=== PATIENT | female | born 1960 | race Caucasian/White ===

== ENCOUNTER 2020-02-24 10:51 | Outpatient (CLI) | payer MEDICARE, MEDICAID, SELFPAY ==
--- NOTE | ~2020-02-24 | CT_ITS ---
EXAMINATION: CT abdomen wo con DATE: 02/24/2020 11:16 INDICATION: Hernia. Exposure to viral communicable disease TECHNIQUE: Computed tomography (CT) of the abdomen was performed without intravenous contrast. Automa zuly exposure control and iterative reconstruction technique were employed. Exam dose: 1077.69 mGy-cm total exam DLP. COMPARISON: None. FINDINGS: There is an approximately 5.5 mm middle lobe nodule (series 4 image 1). Differential diagno sis includes pulmonary granuloma, hamartoma, primary or metastatic pulmonary malignancy. The lung bases are clear of consolidation. Mild cardiomegaly. Coronary artery calcifications. There is air in the intrahepatic and extrahepatic bile ducts. Status post cholecystectomy. No hepatic, splenic, pancreatic, and adrenal or renal space-occupying mass lesion is evident on this limited examination. There is postoperative change of the right kidney. No urinary tract calculus or hydroureteronephrosis. There is calcification of the abdominal aorta and aortic branches as well as the iliac arteries. Ther e is an aortobiiliac femoral vascular stent. No intraperitoneal or retroperitoneal mass lesion or adenopathy or ascites. There is a small sliding hiatal hernia. There is herniation of proximal right colon, appendix and small bowel through a large defect in the r ight lateral abdominal wall. No strangulation or obstruction is evident. Diffuse idiopathic skeletal hyperostosis of the thoracic spine. Multilevel degenerative disease of th e lumbar spine. IMPRESSION: Large lateral right abdominal wall hernia containing cecum, appendix and distal small heide wel 5.5 mm middle lobe nodule; differential diagnosis includes benign and malignant processes. Recommend comparison with any prior available CT abdomen or pelvis examinations. If not available, six-month CT follow-up is recommended. Status post cholecystectomy, likely responsible for observed pneumobilia Small sliding hiatal hernia Reviewed, dictated and finalized at [facility]. Reviewed, dictated and finalized at location [facility]. RETAILER IMPRESSION: Large lateral right abdominal wall hernia containing cecum, append ix and distal small bowel 5.5 mm middle lobe nodule; differential diagnosis includes benign and malignant processes. Recommend comparison with any prior available CT abdomen or pelvis examinations. If not available, six-month CT follow-up is recommended. Status post cholecystectomy, likely responsible for observed pneumobilia Small sliding hiatal hernia
== END 2020-02-24 10:52 | disposition home or self-care (01) ==
PROVIDERS: PCP Internal Medicine Infectious Disease
DX: K43.9 Ventral hernia without obstruction or gangrene (principal); R91.1 Solitary pulmonary nodule; Z90.49 Acquired absence of other specified parts of digestive tract; K44.9 Diaphragmatic hernia without obstruction or gangrene
CPT/HCPCS: 74150

== ENCOUNTER 2020-11-17 09:22 | Emergency (ER) | payer MEDICARE, MEDICAID, SELFPAY ==
[2020-11-17 09:20] VITALS: BP 141/57; PULSE 90; RESP 20; TEMP 37.1; O2SAT 98
[2020-11-17 10:18] LABS: Basophils Percent Auto 0.2 % (0.2-1.2); Eosinophils Absolute Auto 0.1 K/mm3 (0-0.3); Eosinophils Percent Auto 0.8 % (0-4.4); Hematocrit 40.9 % (37.0-47.0); Immature Granulocyte Absolute 0.03 K/mm3 (0.00-0.031); Immature Granulocyte Percent A 0.3 % (0-0.5); Lymphocytes Absolute Auto 1.57 K/mm3 (0.9-3.2); Lymphocytes Percent Auto 16.6 % (18.3-44.2); Mean Corpuscular HGB Conc 31.8 g/dl (32-36); Mean Corpuscular Hemoglobin 30.3 pg (26-34); Mean Corpuscular Volume 95.3 fl (80-100); Mean Platelet Volume 9.9 fl (7.4-10.4); Monocytes Absolute Auto 0.6 K/mm3 (0.1-0.6); Monocytes Percent Auto 6.6 % (2.6-8.5); Neutrophils Absolute Auto 7.2 K/mm3 (1.3-6.7); Neutrophils Percent Auto 75.5 % (45.5-73.1); Platelet Count Result 329 k/mm3 (150-375); Red Blood Count 4.29 M/mm3 (4.2-5.4); Red Cell Distribution Width 14.6 % (11.5-14.5); White Blood Count 9.5 K/mm3 (4.5-10.0)
[2020-11-17 10:30] LABS: Prothrombin Time 53.7 Seconds (11.1-14.7)
[2020-11-17 10:36] LABS: INR 6.4
[2020-11-17 10:54] VITALS: BP 115/59; PULSE 71; RESP 19; O2SAT 94
[2020-11-17 12:08] LABS: Anion Gap 8 mmol/L (8-16); Blood Urea Nitrogen 22 mg/dL (7-17); Calcium 8.8 mg/dL (8.4-10.2); Carbon Dioxide 31 mmol/L (22-30); Chloride 98 mmol/L (98-107); Estimated CRCL calculation 90 ml/min; Estimated Glomerular Filt Rate > 60; Glucose 180 mg/dL (65-110); Potassium 4.5 mmol/L (3.4-5.0); Sodium 137 mmol/L (137-145)
--- NOTE | 2020-11-17 13:28 | ED.WOUNDLAC ---
HPI - Wound/Laceration General Chief Complaint: Wound/Laceration Stated Complaint: bleeding ulcer on leg Time Seen by Provider: 11/17/20 09:34 History of Present Illness HPI narrative: Patient is a 60-year-old female who presents to the ER with bleeding from an ulceration on her right leg. Patient has chronic ulcerations to her lower extremities and sees a wound care center at at bedtime at bedtime weekly. She was unable to make her wound care appointment today and due to the bleeding she was referred here from her shelter. Patient does take Coumadin. She denies any injury or trauma to her ulceration. No new fevers or chills or sweats. No new swelling to her legs. Related Data Home Medications Medication Instructions Recorded Confirmed Lactobacillus acidophilus 10 mg PO DAILY 01/30/19 11/24/19 PT/INR testing monitor #1 01/30/19 11/24/19 aspirin 81 mg tablet,delayed 81 mg PO DAILY 01/30/19 11/24/19 release bumetanide 2 mg tablet 2 mg PO DAILY 01/30/19 11/24/19 cetirizine 5 mg tablet 5 mg PO DAILY PRN 01/30/19 11/24/19 cholecalciferol (vitamin D3) 100 4,000 unit PO DAILY 01/30/19 11/24/19 mcg (4,000 unit) capsule divalproex 250 mg tablet,delayed 250 mg PO Q12H 01/30/19 11/24/19 release docusate sodium 100 mg capsule 100 mg PO DAILY 01/30/19 11/24/19 famotidine 20 mg tablet 20 mg PO DAILY 01/30/19 11/24/19 multivitamin 1 cap PO DAILY 01/30/19 11/24/19 rosuvastatin 40 mg tablet 40 mg PO DAILY 01/30/19 11/24/19 warfarin 1 mg tablet 1 mg PO QMWF 01/30/19 11/24/19 Allergies Allergy/AdvReac Type Severity Reaction Status Date / Time latex Allergy Mild Unknown Verified 11/19/19 15:03 Latex, Natural Rubber Allergy Mild Unknown Verified 11/19/19 15:03 Review of Systems Review of Systems: All systems reviewed & are unremarkable except as noted in HPI and below Constitutional: Constitutional: Denies chills, Denies fever(s) and Denies weakness Cardiovascular: Cardiovascular: Denies chest pain and Denies rapid heart rate Respiratory: Respiratory: Denies cough, Denies dyspnea and Denies wheezing Gastrointestinal: Gastrointestinal: Denies abdominal pain, Denies diarrhea, Denies nausea and Denies vomiting Integumentary/Breasts: Skin/Breast: Denies erythema, Denies rash and Reports skin ulcer (Bleeding) [facility] Past Medical History Medical History (Updated 11/17/20 @ 13:57 by Genaro Goins MD) GERD (gastroesophageal reflux disease) High cholesterol History of blood clots History of kidney cancer History of kidney stones Hx of gallstones removal Family History Family History Father Throat cancer Mother Heart disease Social History Social History Smoking status: Current every day smoker Alcohol intake: never Exam Narrative: GENERAL: Chronically ill appearing, obese, and in no acute distress. HEAD: Normocephalic, atraumatic. Scabs to the face that are dried. ENT: Mucous membranes moist. CHEST: Clear to auscultation. No respiratory distress. HEART: Regular rate and rhythm. Normal peripheral pulses. ABDOMEN: Soft, nontender, nondistended. EXTREMITIES: Normal range of motion. No edema. SKIN: Warm, dry, large ulceration right kilpatrick 9 by 7 cm with granulation tissue. No active bleeding. Left-sided small ulceration 2 x 2 cm. NEURO: Alert and oriented x3. PSYCH: Normal mood and affect. Course Course Emergency Course: Discussed case with patient's physician at the shelter Dr. Luna kay. He recommends that the blood thinners be held for 72 hours and then have a repeat INR performed. Patient will be discharged back to the shelter. Vital Signs Vital signs: Vital Signs Temperature 98.7 F 11/17/20 09:20 Pulse Rate 90 11/17/20 09:20 Respiratory Rate 20 11/17/20 09:20 Blood Pressure 141/57 H 11/17/20 09:20 Pulse Oximetry 98 11/17/20 09:20 Temperature 98.7 F
[2020-11-17] MEDS: ACETAMINOPHEN 325 MG TABLET 650 MG PO (14:11)
[2020-11-17 15:29] VITALS: BP 133/64; PULSE 88; RESP 16; TEMP 36.7; O2SAT 100
== END 2020-11-17 15:30 ==
PROVIDERS: Emergency Provider Emergency Medicine; PCP Internal Medicine Infectious Disease
DX: L97.819 Non-pressure chronic ulcer of other part of right lower leg with unspecified severity (principal); L97.929 Non-pressure chronic ulcer of unspecified part of left lower leg with unspecified severity; T45.515A Adverse effect of anticoagulants, initial encounter; K21.9 Gastro-esophageal reflux disease without esophagitis; E78.00 Pure hypercholesterolemia, unspecified; Z85.528 Personal history of other malignant neoplasm of kidney; Z87.442 Personal history of urinary calculi; F17.200 Nicotine dependence, unspecified, uncomplicated; Z79.01 Long term (current) use of anticoagulants; Z79.82 Long term (current) use of aspirin
CPT/HCPCS: 36415; 80048; 85025; 85610; 99283; A9270

== ENCOUNTER 2021-01-10 08:01 | Outpatient (CLI) | payer OTHER, SELFPAY ==
--- NOTE | ~2021-01-10 | US_ITS ---
EXAMINATION: US arterial ankle brachial ind DATE: 01/10/2021 09:19 INDICATION: Ulcerations at the bilateral lower limbs. Peripheral vascular disease risk factors of luis a betes, hypercholesterolemia and prior smoking. TECHNIQUE: Segmental pressures and plethysmographic and Doppler waveforms of the brachial and lower e xtremity arteries were obtained. COMPARISON: None. FINDINGS: Right and left brachial artery pressures of 142 mm Hg and 134 mm Hg, respectively, are concordant (no rmal difference <= 30 mmHg). The right ankle-brachial index (SALVADOR) is 0.68 (normal >= 0.9-1.0). The right great toe-brachial index (TBI) is 0.52 (normal >= 0.65). Arterial Doppler waveforms are biphasic with brisk systolic upstrokes at both the right posterior tibial and dorsalis pedis arteries. The left SALVADOR is 0.96. The left TBI is 0.62. Arterial Doppler waveforms are biphasic with brisk systol ic upstrokes of both the left dorsalis pedis and posterior tibial arteries. IMPRESSION: 1. Arterial occlusive disease to the bilateral lower limbs with moderately decreased right SALVADOR and TB I and borderline decreased left SALVADOR and TBI. Reviewed, dictated and finalized at location [facility]. 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 Arterial occlusive disease to the bilateral lower limbs with moderately decr eased right SALVADOR and TBI and borderline decreased left SALVADOR and TBI.
== END 2021-01-10 08:02 | disposition home or self-care (01) ==
LOC: ANHIMG 08:07
PROVIDERS: PCP Internal Medicine Infectious Disease; Visit Provider Internal Medicine
DX: S81.802A Unspecified open wound, left lower leg, initial encounter (principal); I70.203 Unspecified atherosclerosis of native arteries of extremities, bilateral legs
CPT/HCPCS: 93922

== ENCOUNTER 2021-03-17 18:55 | Emergency (ER) | payer OTHER, SELFPAY ==
--- NOTE | 2021-03-17 19:05 | PC.NURSE ---
Pt agitated, refusing to be triaged, states that we do not need to know her business.
--- NOTE | 2021-03-17 19:48 | PC.NURSE ---
Pt A&Ox4, denies pain or any need/want for medical attention. Pt states she just wants to go back to her facility. Reports she just got agitated earlier and is calm now. RN Attempting to call facility.
--- NOTE | 2021-03-17 19:56 | PC.NURSE ---
This RN spoke with Angeline pt's RN at [facility]. Explained that patient is oriented x 4 and does not want to be seen by a physician. 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
[2021-03-17 20:15] VITALS: BP 138/75; PULSE 80; RESP 18; TEMP 36.7; O2SAT 96
--- NOTE | 2021-03-18 04:59 | PC.NURSE ---
pt states that she was yelling at her facility because she did not want a room mate after returning from surgical procedure. pt denies thoughts of hurting others or herself.
[2021-03-18 05:04] VITALS: BP 185/80; PULSE 76; RESP 18; O2SAT 98
--- NOTE | 2021-03-18 05:16 | ED.GENADULT ---
HPI - General Adult General Chief complaint: Psychiatric Symptoms Stated complaint: VIOLENT THREATS AGAINST STAFF AND RESIDENTS Time Seen by Provider: 03/18/21 05:00 History of Present Illness HPI narrative: Patient is a 60-year-old female that presents the emergency department with chief complaint of aggressive actions toward staff of facility. Patient returned back to her facility and found that she had a roommate was arguing with staff today. Police were called and the patient was transported by EMS to our facility. Patient currently states she does not want to be here denies suicidal or homicidal ideation. Related Data Home Medications Medication Instructions Recorded Confirmed Lactobacillus acidophilus 10 mg PO DAILY 01/30/19 11/24/19 PT/INR testing monitor #1 01/30/19 11/24/19 aspirin 81 mg tablet,delayed 81 mg PO DAILY 01/30/19 11/24/19 release bumetanide 2 mg tablet 2 mg PO DAILY 01/30/19 11/24/19 cetirizine 5 mg tablet 5 mg PO DAILY PRN 01/30/19 11/24/19 cholecalciferol (vitamin D3) 100 4,000 unit PO DAILY 01/30/19 11/24/19 mcg (4,000 unit) capsule divalproex 250 mg tablet,delayed 250 mg PO Q12H 01/30/19 11/24/19 release docusate sodium 100 mg capsule 100 mg PO DAILY 01/30/19 11/24/19 famotidine 20 mg tablet 20 mg PO DAILY 01/30/19 11/24/19 multivitamin 1 cap PO DAILY 01/30/19 11/24/19 rosuvastatin 40 mg tablet 40 mg PO DAILY 01/30/19 11/24/19 warfarin 1 mg tablet 1 mg PO QMWF 01/30/19 11/24/19 Allergies Allergy/AdvReac Type Severity Reaction Status Date / Time latex Allergy Mild Unknown Verified 11/19/19 15:03 Latex, Natural Rubber Allergy Mild Unknown Verified 11/19/19 15:03 Review of Systems Review of Systems: A 10 system review of systems was completed on the patient and is negative except for what is stated in the HPI. Nursing and ancillary documentation was reviewed. [facility] Past Medical History Medical History GERD (gastroesophageal reflux disease) High cholesterol History of blood clots History of kidney cancer History of kidney stones Hx of gallstones removal Family History Family History Father Throat cancer Mother Heart disease Social History Social History Smoking status: Current every day smoker Alcohol intake: never Substance use type: does not use Exam Narrative: GENERAL: Well-appearing, well-nourished, and in no acute distress. HEAD: Normocephalic, atraumatic. EYES: PERRLA and EOMI. ENT: Nares clear, no rhinorrhea or epistaxis. Mucous membranes moist. NECK: Supple. CHEST: Clear to auscultation. No respiratory distress. HEART: Regular rate and rhythm. No murmur heard. Normal peripheral pulses. ABDOMEN: Soft, nontender, nondistended, normal active bowel sounds. EXTREMITIES: Normal range of motion. No edema. SKIN: Warm, dry, no rash. NEURO: No focal deficits. Alert and oriented x3. PSYCH: Normal mood and affect. Course Course Emergency Course: The patient stated that she did not want to be evaluated in the emergency department. The patient was asked whether she was suicidal or homicidal the patient denies both. The patient stated that she wished to return back to her facility and did not want to complete a medical screening exam the patient was alert and oriented able to answer all questions did not meet the criteria for emergent hold. Vital Signs Vital signs: Vital Signs Temperature 36.7 C 03/17/21 20:15 Pulse Rate 80 03/17/21 20:15 Respiratory Rate 18 03/17/21 20:15 Blood Pressure 138/75 03/17/21 20:15 Pulse Oximetry 96 03/17/21 20:15 Temperature 36.7 C 03/17/21 20:15 Pulse Rate 76 03/18/21 05:04 Respiratory Rate 18 03/18/21 05:04 Blood Pressure 185/80 H 03/18/21 05:04 Pulse Oximetry 98 03/18/21 05:04 Medical Decision Making Vi
--- NOTE | 2021-03-18 05:20 | PC.NURSE ---
called [facility] to request transport. ETA [id number]
--- NOTE | 2021-03-18 05:54 | PC.NURSE ---
pt has spoken with physician two times and multiple nursing staff. she continues to refuse to answer most questions. refuses medical work up. pt wishes to leave at this time. she is signing out AMA
--- NOTE | 2021-03-18 06:37 | PC.NURSE ---
[facility] here
== END 2021-03-18 06:46 | disposition left against medical advice (07) ==
PROVIDERS: Emergency Provider Emergency Medicine; PCP Internal Medicine Infectious Disease
DX: R45.6 Violent behavior (principal); K21.9 Gastro-esophageal reflux disease without esophagitis; E78.00 Pure hypercholesterolemia, unspecified; Z85.528 Personal history of other malignant neoplasm of kidney; Z87.442 Personal history of urinary calculi; F17.200 Nicotine dependence, unspecified, uncomplicated; Z79.82 Long term (current) use of aspirin; Z79.01 Long term (current) use of anticoagulants
CPT/HCPCS: 99284

== ENCOUNTER 2021-06-18 11:23 | Observation (INO) | payer OTHER, SELFPAY ==
--- NOTE | ~2021-06-18 | CT_ITS ---
EXAMINATION: CT abdomen pelvis w con DATE: 06/18/2021 13:12 INDICATION: Abdominal pain and vomiting TECHNIQUE: Computed tomography (CT) of the abdomen and pelvis was performed with 100 CC Omnipaque 350 intravenous contrast. Automated exposure control and iterative reconstruction technique were employe d. Exam dose: 1776.16 mGy-cm total exam DLP. COMPARISON: 02/24/2020 CT abdomen FINDINGS: The lung bases are clear of consolidation. Mild cardiomegaly. There is coronary artery calc ification. No pericardial or pleural effusion. There is diffuse hepatic steatosis. No hepatic space-occupying mass lesion is evident. There is pneumobilia, likely secondary to cholecystectomy. Normal splenic size. No pancreatic mass lesion, calcification or ductal dilatation. Normal morphology of the adrenal glands. Anterior lower pole right renal scarring. No renal mass lesion or urinary tract calculus or hydrouret eronephrosis. The urinary bladder is unremarkable. Status post hysterectomy. Abdominal aortic calcification no abdominal aortic aneurysm. There is a distal abdominal and bilatera l common iliac artery stent. No intraperitoneal or retroperitoneal or pelvic mass lesion or adenopathy or ascites. There is a right lateral abdominal wall hernia measuring up to 4.4 cm dimension, with herniated small bowel and right colon. There are small bowel air-fluid levels and dilated small bowel up to 3.8 cm diameter proximal to the herniation. Diffuse idiopathic skeletal hyperostosis of the thoracic spine. There is degenerative disc disease, moderately prominent degree of the lumbar area. IMPRESSION: Partial small bowel obstruction is suggested secondary to a large right lateral abdomina l wall hernia containing colon and small bowel Reviewed, dictated and finalized at [facility]. Reviewed, dictated and finalized at location A. IMPRESSION: Partial small bowel obstruction is suggested secondary to a large right lateral abdominal wall hernia containing colon and small bowel
--- NOTE | ~2021-06-18 | US_ITS ---
EXAMINATION: US venous doppler [facility] DATE: 06/19/2021 15:39 INDICATION: Lower limb edema. TECHNIQUE: Grayscale ultrasound images without and with compression and Doppler ultrasound images of the bilateral lower extremity veins were obtained. COMPARISON: None. FINDINGS: The visualized portions of right common femoral vein, profunda (deep) femoral vein, femoral vein, pop liteal vein, peroneal veins, posterior tibial veins, and greater saphenous vein outflow are patent. The visualized portions of left common femoral vein, profunda femoral vein, femoral vein, popliteal v ein, peroneal veins, posterior tibial veins, and greater saphenous vein outflow are patent. IMPRESSION: 1. No deep venous thrombosis. Reviewed, dictated and finalized at location B.
[2021-06-18 11:31] VITALS: BP 122/107; PULSE 100; RESP 18; TEMP 36.3; O2SAT 91
--- NOTE | 2021-06-18 11:55 | ED.NAVMDI ---
HPI - Nausea/Vomiting/Diarrhea General Chief complaint: Nausea/Vomiting/Diarrhea <Mildred Wei PA-C - Last Filed: 06/18/21 18:01> Stated complaint: emesis x 2 days <LING Fajardo Last Filed: 06/18/21 18:01> Time Seen by Provider: 06/18/21 11:44 <LING Fajardo Last Filed: 06/18/21 18:01> Source: patient and EMS <LING Fajardo Last Filed: 06/18/21 18:01> Mode of arrival: EMS <LING Fajardo Last Filed: 06/18/21 18:01> Limitations: other (Patient is not cooperative with history) <LING Fajardo Last Filed: 06/18/21 18:01> History of Present Illness HPI Narrative: This is a 60-year-old female that presents to the emergency department for nausea and vomiting. Ongoing over the last couple of days. Patient reports some abdominal discomfort. Otherwise does not really participate or answer any of my questions. <LING Fajardo Last Filed: 06/18/21 18:01> Related Data Home medications: Home Medications Medication Instructions Recorded Confirmed Lactobacillus acidophilus 10 mg PO DAILY 01/30/19 06/18/21 PT/INR testing monitor #1 01/30/19 11/24/19 aspirin 81 mg tablet,delayed 81 mg PO DAILY 01/30/19 06/18/21 release cholecalciferol (vitamin D3) 100 25 mcg PO DAILY 01/30/19 06/18/21 mcg (4,000 unit) capsule divalproex 250 mg tablet,delayed 250 mg PO HS 01/30/19 06/18/21 release docusate sodium 100 mg capsule 100 mg PO DAILY 01/30/19 06/18/21 multivitamin 1 cap PO DAILY 01/30/19 06/18/21 acetaminophen [Tylenol] 650 mg PO PRN PRN 06/18/21 06/18/21 apixaban [Eliquis] 5 mg PO BID 06/18/21 06/18/21 arginine-vitamin C-vitamin E 9.2 g PO BID 06/18/21 06/18/21 [Arginaid] aripiprazole 10 mg PO DAILY 06/18/21 06/18/21 ascorbic acid (vitamin C) 250 mg PO DAILY 06/18/21 06/18/21 atorvastatin 10 mg PO DAILY 06/18/21 06/18/21 furosemide 40 mg PO DAILY 06/18/21 06/18/21 gabapentin 300 mg PO TID 06/18/21 06/18/21 hydrocodone-acetaminophen 1 tablet PO Q4H 06/18/21 06/18/21 ketoconazole applic TOPICAL 06/18/21 levothyroxine 88 mcg PO DAILY 06/18/21 06/18/21 metformin 500 mg PO BID 06/18/21 06/18/21 mupirocin TOPICAL 06/18/21 olanzapine 5 mg PO BID 06/18/21 06/18/21 polyethylene glycol 3350 17 g PO DAILY 06/18/21 06/18/21 potassium chloride 20 meq PO DAILY 06/18/21 06/18/21 spironolactone 25 mg PO DAILY 06/18/21 06/18/21 <Mildred Wei PA-C - Last Filed: 06/18/21 18:01> Allergies/Adverse reactions: Allergies Allergy/AdvReac Type Severity Reaction Status Date / Time latex Allergy Mild Unknown Verified 11/19/19 15:03 Latex, Natural Rubber Allergy Mild Unknown Verified 11/19/19 15:03 <Mildred Wei PA-C - Last Filed: 06/18/21 18:01> Review of Systems Review of Systems: CONSTITUTIONAL: Denies fever GASTROINTESTINAL: Reports abdominal pain, nausea, vomiting <Mildred Wei PA-C - Last Filed: 06/18/21 18:01> All systems reviewed & are unremarkable except as noted in HPI and below <Mildred Wei PA-C - Last Filed: 06/18/21 18:01> [facility] Past Medical History Medical History: Medical History (Updated 06/18/21 @ 22:37 by Mary Vale PA-C) Bipolar disorder Cancer of kidney Chronic anticoagulation Cognitive decline Deep venous thrombosis Gastroesophageal reflux disease Hypercholesterolemia Hypothyroidism Kidney stones Morbid obesity Peripheral vascular disease Type 2 diabetes mellitus <Mildred Wei PA-C - Last Filed: 06/18/21 18:01> Surgical History Surgical History: Surgical History (Updated 06/18/21 @ 22:31 by Mary Vale PA-C) History of cholecystectomy History of hysterectomy History of vascular surgery Bilateral common iliac stents. <Mildred Wei PA-C - Last Filed: 06/18/21 18:01> Family History Family History: Family History Father Throat cancer Mother Heart disease <Mildred Eldridge
[2021-06-18] MEDS: FAMOTIDINE 20 MG/2 ML VIAL IV PUSH (12:17)
[2021-06-18 12:18] LABS: Basophils Percent Auto 0.1 % (0.2-1.2); Eosinophils Percent Auto 0.1 % (0-4.4); Hemoglobin 13.1 g/dL (12.0-15.0); Immature Granulocyte Absolute 0.05 K/mm3 (0.00-0.031); Immature Granulocyte Percent A 0.3 % (0-0.5); Lymphocytes Percent Auto 12.2 % (18.3-44.2); Mean Corpuscular Hemoglobin 28.2 pg (26-34); Mean Corpuscular Volume 88.4 fl (80-100); Mean Platelet Volume 9.5 fl (7.4-10.4); Monocytes Percent Auto 7.1 % (2.6-8.5); Neutrophils Absolute Auto 11.8 K/mm3 (1.3-6.7); Neutrophils Percent Auto 80.2 % (45.5-73.1); Platelet Count Result 381 k/mm3 (150-375); Red Blood Count 4.64 M/mm3 (4.2-5.4); Red Cell Distribution Width 16.5 % (11.5-14.5); White Blood Count 14.7 K/mm3 (4.5-10.0)
[2021-06-18] MEDS: ONDANSETRON INJ 4 MG/2 ML VIAL IV PUSH (12:18)
[2021-06-18 12:30] LABS: Alanine Aminotransferase 16 U/L (4-35); Albumin Level 3.9 g/dL (3.5-5.1); Alkaline Phosphatase 74 U/L (38-126); Anion Gap 5 mmol/L (8-16); Aspartate Amino Transferase 25 U/L (14-36); Bilirubin,Total 0.4 mg/dL (0.2-1.3); Blood Urea Nitrogen 24 mg/dL (7-17); Calcium 8.9 mg/dL (8.4-10.2); Carbon Dioxide 32 mmol/L (22-30); Chloride 100 mmol/L (98-107); Estimated CRCL calculation 99 ml/min; Estimated Glomerular Filt Rate > 60; Glucose 162 mg/dL (65-110); Lipase 14 U/L (23-300); Sodium 137 mmol/L (137-145)
[2021-06-18 12:31] LABS: Add Urine Microscopic? YES; Appearance Urine Clear (Clear); Bilirubin Urine Negative (Negative); Blood Urine Negative (Negative); Color Urine Yellow (Yellow); Glucose Urine UA Negative (Negative); Ketones Urine Trace mg/dL (Negative); Leukocyte Esterase Ur Negative LEU/UL (Negative); Mucus Urine Few /lpf; Nitrate Urine Negative (Negative); Protein Urine Negative (Negative); Squamous Epithelial Cell Urine Occasional /hpf (Few); WBC Urine 0-3 /hpf
[2021-06-18 12:33] LABS: INR 1.2; Prothrombin Time 14.8 Seconds (11.1-14.7)
[2021-06-18 12:34] LABS: Partial Thromboplastin Time 29.1 SECONDS (22.3-36.8)
[2021-06-18 12:41] LABS: Specific Grav Ur 1.032 (1.001-1.035)
[2021-06-18 15:14] VITALS: BP 174/97; PULSE 76; RESP 18; O2SAT 100
--- NOTE | 2021-06-18 16:18 | PC.NURSE ---
This RN called to give report. Was told by JOSIE Johnson that they will have to call me back
--- NOTE | 2021-06-18 16:39 | ADMGEN ---
This patient, Rafia Spencer, was admitted to 3 Med Surg Room 324-01 at 1640. Patient/family oriented to hospital policies and general routines including ID bracelet, bed and alarms, visiting hours, pain management, procedures, bathroom and other care routines, personal items, smoking policy, room service/diet, and visiting hours. Information on how to activate the Rapid Response Team has been discussed. Patient/Family are encouraged to report perceived risks to care and to ask questions if they do not understand what they are told or what they should do.
[2021-06-18 16:44] VITALS: BMI 41.1
[2021-06-18 17:00] LABS: Glucose Point of Care 147 mg/dl (65-105)
[2021-06-18 17:03] VITALS: BP 150/82; PULSE 93; RESP 20; TEMP 36.6; O2SAT 89
--- NOTE | 2021-06-18 18:30 | PM.IMHP ---
H&P: HPI History of Present Illness Date/Time: 06/18/21 18:30 Chief Complaint: Nausea and vomiting. Narrative: This is a 60-year-old female with bipolar disorder, cognitive deficits, diabetes, hypertension, peripheral vascular disease, and other comorbidities who presented to the emergency department via EMS from [place] for evaluation nausea and vomiting. At the time my evaluation she is not cooperative and is yelling profanities at staff. She told me to get away from her and I was not allowed to examine her fully. She did not give me much in the way of history aside from the fact that she has had nausea and vomiting with some vague abdominal discomfort the past day or so. She answered no other questions and she is centrally followed no commands. A CT of the abdomen and pelvis which showed a partial small-bowel obstruction secondary to large right lateral abdominal wall hernia containing colon and small bowel and she is being admitted in this setting. She has not had further episodes of emesis since arrival to the ER and she declines NG tube placement at this time. Review of Systems Review of Systems: Unable to obtain given lack of cooperation from the patient. [facility] Past Medical History Medical History (Updated 06/18/21 @ 22:37 by Mary Vale PA-C) Bipolar disorder Cancer of kidney Chronic anticoagulation Cognitive decline Deep venous thrombosis Gastroesophageal reflux disease Hypercholesterolemia Hypothyroidism Kidney stones Morbid obesity Peripheral vascular disease Type 2 diabetes mellitus Surgical History Surgical History (Updated 06/18/21 @ 22:31 by Mary Vale PA-C) History of cholecystectomy History of hysterectomy History of vascular surgery Bilateral common iliac stents. Family History Family History Father Throat cancer Mother Heart disease Social History Social History (Updated 06/18/21 @ 22:32 by Mary Vale PA-C) Social History: [id number]: Pete Posada. Code status: Full code. Smoking status: Former smoker Tobacco type: cigars Second hand tobacco smoke exposure: No Alcohol intake: never Substance use: never Substance use type: does not use Additional living arrangements comments: Currently at [place]. Additional occupation/education comments: Disabled. Spiritual care concerns: No Meds Home Medications and Allergies Home Medications Medication Instructions Recorded Confirmed Type Lactobacillus acidophilus 10 mg PO DAILY 01/30/19 06/18/21 History PT/INR testing monitor #1 01/30/19 11/24/19 History aspirin 81 mg tablet,delayed 81 mg PO DAILY 01/30/19 06/18/21 History release cholecalciferol (vitamin D3) 100 25 mcg PO DAILY 01/30/19 06/18/21 History mcg (4,000 unit) capsule divalproex 250 mg tablet,delayed 250 mg PO HS 01/30/19 06/18/21 History release docusate sodium 100 mg capsule 100 mg PO DAILY 01/30/19 06/18/21 History multivitamin 1 cap PO DAILY 01/30/19 06/18/21 History acetaminophen [Tylenol] 650 mg PO PRN PRN 06/18/21 06/18/21 History apixaban [Eliquis] 5 mg PO BID 06/18/21 06/18/21 History arginine-vitamin C-vitamin E 9.2 g PO BID 06/18/21 06/18/21 History [Arginaid] aripiprazole 10 mg PO DAILY 06/18/21 06/18/21 History ascorbic acid (vitamin C) 250 mg PO DAILY 06/18/21 06/18/21 History atorvastatin 10 mg PO DAILY 06/18/21 06/18/21 History furosemide 40 mg PO DAILY 06/18/21 06/18/21 History gabapentin 300 mg PO TID 06/18/21 06/18/21 History hydrocodone-acetaminophen 1 tablet PO Q4H 06/18/21 06/18/21 History ketoconazole applic TOPICAL 06/18/21 History levothyroxine 88 mcg PO DAILY 06/18/21 06/18/21 History metformin 500 mg PO BID 06/18/21 06/18/21 History mupirocin TOPICAL 06/18/21 History olanzapine 5 mg PO BID 06/18/21 06/18/21 History polyethylene glycol 3350 17 g PO DAILY 06/18/21 06/18/21 History potassium chloride 20 meq PO DAILY 06/18/21
[2021-06-18 19:59] VITALS: O2SAT 86
--- NOTE | 2021-06-18 20:19 | PC.NURSE ---
06/18/212018 pt uncooperative refused to allow staff to check blood sugar.
[2021-06-18 20:54] LABS: Glucose Point of Care 146 mg/dl (65-105)
[2021-06-18 21:35] VITALS: BP 136/59; PULSE 91; RESP 16; TEMP 37.5; O2SAT 92
[2021-06-18] MEDS: SODIUM CHLORIDE 0.9% IV 1,000 ML 100 ML IV CONT (23:41)
[2021-06-19] MEDS: LEVOTHYROXINE SODIUM INJ 100 MCG/5 ML VIAL 44 MCG IV PUSH (05:38)
[2021-06-19 06:00] VITALS: BP 137/90; PULSE 84; RESP 18; TEMP 36.4; O2SAT 94
--- NOTE | 2021-06-19 06:05 | PC.NURSE ---
06/19/21 0605 pt uncooperative during the night yelling profanities at staff. refusing care. pt incontinent of bowel and bladder. no c/o nausea/emesis.pt had several dark brown incontinent stools during the night. pt turns self but when asked to assist pt cannot turn. pt npo. bishop lower extremities edematous w/blisters wrapped in gauze.
[2021-06-19 06:21] LABS: Hematocrit 42.2 % (37.0-47.0); Hemoglobin 12.4 g/dL (12.0-15.0); Mean Corpuscular HGB Conc 29.4 g/dl (32-36); Mean Corpuscular Hemoglobin 27.8 pg (26-34); Mean Corpuscular Volume 94.6 fl (80-100); Mean Platelet Volume 9.5 fl (7.4-10.4); Platelet Count Result 327 k/mm3 (150-375); Red Blood Count 4.46 M/mm3 (4.2-5.4); Red Cell Distribution Width 16.6 % (11.5-14.5); White Blood Count 10.2 K/mm3 (4.5-10.0)
[2021-06-19 06:32] LABS: Alanine Aminotransferase 15 U/L (4-35); Albumin Level 3.4 g/dL (3.5-5.1); Alkaline Phosphatase 67 U/L (38-126); Anion Gap 3 mmol/L (8-16); Aspartate Amino Transferase 25 U/L (14-36); Bilirubin,Total 0.4 mg/dL (0.2-1.3); Blood Urea Nitrogen 21 mg/dL (7-17); Calcium 8.2 mg/dL (8.4-10.2); Carbon Dioxide 31 mmol/L (22-30); Chloride 104 mmol/L (98-107); Estimated CRCL calculation 100 ml/min; Estimated Glomerular Filt Rate > 60; Glucose 133 mg/dL (65-110); Potassium 3.9 mmol/L (3.4-5.0); Sodium 138 mmol/L (137-145)
[2021-06-19 06:43] LABS: Hemoglobin A1C 6.5 % (<5.7)
[2021-06-19 07:26] LABS: Glucose Point of Care 128 mg/dl (65-105)
[2021-06-19] MEDS: ENOXAPARIN 40 MG/0.4 ML SYRINGE SUB-Q (08:00)
--- NOTE | 2021-06-19 10:33 | PM.CNGS ---
Assessment and Plan Assessment and plan (1) Incarcerated incisional hernia: Code(s): K43.0 - Incisional hernia with obstruction, without gangrene Status: Acute Assessment and Plan: Large RLQ incisional hernia that contains small bowel and colon. This is a chronic issue for the patient and has gradually enlarged and may likely become more symptomatic. She holds multiple comorbidities that increases her risks for surgery, which have been discussed in detail. Clinically, there is no evidence of strangulation or an obstruction. Therefore, there is no indication for urgent surgical intervention. We would recommend to try advancing her diet. If she is able to be discharged, then this would allow her time to work on weight loss and smoking cessation prior to proceeding with surgical repair. She is certainly at risk of bowel obstruction and strangulation if the hernia is not repaired. It would be ideal to be able to medically optimize her for surgery and do this electively if possible. Will allow clear liquids and slowly advance her diet as tolerated. Will continue to follow along. Thank you for allowing us to see the patient in consultation. (2) Partial small bowel obstruction: Code(s): K56.600 - Partial intestinal obstruction, unspecified as to cause Status: Acute Assessment and Plan: CT reviewed and suggests possible partial small bowel obstruction secondary to the large ventral hernia. The hernia is not easily reducible, but soft and nontender. Her bowels are moving and her abdominal exam is benign. This appears to have resolved. Will try advancing her diet and see how she tolerates this. Will continue to follow. (3) Obesity, morbid, BMI 40.0-49.9: Code(s): E66.01 - Morbid (severe) obesity due to excess calories Status: Acute Assessment and Plan: Increases risks with surgery. Encouraged diet and lifestyle modifications to promote weight loss. F/u with PCP for further management. (4) Chronic anticoagulation: Code(s): Z79.01 - nursing home (current) use of anticoagulants Status: Acute Assessment and Plan: Okay to resume anticoagulation once tolerating her diet. Increases risks with surgery. (5) History of DVT (deep vein thrombosis): Code(s): Z86.718 - Personal history of other venous thrombosis and embolism Status: Acute (6) Tobacco abuse: Code(s): Z72.0 - Tobacco use Status: Acute Assessment and Plan: Increases risks with surgery and recurrence. Discussed the importance of smoking cessation, which should be discussed further with PCP. (7) Bipolar disorder: Code(s): F31.9 - Bipolar disorder, unspecified Status: Acute (8) Type 2 diabetes mellitus: Code(s): E11.9 - Type 2 diabetes mellitus without complications Status: Acute Assessment and Plan: Increases risks with surgery. (9) Peripheral vascular disease: Code(s): I73.9 - Peripheral vascular disease, unspecified Status: Acute Additional Plan I have discussed the patient's case and plan of care with Dr. Coon. History of Present Illness Consult details Consult date: 06/19/21 Reason for consult: other (Partial small-bowel obstruction) Requesting physician: Mildred Wei PA-C Narrative: This is a 60-year-old female with bipolar disorder, cognitive deficits, diabetes, hypertension, peripheral vascular disease, on chronic anticoagulation, and other comorbidities, who presented to the ER from [facility] for evaluation of nausea and vomiting. She reports having vomiting for about 2 days prior to arrival. She denies any diarrhea or abdominal pain. She reports knowing she has right lower quadrant ventral hernia that has been present for years. In the ER, CT scan of the abdomen and pelvis showed a partial small bowel obstruction secondary to a large right lateral abdominal wall hernia containing colon and small bowel. She was admitted to the hospital
[2021-06-19 12:15] LABS: Glucose Point of Care 135 mg/dl (65-105)
[2021-06-19] MEDS: SILVERGEL (ELTA) 45 ML 1 APPLIC TOPICAL (12:24)
--- NOTE | 2021-06-19 13:16 | PM.IMPN ---
Progress Note: A&P Assessment and Plan (1) Partial small bowel obstruction: Code(s): K56.600 - Partial intestinal obstruction, unspecified as to cause Status: Acute Assessment and Plan: Patient presents with nausea and vomiting. CT scan shows partial small-bowel obstruction secondary to large right lateral abdominal wall hernia containing colon and small bowel. Patient refused the NG tube. She is now having bowel movements. Abdominal exam is benign. Suspect probably a transient obstruction. General surgery has been consulted. The patient's symptoms have resolved. Appreciate their input. She has been started on a clear liquid diet. Advance diet as tolerated. (2) Nausea & vomiting: Code(s): R11.2 - Nausea with vomiting, unspecified Status: Acute Assessment and Plan: Related to above. Symptoms have resolved. (3) Uncooperative behavior: Code(s): R46.89 - Other symptoms and signs involving appearance and behavior Status: Acute Assessment and Plan: Documented here and on previous visits. Likely due to underlying cognitive decline and psychiatric illness. Curently, she is pleasant and cooperative. Will resume some home medications to hopefully maintain a pleasant disposition. (4) Type 2 diabetes mellitus: Code(s): E11.9 - Type 2 diabetes mellitus without complications Status: Acute Assessment and Plan: A1c 6.5. The patient's blood glucose was reviewed on 06/19 Glucose remains well controlled. Metformin on hold. Continue AccuCheks covering with sliding scale. Hypoglycemia protocol available as needed. Continue current medications. (5) Chronic anticoagulation: Code(s): Z79.01 - care home (current) use of anticoagulants Status: Acute Assessment and Plan: Patient on chronic anticoagulation reportedly due to history of DVT. It appears she has been on Eliquis as far back as 12/2020. Lower extremity venous Doppler ultrasound ordered and is pending. Continue to hold Elquis for now. (6) Hypothyroidism: Code(s): E03.9 - Hypothyroidism, unspecified Status: Acute Assessment and Plan: TSH normal. Change to oral Synthroid. (7) Tobacco abuse: Code(s): Z72.0 - Tobacco use Status: Acute Assessment and Plan: Patient educated about the benefits of smoking cessation. (8) History of DVT (deep vein thrombosis): Code(s): Z86.718 - Personal history of other venous thrombosis and embolism Status: Acute Assessment and Plan: Lovenox prophylaxis for now until Eliquis can be resumed. Follow up on Doppler. Subjective Date/time seen: 06/19/21 13:16 Interval history: 60yo female with bipolar disorder, HTN and PAD here for nausea/vomiting and found to have partial SBO. Assuming care. Chart reviewed. Patient having bowel movements now. She feels better overall. No nausea or vomiting. No chest pain or shortness of breath. She is tolerating her clear liquid diet. Denies abdominal pain. Exam Narrative: AF 97.5 137/90 84 18 94% Gen - NARD Chest -lungs clear anteriorly in the flanks. CV - RRR S1/S2 Abd -soft. Obese. Nontender. Positive bowel sounds. Right sided abd hernia noted. Ext - No pedal edema. Bilateral kilpatrick dressings were clean, dry and intact Psych - Nml mood and affect. She was alert, pleasant and cooperative. Skin - Warm and dry Objective Data Vital Signs Vital Signs: Vital Signs - 24 hr 06/18/21 15:14 06/18/21 17:03 06/18/21 19:59 Temperature 97.9 F Pulse Rate 76 93 Respiratory Rate 18 20 Blood Pressure 174/97 H 150/82 H Pulse Oximetry 100 89 L 86 L 06/18/21 21:35 06/19/21 06:00 Temperature 99.5 F 97.5 F L Pulse Rate 91 84 Respiratory Rate 16 18 Blood Pressure 136/59 L 137/90 Pulse Oximetry 92 94 Intake/Output Intake/Output: Intake & Output 06/16/21 06/17/21 06/18/21 06/19/21 23:59 23:59 23:59 23:59 Intake
[2021-06-19 14:00] VITALS: BP 129/76; PULSE 90; RESP 20; TEMP 37.1; O2SAT 96
[2021-06-19 16:16] LABS: Glucose Point of Care 146 mg/dl (65-105)
[2021-06-19] MEDS: GABAPENTIN 300 MG CAPSULE PO (16:17)
[2021-06-19] MEDS: OLANZapine 5 MG TABLET PO (16:17)
[2021-06-19] MEDS: ARIPiprazole 10 MG TABLET PO (16:18)
[2021-06-19] MEDS: DIVALPROEX SODIUM DR 250 MG TABEC PO (20:03)
[2021-06-19 21:33] LABS: Glucose Point of Care 133 mg/dl (65-105)
[2021-06-19 21:56] VITALS: BP 135/64; PULSE 81; RESP 20; TEMP 36.9; O2SAT 91
[2021-06-19 23:51] VITALS: O2SAT 93
[2021-06-20] MEDS: LEVOTHYROXINE SODIUM 88 MCG TABLET PO (05:02)
[2021-06-20 05:44] VITALS: BP 146/60; PULSE 82; RESP 20; TEMP 36.7; O2SAT 96
[2021-06-20] MEDS: HYDROcodone/acetaminophen (*CRX) 7.5-325 MG TABLET 1 TAB PO (06:28)
[2021-06-20 08:09] LABS: Glucose Point of Care 131 mg/dl (65-105)
[2021-06-20] MEDS: OLANZapine 5 MG TABLET PO ×2 (08:10→17:16)
[2021-06-20] MEDS: ENOXAPARIN 40 MG/0.4 ML SYRINGE SUB-Q (08:10)
[2021-06-20] MEDS: ARIPiprazole 10 MG TABLET PO (08:10)
[2021-06-20] MEDS: GABAPENTIN 300 MG CAPSULE PO ×3 (08:10→17:15)
[2021-06-20] MEDS: SILVERGEL (ELTA) 45 ML 1 APPLIC TOPICAL (08:11)
[2021-06-20 08:44] LABS: Anion Gap 4 mmol/L (8-16); Blood Urea Nitrogen 16 mg/dL (7-17); Calcium 8.5 mg/dL (8.4-10.2); Carbon Dioxide 28 mmol/L (22-30); Chloride 107 mmol/L (98-107); Estimated CRCL calculation 100 ml/min; Estimated Glomerular Filt Rate > 60; Glucose 129 mg/dL (65-110); Potassium 3.8 mmol/L (3.4-5.0); Sodium 139 mmol/L (137-145)
--- NOTE | 2021-06-20 11:10 | PM.PNGS ---
Progress Note: A&P Assessment and Plan (1) Incarcerated incisional hernia: Code(s): K43.0 - Incisional hernia with obstruction, without gangrene Status: Acute Assessment and Plan: Patient at risk for bowel obstruction and strangulation if hernia is not repaired, but would prefer to have her medically optimized prior to proceeding with surgery. Continue to advance diet as tolerated. Instructed patient to quit smoking and work on weight loss prior to surgery. Will have patient follow-up with Dr. Coon in the office to schedule this electively. (2) Partial small bowel obstruction: Code(s): K56.600 - Partial intestinal obstruction, unspecified as to cause Status: Acute Assessment and Plan: Resolved. Bowels are moving. Abdominal exam benign. Advanced diet as tolerated. (3) Obesity, morbid, BMI 40.0-49.9: Code(s): E66.01 - Morbid (severe) obesity due to excess calories Status: Acute Assessment and Plan: Increases risks with surgery. Encouraged diet and lifestyle modifications to promote weight loss. F/u with PCP for further management. (4) Chronic anticoagulation: Code(s): Z79.01 - [facility] (current) use of anticoagulants Status: Acute Assessment and Plan: Okay to resume anticoagulation once tolerating her diet. (5) Tobacco abuse: Code(s): Z72.0 - Tobacco use Status: Acute Assessment and Plan: Increases risks with surgery and recurrence. Discussed the importance of smoking cessation, which should be discussed further with PCP. Patient agrees to try working on quitting. Additional Plan I have discussed the patient's case and plan of care with Dr. Coon. Subjective Subjective Date/Time Seen: 06/20/21 11:10 Patient reports: no new complaints, tolerating liquids well, flatus, bowel movement and afebrile Interval history: Patient seen and examined. She agreed to answer some questions and seemed less agitated today. She denies any abdominal pain, nausea, or vomiting. She has had multiple bowel movements in the last 24 hours. She had a bowel movement while I was examining her today. Tolerating clear liquids. Review of Systems Review of Systems: All systems reviewed & are unremarkable except as noted in HPI and below Exam Const: General: no acute distress and awake Nutritional Appearance: obese morbidly obese GI: Inspection: non-distended, Pannus present, obesity and visible herniation (RLQ) GI Palp: Yes Soft to palpation, No Tenderness to palpation present (GI), No Guarding due to palpation present (GI), Yes Hernia present (large RLQ incisional hernia, partially reducible, soft, nontender) and No Rebound tenderness present Auscultation: normal bowel sounds Skin: Other: Bilateral lower extremity dressings dry and intact, patient refused for me to remove the dressing and evaluate the wounds Neuro: General: moves all extremities and no focal motor deficits Psych: Insight: Fair insight present (Psych) and Limited insight present (Psych) Judgement: Limited judgement present (Psych) and Poor judgement present (Psych) Objective Data Vital Signs Vital Signs: Vital Signs - 24 hr 06/19/21 14:00 06/19/21 21:56 06/19/21 23:51 Temperature 98.7 F 98.4 F Pulse Rate 90 81 Respiratory Rate 20 20 Blood Pressure 129/76 135/64 Pulse Oximetry 96 91 93 06/20/21 05:44 Temperature 98.0 F Pulse Rate 82 Respiratory Rate 20 Blood Pressure 146/60 H Pulse Oximetry 96 Intake/Output Intake/Output: Intake & Output 06/17/21 06/18/21 06/19/21 06/20/21 23:59 23:59 23:59 23:59 Intake Total 100 558 680 Output Total 0 4 Balance 100 554 680 Meds/Results Medications: Active Medications Generic Name Dose Route Start Last Admin Trade Name Freq PRN Reason Stop Dose Admin Acetaminophen 650 mg 06/19/21 13:36 Acetaminophen 325 Mg Tablet PO PRN PRN Pain rated 1-3 Aripiprazole 10 mg 06/19/21 14:00 0
[2021-06-20 12:08] LABS: Glucose Point of Care 139 mg/dl (65-105)
[2021-06-20 14:00] VITALS: BP 123/61; PULSE 80; RESP 16; TEMP 36.3; O2SAT 94
--- NOTE | 2021-06-20 14:24 | PM.DS ---
DS: Admitting Diagnosis Discharge Date 06/20/21 Admitting Diagnosis Nausea and vomiting DS: Discharge Diagnosis Discharge Diagnosis (1) Incarcerated incisional hernia: Code(s): K43.0 - Incisional hernia with obstruction, without gangrene Status: Acute Assessment and Plan: Patient presents with nausea and vomiting. CT scan shows partial small-bowel obstruction secondary to large right lateral abdominal wall hernia containing colon and small bowel. Patient refused the NG tube. She was made NPO. She began to have bowel movements. Abdominal exam improved. Suspect probably a transient obstruction. General surgery was consulted and recommended surgical repair after she was optimized medically. She was started on a clear liquid diet and tolerated this well. Her diet was advanced which she tolerated as well. Plan for discharge and for patient to follow up with General Surgery who will arrange for surgical repair of the abdominal hernia. (2) Partial small bowel obstruction: Code(s): K56.600 - Partial intestinal obstruction, unspecified as to cause Status: Acute Assessment and Plan: Related to the incarcerated incisional hernia. As above. Partial small-bowel obstruction has resolved. (3) Nausea & vomiting: Code(s): R11.2 - Nausea with vomiting, unspecified Status: Acute Assessment and Plan: Related to above. Symptoms have resolved. (4) Uncooperative behavior: Code(s): R46.89 - Other symptoms and signs involving appearance and behavior Status: Acute Assessment and Plan: Documented here and on previous visits. Likely due to underlying cognitive dysfunction and psychiatric illness. She did become pleasant and cooperative. We did resume some of her home psychiatric medications. She maintained a pleasant disposition. (5) Bipolar disorder: Code(s): F31.9 - Bipolar disorder, unspecified Status: Acute Assessment and Plan: As above. We resumed her home medications once she was able to take clear liquids. (6) Type 2 diabetes mellitus: Code(s): E11.9 - Type 2 diabetes mellitus without complications Status: Acute Assessment and Plan: A1c 6.5. The patient's blood glucose was monitored with AccuCheks covering with sliding scale. Hypoglycemia protocol was available as needed. (7) Chronic anticoagulation: Code(s): Z79.01 - [facility] (current) use of anticoagulants Status: Acute Assessment and Plan: Patient is on chronic anticoagulation reportedly due to history of DVT. It appears she has been on Eliquis as far back as 12/2020. Lower extremity venous Doppler ultrasound was negative for DVT. Resume Eliquis at discharge (8) Hypothyroidism: Code(s): E03.9 - Hypothyroidism, unspecified Status: Acute Assessment and Plan: TSH was normal. We continued her levothyroxine. (9) Tobacco abuse: Code(s): Z72.0 - Tobacco use Status: Acute Assessment and Plan: Patient was educated about the benefits of smoking cessation. (10) Obesity, morbid, BMI 40.0-49.9: Code(s): E66.01 - Morbid (severe) obesity due to excess calories Status: Acute Assessment and Plan: Healthy lifestyle choices were discussed. DS: Summary Hospital Course Reason for hospitalization: 60yo female with bipolar disorder, HTN and PAD here for nausea/vomiting and found to have partial SBO. Please see H&P for details Hospital Course: Please see above for details of hospital course. Status at Discharge Cognitive/behavioral status at discharge: Stable Time Spent with Patient Time attestation: Total time spent providing and/or coordinating discharge services: 32 minutes Time spent: Greater than 30 minutes Exam Narrative: AF 98.0 146/60 82 20 96% Gen - NARD Chest -lungs clear anteriorly CV - RRR S1/S2 Abd -soft. Obese. Nontender. Positive heide
[2021-06-20 15:24] LABS: EDCOVIDSCREEN Negative (Negative)
[2021-06-20 16:38] LABS: Glucose Point of Care 124 mg/dl (65-105)
== END 2021-06-20 18:45 ==
LOC: ANHED 12:37 → ANH3MEDSUR 17:59
PROVIDERS: Physician Assistant; Admitting Provider Family Medicine; Emergency Provider Emergency Medicine; PCP Internal Medicine Infectious Disease; Visit Provider Internal Medicine
DX: K43.0 Incisional hernia with obstruction, without gangrene (principal); K56.600 Partial intestinal obstruction, unspecified as to cause; R11.2 Nausea with vomiting, unspecified; F31.9 Bipolar disorder, unspecified; E11.51 Type 2 diabetes mellitus with diabetic peripheral angiopathy without gangrene; I10 Essential (primary) hypertension; Z79.01 Long term (current) use of anticoagulants; Z86.718 Personal history of other venous thrombosis and embolism; E03.9 Hypothyroidism, unspecified; F17.210 Nicotine dependence, cigarettes, uncomplicated; E66.01 Morbid (severe) obesity due to excess calories; Z68.41 Body mass index [BMI] 40.0-44.9, adult
CPT/HCPCS: 36415; 51701; 74177; 80048; 80053; 81001; 82948; 83036; 83690; 83735; 84443; 85025; 85027; 85610; 85730; 87426; 93970; 96372; 96374; 96375; 96376; 99285; A9270; C9803; G0378; J0131; J1650; J2405; J7030; Q9967

== ENCOUNTER 2021-07-17 23:14 | Inpatient (IN) | payer OTHER, SELFPAY ==
--- NOTE | ~2021-07-17 | CT_ITS ---
EXAMINATION: CT abdomen pelvis wo con DATE: 07/18/2021 00:40 INDICATION: Abdominal pain. History of small bowel obstruction. TECHNIQUE: Computed tomography (CT) of the abdomen and pelvis was performed without intravenous contr ast. The dose-length product was 1647.39 mGy-cm. Automated exposure control and iterative reconstruct ion technique were employed. COMPARISON: CT dated 06/18/2021. FINDINGS: There are multiple dilated small bowel loops containing air-fluid levels throughout the abd omen with transition at a right lateral abdominal wall hernia containing small bowel loops. Right low er lobe airspace disease may represent atelectasis or developing pneumonia. Heart size normal. No sig nificant pleural or pericardial effusion. Status post cholecystectomy with pneumobilia. There is fatt y infiltration of the liver. The spleen, adrenal glands and kidneys are unremarkable. There is pancre atic atrophy. Moderate degenerative disc disease as present throughout the lumbar spine. There is mil d multilevel facet hypertrophy. There is a fat-containing umbilical hernia. Moderate osteoarthritis o f the hips. IMPRESSION: 1. Small bowel obstruction with transition in the right lateral abdominal wall hernia. No significant change from prior study allowing for technique. 2: Right lower lobe airspace disease may represent atelectasis or developing pneumonia. Reviewed, dictated and finalized at location A. IMPRESSION: 1. Small bowel obstruction with transition in the right lateral abdominal wall hernia. No significant change from prior study allowing for technique. 2: Right lower lobe airspace disease may represent atelectasis or developing pn eumonia.
--- NOTE | ~2021-07-17 | XR_ITS ---
XR abdomen NG/feed tube insert INDICATION: Evaluate NG tube position. TECHNIQUE: Limited KUB perform for evaluating NG tube . COMPARISON: No prior studies for comparison. FINDINGS: NG tube tip in the stomach. Visualized bowel gas pattern is unremarkable.There are healed/ healing left lower rib fractures. IMPRESSION: 1: NG tube tip in the stomach. Reviewed, dictated and finalized at location A.
[2021-07-17 23:26] VITALS: BP 159/84; PULSE 100; RESP 19; TEMP 37.4; O2SAT 94
[2021-07-17 23:29] VITALS: PULSE 101; RESP 22; O2SAT 96
[2021-07-17 23:31] VITALS: BP 166/80; PULSE 98; RESP 21; O2SAT 95
[2021-07-17 23:47] VITALS: PULSE 109; RESP 17
[2021-07-18] VITALS (20 sets, daily range): BP systolic 104–177; BP diastolic 65–90; PULSE 77–100; RESP 16–21; TEMP 36.4–36.9; O2SAT 90–99; BMI 41.9
--- NOTE | 2021-07-18 00:09 | PC.NURSE ---
Stool guiac negative per Dr. Paz. Pt incontinent of large amt of brown stool.
[2021-07-18] MEDS: SODIUM CHLORIDE 0.9% IV 500 ML 999 ML IV CONT (00:14)
[2021-07-18] MEDS: ONDANSETRON INJ 4 MG/2 ML VIAL IV PUSH ×2 (00:15→02:38)
--- NOTE | 2021-07-18 00:26 | PC.NURSE ---
Note pt sleeping soundly, pulse oximetry with good pleth consistently . o2 applied at 2L/nc.
--- NOTE | 2021-07-18 01:11 | PC.NURSE ---
This RN with assist x2 attempt to straight cath for urine both in supine position and left lateral recumbant without success. Pt also incontinent again of mod amt of smeary brown stool, not enough to collect sample for occult blood. Dr. Paz made aware. Note pt also has ulcer to right posterior medial thigh.
[2021-07-18 01:28] LABS: Basophils Percent Auto 0.2 % (0.2-1.2); Eosinophils Percent Auto 0.1 % (0-4.4); Hematocrit 41.5 % (37.0-47.0); Hemoglobin 12.9 g/dL (12.0-15.0); Immature Granulocyte Absolute 0.04 K/mm3 (0.00-0.031); Immature Granulocyte Percent A 0.3 % (0-0.5); Lymphocytes Absolute Auto 2.06 K/mm3 (0.9-3.2); Lymphocytes Percent Auto 15.6 % (18.3-44.2); Mean Corpuscular HGB Conc 31.1 g/dl (32-36); Mean Corpuscular Hemoglobin 28.3 pg (26-34); Mean Platelet Volume 9.4 fl (7.4-10.4); Monocytes Absolute Auto 1.2 K/mm3 (0.1-0.6); Neutrophils Absolute Auto 9.9 K/mm3 (1.3-6.7); Neutrophils Percent Auto 74.8 % (45.5-73.1); Platelet Count Result 333 k/mm3 (150-375); Red Blood Count 4.56 M/mm3 (4.2-5.4); Red Cell Distribution Width 16.4 % (11.5-14.5); White Blood Count 13.2 K/mm3 (4.5-10.0)
[2021-07-18 01:37] LABS: Alanine Aminotransferase 18 U/L (6-35); Albumin Level 3.7 g/dL (3.5-5.1); Alkaline Phosphatase 77 U/L (38-126); Anion Gap 3 mmol/L (8-16); Aspartate Amino Transferase 23 U/L (14-36); Bilirubin,Total 0.6 mg/dL (0.2-1.3); Blood Urea Nitrogen 26 mg/dL (7-17); Calcium 8.5 mg/dL (8.4-10.2); Carbon Dioxide 31 mmol/L (22-30); Chloride 102 mmol/L (98-107); Estimated Glomerular Filt Rate > 60; Glucose 167 mg/dL (65-110); Lipase 16 U/L (23-300); Potassium 3.9 mmol/L (3.4-5.0); Sodium 136 mmol/L (137-145)
[2021-07-18 01:46] LABS: INR 1.3; Prothrombin Time 15.3 Seconds (11.1-14.7)
--- NOTE | 2021-07-18 01:46 | ED.NAVMDI ---
HPI - Nausea/Vomiting/Diarrhea General Chief complaint: Nausea/Vomiting/Diarrhea Stated complaint: coffee ground emesis Time Seen by Provider: 07/17/21 23:37 Source: patient History of Present Illness HPI Narrative: Patient was referred for nausea vomiting and reports of coffee-ground emesis. Patient ports she was feeling sick to her stomach earlier she threw up and is now feeling much better. There was some association with abdominal pain however after emesis she is feeling improved. She did report an episode of diarrhea earlier today as well. She denies any fevers chest pain shortness of breath. The nursing staff that the emesis was initially yellow but then she had a repeat episode described as coffee-ground. Patient denies any urinary symptoms. Related Data Home Medications Medication Instructions Recorded Confirmed Lactobacillus acidophilus 10 mg PO DAILY 01/30/19 06/18/21 (Acidophilus) aspirin 81 mg tablet,delayed 81 mg PO DAILY 01/30/19 06/18/21 release (Aspir-) cholecalciferol (vitamin D3) 100 25 mcg PO DAILY 01/30/19 06/18/21 mcg (4,000 unit) capsule divalproex 250 mg tablet,delayed 250 mg PO HS 01/30/19 07/18/21 release (Depakote) docusate sodium 100 mg capsule 100 mg PO DAILY 01/30/19 06/18/21 (Colace) multivitamin 1 cap PO DAILY 01/30/19 06/18/21 acetaminophen 325 mg tablet 650 mg PO PRN PRN Pain 06/18/21 07/18/21 (Tylenol) apixaban 5 mg tablet (Eliquis) 5 mg PO BID 06/18/21 07/18/21 arginine-vitamin C-vitamin E oral 9.2 g PO BID 06/18/21 06/18/21 4.5 gram-156 mg/9.2 gram powder pkt (Arginaid) aripiprazole 10 mg tablet 10 mg PO DAILY 06/18/21 07/18/21 ascorbic acid (vitamin C) 250 mg 250 mg PO DAILY 06/18/21 07/18/21 tablet atorvastatin 10 mg tablet 10 mg PO DAILY 06/18/21 07/18/21 furosemide 40 mg tablet 40 mg PO DAILY 06/18/21 07/18/21 gabapentin 300 mg capsule 300 mg PO TID 06/18/21 07/18/21 ketoconazole 2 % topical cream applic topical 06/18/21 levothyroxine 88 mcg tablet 88 mcg PO DAILY 06/18/21 07/18/21 metformin 500 mg tablet 500 mg PO BID 06/18/21 07/18/21 mupirocin 2 % topical ointment topical 06/18/21 olanzapine 5 mg tablet 5 mg PO BID 06/18/21 07/18/21 polyethylene glycol 3350 17 gram 17 g PO DAILY 06/18/21 07/18/21 oral powder packet potassium chloride 20 mEq 20 meq PO DAILY 06/18/21 07/18/21 tablet,extended release(part/cryst) spironolactone 25 mg tablet 25 mg PO DAILY 06/18/21 07/18/21 miconazole nitrate 07/17/21 Allergies Allergy/AdvReac Type Severity Reaction Status Date / Time latex Allergy Mild Unknown Verified 07/17/21 23:38 Latex, Natural Rubber Allergy Mild Unknown Verified 11/19/19 15:03 Review of Systems Review of Systems: CONSTITUTIONAL: Denies fever, chills, or sweats. EYES: Denies visual changes, redness, or discharge. ENT: Denies rhinorrhea, congestion, sore throat, or otalgia. CARDIOVASCULAR: Denies chest pain, palpitations, or edema. RESPIRATORY: Denies cough or dyspnea. GASTROINTESTINAL: Abdominal pain with nausea and vomiting GENITOURINARY: Denies dysuria or hematuria. SKIN: Denies rash or itching. MUSCULOSKELETAL: Denies back pain, joint pain, or myalgia. NEUROLOGIC: Denies headache, numbness, dizziness, or weakness. PSYCHIATRIC: Denies anxiety or depression. All systems reviewed & are unremarkable except as noted in HPI and below PMFSH Past Medical History Medical History Bipolar disorder Cancer of kidney Chronic anticoagulation Cognitive decline Deep venous thrombosis Gastroesophageal reflux disease Hypercholesterolemia Hypothyroidism Kidney stones Morbid obesity Peripheral vascular disease Type 2 diabetes mellitus Surgical History Surgical History History of cholecystectomy History of hysterectomy History of vascular surgery Bilateral common iliac stents. Family History Family History (Reviewed 07/18/21 @ 01:49 b
[2021-07-18 01:47] LABS: Partial Thromboplastin Time 31.3 SECONDS (22.3-36.8)
[2021-07-18 03:09] LABS: Lactic Acid Reflex 1.3 mmol/L (0.7-2.0)
[2021-07-18] MEDS: SODIUM CHLORIDE 0.9% IV 1,000 ML 125 ML IV CONT ×2 (03:59→21:30)
--- NOTE | 2021-07-18 04:45 | ADMGEN ---
This patient, Rafia Spencer, was admitted to 3 Med Surg Room 300-01. Patient/family oriented to hospital policies and general routines including ID bracelet, bed and alarms, visiting hours, pain management, procedures, bathroom and other care routines, personal items, smoking policy, room service/diet, and visiting hours. Information on how to activate the Rapid Response Team has been discussed. Patient/Family are encouraged to report perceived risks to care and to ask questions if they do not understand what they are told or what they should do.
[2021-07-18 08:29] LABS: Glucose Point of Care 132 mg/dl (65-105)
--- NOTE | 2021-07-18 08:53 | PM.CNGS ---
Assessment and Plan Assessment and plan (1) Partial small bowel obstruction: Code(s): K56.600 - Partial intestinal obstruction, unspecified as to cause Status: Acute Assessment and Plan: Patient already showing signs of bowel obstruction improving. She has had 2 bowel movements since being admitted. Her hernia appears soft and bowel is able to be at least partially reduced. She remains at high risk for surgical intervention due to her comorbidities, but she has had multiple bowel obstructions now and is at risk for bowel strangulation due to the hernia. Continue to treat with NG decompression and await improvement in bowel function. If she is showing worsening signs, then she may require more urgent surgical intervention. (2) Incarcerated incisional hernia: Code(s): K43.0 - Incisional hernia with obstruction, without gangrene Status: Acute (3) Bipolar disorder: Code(s): F31.9 - Bipolar disorder, unspecified Status: Acute (4) Type 2 diabetes mellitus: Code(s): E11.9 - Type 2 diabetes mellitus without complications Status: Acute (5) Obesity, morbid, BMI 40.0-49.9: Code(s): E66.01 - Morbid (severe) obesity due to excess calories Status: Acute (6) Tobacco abuse: Code(s): Z72.0 - Tobacco use Status: Acute (7) Peripheral vascular disease: Code(s): I73.9 - Peripheral vascular disease, unspecified Status: Acute (8) Long-term (current) use of anticoagulants, INR goal 2.0-3.0: 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 She had reports coffee-ground emesis was therefore to the emergency department. She was having some mid abdominal pain. A CT was obtained in the emergency department and this showed evidence of a small-bowel obstruction with transition in the right lateral abdominal wall hernia showing no significant changes from her prior study. NG tube was placed and she was admitted for further treatment. Patient is a poor historian, therefore most of the history is obtained from the chart. She has a history of bipolar disorder, type 2 diabetes, peripheral vascular disease, tobacco use, and morbid obesity. She was just hospitalized on 06/18/2021 with a similar episode. Review of Systems Review of Systems: ROS unobtainable: Yes unobtainable due to medical condition and unobtainable due to mental status [facility] Past Medical History Medical History Bipolar disorder Cancer of kidney Chronic anticoagulation Cognitive decline Deep venous thrombosis Gastroesophageal reflux disease Hypercholesterolemia Hypothyroidism Kidney stones Morbid obesity Peripheral vascular disease Type 2 diabetes mellitus Surgical History Surgical History History of cholecystectomy History of hysterectomy History of vascular surgery Bilateral common iliac stents. Family History Family History Father Throat cancer Mother Heart disease Social History Social History Social History: [id number]: Pete Posada. Code status: Full code. Smoking packs per day: 1 Smoking cigarettes per day: 20.0 Years smoked: 45 Smoking pack-years: 45.00 Smoking status: Current every day smoker Tobacco type: cigarettes Second hand tobacco smoke exposure: Yes Alcohol intake: never Substance use: never Substance use type: does not use Additional living arrangements comments: Currently at [place].
[2021-07-18 12:08] LABS: Glucose Point of Care 150 mg/dl (65-105)
--- NOTE | 2021-07-18 13:26 | PM.IMHP ---
H&P: HPI History of Present Illness Date/Time: 07/18/21 13:26 ED-HPI: Patient was referred for nausea vomiting and reports of coffee-ground emesis.? Patient ports she was feeling sick to her stomach earlier she threw up and is now feeling much better.? There was some association with abdominal pain however after emesis she is feeling improved.? She did report an episode of diarrhea earlier today as well.? She denies any fevers chest pain shortness of breath.? The nursing staff that the emesis was initially yellow but then she had a repeat episode described as coffee-ground.? Patient denies any urinary symptoms. patient is 60-year-old female [place] [facility] [place] with history a small-bowel obstruction and hiatal hernia presented emergency depart with upset stomach coffee-ground emesis, patient is a poor historian unable to provide detailed review of symptom, however patient was seen by surgery service and suspect her symptoms are improving as patient had 2 BM this morning after admitted, recommended conservative management with NG tube decompression, IV fluid pain management and will start the patient on Zosyn as patient white counts are elevated will continue to monitor and further recommendation to follow patient admitted observation status Chief Complaint: abdominal pain Review of Systems Review of Systems: ROS unobtainable: Yes unobtainable due to medical condition and unobtainable due to mental status [facility] Past Medical History Medical History Bipolar disorder Cancer of kidney Chronic anticoagulation Cognitive decline Deep venous thrombosis Gastroesophageal reflux disease Hypercholesterolemia Hypothyroidism Kidney stones Morbid obesity Peripheral vascular disease Type 2 diabetes mellitus Surgical History Surgical History History of cholecystectomy History of hysterectomy History of vascular surgery Bilateral common iliac stents. Family History Family History Father Throat cancer Mother Heart disease Social History Social History Social History: [id number]: Pete Posada. Code status: Full code. Smoking packs per day: 1 Smoking cigarettes per day: 20.0 Years smoked: 45 Smoking pack-years: 45.00 Smoking status: Current every day smoker Tobacco type: cigarettes Second hand tobacco smoke exposure: Yes Alcohol intake: never Substance use: never Substance use type: does not use Additional living arrangements comments: Currently at [place]. Additional occupation/education comments: Disabled. Spiritual care concerns: No Meds Home Medications and Allergies Home Medications Medication Instructions Recorded Confirmed Type Lactobacillus acidophilus 10 mg PO BID 01/30/19 07/18/21 History (Acidophilus) aspirin 81 mg tablet,delayed 81 mg PO DAILY 01/30/19 07/18/21 History release (Aspir-) cholecalciferol (vitamin D3) 100 25 mcg PO DAILY 01/30/19 07/18/21 History mcg (4,000 unit) capsule divalproex 250 mg tablet,delayed 250 mg PO HS 01/30/19 07/18/21 History release (Depakote) docusate sodium 100 mg capsule 100 mg PO DAILY 01/30/19 07/18/21 History (Colace) multivitamin 1 cap PO DAILY 01/30/19 07/18/21 History acetaminophen 325 mg tablet 650 mg PO PRN PRN Pain 06/18/21 07/18/21 History (Tylenol) apixaban 5 mg tablet (Eliquis) 5 mg PO BID 06/18/21 07/18/21 History arginine-vitamin C-vitamin E oral 9.2 g PO BID 06/18/21 07/18/21 History 4.5 gram-156 mg/9.2 gram powder pkt (Arginaid) aripiprazole 10 mg tablet 10 mg PO DAILY 06/18/21 07/18/21 History ascorbic acid (vitamin C) 250 mg 250 mg PO DAILY 06/18/21 07/18/21 History tablet atorvastatin 10 mg tablet 10 mg PO DAILY 06/18/21 07/18/21 History furosemide 40 mg tab
[2021-07-18] MEDS: MORPHINE SULFATE (*CRX) 2 MG/ML INJ IV PUSH (14:37)
[2021-07-18] MEDS: HEPARIN SODIUM 5,000 UNITS/ML VIAL 5000 UNITS SUB-Q ×2 (14:40→21:30)
[2021-07-18 16:28] LABS: Glucose Point of Care 137 mg/dl (65-105)
[2021-07-18] MEDS: TOLNAFTATE 1% POWDER 45 GM BTL 1 APPLIC TOPICAL (21:30)
[2021-07-18 21:46] LABS: Glucose Point of Care 161 mg/dl (65-105)
[2021-07-18] MEDS: HYDROcodone/acetaminophen (*CRX) 7.5-325 MG TABLET 1 TAB PO (23:03)
[2021-07-19 05:15] VITALS: BP 130/58; PULSE 80; RESP 18; TEMP 37.1; O2SAT 94
[2021-07-19 06:11] LABS: Glucose Point of Care 141 mg/dl (65-105)
[2021-07-19] MEDS: SODIUM CHLORIDE 0.9% IV 1,000 ML 125 ML IV CONT (06:20)
[2021-07-19] MEDS: LEVOTHYROXINE SODIUM 88 MCG TABLET PO (06:20)
[2021-07-19] MEDS: MULTIVITAMINS THERAPEUTIC TAB (*BKC) 1 TABLET PO (08:58)
[2021-07-19] MEDS: GABAPENTIN 300 MG CAPSULE PO ×2 (08:59→16:45)
[2021-07-19] MEDS: OLANZapine 5 MG TABLET PO ×2 (09:00→16:46)
[2021-07-19] MEDS: ASPIRIN 81 MG ENTERIC TABLET PO (09:00)
[2021-07-19] MEDS: POTASSIUM CHLORIDE 20 MEQ TABLET.ER PO (09:00)
[2021-07-19] MEDS: FUROSEMIDE 40 MG TABLET PO (09:00)
[2021-07-19] MEDS: metFORMIN HCL 500 MG TABLET PO ×2 (09:01→16:46)
[2021-07-19] MEDS: APIXABAN 5 MG TABLET PO ×2 (09:01→16:45)
[2021-07-19] MEDS: SPIRONOLACTONE 25 MG TABLET PO (09:01)
[2021-07-19] MEDS: ACIDOPHILUS/BULGARICUS CHEWABLE TABLET 1 TABLET PO ×2 (09:01→16:45)
[2021-07-19] MEDS: ATORVASTATIN 10 MG TABLET PO (09:02)
[2021-07-19] MEDS: ARIPiprazole 10 MG TABLET PO (09:02)
[2021-07-19] MEDS: ASCORBIC ACID 250 MG TABLET PO (09:03)
[2021-07-19] MEDS: CHOLECALCIFEROL 1,000 UNITS TABLET 4000 UNITS PO (09:03)
[2021-07-19] MEDS: SILVERGEL (ELTA) 45 ML 1 APPLIC TOPICAL (09:04)
[2021-07-19] MEDS: TOLNAFTATE 1% POWDER 45 GM BTL 1 APPLIC TOPICAL ×2 (09:04→21:13)
--- NOTE | 2021-07-19 11:34 | PM.IMPN ---
Progress Note: A&P Assessment and Plan (1) Bowel obstruction: Qualifiers: Intestinal obstruction extent: unspecified extent Intestinal obstruction type: unspecified Qualified Code(s): K56.609 - Unspecified intestinal obstruction, unspecified as to partial versus complete obstruction Code(s): K56.609 - Unspecified intestinal obstruction, unspecified as to partial versus complete obstruction Status: Acute Assessment and Plan: NG tube in place. Management per surgery. (2) Leukocytosis (leucocytosis): Qualifiers: Leukocytosis type: unspecified Qualified Code(s): D72.829 - Elevated white blood cell count, unspecified Code(s): D72.829 - Elevated white blood cell count, unspecified Status: Acute Assessment and Plan: etiology uncertain will start the patient on Zosyn and follow up on blood culture, if blood cultures are negative will stop the antibiotic (3) Hypothyroidism: Code(s): E03.9 - Hypothyroidism, unspecified Status: Acute Assessment and Plan: will continue home regimen once patient able to take p.o. (4) Type 2 diabetes mellitus: Code(s): E11.9 - Type 2 diabetes mellitus without complications Status: Acute Assessment and Plan: patient is NPO will monitor with sliding scale (5) Bipolar disorder: Code(s): F31.9 - Bipolar disorder, unspecified Status: Acute Assessment and Plan: will continue home regimen once patient is able to take p.o. medication Subjective Date/time seen: 07/19/21 11:34 Exam Narrative: morbidly obese Patient is comfortable, NAD HEENT: eyes are clear and none icteric LUNGS: normal respiratory effort ABD: distended Lower extremities: no edema SKIN: nonjaundiced Neuro: grossly intact somnolent. Objective Data Vital Signs Vital Signs: Vital Signs - 24 hr 07/18/21 14:00 07/18/21 22:00 07/18/21 20:00 Temperature 97.5 F L 98.5 F Pulse Rate 97 93 Respiratory Rate 20 18 Blood Pressure 139/69 151/90 H Pulse Oximetry 90 91 Oxygen Delivery Room Air 07/19/21 05:15 Temperature 98.7 F Pulse Rate 80 Respiratory Rate 18 Blood Pressure 130/58 L Pulse Oximetry 94 Oxygen Delivery Intake/Output Intake/Output: Intake & Output 07/16/21 07/17/21 07/18/21 07/19/21 23:59 23:59 23:59 23:59 Intake Total 1500 1000 Output Total 400 200 Balance 1100 800 Meds/Results Medications: Active Medications Generic Name Dose Route Start Last Admin Trade Name Renée PRN Reason Stop Dose Admin Acetaminophen 650 mg 07/18/21 08:32 Acetaminophen 325 Mg Tablet PO PRN PRN Pain Hydrocodone Bitart/Acetaminophen 1 tab 07/18/21 22:53 07/18/21 23:03 Hydrocodone/Acetaminophen (*Crx) 7.5-325 Mg Tablet PO 07/23/21 22:44 1 tab Q4H PRN Administration Pain Rated 4-6 Apixaban 5 mg 07/18/21 09:00 07/19/21 09:01 Apixaban 5 Mg Tablet PO 5 mg BID BENNY Administration Aripiprazole 10 mg 07/18/21 09:00 07/19/21 09:02 Aripiprazole 10 Mg Tablet PO 10 mg DAILY BENNY Administration Ascorbic Acid 250 mg 07/18/21 09:00 07/19/21 09:03 Ascorbic Acid 250 Mg Tablet PO 250 mg DAILY BENNY Administration Aspirin 81 mg 07/18/21 09:00 07/19/21 09:00 Aspirin 81 Mg Enteric Tablet PO 81 mg DAILY BENNY Administration Atorvastatin Calcium 10 mg 07/18/21 09:00 07/19/21 09:02 Atorvastatin 10 Mg Tablet PO 10 mg DAILY BENNY Administration Divalproex Sodium 250 mg 07/18/21 21:00 07/18/21 21:[address] 250 Mg Tabec PO Not Given HS BENNY Docusate Sodium 100 mg 07/18/21 09:00 07/19/21 07:45 Docusate Sodium 100 Mg Capsule PO Not Given DAILY BENNY Furosemide 40 mg 07/18/21 09:00 07/19/21 09:00 Furosemide 40 Mg Tablet PO 40 mg DAILY BENNY Administration Gabapentin 300 mg 07/18/21 09:00 07/19/21 08:59 Gabapentin 300 Mg Capsule PO 300 mg TID BENNY Administration Hep
[2021-07-19 11:54] LABS: Glucose Point of Care 134 mg/dl (65-105)
--- NOTE | 2021-07-19 13:04 | PM.PNGS ---
Progress Note: A&P Assessment and Plan (1) Partial small bowel obstruction: Code(s): K56.600 - Partial intestinal obstruction, unspecified as to cause Status: Acute Assessment and Plan: Continues to improve and bowels are moving. Hernia still soft and partially reducible. Will remove the NG tube Start clear liquids (2) Incarcerated incisional hernia: Code(s): K43.0 - Incisional hernia with obstruction, without gangrene Status: Acute (3) Bipolar disorder: Code(s): F31.9 - Bipolar disorder, unspecified Status: Acute (4) Type 2 diabetes mellitus: Code(s): E11.9 - Type 2 diabetes mellitus without complications Status: Acute (5) Obesity, morbid, BMI 40.0-49.9: Code(s): E66.01 - Morbid (severe) obesity due to excess calories Status: Acute (6) Tobacco abuse: Code(s): Z72.0 - Tobacco use Status: Acute (7) Peripheral vascular disease: Code(s): I73.9 - Peripheral vascular disease, unspecified Status: Acute (8) Long-term (current) use of anticoagulants, INR goal 2.0-3.0: Code(s): 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 Taylor. Subjective Subjective Date/Time Seen: 07/19/21 13:04 Patient reports: no new complaints, flatus, bowel movement (x3 overnight and x 1 large BM this morning) and afebrile Interval history: Patient seen and examined. Chart reviewed. Her only complaint at this time is wanting to drink liquids. She denies any abdominal pain. She is not answering any other questions because she is crying due to wanting water. No other specific complaints. Per nursing, she had a large loose BM this morning and 3 BMs overnight. NG with 200 cc output overnight. Review of Systems Review of Systems: ROS unobtainable: Yes unobtainable due to mental status Exam Const: General: no acute distress Nutritional Appearance: obese morbidly obese Orientation/consciousness: patient oriented x3 GI: Inspection: non-distended, obesity and visible herniation (RUQ hernia that is soft and partially reducible) GI Palp: Yes Soft to palpation, No Tenderness to palpation present (GI) and No Guarding due to palpation present (GI) Auscultation: normal bowel sounds Psych: Insight: Limited insight present (Psych) Judgement: Limited judgement present (Psych) Objective Data Vital Signs Vital Signs: Vital Signs - 24 hr 07/18/21 14:00 07/18/21 22:00 07/18/21 20:00 Temperature 97.5 F L 98.5 F Pulse Rate 97 93 Respiratory Rate 20 18 Blood Pressure 139/69 151/90 H Pulse Oximetry 90 91 Oxygen Delivery Room Air 07/19/21 05:15 Temperature 98.7 F Pulse Rate 80 Respiratory Rate 18 Blood Pressure 130/58 L Pulse Oximetry 94 Oxygen Delivery Intake/Output Intake/Output: Intake & Output 07/16/21 07/17/21 07/18/21 07/19/21 23:59 23:59 23:59 23:59 Intake Total 1500 1000 Output Total 400 200 Balance 1100 800 Meds/Results Medications: Active Medications Generic Name Dose Route Start Last Admin Trade Name Freq PRN Reason Stop Dose Admin Acetaminophen 650 mg 07/18/21 08:32 Acetaminophen 325 Mg Tablet PO PRN PRN Pain Hydrocodone Bitart/Acetaminophen 1 tab 07/18/21 22:53 07/18/21 23:03 Hydrocodone/Acetaminophen (*Crx) 7.5-325 Mg Tablet PO 07/23/21 22:44 1 tab Q4H PRN Administration Pain Rated 4-6 Apixaban 5 mg 07/18/21 09:00 07/19/21 09:01 Apixaban 5 Mg Tablet PO 5 mg BID BENNY Administration Aripiprazole 10 mg 07/18/21 09:00 07/19/21 09:02 Aripiprazole 10 Mg Tablet PO 10 mg DAILY BENNY Administration Ascorbic Acid 250 mg 07/18/21 09:00 07/19/21 09:03 Ascorbic Acid 250 Mg Tablet PO 250 mg DAILY BENNY Administration Aspirin 81 mg 07/18/21 09:00 07/19/21 09:00 Aspirin 81 Mg Enteric Tablet PO 81 mg DAILY BENNY Administration Atorv
[2021-07-19 14:00] VITALS: BP 153/76; PULSE 81; RESP 18; TEMP 36.9; O2SAT 93
[2021-07-19] MEDS: HEPARIN SODIUM 5,000 UNITS/ML VIAL 5000 UNITS SUB-Q ×2 (15:08→21:13)
[2021-07-19] MEDS: SODIUM CHLORIDE 0.9% IV 1,000 ML 70 ML IV CONT (15:12)
[2021-07-19] MEDS: HYDROcodone/acetaminophen (*CRX) 7.5-325 MG TABLET 1 TAB PO ×2 (16:40→23:43)
[2021-07-19 19:00] LABS: Glucose Point of Care 134 mg/dl (65-105)
[2021-07-19] MEDS: DIVALPROEX SODIUM DR 250 MG TABEC PO (21:13)
[2021-07-19] MEDS: PANTOPRAZOLE SODIUM IV 40 MG VIAL IV PUSH (21:13)
[2021-07-19 21:41] LABS: Glucose Point of Care 113 mg/dl (65-105)
[2021-07-19 22:00] VITALS: BP 115/69; PULSE 76; RESP 18; TEMP 36.8; O2SAT 92
[2021-07-20 05:04] VITALS: BP 120/73; PULSE 78; RESP 18; TEMP 35.9; O2SAT 92
[2021-07-20] MEDS: HYDROcodone/acetaminophen (*CRX) 7.5-325 MG TABLET 1 TAB PO (06:30)
[2021-07-20] MEDS: LEVOTHYROXINE SODIUM 88 MCG TABLET PO (06:31)
[2021-07-20] MEDS: HEPARIN SODIUM 5,000 UNITS/ML VIAL 5000 UNITS SUB-Q ×3 (06:31→21:03)
[2021-07-20] MEDS: SODIUM CHLORIDE 0.9% IV 1,000 ML 70 ML IV CONT ×2 (06:31→21:05)
[2021-07-20 08:23] LABS: Glucose Point of Care 108 mg/dl (65-105)
[2021-07-20 08:32] LABS: Hematocrit 36.5 % (37.0-47.0); Hemoglobin 11.3 g/dL (12.0-15.0); Mean Corpuscular Hemoglobin 28.4 pg (26-34); Mean Corpuscular Volume 91.7 fl (80-100); Mean Platelet Volume 9.2 fl (7.4-10.4); Platelet Count Result 226 k/mm3 (150-375); Red Blood Count 3.98 M/mm3 (4.2-5.4); Red Cell Distribution Width 16.1 % (11.5-14.5); White Blood Count 8.7 K/mm3 (4.5-10.0)
[2021-07-20] MEDS: GABAPENTIN 300 MG CAPSULE PO ×3 (08:45→16:53)
[2021-07-20] MEDS: metFORMIN HCL 500 MG TABLET PO ×2 (08:45→16:53)
[2021-07-20] MEDS: CHOLECALCIFEROL 1,000 UNITS TABLET 4000 UNITS PO (08:45)
[2021-07-20] MEDS: ATORVASTATIN 10 MG TABLET PO (08:45)
[2021-07-20] MEDS: POTASSIUM CHLORIDE 20 MEQ TABLET.ER PO (08:46)
[2021-07-20] MEDS: APIXABAN 5 MG TABLET PO ×2 (08:46→16:54)
[2021-07-20] MEDS: OLANZapine 5 MG TABLET PO ×2 (08:46→16:53)
[2021-07-20] MEDS: ARIPiprazole 10 MG TABLET PO (08:46)
[2021-07-20] MEDS: MULTIVITAMINS THERAPEUTIC TAB (*BKC) 1 TABLET PO (08:46)
[2021-07-20] MEDS: FUROSEMIDE 40 MG TABLET PO (08:47)
[2021-07-20] MEDS: SPIRONOLACTONE 25 MG TABLET PO (08:47)
[2021-07-20] MEDS: ACIDOPHILUS/BULGARICUS CHEWABLE TABLET 1 TABLET PO ×2 (08:47→16:53)
[2021-07-20] MEDS: ASCORBIC ACID 250 MG TABLET PO (08:47)
[2021-07-20] MEDS: PANTOPRAZOLE SODIUM IV 40 MG VIAL IV PUSH ×2 (08:47→20:22)
[2021-07-20] MEDS: ASPIRIN 81 MG ENTERIC TABLET PO (08:47)
[2021-07-20] MEDS: TOLNAFTATE 1% POWDER 45 GM BTL 1 APPLIC TOPICAL ×2 (08:48→20:22)
[2021-07-20] MEDS: SILVERGEL (ELTA) 45 ML 1 APPLIC TOPICAL (08:49)
[2021-07-20 08:54] LABS: Anion Gap 4 mmol/L (8-16); Blood Urea Nitrogen 20 mg/dL (7-17); Carbon Dioxide 26 mmol/L (22-30); Chloride 111 mmol/L (98-107); Estimated CRCL calculation 121 ml/min; Estimated Glomerular Filt Rate > 60; Glucose 105 mg/dL (65-110); Magnesium 1.9 mg/dL (1.6-2.3); Potassium 3.8 mmol/L (3.4-5.0); Sodium 141 mmol/L (137-145)
--- NOTE | 2021-07-20 11:11 | PM.IMPN ---
Progress Note: A&P Assessment and Plan (1) Bowel obstruction: Qualifiers: Intestinal obstruction extent: unspecified extent Intestinal obstruction type: unspecified Qualified Code(s): K56.609 - Unspecified intestinal obstruction, unspecified as to partial versus complete obstruction Code(s): K56.609 - Unspecified intestinal obstruction, unspecified as to partial versus complete obstruction Status: Acute Assessment and Plan: NG tube has been removed. Tolerating clear liquid diet Management per surgery. (2) Leukocytosis (leucocytosis): Qualifiers: Leukocytosis type: unspecified Qualified Code(s): D72.829 - Elevated white blood cell count, unspecified Code(s): D72.829 - Elevated white blood cell count, unspecified Status: Acute Assessment and Plan: etiology uncertain will start the patient on Zosyn and follow up on blood culture, if blood cultures are negative will stop the antibiotic (3) Hypothyroidism: Code(s): E03.9 - Hypothyroidism, unspecified Status: Acute Assessment and Plan: will continue home regimen once patient able to take p.o. (4) Type 2 diabetes mellitus: Code(s): E11.9 - Type 2 diabetes mellitus without complications Status: Acute Assessment and Plan: patient is NPO will monitor with sliding scale (5) Bipolar disorder: Code(s): F31.9 - Bipolar disorder, unspecified Status: Acute Assessment and Plan: will continue home regimen once patient is able to take p.o. medication Subjective Date/time seen: 07/20/21 11:11 Tolerating clears Exam Narrative: morbidly obese Patient is comfortable, NAD HEENT: eyes are clear and none icteric LUNGS: normal respiratory effort ABD: distended Lower extremities: no edema SKIN: nonjaundiced Neuro: grossly intact somnolent. Objective Data Vital Signs Vital Signs: Vital Signs - 24 hr 07/19/21 14:00 07/19/21 22:00 07/19/21 20:00 Temperature 98.4 F 98.3 F Pulse Rate 81 76 Respiratory Rate 18 18 Blood Pressure 153/76 H 115/69 Pulse Oximetry 93 92 Oxygen Delivery Room Air 07/20/21 05:04 Temperature 96.6 F L Pulse Rate 78 Respiratory Rate 18 Blood Pressure 120/73 Pulse Oximetry 92 Oxygen Delivery Intake/Output Intake/Output: Intake & Output 05/30/22 07/18/21 07/19/21 07/20/21 23:59 23:59 23:59 23:59 Intake Total 1500 1999 1580 Output Total 400 350 1 Balance 1100 1650 1579 Meds/Results Medications: Active Medications Generic Name Dose Route Start Last Admin Trade Name Freq PRN Reason Stop Dose Admin Acetaminophen 650 mg 07/18/21 08:32 Acetaminophen 325 Mg Tablet PO PRN PRN Pain Hydrocodone Bitart/Acetaminophen 1 tab 07/18/21 22:53 07/20/21 06:30 Hydrocodone/Acetaminophen (*Crx) 7.5-325 Mg Tablet PO 07/23/21 22:44 1 tab Q4H PRN Administration Pain Rated 4-6 Apixaban 5 mg 07/18/21 09:00 07/20/21 08:46 Apixaban 5 Mg Tablet PO 5 mg BID BENNY Administration Aripiprazole 10 mg 07/18/21 09:00 07/20/21 08:46 Aripiprazole 10 Mg Tablet PO 10 mg DAILY BENNY Administration Ascorbic Acid 250 mg 07/18/21 09:00 07/20/21 08:47 Ascorbic Acid 250 Mg Tablet PO 250 mg DAILY BENNY Administration Aspirin 81 mg 07/18/21 09:00 07/20/21 08:47 Aspirin 81 Mg Enteric Tablet PO 81 mg DAILY BENNY Administration Atorvastatin Calcium 10 mg 07/18/21 09:00 07/20/21 08:45 Atorvastatin 10 Mg Tablet PO 10 mg DAILY BENNY Administration Divalproex Sodium 250 mg 07/18/21 21:00 07/19/21 21:[address] 250 Mg Tabec PO 250 mg HS BENNY Administration Docusate Sodium 100 mg 07/18/21 09:00 07/20/21 08:50 Docusate Sodium 100 Mg Capsule PO Not Given DAILY BENNY Furosemide 40 mg 07/18/21 09:00 07/20/21 08:47 Furosemide 40 Mg Tablet PO 40 mg DAILY BENNY Administration Gabapentin 300 mg 07/18/21 09:00 07/20/21 08:45
[2021-07-20 11:59] LABS: Glucose Point of Care 139 mg/dl (65-105)
--- NOTE | 2021-07-20 12:58 | PM.PNGS ---
Progress Note: A&P Assessment and Plan (1) Partial small bowel obstruction: Code(s): K56.600 - Partial intestinal obstruction, unspecified as to cause Status: Acute Assessment and Plan: Advance to full liquids OK to discharge if able to advance diet Patient has large hernia and is high risk for complications. Will need to be referred to a surgeon in her network for discussions about elective repair. (2) Incarcerated incisional hernia: Code(s): K43.0 - Incisional hernia with obstruction, without gangrene Status: Acute (3) Bipolar disorder: Code(s): F31.9 - Bipolar disorder, unspecified Status: Acute (4) Type 2 diabetes mellitus: Code(s): E11.9 - Type 2 diabetes mellitus without complications Status: Acute (5) Obesity, morbid, BMI 40.0-49.9: Code(s): E66.01 - Morbid (severe) obesity due to excess calories Status: Acute (6) Tobacco abuse: Code(s): Z72.0 - Tobacco use Status: Acute (7) Peripheral vascular disease: Code(s): I73.9 - Peripheral vascular disease, unspecified Status: Acute (8) Long-term (current) use of anticoagulants, INR goal 2.0-3.0: Code(s): Z79.01 - half-way (current) use of anticoagulants Status: Acute Additional Plan I have discussed the patient's case and plan of care with Dr. Taylor. Subjective Subjective Date/Time Seen: 07/20/21 12:58 Interval history: Tolerating clear liquids. Bowels moving. No abdominal pain, nausea, or vomiting. Exam GI: Inspection: obesity and visible herniation (RUQ) GI Palp: No abdominal tenderness, Yes Soft to palpation, No Guarding due to palpation present (GI) and Yes Hernia present (RUQ large hernia, soft, nontender) Percussion: Yes normal to percussion Auscultation: normal bowel sounds Objective Data Vital Signs Vital Signs: Vital Signs - 24 hr 07/19/21 14:00 07/19/21 22:00 07/19/21 20:00 Temperature 36.9 C 36.8 C Pulse Rate 81 76 Respiratory Rate 18 18 Blood Pressure 153/76 H 115/69 Pulse Oximetry 93 92 Oxygen Delivery Room Air 07/20/21 05:04 Temperature 35.9 C L Pulse Rate 78 Respiratory Rate 18 Blood Pressure 120/73 Pulse Oximetry 92 Oxygen Delivery Intake/Output Intake/Output: Intake & Output 07/17/21 07/18/21 07/19/21 07/20/21 23:59 23:59 23:59 23:59 Intake Total 1500 2000 1580 Output Total 400 350 1 Balance 1100 1650 1579 Meds/Results Medications: Active Medications Generic Name Dose Route Start Last Admin Trade Name Freq PRN Reason Stop Dose Admin Acetaminophen 650 mg 07/18/21 08:32 Acetaminophen 325 Mg Tablet PO PRN PRN Pain Hydrocodone Bitart/Acetaminophen 1 tab 07/18/21 22:53 07/20/21 06:30 Hydrocodone/Acetaminophen (*Crx) 7.5-325 Mg Tablet PO 07/23/21 22:44 1 tab Q4H PRN Administration Pain Rated 4-6 Apixaban 5 mg 07/18/21 09:00 07/20/21 08:46 Apixaban 5 Mg Tablet PO 5 mg BID BENNY Administration Aripiprazole 10 mg 07/18/21 09:00 07/20/21 08:46 Aripiprazole 10 Mg Tablet PO 10 mg DAILY BENNY Administration Ascorbic Acid 250 mg 07/18/21 09:00 07/20/21 08:47 Ascorbic Acid 250 Mg Tablet PO 250 mg DAILY BENNY Administration Aspirin 81 mg 07/18/21 09:00 07/20/21 08:47 Aspirin 81 Mg Enteric Tablet PO 81 mg DAILY BENNY Administration Atorvastatin Calcium 10 mg 07/18/21 09:00 07/20/21 08:45 Atorvastatin 10 Mg Tablet PO 10 mg DAILY BENNY Administration Divalproex Sodium 250 mg 07/18/21 21:00 07/19/21 21:[address] 250 Mg Tabec PO 250 mg HS BENNY Administration Docusate Sodium 100 mg 07/18/21 09:00 07/20/21 08:50 Docusate Sodium 100 Mg Capsule PO Not Given DAILY BENNY Furosemide 40 mg 07/18/21 09:00 07/20/21 08:47 Furosemide 40 Mg Tablet PO 40 mg DAILY BENNY Administration Gabapentin 300 mg 07/18/21 09:00 07/20/21 12:17 Gabapentin 300 Mg Capsule PO 300 mg TID BENNY
[2021-07-20 14:00] VITALS: BP 153/74; PULSE 71; RESP 22; TEMP 37.9; O2SAT 94
[2021-07-20 14:10] VITALS: TEMP 37.9
[2021-07-20] MEDS: ACETAMINOPHEN 325 MG TABLET 650 MG PO (14:10)
[2021-07-20 15:07] VITALS: TEMP 37.1
[2021-07-20 16:55] LABS: Glucose Point of Care 106 mg/dl (65-105)
[2021-07-20] MEDS: DIVALPROEX SODIUM DR 250 MG TABEC PO (20:21)
[2021-07-20 20:40] LABS: Glucose Point of Care 120 mg/dl (65-105)
[2021-07-20 22:00] VITALS: BP 173/81; PULSE 70; RESP 20; TEMP 36.8; O2SAT 95
[2021-07-21] MEDS: HYDROcodone/acetaminophen (*CRX) 7.5-325 MG TABLET 1 TAB PO (01:57)
[2021-07-21] MEDS: HEPARIN SODIUM 5,000 UNITS/ML VIAL 5000 UNITS SUB-Q (05:41)
[2021-07-21] MEDS: LEVOTHYROXINE SODIUM 88 MCG TABLET PO (05:41)
[2021-07-21 06:00] VITALS: BP 162/75; PULSE 61; RESP 18; TEMP 36.6; O2SAT 95
[2021-07-21 06:44] LABS: Hematocrit 37.5 % (37.0-47.0); Hemoglobin 11.5 g/dL (12.0-15.0); Mean Corpuscular HGB Conc 30.7 g/dl (32-36); Mean Corpuscular Hemoglobin 28.3 pg (26-34); Mean Corpuscular Volume 92.1 fl (80-100); Mean Platelet Volume 9.4 fl (7.4-10.4); Platelet Count Result 245 k/mm3 (150-375); Red Blood Count 4.07 M/mm3 (4.2-5.4); Red Cell Distribution Width 15.7 % (11.5-14.5); White Blood Count 7.5 K/mm3 (4.5-10.0)
[2021-07-21 06:56] LABS: Anion Gap 4 mmol/L (8-16); Blood Urea Nitrogen 11 mg/dL (7-17); Calcium 8.3 mg/dL (8.4-10.2); Carbon Dioxide 28 mmol/L (22-30); Chloride 108 mmol/L (98-107); Estimated CRCL calculation 105 ml/min; Estimated Glomerular Filt Rate > 60; Glucose 103 mg/dL (65-110); Magnesium 1.9 mg/dL (1.6-2.3); Potassium 3.5 mmol/L (3.4-5.0); Sodium 140 mmol/L (137-145)
[2021-07-21 08:00] VITALS: BP 176/93; PULSE 72; RESP 16; TEMP 36.2; O2SAT 95
[2021-07-21] MEDS: polyethylene glycoL 3350 17 GM POWD.PACK PO (08:12)
[2021-07-21] MEDS: FUROSEMIDE 40 MG TABLET PO (08:12)
[2021-07-21] MEDS: ASPIRIN 81 MG ENTERIC TABLET PO (08:13)
[2021-07-21] MEDS: CHOLECALCIFEROL 1,000 UNITS TABLET 4000 UNITS PO (08:13)
[2021-07-21] MEDS: GABAPENTIN 300 MG CAPSULE PO (08:13)
[2021-07-21] MEDS: DOCUSATE SODIUM 100 MG CAPSULE PO (08:13)
[2021-07-21] MEDS: APIXABAN 5 MG TABLET PO (08:13)
[2021-07-21] MEDS: ATORVASTATIN 10 MG TABLET PO (08:13)
[2021-07-21] MEDS: OLANZapine 5 MG TABLET PO (08:14)
[2021-07-21] MEDS: metFORMIN HCL 500 MG TABLET PO (08:14)
[2021-07-21] MEDS: ARIPiprazole 10 MG TABLET PO (08:14)
[2021-07-21] MEDS: ACIDOPHILUS/BULGARICUS CHEWABLE TABLET 1 TABLET PO (08:14)
[2021-07-21] MEDS: ASCORBIC ACID 250 MG TABLET PO (08:15)
[2021-07-21] MEDS: POTASSIUM CHLORIDE 20 MEQ TABLET.ER PO (08:15)
[2021-07-21] MEDS: MULTIVITAMINS THERAPEUTIC TAB (*BKC) 1 TABLET PO (08:15)
[2021-07-21] MEDS: SPIRONOLACTONE 25 MG TABLET PO (08:15)
[2021-07-21] MEDS: PANTOPRAZOLE SODIUM IV 40 MG VIAL IV PUSH (08:16)
[2021-07-21] MEDS: SILVERGEL (ELTA) 45 ML 1 APPLIC TOPICAL (08:17)
[2021-07-21] MEDS: TOLNAFTATE 1% POWDER 45 GM BTL 1 APPLIC TOPICAL (08:18)
[2021-07-21 08:25] LABS: Glucose Point of Care 129 mg/dl (65-105)
--- NOTE | 2021-07-21 10:38 | PM.DS ---
DS: Admitting Diagnosis Discharge Date July 21, 2021 Admitting Diagnosis Bowel obstruction DS: Discharge Diagnosis Discharge Diagnosis (1) Bowel obstruction: Qualifiers: Intestinal obstruction extent: unspecified extent Intestinal obstruction type: unspecified Qualified Code(s): K56.609 - Unspecified intestinal obstruction, unspecified as to partial versus complete obstruction Code(s): K56.609 - Unspecified intestinal obstruction, unspecified as to partial versus complete obstruction Status: Acute Assessment and Plan: Patient responded to conservative therapy. Tolerating a regular diet. Will start narcotics to prevent constipation. This can be continued or reduced based upon discretion of the facility. (2) Leukocytosis (leucocytosis): Qualifiers: Leukocytosis type: unspecified Qualified Code(s): D72.829 - Elevated white blood cell count, unspecified Code(s): D72.829 - Elevated white blood cell count, unspecified Status: Acute Assessment and Plan: Likely related to above. No antibiotics on discharge (3) Hypothyroidism: Code(s): E03.9 - Hypothyroidism, unspecified Status: Acute Assessment and Plan: will continue home regimen once patient able to take p.o. (4) Type 2 diabetes mellitus: Code(s): E11.9 - Type 2 diabetes mellitus without complications Status: Acute Assessment and Plan: Continue home meds (5) Bipolar disorder: Code(s): F31.9 - Bipolar disorder, unspecified Status: Acute Assessment and Plan: will continue home regimen once patient is able to take p.o. medication DS: Summary Hospital Course Hospital Course: Patient was admitted for small-bowel obstruction. She was treated conservatively with NG tube to low intermittent suction. She responded well and after NG tube was removed she was resumed on a normal diet and did well. Time Spent with Patient Time attestation: Total time spent providing and/or coordinating discharge services: Exam Narrative: morbidly obese Patient is comfortable, NAD HEENT: eyes are clear and none icteric LUNGS: normal respiratory effort ABD: distended Lower extremities: no edema SKIN: nonjaundiced Neuro: grossly intact somnolent. DS: Data Data Completed and Pending Labs on day of discharge: Labs from last 24 hours 07/21/21 07/21/21 07/21/21 07:56 05:33 05:33 WBC 7.5 RBC 4.07 L Hgb 11.5 L Hct 37.5 MCV 92.1 MCH 28.3 MCHC 30.7 L RDW 15.7 H Plt Count 245 MPV 9.4 Sodium 140 Potassium 3.5 Chloride 108 H Carbon Dioxide 28 Anion Gap 4 L BUN 11 D Creatinine 0.70 Estim Creat Clear Calc 105 Estimated GFR > 60 Glucose 103 POC Capillary Glucose 129 H Calcium 8.3 L Magnesium 1.9 07/20/21 07/20/21 07/20/21 20:35 16:38 11:20 WBC RBC Hgb Hct MCV MCH MCHC RDW Plt Count MPV Sodium Potassium Chloride Carbon Dioxide Anion Gap BUN Creatinine Estim Creat Clear Calc Estimated GFR Glucose POC Capillary Glucose 120 H 106 H 139 H Calcium Magnesium Preliminary micro results at discharge 07/18/21 14:15 Blood Culture - Preliminary Blood 07/18/21 14:16 Blood Culture - Preliminary Blood Discharge Plan Discharge Attending physician on discharge: Rolando Hawthorne Consulting providers: Christiano Taylor Discharging Clinician: Rolando Hawthorne Patient Disposition: [facility] Nursing Home/Asst Living Activity: no preference Diet: as tolerated Patient Instructions: Antibiotic Form, Apixaban (By mouth), How to Stop Smoking (DC), Bowel Obstruction (GEN), Nasogastric Tube (GEN), Safe Use of Anticoagulants (DC) Stand Alone Forms: General Discharge Information Discharge Medications: Continued Lactobacillus acidophilus [Acidophilus] Capsule 10 mg PO BID docusat
[2021-07-21 11:40] LABS: EDCOVIDSCREEN Negative (Negative)
[2021-07-21 11:44] LABS: Glucose Point of Care 119 mg/dl (65-105)
== END 2021-07-21 12:40 | DRG 394 ==
LOC: ANHED 07-18 02:07 → ANH3MEDSUR 07-18 02:50
PROVIDERS: Family Medicine; Admitting Provider Internal Medicine; Emergency Provider Emergency Medicine; PCP Internal Medicine Infectious Disease; Visit Provider Chiropractor
DX: K43.0 Incisional hernia with obstruction, without gangrene (principal); Z68.41 Body mass index [BMI] 40.0-44.9, adult; E66.01 Morbid (severe) obesity due to excess calories; E11.51 Type 2 diabetes mellitus with diabetic peripheral angiopathy without gangrene; D72.829 Elevated white blood cell count, unspecified; Z20.822 Contact with and (suspected) exposure to COVID-19; E03.9 Hypothyroidism, unspecified; F31.9 Bipolar disorder, unspecified; R41.89 Other symptoms and signs involving cognitive functions and awareness; K21.9 Gastro-esophageal reflux disease without esophagitis; E78.00 Pure hypercholesterolemia, unspecified; F17.210 Nicotine dependence, cigarettes, uncomplicated; Z79.01 Long term (current) use of anticoagulants; Z79.82 Long term (current) use of aspirin; Z85.528 Personal history of other malignant neoplasm of kidney; Z86.718 Personal history of other venous thrombosis and embolism; Z87.442 Personal history of urinary calculi; Z95.828 Presence of other vascular implants and grafts
CPT/HCPCS: 36415; 74176; 80048; 80053; 82948; 83605; 83690; 83735; 85025; 85027; 85610; 85730; 87040; 87426; 96361; 96374; 96376; 99285; A9270; C9113; C9803; G0378; J1644; J2270; J2405; J7030; J7040

== ENCOUNTER 2021-09-12 11:45 | Inpatient (IN) | payer MEDICARE, MEDICAID, SELFPAY ==
[2021-09-12] VITALS (33 sets, daily range): BP systolic 93–177; BP diastolic 59–119; PULSE 84–134; RESP 14–24; TEMP 36.7–39.2; O2SAT 66–100; BMI 42.9
--- NOTE | ~2021-09-12 | US_ITS ---
EXAMINATION: US arterial ankle brachial ind DATE: 09/13/2021 14:03 INDICATION: Peripheral vascular disease TECHNIQUE: Segmental pressures and plethysmographic and Doppler waveforms of the brachial and lower e xtremity arteries were obtained. COMPARISON: None. FINDINGS: Right and left brachial artery pressures of 168 mm Hg and 164 mm Hg, respectively, are concordant (no rmal difference <= 30 mmHg). Arterial pressures at the right posterior tibial and dorsalis pedis arteries to obtain ankle-brachial indices were unable to be measured due to skin wounds at the bilateral ankles. The right great toe-b rachial index (TBI) is 1.43 (normal >= 0.65). Arterial Doppler waveforms are biphasic with brisk syst olic upstrokes at the right dorsalis pedis artery and with delayed upstrokes with small broadened sys tolic peaks at the right posterior tibial artery. The left TBI is 1.68. Arterial Doppler waveforms are biphasic with brisk systolic upstrokes at both l eft posterior tibial and dorsalis pedis arteries. IMPRESSION: 1. Arterial occlusive disease to the right lower limb with mildly decreased right TBI. 2. No significant arterial occlusive disease to the left lower limb with normal left TBI. Reviewed, dictated and finalized at location A. IMPRESSION: 1. Arterial occlusive disease to the right lower limb with mildly decreased rig ht TBI. 2. No significant arterial occlusive disease to the left lower limb with normal left TBI.
--- NOTE | ~2021-09-12 | XR_ITS ---
EXAMINATION: XR chest 1V portable DATE: 09/19/2021 13:51 INDICATION: Shortness of breath. TECHNIQUE: A single frontal view of the chest was obtained. COMPARISON: Chest single view 09/12/2021, CT abdomen and pelvis 07/18/2021 FINDINGS: The patient is rotated to her right. There is mild elevation of right hemidiaphragm. No ple ural effusion or pneumothorax. The heart size is normal. Surgical clips in the right upper quadrant a re likely from cholecystectomy. IMPRESSION: 1. Worsened mild elevation of right hemidiaphragm. Reviewed, dictated and finalized at location A.
--- NOTE | ~2021-09-12 | CT_ITS ---
EXAMINATION: CT brain wo con INDICATION: Acute metabolic encephalopathy COMPARISON: None TECHNIQUE: Standard unenhanced head CT. The dose-length product (DLP) was 983.67 mGy-cm. The mA was a djusted according to patient size. Iterative reconstruction technique was employed. FINDINGS: There is no acute intraparenchymal hemorrhage. No evidence of mass lesion. No evidence of a cute infarction. There is mild periventricular and subcortical hypodensity probably related to small vessel ischemic disease. There is mild prominence of the sulci and ventricles related to cerebral atr ophy. Intracranial calcified cerebral atherosclerosis is noted. There are no extra-axial collections. There is no mass effect or midline shift. There is mild mucosal thickening of the paranasal sinuses. There is a small right mastoid effusion. IMPRESSION: 1. No acute intracranial abnormality. 2. Age related findings. Reviewed, dictated and finalized at location B.
--- NOTE | ~2021-09-12 | XR_ITS ---
EXAMINATION: XR chest 1V portable INDICATION: Transient alteration of awareness TECHNIQUE: Portable AP chest at 1227 hours COMPARISON: None available FINDINGS: The lungs are free of acute opacities. No pleural effusion or pneumothorax. The cardiomedia stinal silhouette is normal. IMPRESSION: 1. No acute cardiopulmonary abnormality. Reviewed, dictated and finalized at location B.
--- NOTE | 2021-09-12 11:48 | ECG_ITS ---
Measurements Intervals [place] Rate: 117 P: 46 OR: 166 QRS: 19 QRSD: 94 T: 134 QT: 252 QTc: 352 Interpretive Statements SINUS TACHYCARDIA MINIMAL Q WAVES- INFERIOR LEADS ST-T WAVE ABNORMALITY IN ANT/HIGH LAT LEADS- CONSIDER ISCHEMIA BASELINE ARTIFACT- I, II, III, AVR, AVL, AVF, V1, V4-V5 ABNORMAL ECG Electronically Signed On 09-12-2021 12:21:16 CDT by Ian Rossi D.O.
[2021-09-12 11:57] LABS: Glucose Point of Care 167 mg/dl (65-105)
[2021-09-12] MEDS: SODIUM CHLORIDE 0.9% IV 1,000 ML 999 ML IV CONT ×3 (12:09→15:48)
[2021-09-12 12:13] LABS: Hematocrit 40.7 % (37.0-47.0); Hemoglobin 12.4 g/dL (12.0-15.0); Mean Corpuscular HGB Conc 30.5 g/dl (32-36); Mean Corpuscular Hemoglobin 28.1 pg (26-34); Mean Corpuscular Volume 92.3 fl (80-100); Mean Platelet Volume 9.3 fl (7.4-10.4); Platelet Count Result 301 k/mm3 (150-375); Red Blood Count 4.41 M/mm3 (4.2-5.4); Red Cell Distribution Width 14.9 % (11.5-14.5); White Blood Count 18.6 K/mm3 (4.5-10.0)
[2021-09-12 12:24] LABS: Lactic Acid Reflex 3.1 mmol/L (0.7-2.0)
[2021-09-12 12:25] LABS: Alanine Aminotransferase 26 U/L (6-35); Albumin Level 4.4 g/dL (3.5-5.1); Alkaline Phosphatase 93 U/L (38-126); Anion Gap 10 mmol/L (8-16); Aspartate Amino Transferase 23 U/L (14-36); Bilirubin,Total 0.5 mg/dL (0.2-1.3); Blood Urea Nitrogen 13 mg/dL (7-17); CRP 6.2 mg/dL (<1.0); Calcium 9.1 mg/dL (8.4-10.2); Carbon Dioxide 30 mmol/L (22-30); Chloride 98 mmol/L (98-107); Estimated CRCL calculation 105 ml/min; Estimated Glomerular Filt Rate > 60; Glucose 156 mg/dL (65-110); Potassium 4.4 mmol/L (3.4-5.0); Sodium 138 mmol/L (137-145)
[2021-09-12 12:34] LABS: Band Neutrophils Percent 3 % (0-6); INR 1.3; Lymphocytes Absolute Manual 1.67 K/mm3 (1.1-4.5); Metamyelocytes Percent 1 %; Monocytes Absolute Manual 0.37 K/mm3 (0.1-0.90); Monocytes Percent Manual 2 % (3-9); Myelocytes Percent 1 %; Neutrophils Absolute Manual 16.18 K/mm3 (1.7-7.2); Neutrophils Percent Manual 84 % (46-73); Prothrombin Time 15.8 Seconds (11.1-14.7); Total Cells Counted 100
[2021-09-12 12:35] LABS: Partial Thromboplastin Time 32.1 SECONDS (22.3-36.8); Platelet Estimate Adequate (Adequate)
[2021-09-12 12:55] LABS: Appearance Urine Slightly Cloudy (Clear); Bilirubin Urine Negative (Negative); Color Urine Yellow (Yellow); Glucose Urine UA Negative (Negative); Ketones Urine Negative (Negative); Leukocyte Esterase Ur 1+ LEU/UL (Negative); Nitrate Urine Positive (Negative); Protein Urine Negative (Negative); Specific Grav Ur 1.015 (1.001-1.035); pH Urine 5.5 (5.0-9.0)
[2021-09-12 12:56] LABS: Add Urine Microscopic? YES; Blood Urine Trace-Intact (Negative)
[2021-09-12 13:02] LABS: Bacteria Urine Trace /hpf; Mucus Urine Rare /lpf; Squamous Epithelial Cell Urine Occasional /hpf (Few); WBC Urine 21-30 /hpf
--- NOTE | 2021-09-12 13:53 | ED.GENADULT ---
HPI - General Adult General Chief complaint: Altered Mental Status Stated complaint: alert to painfull stimuli History of Present Illness HPI narrative: Patient is a 61-year-old female who presents ER with altered mental status. Patient had acute change in mental status 1 hour after alf staff administered home medications to her. When they checked on her again she had her medications still in her mouth and was only responsive to noxious stimuli. Patient would not answer questions but if you provide noxious stimuli she will shout in full sentences. Patient has a known wound to the right kilpatrick and and it has surrounding cellulitis and induration. No drainage or poor odor. Related Data Home Medications Medication Instructions Recorded Confirmed Lactobacillus acidophilus 10 mg PO BID 01/30/19 09/12/21 (Acidophilus capsule) aspirin 81 mg tablet,delayed 81 mg PO DAILY 01/30/19 09/12/21 release (Aspir-) cholecalciferol (vitamin D3) 100 25 mcg PO DAILY 01/30/19 09/12/21 mcg (4,000 unit) capsule divalproex 250 mg tablet,delayed 250 mg PO HS 01/30/19 09/12/21 release (Depakote) multivitamin 1 cap PO DAILY 01/30/19 09/12/21 acetaminophen 325 mg tablet 650 mg PO Q4H PRN Mild Pain (Scale 06/18/21 09/12/21 (Tylenol) Score 1-4) apixaban 5 mg tablet (Eliquis) 5 mg PO BID 06/18/21 09/12/21 arginine-vitamin C-vitamin E oral 9.2 g PO BID 06/18/21 09/12/21 4.5 gram-156 mg/9.2 gram powder pkt (Arginaid) aripiprazole 10 mg tablet 10 mg PO DAILY 06/18/21 09/12/21 ascorbic acid (vitamin C) 250 mg 250 mg PO DAILY 06/18/21 09/12/21 tablet atorvastatin 10 mg tablet 10 mg PO DAILY 06/18/21 09/12/21 furosemide 40 mg tablet 40 mg PO DAILY 06/18/21 09/12/21 gabapentin 300 mg capsule 300 mg PO TID 06/18/21 09/12/21 levothyroxine 88 mcg tablet 88 mcg PO DAILY 06/18/21 09/12/21 metformin 500 mg tablet 500 mg PO BID 06/18/21 09/12/21 olanzapine 5 mg tablet 5 mg PO BID 06/18/21 09/12/21 polyethylene glycol 3350 17 gram 17 g PO DAILY 06/18/21 09/12/21 oral powder packet potassium chloride 20 mEq 20 meq PO DAILY 06/18/21 09/12/21 tablet,extended release(part/cryst) spironolactone 25 mg tablet 25 mg PO DAILY 06/18/21 09/12/21 miconazole nitrate 1 applic topical BID 07/17/21 09/12/21 docusate sodium 100 mg capsule 100 mg PO BID 09/12/21 09/12/21 (Colace) hydrocodone 7.5 mg-acetaminophen 1 tablet PO Q4H 09/12/21 09/12/21 325 mg tablet Allergies Allergy/AdvReac Type Severity Reaction Status Date / Time Latex, Natural Rubber Allergy Mild Unknown Verified 09/12/21 17:25 Review of Systems Review of Systems: ROS unobtainable: Yes unobtainable due to mental status PMFSH Past Medical History Medical History Bipolar disorder Bowel obstruction Cancer of kidney 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 Family History Family History Father Throat cancer Mother Heart disease Social History Social History (Updated 09/12/21 @ 18:49 by YESI Davis) Social History: Patient lives at [facility]. She wishes to be a full code at this time. She does have 1 child and she still smokes. [id number]: Pete Posada. Code status: Full code. Smoking packs per day: 1 Smoking cigarettes per day: 20.0 Years smoked: 45 Smoking pack-years: 45.00 Smoking status: Current every day smoker Second hand tobacco smoke exposure: Yes Alcohol intake: never Substance use: never Substance
[2021-09-12 14:45] LABS: SARS-CoV-2 RNA PCR Negative
[2021-09-12 15:09] LABS: Reflex Lactic Acid Yes or No Add Lactic
[2021-09-12] MEDS: KETOROLAC 30 MG/ML VIAL (*BKC) IV PUSH (15:48)
--- NOTE | 2021-09-12 15:52 | PC.NURSE ---
Went in room to transfer pt to her room for admission, pt was obtunded, only responsive to pain, and only alert to self. Heart rate was high, temp was 102.5, and patient had snoring respirations. Dr. Goins notified. More fluids and tordal ordered for fever.
--- NOTE | 2021-09-12 16:52 | ADMGEN ---
This patient, Rafia Spencer, was admitted to IMU Room 211-01 at 1650 on 09/12/2021. Report received from Nicolasa GALINDO. Patient/family oriented to hospital policies and general routines including ID bracelet, bed and alarms, visiting hours, pain management, procedures, bathroom and other care routines, personal items, smoking policy, room service/diet, and visiting hours. Information on how to activate the Rapid Response Team has been discussed. Patient/Family are encouraged to report perceived risks to care and to ask questions if they do not understand what they are told or what they should do.
[2021-09-12] MEDS: SODIUM CHLORIDE 0.9% IV 1,000 ML 125 ML IV CONT (17:05)
--- NOTE | 2021-09-12 17:05 | PM.IMHP ---
H&P: HPI History of Present Illness Date/Time: 09/12/21 1705 Chief Complaint: Acute metabolic encephalopathy Narrative: Patient is a 61-year-old female with a past medical history of bipolar disease, DVT, hypothyroidism, PVD who presented to the ED with lethargy and unresponsive nature. [facility] the patient was given her meds sometimes morning however when they made her the rounds again she still had her medications her mouth. Patient is a very poor historian and was able to tell me what really happened. It was noted that the patient does respond to pain stimuli however patient was laid on her back and she was very upset because it did have a lot of pain so she was moaning in the room. Was able to get sort of a review of systems. She denies any chest pain, shortness of breath, nausea, vomiting, abdominal pain. She did state that she was having some back pain. She denied any urine difficulties. She could tell me she was at the hospital however she did tell me she lived in a hotel but that would tell me she would live to penitent[facility]. She can not tell me why she takes some of her medications. She denies any visual changes, sweats, fevers, chills, headaches. Patient went answer some my questions however she would act like she was going to go back to sleep side after asked her multiple times with some questions. She is being admitted to the hospitalist service as an inpatient Review of Systems Review of Systems: All systems reviewed & are unremarkable except as noted in HPI and below PMFSH Past Medical History Medical History Bipolar disorder Bowel obstruction Cancer of kidney Current use of snf anticoagulation Deep venous thrombosis Gastroesophageal reflux disease Hypercholesterolemia Hypothyroidism Incarcerated incisional hernia Kidney stones Peripheral vascular disease Type 2 diabetes mellitus Surgical History Surgical History History of cholecystectomy History of hysterectomy History of vascular surgery Bilateral common iliac stents. Family History Family History Father Throat cancer Mother Heart disease Social History Social History (Updated 09/12/21 @ 18:49 by YESI Davis) Social History: Patient lives at [facility]. She wishes to be a full code at this time. She does have 1 child and she still smokes. [id number]: Pete Posada. Code status: Full code. Smoking packs per day: 1 Smoking cigarettes per day: 20.0 Years smoked: 45 Smoking pack-years: 45.00 Smoking status: Current every day smoker Second hand tobacco smoke exposure: Yes Alcohol intake: never Substance use: never Substance use type: does not use Living arrangements: penitentiary Additional living arrangements comments: Currently at [place] [facility]. Additional occupation/education comments: Disabled. Gender identity (if verbalized by the patient): Female Sexual Orientation (if Verbalized by the Patient): Straight or Heterosexual Spiritual care concerns: No Agree to blood products: Yes Meds Home Medications and Allergies Home Medications Medication Instructions Recorded Confirmed Type Lactobacillus acidophilus 10 mg PO BID 01/30/19 09/12/21 History (Acidophilus capsule) aspirin 81 mg tablet,delayed 81 mg PO DAILY 01/30/19 09/12/21 History release (Aspir-) cholecalciferol (vitamin D3) 100 25 mcg PO DAILY 01/30/19 09/12/21 History mcg (4,000 unit) capsule divalproex 250 mg tablet,delayed 250 mg PO HS 01/30/19 09/12/21 History release (Depakote) multivitamin 1 cap PO DAILY 01/30/19 09/12/21 History acetaminophen 325 mg tablet 650 mg PO Q4H PRN Mild Pain (Scale 06/18/21 09/12/21 History (Tylenol) Score 1-4) apixaban 5 mg tablet (Eliquis) 5 mg PO BID 06/18/2109/12
[2021-09-12 17:18] LABS: Glucose Point of Care 188 mg/dl (65-105)
[2021-09-12 17:40] LABS: Lactic Acid 2.5 mmol/L (0.7-2.0)
[2021-09-12] MEDS: DIVALPROEX SODIUM ER 250 MG TAB.24H PO (22:02)
[2021-09-13] VITALS (9 sets, daily range): BP systolic 123–165; BP diastolic 60–89; PULSE 84–109; RESP 18–28; TEMP 36.4–37.8; O2SAT 66–98
[2021-09-13] MEDS: SODIUM CHLORIDE 0.9% IV 1,000 ML 125 ML IV CONT (00:17)
[2021-09-13] MEDS: MORPHINE SULFATE (*CRX) 4 MG/ML INJ IV PUSH ×2 (01:00→15:42)
--- NOTE | 2021-09-13 02:26 | PC.NURSE ---
patient was just turned to left side. patient does not turn self. patient does not like being on left side. patient screams out to be turned over. talked her into staying off rt side for a little bit.
[2021-09-13 04:47] LABS: Basophils Percent Auto 0.2 % (0.2-1.2); Eosinophils Percent Auto 0.1 % (0-4.4); Hematocrit 36.4 % (37.0-47.0); Immature Granulocyte Absolute 0.03 K/mm3 (0.00-0.031); Immature Granulocyte Percent A 0.3 % (0-0.5); Lymphocytes Absolute Auto 0.74 K/mm3 (0.9-3.2); Lymphocytes Percent Auto 7.9 % (18.3-44.2); Mean Corpuscular HGB Conc 30.2 g/dl (32-36); Mean Corpuscular Hemoglobin 28.6 pg (26-34); Mean Corpuscular Volume 94.5 fl (80-100); Mean Platelet Volume 9.3 fl (7.4-10.4); Monocytes Absolute Auto 0.7 K/mm3 (0.1-0.6); Monocytes Percent Auto 7.8 % (2.6-8.5); Neutrophils Absolute Auto 7.8 K/mm3 (1.3-6.7); Neutrophils Percent Auto 83.7 % (45.5-73.1); Platelet Count Result 227 k/mm3 (150-375); Red Blood Count 3.85 M/mm3 (4.2-5.4); Red Cell Distribution Width 15.3 % (11.5-14.5); White Blood Count 9.3 K/mm3 (4.5-10.0)
[2021-09-13 04:55] LABS: Hemoglobin A1C 6.8 % (<5.7)
[2021-09-13 04:57] LABS: Alanine Aminotransferase 24 U/L (6-35); Albumin Level 3.4 g/dL (3.5-5.1); Alkaline Phosphatase 78 U/L (38-126); Anion Gap 8 mmol/L (8-16); Aspartate Amino Transferase 30 U/L (14-36); Bilirubin,Total 0.4 mg/dL (0.2-1.3); Blood Urea Nitrogen 14 mg/dL (7-17); Calcium 8.5 mg/dL (8.4-10.2); Carbon Dioxide 28 mmol/L (22-30); Chloride 102 mmol/L (98-107); Estimated CRCL calculation 90 ml/min; Estimated Glomerular Filt Rate > 60; Glucose 137 mg/dL (65-110); Magnesium 1.8 mg/dL (1.6-2.3); Potassium 3.9 mmol/L (3.4-5.0); Sodium 138 mmol/L (137-145)
[2021-09-13] MEDS: HYDROcodone/acetaminophen (*CRX) 5-325 MG TABLET 1 TAB PO ×2 (05:07→21:39)
[2021-09-13] MEDS: LEVOTHYROXINE SODIUM 88 MCG TABLET PO (05:08)
--- NOTE | 2021-09-13 06:00 | PC.NURSE ---
patient pulled out iv access. patient is a difficult stick and vijay irizarry rn, vascular nurse was called to try to get one.
--- NOTE | 2021-09-13 10:51 | PM.IMPN ---
Progress Note: A&P Assessment and Plan (1) Peripheral vascular disease: Code(s): I73.9 - Peripheral vascular disease, unspecified Status: Acute (2) Leukocytosis (leucocytosis): Qualifiers: Leukocytosis type: unspecified Qualified Code(s): D72.829 - Elevated white blood cell count, unspecified Code(s): D72.829 - Elevated white blood cell count, unspecified Status: Acute (3) Hypothyroidism: Code(s): E03.9 - Hypothyroidism, unspecified Status: Acute (4) Type 2 diabetes mellitus: Code(s): E11.9 - Type 2 diabetes mellitus without complications Status: Acute (5) Bipolar disorder: Code(s): F31.9 - Bipolar disorder, unspecified Status: Acute (6) 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 CT head with no acute abnormality. Chest x-ray negative. COVID negative. # sepsis meets SIRS criteria with leukocytosis tachycardia lactic acid elevation at 3:54 a.m.. Normal saline for IV fluid resuscitation # right lower extremity wound with infection and cellulitis wound consulted on IV Zosyn will also add vancomycin. Bilaterally present. Looks infected. Will get ultrasound arterial duplex to evaluate for peripheral vascular disease. SALVADOR done in 2020 showed bilateral lower extremity arterial occlusive disease with moderately decreased right SALVADOR and TBI with borderline decrease left SALVADOR and TBI. Right SALVADOR 0.68 right TBI 0.52 Left SALVADOR 0.96 left TBI 0.62 # bacteremia Gram-positive cocci in chains from anaerobic bottle / On IV Zosyn # UTI normal UA. Urine culture sent. IV Zosyn # Bipolar disorder # Hypertension # Hyperlipidemia # Peripheral vascular disease # Type 2 diabetes mellitus on insulin SSI. A1c at 6.8. Hold metformin # Leukocytosis likely from UTI versus wound infection pancultured in the ER. Leukocytosis has resolved today. # Hypothyroidism on levothyroxine # Long-term use of anticoagulants with Eliquis # half-way resident # DVT prophylaxis on Eliquis # Code status full code Subjective Date/time seen: 09/13/21 10:51 Interval history: HPI:Patient is a 61-year-old female with a past medical history of bipolar disease, DVT, hypothyroidism, PVD who presented to the ED with lethargy and unresponsive nature.? According the longterm the patient was given her meds sometimes morning however when they made her the rounds again she still had her medications her mouth.? Patient is a very poor historian and was able to tell me what really happened.? It was noted that the patient does respond to pain stimuli however patient was laid on her back and she was very upset because it did have a lot of pain so she was moaning in the room.? Was able to get sort of a review of systems.? She denies any chest pain, shortness of breath, nausea, vomiting, abdominal pain.? She did state that she was having some back pain.? She denied any urine difficulties.? She could tell me she was at the hospital however she did tell me she lived in a hotel but that would tell me she would live to longterm.? She can not tell me why she takes some of her medications.? She denies any visual changes, sweats, fevers, chills, headaches.? Patient went answer some my questions however she would act like she was going to go back to sleep side after asked her multiple times with some questions. She is being admitted to the hospitalist service as an inpatient 09/13/2021 no overnight events. Patient chele and dara answers intermittently in
[2021-09-13] MEDS: GABAPENTIN 300 MG CAPSULE PO ×3 (11:24→17:08)
[2021-09-13] MEDS: ASPIRIN 81 MG ENTERIC TABLET PO (11:24)
[2021-09-13] MEDS: CHOLECALCIFEROL 1,000 UNITS TABLET 4000 UNITS PO (11:25)
[2021-09-13] MEDS: ARIPiprazole 10 MG TABLET PO (11:25)
[2021-09-13] MEDS: ATORVASTATIN 10 MG TABLET PO (11:25)
[2021-09-13] MEDS: SPIRONOLACTONE 25 MG TABLET PO (11:25)
[2021-09-13] MEDS: APIXABAN 5 MG TABLET PO ×2 (11:25→17:08)
[2021-09-13] MEDS: SILVERGEL (ELTA) 45 ML 1 APPLIC TOPICAL (11:59)
[2021-09-13] MEDS: SODIUM CHLORIDE 0.9% IV 1,000 ML 60 ML IV CONT (21:38)
[2021-09-13] MEDS: DIVALPROEX SODIUM ER 250 MG TAB.24H PO (21:39)
[2021-09-14] VITALS (7 sets, daily range): BP systolic 90–140; BP diastolic 59–66; PULSE 76–88; RESP 18–26; TEMP 36–37.4; O2SAT 94–100
--- NOTE | 2021-09-14 02:51 | PC.NURSE ---
This patient, Rafia Spencer, was transferred to [[facility] ] on 09/14/21 at 0252. Personal belongings sent with patient. Report given to [ fallon darby]. Appropriate documentation sent with patient.
--- NOTE | 2021-09-14 03:10 | PC.NURSE ---
pt received from IMU at 0252 via bed. pt oriented to unit's policies and procedures
[2021-09-14 06:17] LABS: Basophils Percent Auto 0.1 % (0.2-1.2); Eosinophils Percent Auto 0.1 % (0-4.4); Hematocrit 36.6 % (37.0-47.0); Hemoglobin 11.1 g/dL (12.0-15.0); Immature Granulocyte Absolute 0.05 K/mm3 (0.00-0.031); Immature Granulocyte Percent A 0.6 % (0-0.5); Lymphocytes Absolute Auto 1.64 K/mm3 (0.9-3.2); Lymphocytes Percent Auto 19.6 % (18.3-44.2); Mean Corpuscular HGB Conc 30.3 g/dl (32-36); Mean Corpuscular Hemoglobin 28.6 pg (26-34); Mean Corpuscular Volume 94.3 fl (80-100); Mean Platelet Volume 9.4 fl (7.4-10.4); Monocytes Percent Auto 12.1 % (2.6-8.5); Neutrophils Absolute Auto 5.7 K/mm3 (1.3-6.7); Neutrophils Percent Auto 67.5 % (45.5-73.1); Platelet Count Result 213 k/mm3 (150-375); Red Blood Count 3.88 M/mm3 (4.2-5.4); Red Cell Distribution Width 15.3 % (11.5-14.5); White Blood Count 8.4 K/mm3 (4.5-10.0)
[2021-09-14] MEDS: LEVOTHYROXINE SODIUM 88 MCG TABLET PO (06:50)
[2021-09-14 07:25] LABS: Alanine Aminotransferase 26 U/L (6-35); Albumin Level 3.4 g/dL (3.5-5.1); Alkaline Phosphatase 77 U/L (38-126); Anion Gap 6 mmol/L (8-16); Aspartate Amino Transferase 36 U/L (14-36); Bilirubin,Total 0.4 mg/dL (0.2-1.3); Blood Urea Nitrogen 12 mg/dL (7-17); Calcium 8.2 mg/dL (8.4-10.2); Carbon Dioxide 29 mmol/L (22-30); Chloride 104 mmol/L (98-107); Estimated CRCL calculation 90 ml/min; Estimated Glomerular Filt Rate > 60; Glucose 140 mg/dL (65-110); Potassium 3.7 mmol/L (3.4-5.0); Sodium 139 mmol/L (137-145)
[2021-09-14] MEDS: ASPIRIN 81 MG ENTERIC TABLET PO (10:49)
[2021-09-14] MEDS: GABAPENTIN 300 MG CAPSULE PO ×3 (10:49→17:56)
[2021-09-14] MEDS: SPIRONOLACTONE 25 MG TABLET PO (10:49)
[2021-09-14] MEDS: CHOLECALCIFEROL 1,000 UNITS TABLET 4000 UNITS PO (10:49)
[2021-09-14] MEDS: ATORVASTATIN 10 MG TABLET PO (10:50)
[2021-09-14] MEDS: ARIPiprazole 10 MG TABLET PO (10:50)
[2021-09-14] MEDS: SILVERGEL (ELTA) 45 ML 1 APPLIC TOPICAL (10:50)
[2021-09-14] MEDS: APIXABAN 5 MG TABLET PO ×2 (10:50→17:56)
--- NOTE | 2021-09-14 15:24 | PM.IMPN ---
Progress Note: A&P Assessment and Plan (1) Peripheral vascular disease: Code(s): I73.9 - Peripheral vascular disease, unspecified Status: Acute (2) Leukocytosis (leucocytosis): Qualifiers: Leukocytosis type: unspecified Qualified Code(s): D72.829 - Elevated white blood cell count, unspecified Code(s): D72.829 - Elevated white blood cell count, unspecified Status: Acute (3) Hypothyroidism: Code(s): E03.9 - Hypothyroidism, unspecified Status: Acute (4) Type 2 diabetes mellitus: Code(s): E11.9 - Type 2 diabetes mellitus without complications Status: Acute (5) Bipolar disorder: Code(s): F31.9 - Bipolar disorder, unspecified Status: Acute (6) Current use of continuous churn buttermaker anticoagulation: Code(s): Z79.01 - [facility] (current) use of anticoagulants Status: Acute (7) Acute metabolic encephalopathy: Code(s): G93.41 - Metabolic encephalopathy Status: Acute (8) Sepsis: Code(s): A41.9 - Sepsis, unspecified organism Status: Acute (9) Abnormal urinalysis: Code(s): R82.90 - Unspecified abnormal findings in urine Status: Acute Plan # altered mental status on responsive to noxious stimuli. CT head with no acute abnormality. Chest x-ray negative. COVID negative. # sepsis meets SIRS criteria with leukocytosis tachycardia lactic acid elevation at 3:54 a.m.. Normal saline for IV fluid resuscitation # right lower extremity wound with infection and cellulitis wound consulted on IV Zosyn will also add vancomycin. Bilaterally present. Looks infected. Will get ultrasound arterial duplex to evaluate for peripheral vascular disease. SALVADOR done in 2020 showed bilateral lower extremity arterial occlusive disease with moderately decreased right SALVADOR and TBI with borderline decrease left SALVADOR and TBI. Right SALVADOR 0.68 right TBI 0.52 Left SALVADOR 0.96 left TBI 0.62 current SALVADOR 09/13/2021 Right SALVADOR could not be measured due to skin wound Right TBI 1.43 left TBI 1.68 # bacteremia Gram-positive cocci in chains from anaerobic bottle / On IV Zosyn. Added on vancomycin. Urine culture with ESBL E coli and group G Streptococcus growing in blood # UTI normal UA. Urine culture sent. urine culture with ESBL E coli on IV Zosyn , will switch to ertapenem # Bipolar disorder # Hypertension # Hyperlipidemia # Peripheral vascular disease # Type 2 diabetes mellitus on insulin SSI. A1c at 6.8. Hold metformin # Leukocytosis likely from UTI versus wound infection pancultured in the ER. Leukocytosis has resolved today. # Hypothyroidism on levothyroxine # Long-term use of anticoagulants with Eliquis # [facility] resident # DVT prophylaxis on Eliquis # Code status full code Subjective Date/time seen: 09/14/21 15:24 Interval history: HPI:Patient is a 61-year-old female with a past medical history of bipolar disease, DVT, hypothyroidism, PVD who presented to the ED with lethargy and unresponsive nature.? According the retirement the patient was given her meds sometimes morning however when they made her the rounds again she still had her medications her mouth.? Patient is a very poor historian and was able to tell me what really happened.? It was noted that the patient does respond to pain stimuli however patient was laid on her back and she was very upset because it did have a lot of pain so she was moaning in the room.? Was able to get sort of a review of systems.? She denies any chest pain, shortness of breath, nausea, vomiting, abdominal pain.? She did state that she was having some back pain.? She denied any urine difficulties.? She could tell me she was at the hospital however she did tell me she lived in a hotel but that would tell me she would live to retirement.? She can not tell me why she takes some of her medications.? She denies any visual changes, sweats, fevers, chills, headaches.? Patient went answer some my questions trish
[2021-09-14] MEDS: ERTAPENEM 1 GM/NS 50 ML 1 GM/50 ML BAG IVPB (17:55)
[2021-09-14] MEDS: DIVALPROEX SODIUM ER 250 MG TAB.24H PO (20:56)
[2021-09-14] MEDS: SODIUM CHLORIDE 0.9% IV 1,000 ML 60 ML IV CONT (20:59)
[2021-09-15] VITALS (7 sets, daily range): BP systolic 153–171; BP diastolic 70–88; PULSE 79–94; RESP 14–26; TEMP 36.1–36.4; O2SAT 86–97; BMI 43.3
[2021-09-15 00:13] LABS: Vancomycin Trough 18.3 ug/mL (10.0-20.0)
[2021-09-15] MEDS: LEVOTHYROXINE SODIUM 88 MCG TABLET PO (05:22)
[2021-09-15 05:53] LABS: Basophils Percent Auto 0.2 % (0.2-1.2); Eosinophils Percent Auto 0.5 % (0-4.4); Hematocrit 38.7 % (37.0-47.0); Hemoglobin 11.7 g/dL (12.0-15.0); Immature Granulocyte Absolute 0.03 K/mm3 (0.00-0.031); Immature Granulocyte Percent A 0.5 % (0-0.5); Lymphocytes Absolute Auto 0.97 K/mm3 (0.9-3.2); Lymphocytes Percent Auto 14.6 % (18.3-44.2); Mean Corpuscular HGB Conc 30.2 g/dl (32-36); Mean Corpuscular Hemoglobin 28.1 pg (26-34); Mean Platelet Volume 9.5 fl (7.4-10.4); Monocytes Absolute Auto 0.6 K/mm3 (0.1-0.6); Neutrophils Percent Auto 75.2 % (45.5-73.1); Platelet Count Result 238 k/mm3 (150-375); Red Blood Count 4.16 M/mm3 (4.2-5.4); White Blood Count 6.7 K/mm3 (4.5-10.0)
[2021-09-15 06:02] LABS: Alanine Aminotransferase 33 U/L (6-35); Albumin Level 3.6 g/dL (3.5-5.1); Alkaline Phosphatase 80 U/L (38-126); Anion Gap 7 mmol/L (8-16); Aspartate Amino Transferase 49 U/L (14-36); Bilirubin,Total 0.4 mg/dL (0.2-1.3); Blood Urea Nitrogen 10 mg/dL (7-17); Calcium 9.1 mg/dL (8.4-10.2); Carbon Dioxide 29 mmol/L (22-30); Chloride 107 mmol/L (98-107); Estimated CRCL calculation 90 ml/min; Estimated Glomerular Filt Rate > 60; Glucose 133 mg/dL (65-110); Potassium 3.9 mmol/L (3.4-5.0); Sodium 143 mmol/L (137-145)
[2021-09-15] MEDS: SILVERGEL (ELTA) 45 ML 1 APPLIC TOPICAL (09:44)
[2021-09-15] MEDS: SPIRONOLACTONE 25 MG TABLET PO (10:31)
[2021-09-15] MEDS: GABAPENTIN 300 MG CAPSULE PO ×3 (10:31→17:41)
[2021-09-15] MEDS: APIXABAN 5 MG TABLET PO ×2 (10:31→17:41)
[2021-09-15] MEDS: ASPIRIN 81 MG ENTERIC TABLET PO (10:31)
[2021-09-15] MEDS: CHOLECALCIFEROL 1,000 UNITS TABLET 4000 UNITS PO (10:31)
[2021-09-15] MEDS: ATORVASTATIN 10 MG TABLET PO (10:31)
[2021-09-15] MEDS: ARIPiprazole 10 MG TABLET PO (10:31)
--- NOTE | 2021-09-15 14:31 | PM.IMPN ---
Progress Note: A&P Assessment and Plan (1) Peripheral vascular disease: Code(s): I73.9 - Peripheral vascular disease, unspecified Status: Acute (2) Leukocytosis (leucocytosis): Qualifiers: Leukocytosis type: unspecified Qualified Code(s): D72.829 - Elevated white blood cell count, unspecified Code(s): D72.829 - Elevated white blood cell count, unspecified Status: Acute (3) Hypothyroidism: Code(s): E03.9 - Hypothyroidism, unspecified Status: Acute (4) Type 2 diabetes mellitus: Code(s): E11.9 - Type 2 diabetes mellitus without complications Status: Acute (5) Bipolar disorder: Code(s): F31.9 - Bipolar disorder, unspecified Status: Acute (6) Current use of rim buster anticoagulation: Code(s): Z79.01 - intermediate (current) use of anticoagulants Status: Acute (7) Acute metabolic encephalopathy: Code(s): G93.41 - Metabolic encephalopathy Status: Acute (8) Sepsis: Code(s): A41.9 - Sepsis, unspecified organism Status: Acute (9) Abnormal urinalysis: Code(s): R82.90 - Unspecified abnormal findings in urine Status: Acute Plan # altered mental status on responsive to noxious stimuli. CT head with no acute abnormality. Chest x-ray negative. COVID negative. # sepsis meets SIRS criteria with leukocytosis tachycardia lactic acid elevation at 3:54 a.m.. Normal saline for IV fluid resuscitation # right lower extremity wound with infection and cellulitis wound consulted on IV Zosyn will also add vancomycin. Bilaterally present. Looks infected. Will get ultrasound arterial duplex to evaluate for peripheral vascular disease. SALVADOR done in 2020 showed bilateral lower extremity arterial occlusive disease with moderately decreased right SALVADOR and TBI with borderline decrease left SALVADOR and TBI. Right SALVADOR 0.68 right TBI 0.52 Left SALVADOR 0.96 left TBI 0.62 current SALVADOR 09/13/2021 Right SALVADOR could not be measured due to skin wound Right TBI 1.43 left TBI 1.68 # bacteremia Gram-positive cocci in chains from anaerobic bottle 02/19 On IV Zosyn. Added on vancomycin. Urine culture with ESBL E coli and group G Streptococcus growing in blood. Orthopnea will cover for both of these. Will continue ertapenem and stop vancomycin today # UTI normal UA. Urine culture sent. urine culture with ESBL E coli on IV Zosyn , switched to ertapenem # Bipolar disorder # Hypertension # Hyperlipidemia # Peripheral vascular disease # Type 2 diabetes mellitus on insulin SSI. A1c at 6.8. Hold metformin # Leukocytosis likely from UTI versus wound infection pancultured in the ER. Leukocytosis has now resolved # Hypothyroidism on levothyroxine # Long-term use of anticoagulants with Eliquis # [facility] resident # DVT prophylaxis on Eliquis # Code status full code Needed antibiotics for 10 days course with ertapenem Family wants to take her 2 g [facility] from [facility] moved at discharge will get care coordination [place]. Subjective Date/time seen: 09/15/21 14:31 Interval history: HPI:Patient is a 61-year-old female with a past medical history of bipolar disease, DVT, hypothyroidism, PVD who presented to the ED with lethargy and unresponsive nature.? According the [facility] the patient was given her meds sometimes morning however when they made her the rounds again she still had her medications her mouth.? Patient is a very poor historian and was able to tell me what really happened.? It was noted that the patient does respond to pain stimuli however patient was laid on her back and she was very upset because it did have a lot of pain so she was moaning in the room.? Was able to get sort of a review of systems.? She denies any chest pain, shortness of breath, nausea, vomiting, abdominal pain.? She did state that she was having some back pain.? She denied any urine difficulties.? She could tell me she was at the hospital however she did
[2021-09-15] MEDS: ERTAPENEM 1 GM/NS 50 ML 1 GM/50 ML BAG IVPB (17:43)
[2021-09-15] MEDS: ACETAMINOPHEN 325 MG TABLET 650 MG PO (20:48)
[2021-09-15] MEDS: DIVALPROEX SODIUM ER 250 MG TAB.24H PO (20:48)
[2021-09-16 06:00] VITALS: BP 184/92; PULSE 80; RESP 16; TEMP 36.9; O2SAT 96
[2021-09-16] MEDS: LEVOTHYROXINE SODIUM 88 MCG TABLET PO (06:07)
[2021-09-16 06:28] LABS: Basophils Percent Auto 0.3 % (0.2-1.2); Eosinophils Percent Auto 0.6 % (0-4.4); Hematocrit 37.9 % (37.0-47.0); Hemoglobin 11.5 g/dL (12.0-15.0); Immature Granulocyte Absolute 0.07 K/mm3 (0.00-0.031); Lymphocytes Percent Auto 16.1 % (18.3-44.2); Mean Corpuscular HGB Conc 30.3 g/dl (32-36); Mean Corpuscular Hemoglobin 28.6 pg (26-34); Mean Corpuscular Volume 94.3 fl (80-100); Mean Platelet Volume 9.4 fl (7.4-10.4); Monocytes Absolute Auto 0.7 K/mm3 (0.1-0.6); Monocytes Percent Auto 10.7 % (2.6-8.5); Neutrophils Absolute Auto 4.9 K/mm3 (1.3-6.7); Neutrophils Percent Auto 71.3 % (45.5-73.1); Platelet Count Result 259 k/mm3 (150-375); Red Blood Count 4.02 M/mm3 (4.2-5.4); Red Cell Distribution Width 14.6 % (11.5-14.5); White Blood Count 6.8 K/mm3 (4.5-10.0)
[2021-09-16 06:34] LABS: Alanine Aminotransferase 32 U/L (6-35); Albumin Level 3.3 g/dL (3.5-5.1); Alkaline Phosphatase 75 U/L (38-126); Anion Gap 7 mmol/L (8-16); Aspartate Amino Transferase 36 U/L (14-36); Bilirubin,Total 0.3 mg/dL (0.2-1.3); Blood Urea Nitrogen 9 mg/dL (7-17); Carbon Dioxide 30 mmol/L (22-30); Chloride 107 mmol/L (98-107); Estimated CRCL calculation 102 ml/min; Estimated Glomerular Filt Rate > 60; Glucose 132 mg/dL (65-110); Potassium 3.6 mmol/L (3.4-5.0); Sodium 144 mmol/L (137-145)
[2021-09-16 08:00] VITALS: PULSE 80; RESP 16; O2SAT 96
[2021-09-16] MEDS: ATORVASTATIN 10 MG TABLET PO (10:22)
[2021-09-16] MEDS: GABAPENTIN 300 MG CAPSULE PO ×3 (10:22→17:24)
[2021-09-16] MEDS: ASPIRIN 81 MG ENTERIC TABLET PO (10:23)
[2021-09-16] MEDS: CHOLECALCIFEROL 1,000 UNITS TABLET 4000 UNITS PO (10:23)
[2021-09-16] MEDS: APIXABAN 5 MG TABLET PO ×2 (10:23→17:24)
[2021-09-16] MEDS: ARIPiprazole 10 MG TABLET PO (10:23)
[2021-09-16] MEDS: SPIRONOLACTONE 25 MG TABLET PO (10:29)
[2021-09-16] MEDS: SILVERGEL (ELTA) 45 ML 1 APPLIC TOPICAL (10:29)
--- NOTE | 2021-09-16 12:27 | PM.IMPN ---
Progress Note: A&P Assessment and Plan (1) Peripheral vascular disease: Code(s): I73.9 - Peripheral vascular disease, unspecified Status: Acute (2) Leukocytosis (leucocytosis): Qualifiers: Leukocytosis type: unspecified Qualified Code(s): D72.829 - Elevated white blood cell count, unspecified Code(s): D72.829 - Elevated white blood cell count, unspecified Status: Acute (3) Hypothyroidism: Code(s): E03.9 - Hypothyroidism, unspecified Status: Acute (4) Type 2 diabetes mellitus: Code(s): E11.9 - Type 2 diabetes mellitus without complications Status: Acute (5) Bipolar disorder: Code(s): F31.9 - Bipolar disorder, unspecified Status: Acute (6) 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 CT head with no acute abnormality. Chest x-ray negative. COVID negative. Mental status is improving. # sepsis meets SIRS criteria with leukocytosis tachycardia lactic acid elevation at 3:54 a.m.. Normal saline for IV fluid resuscitation # right lower extremity wound with infection and cellulitis wound consulted on IV Zosyn will also add vancomycin. Bilaterally present. Looks infected. Will get ultrasound arterial duplex to evaluate for peripheral vascular disease. SALVADOR done in 2020 showed bilateral lower extremity arterial occlusive disease with moderately decreased right SALVADOR and TBI with borderline decrease left SALVADOR and TBI. Right SALVADOR 0.68 right TBI 0.52 Left SALVADOR 0.96 left TBI 0.62 current SALVADOR 09/13/2021 Right SALVADOR could not be measured due to skin wound Right TBI 1.43 left TBI 1.68 Group G Streptococcus bacteremia likely from have wound infection bilateral lower extremities # bacteremia Gram-positive cocci in chains from anaerobic bottle /2 On IV Zosyn. Added on vancomycin. Urine culture with ESBL E coli and group G Streptococcus growing in blood. Orthopnea will cover for both of these. Will continue ertapenem and stop vancomycin Needs ertapenem cover for group C Streptococcus as well as ESBL coli in urine and will need at least 10 days course of antibiotics. Will repeat blood culture x2 today # UTI normal UA. Urine culture sent. urine culture with ESBL E coli on IV Zosyn , switched to ertapenem # Bipolar disorder # Hypertension elevated. Will resume her Lasix. IV fluids. # Hyperlipidemia # Peripheral vascular disease # Type 2 diabetes mellitus on insulin SSI. A1c at 6.8. Hold metformin # Leukocytosis likely from UTI versus wound infection pancultured in the ER. Leukocytosis has now resolved # Hypothyroidism on levothyroxine # Long-term use of anticoagulants with Eliquis # senior care resident # DVT prophylaxis on Eliquis # Code status full code Needed antibiotics for 10 days course with ertapenem Family wants to take her [address] [place] [address] from the [facility] moved at discharge will get care coordination involved Subjective Date/time seen: 09/16/21 12:27 Interval history: HPI:Patient is a 61-year-old female with a past medical history of bipolar disease, DVT, hypothyroidism, PVD who presented to the ED with lethargy and unresponsive nature.? [facility] the [facility] the patient was given her meds sometimes morning however when they made her the rounds again she still had her medications her mouth.? Patient is a very poor historian and was able to tell me what really happened.? It was noted that the patient does respond to pain stimuli however patient was laid on her back and she was very
[2021-09-16] MEDS: HYDROcodone/acetaminophen (*CRX) 7.5-325 MG TABLET 1 TAB PO ×3 (12:58→20:09)
[2021-09-16 14:00] VITALS: BP 172/78; PULSE 73; RESP 20; TEMP 36.2; O2SAT 98
[2021-09-16 15:25] VITALS: PULSE 73; RESP 18; O2SAT 97
[2021-09-16] MEDS: DOCUSATE SODIUM 100 MG CAPSULE PO (17:24)
[2021-09-16] MEDS: ERTAPENEM 1 GM/NS 50 ML 1 GM/50 ML BAG IVPB (17:25)
[2021-09-16 20:00] VITALS: O2SAT 95
[2021-09-16] MEDS: DIVALPROEX SODIUM ER 250 MG TAB.24H PO (20:09)
[2021-09-16 22:00] VITALS: BP 150/70; PULSE 71; RESP 16; TEMP 37.1; O2SAT 95
[2021-09-17] MEDS: HYDROcodone/acetaminophen (*CRX) 7.5-325 MG TABLET 1 TAB PO ×6 (00:16→20:47)
[2021-09-17] MEDS: LEVOTHYROXINE SODIUM 88 MCG TABLET PO (05:42)
[2021-09-17 06:00] VITALS: BP 129/64; PULSE 71; RESP 16; TEMP 36.2; O2SAT 95
[2021-09-17 06:17] LABS: Basophils Percent Auto 0.3 % (0.2-1.2); Eosinophils Absolute Auto 0.1 K/mm3 (0-0.3); Eosinophils Percent Auto 1.1 % (0-4.4); Hematocrit 37.1 % (37.0-47.0); Hemoglobin 10.8 g/dL (12.0-15.0); Immature Granulocyte Absolute 0.07 K/mm3 (0.00-0.031); Immature Granulocyte Percent A 0.9 % (0-0.5); Lymphocytes Absolute Auto 1.42 K/mm3 (0.9-3.2); Lymphocytes Percent Auto 18.8 % (18.3-44.2); Mean Corpuscular HGB Conc 29.1 g/dl (32-36); Mean Corpuscular Hemoglobin 27.8 pg (26-34); Mean Corpuscular Volume 95.4 fl (80-100); Mean Platelet Volume 9.4 fl (7.4-10.4); Monocytes Absolute Auto 0.7 K/mm3 (0.1-0.6); Monocytes Percent Auto 8.9 % (2.6-8.5); Neutrophils Absolute Auto 5.3 K/mm3 (1.3-6.7); Platelet Count Result 251 k/mm3 (150-375); Red Blood Count 3.89 M/mm3 (4.2-5.4); Red Cell Distribution Width 14.8 % (11.5-14.5); White Blood Count 7.5 K/mm3 (4.5-10.0)
[2021-09-17 06:34] LABS: Alanine Aminotransferase 36 U/L (6-35); Albumin Level 3.3 g/dL (3.5-5.1); Alkaline Phosphatase 65 U/L (38-126); Anion Gap 6 mmol/L (8-16); Aspartate Amino Transferase 36 U/L (14-36); Bilirubin,Total 0.4 mg/dL (0.2-1.3); Blood Urea Nitrogen 18 mg/dL (7-17); Calcium 9.1 mg/dL (8.4-10.2); Carbon Dioxide 32 mmol/L (22-30); Chloride 105 mmol/L (98-107); Estimated CRCL calculation 101 ml/min; Estimated Glomerular Filt Rate > 60; Glucose 113 mg/dL (65-110); Potassium 3.8 mmol/L (3.4-5.0); Sodium 143 mmol/L (137-145)
[2021-09-17 08:00] VITALS: PULSE 71; RESP 16; O2SAT 97
[2021-09-17] MEDS: FUROSEMIDE 40 MG TABLET PO (08:37)
[2021-09-17] MEDS: APIXABAN 5 MG TABLET PO ×2 (08:37→17:31)
[2021-09-17] MEDS: ASPIRIN 81 MG ENTERIC TABLET PO (08:37)
[2021-09-17] MEDS: SPIRONOLACTONE 25 MG TABLET PO (08:37)
[2021-09-17] MEDS: ATORVASTATIN 10 MG TABLET PO (08:37)
[2021-09-17] MEDS: DOCUSATE SODIUM 100 MG CAPSULE PO ×2 (08:37→17:31)
[2021-09-17] MEDS: GABAPENTIN 300 MG CAPSULE PO ×3 (08:37→17:31)
[2021-09-17] MEDS: ARIPiprazole 10 MG TABLET PO (08:38)
[2021-09-17] MEDS: CHOLECALCIFEROL 1,000 UNITS TABLET 4000 UNITS PO (08:38)
[2021-09-17] MEDS: SILVERGEL (ELTA) 45 ML 1 APPLIC TOPICAL (08:38)
[2021-09-17 09:18] VITALS: O2SAT 97
--- NOTE | 2021-09-17 13:24 | PM.IMPN ---
Progress Note: A&P Assessment and Plan (1) Peripheral vascular disease: Code(s): I73.9 - Peripheral vascular disease, unspecified Status: Acute (2) Leukocytosis (leucocytosis): Qualifiers: Leukocytosis type: unspecified Qualified Code(s): D72.829 - Elevated white blood cell count, unspecified Code(s): D72.829 - Elevated white blood cell count, unspecified Status: Acute (3) Hypothyroidism: Code(s): E03.9 - Hypothyroidism, unspecified Status: Acute (4) Type 2 diabetes mellitus: Code(s): E11.9 - Type 2 diabetes mellitus without complications Status: Acute (5) Bipolar disorder: Code(s): F31.9 - Bipolar disorder, unspecified Status: Acute (6) 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 CT head with no acute abnormality. Chest x-ray negative. COVID negative. Mental status is improving. # sepsis meets SIRS criteria with leukocytosis tachycardia lactic acid elevation at 3.1. Normal saline for IV fluid resuscitation lactic acidosis resolved # right lower extremity wound with infection and cellulitis wound consulted on IV Zosyn will also add vancomycin. Bilaterally present. Looks infected. Will get ultrasound arterial duplex to evaluate for peripheral vascular disease. SALVADOR done in 2020 showed bilateral lower extremity arterial occlusive disease with moderately decreased right SALVADOR and TBI with borderline decrease left SALVADOR and TBI. Right SALVADOR 0.68 right TBI 0.52 Left SALVADOR 0.96 left TBI 0.62 current SALVADOR 09/13/2021 Right SALVADOR could not be measured due to skin wound Right TBI 1.43 left TBI 1.68 Group G Streptococcus bacteremia likely from have wound infection bilateral lower extremities # bacteremia Gram-positive cocci in chains from anaerobic bottle 1/2 On IV Zosyn. Added on vancomycin. Urine culture with ESBL E coli and group G Streptococcus growing in blood. Orthopnea will cover for both of these. Will continue ertapenem and stop vancomycin Needs ertapenem cover for group C Streptococcus as well as ESBL coli in urine and will need at least 10 days course of antibiotics. Will repeat blood culture x2 today # UTI normal UA. Urine culture sent. urine culture with ESBL E coli on IV Zosyn , switched to ertapenem # Bipolar disorder # Hypertension elevated. Will resume her Lasix. IV fluids. # Hyperlipidemia # Peripheral vascular disease # Type 2 diabetes mellitus on insulin SSI. A1c at 6.8. Hold metformin # Leukocytosis likely from UTI versus wound infection pancultured in the ER. Leukocytosis has now resolved # Hypothyroidism on levothyroxine # Long-term use of anticoagulants with Eliquis # group home resident # DVT prophylaxis on Eliquis # Code status full code Needed antibiotics for 10 to 14 days course with ertapenem Family wants to take her [address] [place] [address] from count includes the [facility] moved at discharge will get care coordination involved Subjective Date/time seen: 09/17/21 13:24 Interval history: HPI:Patient is a 61-year-old female with a past medical history of bipolar disease, DVT, hypothyroidism, PVD who presented to the ED with lethargy and unresponsive nature.? According the group home the patient was given her meds sometimes morning however when they made her the rounds again she still had her medications her mouth.? Patient is a very poor historian and was able to tell me what really happened.? It was noted that the patient does respond to pain stimuli however patient was laid on
[2021-09-17 14:00] VITALS: BP 138/64; PULSE 65; RESP 20; TEMP 36.2; O2SAT 98
[2021-09-17] MEDS: ERTAPENEM 1 GM/NS 50 ML 1 GM/50 ML BAG IVPB (17:30)
[2021-09-17 20:47] VITALS: O2SAT 99
[2021-09-17] MEDS: DIVALPROEX SODIUM ER 250 MG TAB.24H PO (20:47)
[2021-09-17 21:52] VITALS: BP 145/66; PULSE 60; RESP 20; TEMP 36.2; O2SAT 99
[2021-09-18] VITALS (7 sets, daily range): BP systolic 117–164; BP diastolic 63–85; PULSE 64–75; RESP 16–20; TEMP 36.3–36.8; O2SAT 93–97
[2021-09-18] MEDS: HYDROcodone/acetaminophen (*CRX) 7.5-325 MG TABLET 1 TAB PO ×2 (04:03→09:16)
[2021-09-18] MEDS: LEVOTHYROXINE SODIUM 88 MCG TABLET PO (06:12)
[2021-09-18 06:28] LABS: Basophils Percent Auto 0.3 % (0.2-1.2); Eosinophils Absolute Auto 0.1 K/mm3 (0-0.3); Eosinophils Percent Auto 0.9 % (0-4.4); Hematocrit 36.7 % (37.0-47.0); Hemoglobin 11.2 g/dL (12.0-15.0); Immature Granulocyte Absolute 0.05 K/mm3 (0.00-0.031); Immature Granulocyte Percent A 0.7 % (0-0.5); Lymphocytes Absolute Auto 1.13 K/mm3 (0.9-3.2); Lymphocytes Percent Auto 14.9 % (18.3-44.2); Mean Corpuscular HGB Conc 30.5 g/dl (32-36); Mean Corpuscular Hemoglobin 28.6 pg (26-34); Mean Corpuscular Volume 93.9 fl (80-100); Mean Platelet Volume 9.4 fl (7.4-10.4); Monocytes Absolute Auto 0.5 K/mm3 (0.1-0.6); Monocytes Percent Auto 6.9 % (2.6-8.5); Neutrophils Absolute Auto 5.8 K/mm3 (1.3-6.7); Neutrophils Percent Auto 76.3 % (45.5-73.1); Platelet Count Result 255 k/mm3 (150-375); Red Blood Count 3.91 M/mm3 (4.2-5.4); Red Cell Distribution Width 14.5 % (11.5-14.5); White Blood Count 7.6 K/mm3 (4.5-10.0)
[2021-09-18 06:48] LABS: Alanine Aminotransferase 37 U/L (6-35); Albumin Level 3.3 g/dL (3.5-5.1); Alkaline Phosphatase 75 U/L (38-126); Anion Gap 5 mmol/L (8-16); Aspartate Amino Transferase 34 U/L (14-36); Bilirubin,Total 0.4 mg/dL (0.2-1.3); Blood Urea Nitrogen 16 mg/dL (7-17); Calcium 8.6 mg/dL (8.4-10.2); Carbon Dioxide 36 mmol/L (22-30); Chloride 102 mmol/L (98-107); Estimated CRCL calculation 100 ml/min; Estimated Glomerular Filt Rate > 60; Glucose 118 mg/dL (65-110); Magnesium 1.8 mg/dL (1.6-2.3); Potassium 3.3 mmol/L (3.4-5.0); Sodium 143 mmol/L (137-145)
[2021-09-18] MEDS: ARIPiprazole 10 MG TABLET PO (09:16)
[2021-09-18] MEDS: CHOLECALCIFEROL 1,000 UNITS TABLET 4000 UNITS PO (09:16)
[2021-09-18] MEDS: ATORVASTATIN 10 MG TABLET PO (09:16)
[2021-09-18] MEDS: GABAPENTIN 300 MG CAPSULE PO ×3 (09:16→17:21)
[2021-09-18] MEDS: DOCUSATE SODIUM 100 MG CAPSULE PO ×2 (09:17→17:21)
[2021-09-18] MEDS: FUROSEMIDE 40 MG TABLET PO (09:17)
[2021-09-18] MEDS: ASPIRIN 81 MG ENTERIC TABLET PO (09:17)
[2021-09-18] MEDS: SPIRONOLACTONE 25 MG TABLET PO (09:17)
[2021-09-18] MEDS: APIXABAN 5 MG TABLET PO ×2 (09:17→17:21)
[2021-09-18] MEDS: SILVERGEL (ELTA) 45 ML 1 APPLIC TOPICAL (09:18)
[2021-09-18] MEDS: POTASSIUM CHLORIDE 20 MEQ TABLET 40 MEQ PO (09:19)
--- NOTE | 2021-09-18 16:10 | PM.IMPN ---
Progress Note: A&P Assessment and Plan (1) Peripheral vascular disease: Code(s): I73.9 - Peripheral vascular disease, unspecified Status: Acute (2) Leukocytosis (leucocytosis): Qualifiers: Leukocytosis type: unspecified Qualified Code(s): D72.829 - Elevated white blood cell count, unspecified Code(s): D72.829 - Elevated white blood cell count, unspecified Status: Acute (3) Hypothyroidism: Code(s): E03.9 - Hypothyroidism, unspecified Status: Acute (4) Type 2 diabetes mellitus: Code(s): E11.9 - Type 2 diabetes mellitus without complications Status: Acute (5) Bipolar disorder: Code(s): F31.9 - Bipolar disorder, unspecified Status: Acute (6) 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 CT head with no acute abnormality. Chest x-ray negative. COVID negative. Mental status is improving. # sepsis meets SIRS criteria with leukocytosis tachycardia lactic acid elevation at 3.1. Normal saline for IV fluid resuscitation lactic acidosis resolved # right lower extremity wound with infection and cellulitis wound consulted on IV Zosyn will also add vancomycin. Bilaterally present. Looks infected. Will get ultrasound arterial duplex to evaluate for peripheral vascular disease. SALVADOR done in 2020 showed bilateral lower extremity arterial occlusive disease with moderately decreased right SALVADOR and TBI with borderline decrease left SALVADOR and TBI. Right SALVADOR 0.68 right TBI 0.52 Left SALVADOR 0.96 left TBI 0.62 current SALVADOR 09/13/2021 Right SALVADOR could not be measured due to skin wound Right TBI 1.43 left TBI 1.68 Group G Streptococcus bacteremia likely from have wound infection bilateral lower extremities # bacteremia Gram-positive cocci in chains from anaerobic bottle 1/2 On IV Zosyn. Added on vancomycin. Urine culture with ESBL E coli and group G Streptococcus growing in blood. Orthopnea will cover for both of these. Will continue ertapenem and stop vancomycin Needs ertapenem cover for group C Streptococcus as well as ESBL coli in urine and will need at least 10 days course of antibiotics. Repeat blood cultures x2 on # UTI normal UA. Urine culture sent. urine culture with ESBL E coli on IV Zosyn , switched to ertapenem # Bipolar disorder # Hypertension elevated. Will resume her Lasix. IV fluids. # Hyperlipidemia # Peripheral vascular disease # Type 2 diabetes mellitus on insulin SSI. A1c at 6.8. Hold metformin # Leukocytosis likely from UTI versus wound infection pancultured in the ER. Leukocytosis has now resolved # Hypothyroidism on levothyroxine # Long-term use of anticoagulants with Eliquis # skilled nursing resident # DVT prophylaxis on Eliquis # Code status full code Needed antibiotics for 10 to 14 days course with ertapenem Family wants to take her [address] [place] [address] from [facility] moved [facility] discharge will get care coordination involved Subjective Date/time seen: 09/18/21 16:10 Interval history: HPI:Patient is a 61-year-old female with a past medical history of bipolar disease, DVT, hypothyroidism, PVD who presented to the ED with lethargy and unresponsive nature.? According the [facility] the patient was given her meds sometimes morning however when they made her the rounds again she still had her medications her mouth.? Patient is a very poor historian and was able to tell me what really happened.? It was noted that the patient does respond to pain stimuli however patient was laid on her b
[2021-09-18] MEDS: ERTAPENEM 1 GM/NS 50 ML 1 GM/50 ML BAG IVPB (17:21)
[2021-09-18] MEDS: HYDROcodone/acetaminophen (*CRX) 5-325 MG TABLET 1 TAB PO (18:35)
[2021-09-18] MEDS: DIVALPROEX SODIUM ER 250 MG TAB.24H PO (20:56)
[2021-09-19] VITALS (7 sets, daily range): BP systolic 129–175; BP diastolic 68–80; PULSE 67–80; RESP 16–19; TEMP 35.4–36.6; O2SAT 91–97
[2021-09-19] MEDS: LEVOTHYROXINE SODIUM 88 MCG TABLET PO (05:49)
[2021-09-19 06:47] LABS: Basophils Percent Auto 0.2 % (0.2-1.2); Eosinophils Absolute Auto 0.1 K/mm3 (0-0.3); Eosinophils Percent Auto 0.7 % (0-4.4); Hematocrit 37.4 % (37.0-47.0); Hemoglobin 11.4 g/dL (12.0-15.0); Immature Granulocyte Absolute 0.04 K/mm3 (0.00-0.031); Immature Granulocyte Percent A 0.5 % (0-0.5); Lymphocytes Percent Auto 19.6 % (18.3-44.2); Mean Corpuscular HGB Conc 30.5 g/dl (32-36); Mean Corpuscular Hemoglobin 28.3 pg (26-34); Mean Corpuscular Volume 92.8 fl (80-100); Mean Platelet Volume 9.2 fl (7.4-10.4); Monocytes Absolute Auto 0.4 K/mm3 (0.1-0.6); Monocytes Percent Auto 5.3 % (2.6-8.5); Neutrophils Percent Auto 73.7 % (45.5-73.1); Platelet Count Result 294 k/mm3 (150-375); Red Blood Count 4.03 M/mm3 (4.2-5.4); Red Cell Distribution Width 14.4 % (11.5-14.5); White Blood Count 8.2 K/mm3 (4.5-10.0)
[2021-09-19 07:20] LABS: Alanine Aminotransferase 38 U/L (6-35); Albumin Level 3.4 g/dL (3.5-5.1); Alkaline Phosphatase 83 U/L (38-126); Anion Gap 7 mmol/L (8-16); Aspartate Amino Transferase 32 U/L (14-36); Bilirubin,Total 0.4 mg/dL (0.2-1.3); Blood Urea Nitrogen 13 mg/dL (7-17); Calcium 8.7 mg/dL (8.4-10.2); Carbon Dioxide 35 mmol/L (22-30); Chloride 101 mmol/L (98-107); Estimated CRCL calculation 100 ml/min; Estimated Glomerular Filt Rate > 60; Glucose 125 mg/dL (65-110); Magnesium 1.7 mg/dL (1.6-2.3); Potassium 3.4 mmol/L (3.4-5.0); Sodium 143 mmol/L (137-145)
[2021-09-19] MEDS: CHOLECALCIFEROL 1,000 UNITS TABLET 4000 UNITS PO (08:16)
[2021-09-19] MEDS: SPIRONOLACTONE 25 MG TABLET PO (08:16)
[2021-09-19] MEDS: ARIPiprazole 10 MG TABLET PO (08:16)
[2021-09-19] MEDS: FUROSEMIDE 40 MG TABLET PO (08:16)
[2021-09-19] MEDS: APIXABAN 5 MG TABLET PO ×2 (08:16→16:06)
[2021-09-19] MEDS: ASPIRIN 81 MG ENTERIC TABLET PO (08:16)
[2021-09-19] MEDS: ATORVASTATIN 10 MG TABLET PO (08:16)
[2021-09-19] MEDS: GABAPENTIN 300 MG CAPSULE PO ×3 (08:16→16:06)
[2021-09-19] MEDS: DOCUSATE SODIUM 100 MG CAPSULE PO ×2 (08:16→16:06)
[2021-09-19] MEDS: SILVERGEL (ELTA) 45 ML 1 APPLIC TOPICAL (08:17)
--- NOTE | 2021-09-19 11:44 | PC.NURSE ---
Addendum entered by Elizabeth Brunson RN 09/19/21 19:15: wrong pt Original Note: possible discharge to [facility], to transport per care coordination.
--- NOTE | 2021-09-19 13:21 | PM.IMPN ---
Progress Note: A&P Assessment and Plan (1) Peripheral vascular disease: Code(s): I73.9 - Peripheral vascular disease, unspecified Status: Acute (2) Leukocytosis (leucocytosis): Qualifiers: Leukocytosis type: unspecified Qualified Code(s): D72.829 - Elevated white blood cell count, unspecified Code(s): D72.829 - Elevated white blood cell count, unspecified Status: Acute (3) Hypothyroidism: Code(s): E03.9 - Hypothyroidism, unspecified Status: Acute (4) Type 2 diabetes mellitus: Code(s): E11.9 - Type 2 diabetes mellitus without complications Status: Acute (5) Bipolar disorder: Code(s): F31.9 - Bipolar disorder, unspecified Status: Acute (6) 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 CT head with no acute abnormality. Chest x-ray negative. COVID negative. Mental status is improving. # sepsis meets SIRS criteria with leukocytosis tachycardia lactic acid elevation at 3.1. Normal saline for IV fluid resuscitation lactic acidosis resolved currently looks so fluid overloaded. Will recheck chest x-ray. And give a dose of IV Lasix x1 today # right lower extremity wound with infection and cellulitis wound consulted on IV Zosyn will also add vancomycin. Bilaterally present. Looks infected. Will get ultrasound arterial duplex to evaluate for peripheral vascular disease. SALVADOR done in 2020 showed bilateral lower extremity arterial occlusive disease with moderately decreased right SALVADOR and TBI with borderline decrease left SALVADOR and TBI. Right SALVADOR 0.68 right TBI 0.52 Left SALVADOR 0.96 left TBI 0.62 current SALVADOR 09/13/2021 Right SALVADOR could not be measured due to skin wound Right TBI 1.43 left TBI 1.68 Group G Streptococcus bacteremia likely from have wound infection bilateral lower extremities She will need to follow-up with vascular surgery as an outpatient basis for more definitive treatment for her peripheral vascular disease # bacteremia Gram-positive cocci in chains from anaerobic bottle /2 On IV Zosyn. Added on vancomycin. Urine culture with ESBL E coli and group G Streptococcus growing in blood. Orthopnea will cover for both of these. Will continue ertapenem and stop vancomycin Needs ertapenem cover for group C Streptococcus as well as ESBL coli in urine and will need at least 10 days course of antibiotics. currently day 5 Repeat blood cultures x2 on 09/16/2021 # UTI normal UA. Urine culture sent. urine culture with ESBL E coli on IV Zosyn , switched to ertapenem # Bipolar disorder # Hypertension elevated. Will resume her Lasix. IV fluids. # Hyperlipidemia # Peripheral vascular disease # Type 2 diabetes mellitus on insulin SSI. A1c at 6.8. Hold metformin # Leukocytosis likely from UTI versus wound infection pancultured in the ER. Leukocytosis has now resolved # Hypothyroidism on levothyroxine # Long-term use of anticoagulants with Eliquis # [facility] resident # DVT prophylaxis on Eliquis # Code status full code Needed antibiotics for 10 to 14 days course with ertapenem Family wants to take her [address] [place] [address] from [facility] moved at discharge will get care coordination involved however need to go back to [facility] and continued on that process. Subjective Date/time seen: 09/19/21 13:21 Interval history: HPI:Patient is a 61-year-old female with a past medical history of bipolar disease, DVT, hypothyroidism, PVD who presented to the ED with lethargy and unrespons
[2021-09-19] MEDS: FUROSEMIDE INJ 40 MG/4 ML VIAL IV PUSH (13:54)
--- NOTE | 2021-09-19 14:52 | PC.NURSE ---
midline ordered for pt per MD Ruano
--- NOTE | 2021-09-19 14:53 | PC.NURSE ---
Ashley Counts informed midline ordered for pt.
--- NOTE | 2021-09-19 15:14 | PC.NURSE ---
Ashley to place midline tomorrow.
[2021-09-19] MEDS: MORPHINE SULFATE (*CRX) 4 MG/ML INJ IV PUSH (15:36)
[2021-09-19] MEDS: HYDROcodone/acetaminophen (*CRX) 5-325 MG TABLET 1 TAB PO (16:07)
[2021-09-19] MEDS: ERTAPENEM 1 GM/NS 50 ML 1 GM/50 ML BAG IVPB (17:02)
--- NOTE | 2021-09-19 17:45 | PC.NURSE ---
Returned call to Martha Thomas stated pt will discharge to [facility] once medically stable.
[2021-09-19] MEDS: DIVALPROEX SODIUM ER 250 MG TAB.24H PO (20:21)
[2021-09-20 05:56] VITALS: BP 146/70; PULSE 66; RESP 17; TEMP 37.2; O2SAT 100
[2021-09-20 06:58] LABS: Basophils Percent Auto 0.3 % (0.2-1.2); Eosinophils Absolute Auto 0.1 K/mm3 (0-0.3); Eosinophils Percent Auto 0.9 % (0-4.4); Hematocrit 37.2 % (37.0-47.0); Hemoglobin 11.4 g/dL (12.0-15.0); Immature Granulocyte Absolute 0.03 K/mm3 (0.00-0.031); Immature Granulocyte Percent A 0.4 % (0-0.5); Lymphocytes Absolute Auto 1.27 K/mm3 (0.9-3.2); Lymphocytes Percent Auto 17.2 % (18.3-44.2); Mean Corpuscular HGB Conc 30.6 g/dl (32-36); Mean Corpuscular Hemoglobin 28.4 pg (26-34); Mean Corpuscular Volume 92.8 fl (80-100); Mean Platelet Volume 9.5 fl (7.4-10.4); Monocytes Absolute Auto 0.5 K/mm3 (0.1-0.6); Monocytes Percent Auto 7.3 % (2.6-8.5); Neutrophils Absolute Auto 5.4 K/mm3 (1.3-6.7); Neutrophils Percent Auto 73.9 % (45.5-73.1); Platelet Count Result 338 k/mm3 (150-375); Red Blood Count 4.01 M/mm3 (4.2-5.4); Red Cell Distribution Width 14.4 % (11.5-14.5); White Blood Count 7.4 K/mm3 (4.5-10.0)
[2021-09-20 07:21] LABS: Alanine Aminotransferase 34 U/L (6-35); Albumin Level 3.5 g/dL (3.5-5.1); Alkaline Phosphatase 79 U/L (38-126); Anion Gap 6 mmol/L (8-16); Aspartate Amino Transferase 33 U/L (14-36); Bilirubin,Total 0.5 mg/dL (0.2-1.3); Blood Urea Nitrogen 13 mg/dL (7-17); Calcium 8.7 mg/dL (8.4-10.2); Carbon Dioxide 37 mmol/L (22-30); Chloride 97 mmol/L (98-107); Estimated CRCL calculation 98 ml/min; Estimated Glomerular Filt Rate > 60; Glucose 123 mg/dL (65-110); Magnesium 1.6 mg/dL (1.6-2.3); Potassium 3.1 mmol/L (3.4-5.0); Sodium 140 mmol/L (137-145)
[2021-09-20] MEDS: LIDOCAINE HCL 1% LOCAL INJ 2 ML AMPUL 5 ML INFILTRATE (07:30)
[2021-09-20 08:00] VITALS: PULSE 66; RESP 17; O2SAT 100
[2021-09-20] MEDS: HYDROcodone/acetaminophen (*CRX) 5-325 MG TABLET 1 TAB PO ×2 (08:07→21:45)
[2021-09-20] MEDS: SPIRONOLACTONE 25 MG TABLET PO (08:08)
[2021-09-20] MEDS: FUROSEMIDE 40 MG TABLET PO (08:08)
[2021-09-20] MEDS: APIXABAN 5 MG TABLET PO ×2 (08:08→16:07)
[2021-09-20] MEDS: CHOLECALCIFEROL 1,000 UNITS TABLET 4000 UNITS PO (08:08)
[2021-09-20] MEDS: ATORVASTATIN 10 MG TABLET PO (08:08)
[2021-09-20] MEDS: GABAPENTIN 300 MG CAPSULE PO ×3 (08:08→16:07)
[2021-09-20] MEDS: FLUCONAZOLE 150 MG TABLET PO (08:08)
[2021-09-20] MEDS: ASPIRIN 81 MG ENTERIC TABLET PO (08:08)
[2021-09-20] MEDS: LEVOTHYROXINE SODIUM 88 MCG TABLET PO (08:08)
[2021-09-20] MEDS: ARIPiprazole 10 MG TABLET PO (08:08)
[2021-09-20] MEDS: DOCUSATE SODIUM 100 MG CAPSULE PO ×2 (08:08→16:07)
[2021-09-20] MEDS: SILVERGEL (ELTA) 45 ML 1 APPLIC TOPICAL (08:09)
--- NOTE | 2021-09-20 08:23 | PC.NURSE ---
midline placed this morning by Ashley Counts
[2021-09-20 09:26] VITALS: O2SAT 96
[2021-09-20] MEDS: POTASSIUM CHLORIDE 20 MEQ TABLET 40 MEQ PO (10:08)
--- NOTE | 2021-09-20 11:02 | PC.NURSE ---
weaned to ra
[2021-09-20 14:00] VITALS: BP 149/65; PULSE 78; RESP 18; TEMP 36.6; O2SAT 93
--- NOTE | 2021-09-20 14:19 | PM.IMPN ---
Progress Note: A&P Assessment and Plan (1) Peripheral vascular disease: Code(s): I73.9 - Peripheral vascular disease, unspecified Status: Acute (2) Leukocytosis (leucocytosis): Qualifiers: Leukocytosis type: unspecified Qualified Code(s): D72.829 - Elevated white blood cell count, unspecified Code(s): D72.829 - Elevated white blood cell count, unspecified Status: Acute (3) Hypothyroidism: Code(s): E03.9 - Hypothyroidism, unspecified Status: Acute (4) Type 2 diabetes mellitus: Code(s): E11.9 - Type 2 diabetes mellitus without complications Status: Acute (5) Bipolar disorder: Code(s): F31.9 - Bipolar disorder, unspecified Status: Acute (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 CT head with no acute abnormality. Chest x-ray negative. COVID negative. Mental status is improving. # sepsis meets SIRS criteria with leukocytosis tachycardia lactic acid elevation at 3.1. Normal saline for IV fluid resuscitation lactic acidosis resolved currently looks so fluid overloaded. Will recheck chest x-ray. And give a dose of IV Lasix x1 today # right lower extremity wound with infection and cellulitis wound consulted on IV Zosyn will also add vancomycin. Bilaterally present. Looks infected. Will get ultrasound arterial duplex to evaluate for peripheral vascular disease. SALVADOR done in 2020 showed bilateral lower extremity arterial occlusive disease with moderately decreased right SALVADOR and TBI with borderline decrease left SALVADOR and TBI. Right SALVADOR 0.68 right TBI 0.52 Left SALVADOR 0.96 left TBI 0.62 current SALVADOR 09/13/2021 Right SALVADOR could not be measured due to skin wound Right TBI 1.43 left TBI 1.68 Group G Streptococcus bacteremia likely from have wound infection bilateral lower extremities She will need to follow-up with vascular surgery as an outpatient basis for more definitive treatment for her peripheral vascular disease # bacteremia Gram-positive cocci in chains from anaerobic bottle /2 On IV Zosyn. Added on vancomycin. Urine culture with ESBL E coli and group G Streptococcus growing in blood. Orthopnea will cover for both of these. Will continue ertapenem and stop vancomycin Needs ertapenem cover for group C Streptococcus as well as ESBL coli in urine and will need at least 10 days course of antibiotics. currently day 5 Repeat blood cultures x2 on 09/16/2021 # UTI normal UA. Urine culture sent. urine culture with ESBL E coli on IV Zosyn , switched to ertapenem # Bipolar disorder # Hypertension elevated. Will resume her Lasix. IV fluids. # Hyperlipidemia # Peripheral vascular disease # Type 2 diabetes mellitus on insulin SSI. A1c at 6.8. Hold metformin # Leukocytosis likely from UTI versus wound infection pancultured in the ER. Leukocytosis has now resolved # Hypothyroidism on levothyroxine # Long-term use of anticoagulants with Eliquis # [facility] resident # DVT prophylaxis on Eliquis # Code status full code Needed antibiotics for 10 to 14 days course with ertapenem Family wants to take her [address] [place] [address] from [facility] moved at discharge will get care coordination involved however need to go back to [facility] and continued on that process. 09/20/2021 interval history: Patient still is quite drowsy and unable to provide any review of symptom, patient with a UTI E coli ESBL discussed with pharmacy id patient has completed 7 days of ertapenem and will stop, 1 of the blood cu
--- NOTE | 2021-09-20 14:20 | PC.NURSE ---
called care coordination to see if pt has an excepting snf for discharge. PT will require IV abt at snf.
[2021-09-20] MEDS: SALINE LOCK FLUSH 10 ML IV PUSH ×2 (14:28→21:44)
--- NOTE | 2021-09-20 15:31 | PC.NURSE ---
per care coordination, possible discharge tomorrow after recceiving first dose of Rocephin here at hospital.
[2021-09-20] MEDS: ERTAPENEM 1 GM/NS 50 ML 1 GM/50 ML BAG IVPB (17:16)
[2021-09-20] MEDS: DIVALPROEX SODIUM ER 250 MG TAB.24H PO (21:44)
[2021-09-20 22:00] VITALS: BP 145/72; PULSE 77; RESP 20; TEMP 36.6; O2SAT 91
[2021-09-21 05:20] VITALS: BP 146/56; PULSE 72; RESP 18; TEMP 36.1; O2SAT 90
[2021-09-21] MEDS: LEVOTHYROXINE SODIUM 88 MCG TABLET PO (05:38)
[2021-09-21 05:39] LABS: Hematocrit 37.2 % (37.0-47.0); Hemoglobin 11.4 g/dL (12.0-15.0); Mean Corpuscular HGB Conc 30.6 g/dl (32-36); Mean Corpuscular Hemoglobin 28.3 pg (26-34); Mean Corpuscular Volume 92.3 fl (80-100); Mean Platelet Volume 9.5 fl (7.4-10.4); Platelet Count Result 328 k/mm3 (150-375); Red Blood Count 4.03 M/mm3 (4.2-5.4); Red Cell Distribution Width 14.4 % (11.5-14.5); White Blood Count 6.1 K/mm3 (4.5-10.0)
[2021-09-21] MEDS: SALINE LOCK FLUSH 10 ML IV PUSH ×2 (05:39→12:24)
[2021-09-21 05:49] LABS: Anion Gap 6 mmol/L (8-16); Blood Urea Nitrogen 12 mg/dL (7-17); Calcium 9.1 mg/dL (8.4-10.2); Carbon Dioxide 35 mmol/L (22-30); Chloride 97 mmol/L (98-107); Estimated CRCL calculation 86 ml/min; Estimated Glomerular Filt Rate > 60; Glucose 117 mg/dL (65-110); Magnesium 1.8 mg/dL (1.6-2.3); Sodium 138 mmol/L (137-145)
[2021-09-21] MEDS: cefTRIAXone 2 GM in SODIUM CHLORIDE 0.9% IV 100 ML 200 ML IVPB (07:50)
[2021-09-21] MEDS: ARIPiprazole 10 MG TABLET PO (07:51)
[2021-09-21] MEDS: GABAPENTIN 300 MG CAPSULE PO ×3 (07:51→16:36)
[2021-09-21] MEDS: DOCUSATE SODIUM 100 MG CAPSULE PO (07:51)
[2021-09-21] MEDS: ASPIRIN 81 MG ENTERIC TABLET PO (07:51)
[2021-09-21] MEDS: CHOLECALCIFEROL 1,000 UNITS TABLET 4000 UNITS PO (07:51)
[2021-09-21] MEDS: FLUCONAZOLE 150 MG TABLET PO (07:52)
[2021-09-21] MEDS: APIXABAN 5 MG TABLET PO ×2 (07:52→16:36)
[2021-09-21] MEDS: SILVERGEL (ELTA) 45 ML 1 APPLIC TOPICAL (07:52)
[2021-09-21] MEDS: SPIRONOLACTONE 25 MG TABLET PO (07:52)
[2021-09-21] MEDS: ATORVASTATIN 10 MG TABLET PO (07:52)
[2021-09-21] MEDS: FUROSEMIDE 40 MG TABLET PO (07:52)
[2021-09-21] MEDS: HYDROcodone/acetaminophen (*CRX) 5-325 MG TABLET 1 TAB PO (07:53)
[2021-09-21 08:00] VITALS: PULSE 72; RESP 18; O2SAT 90
[2021-09-21] MEDS: POTASSIUM CHLORIDE 20 MEQ TABLET 40 MEQ PO (08:19)
--- NOTE | 2021-09-21 10:00 | PC.NURSE ---
covid swab sent to lab for analysis
[2021-09-21 10:23] LABS: EDCOVIDSCREEN Negative (Negative)
--- NOTE | 2021-09-21 10:25 | PC.NURSE ---
called report to [facility] of nurse unable to take report at this time.
--- NOTE | 2021-09-21 10:26 | PM.DS ---
DS: Admitting Diagnosis Discharge Date 09/21/2021 Admitting Diagnosis Acute metabolic encephalopathy DS: Discharge Diagnosis Discharge Diagnosis (1) Peripheral vascular disease: Code(s): I73.9 - Peripheral vascular disease, unspecified Status: Acute (2) Leukocytosis (leucocytosis): Qualifiers: Leukocytosis type: unspecified Qualified Code(s): D72.829 - Elevated white blood cell count, unspecified Code(s): D72.829 - Elevated white blood cell count, unspecified Status: Acute (3) Hypothyroidism: Code(s): E03.9 - Hypothyroidism, unspecified Status: Acute (4) Type 2 diabetes mellitus: Code(s): E11.9 - Type 2 diabetes mellitus without complications Status: Acute (5) Bipolar disorder: Code(s): F31.9 - Bipolar disorder, unspecified Status: Acute (6) Current use of retirement anticoagulation: Code(s): Z79.01 - halfway (current) use of anticoagulants Status: Acute (7) Acute metabolic encephalopathy: Code(s): G93.41 - Metabolic encephalopathy Status: Acute (8) Sepsis: Code(s): A41.9 - Sepsis, unspecified organism Status: Acute (9) Abnormal urinalysis: Code(s): R82.90 - Unspecified abnormal findings in urine Status: Acute Plan # altered mental status only responsive to noxious stimuli. CT head with no acute abnormality. Chest x-ray negative. COVID negative. Mental status is improving. # sepsis meets SIRS criteria with leukocytosis tachycardia lactic acid elevation at 3.1. Normal saline for IV fluid resuscitation lactic acidosis resolved currently looks so fluid overloaded. Will recheck chest x-ray. And give a dose of IV Lasix x1 today # right lower extremity wound with infection and cellulitis wound consulted on IV Zosyn will also add vancomycin. Bilaterally present. Looks infected. Will get ultrasound arterial duplex to evaluate for peripheral vascular disease. SALVADOR done in 2020 showed bilateral lower extremity arterial occlusive disease with moderately decreased right SALVADOR and TBI with borderline decrease left SALVADOR and TBI. Right SALVADOR 0.68 right TBI 0.52 Left SALVADOR 0.96 left TBI 0.62 current SALVADOR 09/13/2021 Right SALVADOR could not be measured due to skin wound Right TBI 1.43 left TBI 1.68 Group G Streptococcus bacteremia likely from have wound infection bilateral lower extremities She will need to follow-up with vascular surgery as an outpatient basis for more definitive treatment for her peripheral vascular disease # bacteremia Gram-positive cocci in chains from anaerobic bottle / On IV Zosyn. Added on vancomycin. Urine culture with ESBL E coli and group G Streptococcus growing in blood. Orthopnea will cover for both of these. Will continue ertapenem and stop vancomycin Needs ertapenem cover for group C Streptococcus as well as ESBL coli in urine and will need at least 10 days course of antibiotics. currently day 5 Repeat blood cultures x2 on 09/16/2021 # UTI normal UA. Urine culture sent. urine culture with ESBL E coli on IV Zosyn , switched to ertapenem # Bipolar disorder # Hypertension elevated. Will resume her Lasix. IV fluids. # Hyperlipidemia # Peripheral vascular disease # Type 2 diabetes mellitus on insulin SSI. A1c at 6.8. Hold metformin # Leukocytosis likely from UTI versus wound infection pancultured in the ER. Leukocytosis has now resolved # Hypothyroidism on levothyroxine # Long-term use of anticoagulants with Eliquis # residential resident # DVT prophylaxis on Eliquis # Code status full code Needed antibiotics for 10 to 14 days course with ertapenem Family wants to take her [address] [place] [address] from [facility] moved at discharge will get care coordination involved however need to go back to [facility] and continued on that process. 09/20/2021 interval history: Patient still is quite drowsy and unable to provide any review of symptom, patient with a UTI
--- NOTE | 2021-09-21 10:38 | PC.NURSE ---
pt covid negative
--- NOTE | 2021-09-21 11:19 | PC.NURSE ---
second call to [facility], attempting to give report.
--- NOTE | 2021-09-21 11:20 | PC.NURSE ---
[facility] stated can't attempt pt at this time. Maybe later today.
--- NOTE | 2021-09-21 13:08 | PC.NURSE ---
wound photos taken this shift
[2021-09-21 15:17] VITALS: BP 135/70; PULSE 99; RESP 18; TEMP 36.7; O2SAT 90
--- NOTE | 2021-09-21 15:21 | PC.NURSE ---
Addendum entered by Elizabeth Brunson RN 09/21/21 15:22: [facility] can accept pt now per special needs caregiver. Original Note: calling [facility] once again for report, facility can except pt now
--- NOTE | 2021-09-21 15:27 | PC.NURSE ---
calling report to [facility] in [place] again, unable to get through to nurse to give report.
--- NOTE | 2021-09-21 15:29 | PC.NURSE ---
paperwork faxed to [facility].
--- NOTE | 2021-09-21 15:34 | PC.NURSE ---
pt to leave with midline for IV abt.
--- NOTE | 2021-09-21 16:31 | PC.NURSE ---
called Carlos at [facility] to given report, stated no room available at this time.
--- NOTE | 2021-09-21 17:28 | PC.NURSE ---
renewed pt nor[facility] per Md Darden
--- NOTE | 2021-09-21 17:30 | PC.NURSE ---
Addendum entered by Elizabeth Brunson RN 09/21/21 18:36: informed MD Roper that pt is still here, facility declining to accept pt at this time . Original Note: informed MD Roper that pt is still here, facility declining to attempt pt at this time.
--- NOTE | 2021-09-21 18:37 | PC.NURSE ---
Carlos from [facility] decline pt, refused report [phone]
--- NOTE | 2021-09-21 19:18 | PC.NURSE ---
report given to Mitzi at [facility]
--- NOTE | 2021-09-21 19:20 | PC.NURSE ---
pt leaving via emt's now.
== END 2021-09-21 19:30 | DRG 871 ==
LOC: ANHED 12:04 → ANHIMU 14:50 → ANH3MEDSUR 09-14 09:45 → ANHIMU 09-22 10:43
PROVIDERS: Internal Medicine; Nurse Practitioner; Admitting Provider Student in an Organized Health Care Education/Training Program; Emergency Provider Emergency Medicine; PCP Internal Medicine; Visit Provider Family Medicine
DX: A40.8 Other streptococcal sepsis (principal); G93.41 Metabolic encephalopathy; N39.0 Urinary tract infection, site not specified; L03.116 Cellulitis of left lower limb; L03.115 Cellulitis of right lower limb; E87.2 Acidosis; Z16.12 Extended spectrum beta lactamase (ESBL) resistance; L97.829 Non-pressure chronic ulcer of other part of left lower leg with unspecified severity; L97.819 Non-pressure chronic ulcer of other part of right lower leg with unspecified severity; E11.51 Type 2 diabetes mellitus with diabetic peripheral angiopathy without gangrene; I73.9 Peripheral vascular disease, unspecified; L89.626 Pressure-induced deep tissue damage of left heel; E03.9 Hypothyroidism, unspecified; Z20.822 Contact with and (suspected) exposure to COVID-19; F17.210 Nicotine dependence, cigarettes, uncomplicated; I10 Essential (primary) hypertension; E78.5 Hyperlipidemia, unspecified; F31.9 Bipolar disorder, unspecified; E66.01 Morbid (severe) obesity due to excess calories; B96.20 Unspecified Escherichia coli [E. coli] as the cause of diseases classified elsewhere; E87.70 Fluid overload, unspecified; Z95.820 Peripheral vascular angioplasty status with implants and grafts; Z79.01 Long term (current) use of anticoagulants; Z79.82 Long term (current) use of aspirin; Z79.84 Long term (current) use of oral hypoglycemic drugs; Z90.49 Acquired absence of other specified parts of digestive tract; Z90.710 Acquired absence of both cervix and uterus; Z86.718 Personal history of other venous thrombosis and embolism; Z85.528 Personal history of other malignant neoplasm of kidney; Z68.39 Body mass index [BMI] 39.0-39.9, adult
CPT/HCPCS: 36415; 36569; 70450; 71045; 80048; 80053; 80177; 80202; 81001; 82948; 83036; 83605; 83735; 85025; 85027; 85610; 85730; 86140; 87040; 87077; 87086; 87088; 87147; 87186; 87426; 93005; 93922; 96361; 96365; 96366; 96375; 97162; 97166; 99285; A9270; C1751; C9803; G0378; J0131; J0696; J1335; J1885; J1940; J2270; J2543; J3370; J7030; U0003; U0005

== ENCOUNTER 2021-10-07 20:20 | Emergency (ER) | payer MEDICARE, MEDICAID, SELFPAY ==
--- NOTE | ~2021-10-07 | XR_ITS ---
EXAMINATION: XR chest 1V portable Exam Date/Time: 10/07/2021 20:40 CDT HISTORY: ??PICC line pulled; checking for existing PICC line Comparison: 09/19/2021. RESULT: Lines, tubes, and devices: None. Lungs and pleura: Clear. Cardiomediastinal silhouette: Stable. Other: No acute osseous or upper abdominal finding. IMPRESSION: No PICC identified. No acute cardiopulmonary process. Reviewed, dictated and finalized at location K.
[2021-10-07 20:20] VITALS: BP 155/90; PULSE 94; RESP 17; TEMP 37.4; O2SAT 97
--- NOTE | 2021-10-07 20:37 | ED.GENADULT ---
HPI - General Adult General Chief complaint: Unspecified Stated complaint: midline fell out Time Seen by Provider: 10/07/21 20:28 History of Present Illness HPI narrative: 61-year-old female presented to the emergency room that she accidentally removed her PICC line. Patient was receiving IV antibiotics through her PICC line for bilateral lower extremity cellulitis. Patient states that she completed antibiotic therapy 4 days ago, and was planning on having the PICC line removed this coming week. Patient has no other complaints at this time. Related Data Home Medications Medication Instructions Recorded Confirmed Lactobacillus acidophilus 10 mg PO BID 01/30/19 09/12/21 (Acidophilus capsule) aspirin 81 mg tablet,delayed 81 mg PO DAILY 01/30/19 09/12/21 release (Aspir-) cholecalciferol (vitamin D3) 100 25 mcg PO DAILY 01/30/19 09/12/21 mcg (4,000 unit) capsule divalproex 250 mg tablet,delayed 250 mg PO HS 01/30/19 09/12/21 release (Depakote) multivitamin 1 cap PO DAILY 01/30/19 09/12/21 acetaminophen 325 mg tablet 650 mg PO Q4H PRN Mild Pain (Scale 06/18/21 09/12/21 (Tylenol) Score 1-4) apixaban 5 mg tablet (Eliquis) 5 mg PO BID 06/18/21 09/12/21 arginine-vitamin C-vitamin E oral 9.2 g PO BID 06/18/21 09/12/21 4.5 gram-156 mg/9.2 gram powder pkt (Arginaid) aripiprazole 10 mg tablet 10 mg PO DAILY 06/18/21 09/12/21 ascorbic acid (vitamin C) 250 mg 250 mg PO DAILY 06/18/21 09/12/21 tablet atorvastatin 10 mg tablet 10 mg PO DAILY 06/18/21 09/12/21 furosemide 40 mg tablet 40 mg PO DAILY 06/18/21 09/12/21 gabapentin 300 mg capsule 300 mg PO TID 06/18/21 09/12/21 levothyroxine 88 mcg tablet 88 mcg PO DAILY 06/18/21 09/12/21 metformin 500 mg tablet 500 mg PO BID 06/18/21 09/12/21 olanzapine 5 mg tablet 5 mg PO BID 06/18/21 09/12/21 polyethylene glycol 3350 17 gram 17 g PO DAILY 06/18/21 09/12/21 oral powder packet potassium chloride 20 mEq 20 meq PO DAILY 06/18/21 09/12/21 tablet,extended release(part/cryst) spironolactone 25 mg tablet 25 mg PO DAILY 06/18/21 09/12/21 miconazole nitrate 1 applic topical BID 07/17/21 09/12/21 docusate sodium 100 mg capsule 100 mg PO BID 09/12/21 09/12/21 (Colace) Allergies Allergy/AdvReac Type Severity Reaction Status Date / Time Latex, Natural Rubber Allergy Mild Unknown Verified 10/07/21 20:29 Review of Systems Review of Systems: CONSTITUTIONAL: Denies fever, chills, or sweats. EYES: Denies visual changes, redness, or discharge. ENT: Denies rhinorrhea, congestion, sore throat, or otalgia. CARDIOVASCULAR: Denies chest pain, palpitations, or edema. RESPIRATORY: Denies cough or dyspnea. GASTROINTESTINAL: Denies abdominal pain, nausea, vomiting, or diarrhea. GENITOURINARY: Denies dysuria or hematuria. SKIN: Denies rash or itching. MUSCULOSKELETAL: Denies back pain, joint pain, or myalgia. NEUROLOGIC: Denies headache, numbness, dizziness, or weakness. PSYCHIATRIC: Denies anxiety or depression. 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 Family History Family History Father Throat cancer Mother Heart disease Social History Social History Social History: Patient [facility] at [facility]. She wishes to be a full code at this time. She does have 1 child and she still smokes. [id number]: Pete Washington
[2021-10-07 21:14] VITALS: BP 153/42; PULSE 92; RESP 18; O2SAT 100
--- NOTE | 2021-10-07 21:23 | PC.NURSE ---
[facility] accepted return to [facility] ETa [id number] Trip # [id number]
--- NOTE | 2021-10-07 21:27 | PC.NURSE ---
Pt advised she does not qualify for EMS transport back to [facility]. States she has no one that could pick her up from ED. Pt made aware that she could be responsible for EMS bill. Pt verbalized understanding. A&Ox4. This RN attempted to call report to [facility] at this time. No answer.
--- NOTE | 2021-10-07 23:25 | PC.NURSE ---
This RN attempted to call report to [facility], no answer.
--- NOTE | 2021-10-07 23:57 | PC.NURSE ---
Addendum entered by Yesi Gusman RN 10/08/21 01:25: Angi assumed care of pt at this time. Original Note: Report given to Angi GALINDO
[2021-10-08 01:00] VITALS: BP 144/80; PULSE 74; RESP 16; TEMP 36.3; O2SAT 94
[2021-10-08 01:11] LABS: Glucose Point of Care 144 mg/dl (65-105)
--- NOTE | 2021-10-08 01:30 | PC.NURSE ---
called to give reports at [facility], no answer at [phone]
--- NOTE | 2021-10-08 01:46 | PC.NURSE ---
This RN called [facility] 7 times with no answer from multiple phone lines, including my personal phone. No answer.
--- NOTE | 2021-10-08 01:59 | PC.NURSE ---
Called [facility] to give report at [phone], no answer
== END 2021-10-08 01:42 ==
PROVIDERS: Emergency Provider Nurse Practitioner Family; PCP Internal Medicine
DX: T82.524A Displacement of infusion catheter, initial encounter (principal); E78.00 Pure hypercholesterolemia, unspecified; E03.9 Hypothyroidism, unspecified; E11.51 Type 2 diabetes mellitus with diabetic peripheral angiopathy without gangrene; K21.9 Gastro-esophageal reflux disease without esophagitis; F31.9 Bipolar disorder, unspecified; Z86.718 Personal history of other venous thrombosis and embolism; Z79.82 Long term (current) use of aspirin; Z79.01 Long term (current) use of anticoagulants; Z79.84 Long term (current) use of oral hypoglycemic drugs; F17.210 Nicotine dependence, cigarettes, uncomplicated; Y83.8 Other surgical procedures as the cause of abnormal reaction of the patient, or of later complication, without mention of misadventure at the time of the procedure
CPT/HCPCS: 71045; 82948; 99283

== ENCOUNTER 2021-10-29 23:35 | Emergency (ER) | payer MEDICARE, MEDICAID, SELFPAY ==
[2021-10-29 23:39] VITALS: BP 160/90; PULSE 84; RESP 19; TEMP 36.5; O2SAT 95
--- NOTE | 2021-10-30 00:06 | ED.WOUNDLAC ---
HPI - Wound/Laceration General Chief Complaint: Wound/Laceration <Mildred Her PA-C - Last Filed: 10/30/21 03:09> Stated Complaint: maggott infestation in legs - [facility] <Mildred Her PA-C - Last Filed: 10/30/21 03:09> Time Seen by Provider: 10/29/21 23:36 <Mildred Her PA-C - Last Filed: 10/30/21 03:09> History of Present Illness HPI narrative: 61-year-old female here for evaluation from her nursing facility for possible maggot infestation in her wounds. Patient has a history of chronic venous stasis ulcers and pressure ulcers on her buttocks, and it was noted by staff during dressing changes today that there might have been a maggot in her wound. Of note, residents in the same hallway were treated for maggot infestation today as well. Patient states that she has chronic pain in her legs but has no other complaints, do not see the maggots herself. No fevers or chills. Was getting antibiotics through a PIC for cellulitis last month. <Mildred Her PA-C - Last Filed: 10/30/21 03:09> Related Data Home Medications: Home Medications Medication Instructions Recorded Confirmed Lactobacillus acidophilus 10 mg PO BID 01/30/19 09/12/21 (Acidophilus capsule) aspirin 81 mg tablet,delayed 81 mg PO DAILY 01/30/19 09/12/21 release (Aspir-) cholecalciferol (vitamin D3) 100 25 mcg PO DAILY 01/30/19 09/12/21 mcg (4,000 unit) capsule divalproex 250 mg tablet,delayed 250 mg PO HS 01/30/19 09/12/21 release (Depakote) multivitamin 1 cap PO DAILY 01/30/19 09/12/21 acetaminophen 325 mg tablet 650 mg PO Q4H PRN Mild Pain (Scale 06/18/21 09/12/21 (Tylenol) Score 1-4) apixaban 5 mg tablet (Eliquis) 5 mg PO BID 06/18/21 09/12/21 arginine-vitamin C-vitamin E oral 9.2 g PO BID 06/18/21 09/12/21 4.5 gram-156 mg/9.2 gram powder pkt (Arginaid) aripiprazole 10 mg tablet 10 mg PO DAILY 06/18/21 09/12/21 ascorbic acid (vitamin C) 250 mg 250 mg PO DAILY 06/18/21 09/12/21 tablet atorvastatin 10 mg tablet 10 mg PO DAILY 06/18/21 09/12/21 furosemide 40 mg tablet 40 mg PO DAILY 06/18/21 09/12/21 gabapentin 300 mg capsule 300 mg PO TID 06/18/21 09/12/21 levothyroxine 88 mcg tablet 88 mcg PO DAILY 06/18/21 09/12/21 metformin 500 mg tablet 500 mg PO BID 06/18/21 09/12/21 olanzapine 5 mg tablet 5 mg PO BID 06/18/21 09/12/21 polyethylene glycol 3350 17 gram 17 g PO DAILY 06/18/21 09/12/21 oral powder packet potassium chloride 20 mEq 20 meq PO DAILY 06/18/21 09/12/21 tablet,extended release(part/cryst) spironolactone 25 mg tablet 25 mg PO DAILY 06/18/21 09/12/21 miconazole nitrate 1 applic topical BID 07/17/21 09/12/21 docusate sodium 100 mg capsule 100 mg PO BID 09/12/21 09/12/21 (Colace) <Mildred Her PA-C - Last Filed: 10/30/21 03:09> Allergies/Adverse Reactions: Allergies Allergy/AdvReac Type Severity Reaction Status Date / Time Latex, Natural Rubber Allergy Mild Unknown Verified 10/19/21 09:53 <Mildred Her PA-C - Last Filed: 10/30/21 03:09> Review of Systems Review of Systems: Gen.: Denies fevers or chills Eyes: Denies eye pain or visual change ENT: Denies congestion Respiratory: Denies shortness of breath or cough CV: Denies chest pain or palpitations GI: Denies abdominal pain nausea, emesis or diarrhea denies burning, urgency, frequency or hematuria Musculoskeletal: Denies back pain or muscle pain Neuro: Denies numbness, tingling, weakness or focal weakness Skin: Reports ulcerations to lower extremities Except as documented, all other systems reviewed and negative <Mildred Her PA-C - Last Filed: 10/30/21 03:09> [facility] Past Medical History Medical History: Medical History Bipolar disorder Bowel obstruction Cancer of kidney Current use of penitentiary anticoagulation Deep venous thrombosis Gastroesophageal reflux disease Hypercholesterolemia
[2021-10-30 01:13] LABS: Basophils Percent Auto 0.2 % (0.2-1.2); Eosinophils Absolute Auto 0.2 K/mm3 (0-0.3); Eosinophils Percent Auto 1.9 % (0-4.4); Hematocrit 38.1 % (37.0-47.0); Hemoglobin 11.9 g/dL (12.0-15.0); Immature Granulocyte Absolute 0.03 K/mm3 (0.00-0.031); Immature Granulocyte Percent A 0.3 % (0-0.5); Lymphocytes Absolute Auto 2.21 K/mm3 (0.9-3.2); Lymphocytes Percent Auto 24.1 % (18.3-44.2); Mean Corpuscular HGB Conc 31.2 g/dl (32-36); Mean Corpuscular Hemoglobin 28.7 pg (26-34); Mean Platelet Volume 9.2 fl (7.4-10.4); Monocytes Absolute Auto 0.8 K/mm3 (0.1-0.6); Monocytes Percent Auto 8.5 % (2.6-8.5); Platelet Count Result 297 k/mm3 (150-375); Red Blood Count 4.14 M/mm3 (4.2-5.4); Red Cell Distribution Width 14.6 % (11.5-14.5); White Blood Count 9.2 K/mm3 (4.5-10.0)
[2021-10-30 01:23] LABS: Alanine Aminotransferase 24 U/L (6-35); Albumin Level 3.6 g/dL (3.5-5.1); Alkaline Phosphatase 87 U/L (38-126); Anion Gap 8 mmol/L (8-16); Aspartate Amino Transferase 20 U/L (14-36); Bilirubin,Total 0.3 mg/dL (0.2-1.3); Blood Urea Nitrogen 17 mg/dL (7-17); Calcium 9.4 mg/dL (8.4-10.2); Carbon Dioxide 27 mmol/L (22-30); Chloride 104 mmol/L (98-107); Estimated Glomerular Filt Rate > 60; Glucose 147 mg/dL (65-110); Potassium 3.9 mmol/L (3.4-5.0); Sodium 139 mmol/L (137-145)
--- NOTE | 2021-10-30 01:27 | PC.NURSE ---
Non-adherent dressing applied to bilateral medial posterior upper thighs at this time. Pt lower legs specifically ankles and calves wrapped with non-adherent dressing, gauze, gauze wrap and coban applied per MARGUERITE Levy.
[2021-10-30 01:38] VITALS: BP 99/62; PULSE 73; RESP 16; O2SAT 93
[2021-10-30 01:54] VITALS: O2SAT 82
[2021-10-30 01:55] VITALS: O2SAT 98
[2021-10-30 02:30] VITALS: O2SAT 95
--- NOTE | 2021-10-30 02:35 | PC.NURSE ---
called [facility] to request transport ETA [phone]
[2021-10-30 02:59] VITALS: BP 160/95; PULSE 73; RESP 16; O2SAT 96
--- NOTE | 2021-10-30 03:01 | PC.NURSE ---
[facility] here.
--- NOTE | 2021-10-30 03:08 | PC.NURSE ---
This RN attempted to call report to [facility] x 3, calling each nurses station. No answer. This RN then called the [employer] non-emergency line and spoke c dispatch, who will send an officer to facility to inform them that their pt will be returning with [facility]. Awaiting PD callback.
== END 2021-10-30 03:19 ==
PROVIDERS: Physician Assistant; Emergency Provider Emergency Medicine; PCP Internal Medicine
DX: I87.2 Venous insufficiency (chronic) (peripheral) (principal); L89.329 Pressure ulcer of left buttock, unspecified stage; L89.319 Pressure ulcer of right buttock, unspecified stage; E78.00 Pure hypercholesterolemia, unspecified; E03.9 Hypothyroidism, unspecified; E11.51 Type 2 diabetes mellitus with diabetic peripheral angiopathy without gangrene; I73.9 Peripheral vascular disease, unspecified; K21.9 Gastro-esophageal reflux disease without esophagitis; F31.9 Bipolar disorder, unspecified; Z90.710 Acquired absence of both cervix and uterus; Z85.528 Personal history of other malignant neoplasm of kidney; Z86.718 Personal history of other venous thrombosis and embolism; Z87.442 Personal history of urinary calculi; Z79.82 Long term (current) use of aspirin; Z79.84 Long term (current) use of oral hypoglycemic drugs; Z79.01 Long term (current) use of anticoagulants; F17.210 Nicotine dependence, cigarettes, uncomplicated
CPT/HCPCS: 36415; 80053; 85025; 99283

== ENCOUNTER 2022-01-26 09:38 | Outpatient (CLI) | payer MEDICARE, MEDICAID, SELFPAY ==
--- NOTE | 2022-01-26 | EST_ITS ---
Patient Info Name: Rafia Spencer Age: 61 years : 1960 Gender: Female Ht: 68 in Wt: 200 lbs BSA: 2.11 m2 Exam Date: 01/26/2022 11:29 AM Exam Location: [facility] Stress Patient Status: Outpatient Admit Date: 01/26/2022 Staff Ordering Physician: Bethany Love Attending Provider: Bethany Love Exercise Technologist: Ammy Nolasco RDCS Exercise Physician: Ian Rossi DO Exam Type: CA stress kwame w NM Study Info Indications Z01.810 - Encounter for preprocedural cardiovascular examination A regadenoson stress test was performed. Summary 1. 1. Negative lexiscan stress test for ischemic ST changes by ECG criteria. 2. 2. Stable hemodynamics throughout the test. 3. 3. Nuclear scan to follow and will be reported separately. Please correlate with it. 4. 4. Patient informed of the above results. Protocol: Lexiscan Stress ECG Details Stage: REST Duration (min): 0 min : 51 sec HR (bpm): 69 SBP (mmHg): 130 DBP (mmHg): 68 Stage: REST Duration (min): 22 min : 34 sec HR (bpm): 71 SBP (mmHg): 130 DBP (mmHg): 68 Stage: STAGE 1 Duration (min): 1 min : 0 sec HR (bpm): 83 SBP (mmHg): 135 DBP (mmHg): 70 Stage: RECOVERY Duration (min): 1 min : 0 sec HR (bpm): 91 SBP (mmHg): 157 DBP (mmHg): 64 Stage: RECOVERY Duration (min): 2 min : 0 sec HR (bpm): 89 SBP (mmHg): 157 DBP (mmHg): 64 Stage: RECOVERY Duration (min): 3 min : 0 sec HR (bpm): 88 SBP (mmHg): 130 DBP (mmHg): 62 Stage: RECOVERY Duration (min): 3 min : 2 sec HR (bpm): 88 SBP (mmHg): 130 DBP (mmHg): 62 Rest HR: 71 bpm Peak HR: 92 bpm Rest Sys BP: 130 mmHg Peak Sys BP: 157 mmHg Max Pred HR: 158 bpm % Max Pred HR: 58 % Target HR: 134 bpm Max RPP: 14,444 bpm*mmHg Termination Reason: Completed protocol Cardiac Symptoms: None Total Time: 1 min : 0 sec Rest Patterson BP: 68 mmHg Peak Patterson BP: 64 mmHg Total Dose: 0.4 mg Resting ECG Sinus rhythm, borderline ST-T wave abnormality in diffuse leads. Stress ECG No ST changes. Arrhythmias None. Report Signatures
--- NOTE | ~2022-01-26 | NM_ITS ---
EXAMINATION: NM kwame stress w perfusion DATE: 01/26/2022 15:33 INDICATION: Preprocedural cardiac testing TECHNIQUE: Rest images were obtained following intravenous administration of 10.2 mCi Tc99m tetrofosm in (Myoview). The patient was infused intravenously with Lexiscan (Regadenoson). Then, 31.77 mCi Tc99 m tetrofosmin (Myoview) was administered intravenously, and stress images were obtained. Data was rec onstructed into short axis and horizontal and vertical long axis SPECT images. Gated SPECT images wer e also obtained. COMPARISON: None. FINDINGS: Perfusion defect along the mid inferior and basilar inferior segments extending small mild intensity adjacent mid inferolateral and basilar inferolateral segments on the stress images. The per fusion defects. Both smaller than on the rest imaging and also to partially normalizes on the gated p ost stress images during systole suggesting this is more likely related to diaphragmatic artifact saul n infarct. No evident reversible perfusion defects to suggest ischemia. There is normal left ventric ular chamber size, wall motion and ejection fraction. Left ventricular ejection fraction measures 64 %. IMPRESSION: 1. No reversible perfusion defects to suggest ischemia. 2. Perfusion defect along the mid and basilar inferior and inferolateral segments, larger and more se cuauhtemoc on the rest than the stress images which appear to at least partially normalizes on the gated im ages during systole. This suggests this is more likely related to diaphragmatic attenuation artifact rather than infarct. 2. Left ventricular ejection fraction measuring 64%. Reviewed, dictated and finalized at location A. D SUPERVISOR IMPRESSION: 1. No reversible perfusion defects to suggest ischemia. 2. Perfusion defect along the mid and basilar inferior and inferolateral segmen ts, larger and more severe on the rest than the stress images which appear to a t least partially normalizes on the gated images during systole. This suggests this is more likely related to diaphragmatic attenuation artifact rather than i nfarct. 2. Left ventricular ejection fraction measuring 64%.
== END 2022-01-26 09:39 | disposition home or self-care (01) ==
PROVIDERS: PCP Internal Medicine
DX: Z01.810 Encounter for preprocedural cardiovascular examination (principal)
CPT/HCPCS: 78452; 93017; A9502

== ENCOUNTER 2022-02-05 09:14 | Outpatient (CLI) | payer MEDICARE, MEDICAID, SELFPAY ==
--- NOTE | 2022-02-05 10:03 | PCRCNOTE ---
PT CAME IN FOR PFT TESTING AND WAS UNABLE TO PERFORM.
== END 2022-02-05 09:15 | disposition home or self-care (01) ==
PROVIDERS: PCP Internal Medicine; Visit Provider Internal Medicine
DX: Z01.818 Encounter for other preprocedural examination (principal)
CPT/HCPCS: 99199

== ENCOUNTER 2022-02-10 13:40 | Inpatient (IN) | payer MEDICARE, MEDICAID, SELFPAY ==
[2022-02-10] VITALS (24 sets, daily range): BP systolic 117–196; BP diastolic 56–132; PULSE 98–134; RESP 11–23; TEMP 37.6; O2SAT 90–95; BMI 36.6
--- NOTE | ~2022-02-10 | CT_ITS ---
EXAMINATION: CT abdomen pelvis w con DATE: 02/10/2022 15:52 INDICATION: AMS with tachycardia and R lower abdominal pain TECHNIQUE: Computed tomography (CT) of the abdomen and pelvis was performed with 100 mL Omnipaque-350 intravenous contrast. Automated exposure control and iterative reconstruction technique were employe d. The dose-length product was 1938.68 mGy-cm. COMPARISON: 06/18/2021 and 07/18/2021. FINDINGS: Lower thorax: Motion limits the evaluation of the lung parenchyma. Aortic valve and coronary artery c alcifications. Liver: Steatosis. Biliary/Gallbladder: Gallbladder is absent. Common bile duct dilation, likely secondary to cholecyste ctomy. Pronounced pneumobilia. Pancreas: Atrophic. Spleen: Splenic cyst or hemangioma. Granulomatous calcification. Adrenals: Tiny left adrenal myelolipoma. Kidneys: No mass, stone, or hydronephrosis. GI tract: Gradually increasing small bowel diameter, with multiple loops of frankly dilated small bow el in the right lower abdomen, slightly worse than in the prior studies. Interloop fluid/edema. No pn eumatosis. No portal venous gas. Multiple loops of dilated small bowel in the right lower abdominal w all hernia, with multiple transition points, fluid, and inflammatory change within the hernia sac, al so slightly worse than the prior studies. A portion of colon in the ileocecal valve may also be herni ated. The appendix appears to be located in the hernia sac and is mostly air-filled. Subtle appendice al inflammatory change would be masked by the fluid and inflammation in the hernia sac. Mesentery/Peritoneum: No ascites, mass, or free air. Retroperitoneum: No mass. Atherosclerotic abdominal aortic and/or arterial calcifications. Bilateral common iliac origin stents. Pelvis: Bladder wall thickening. Small volume free fluid in the pelvis, slightly increased since the prior. Soft Tissues: Right lateral abdominal wall hernia containing loops of dilated and nondilated small heide wel. Uncomplicated appearing small fat-containing umbilical hernia. Bones: No acute osseous finding. IMPRESSION: Findings concerning for worsening chronic partial versus acute complete on chronic partial small iglesia l obstruction, in a large right lateral abdominal wall hernia. Results reported telephonically to Dr. Franco by Dr. Cruz at 4:20 PM on 02/10/2022. Reviewed, dictated and finalized at location K. TE BLACK BELT IMPRESSION: Findings concerning for worsening chronic partial versus acute complete on hardwood floor refinisher willis partial small bowel obstruction, in a large right lateral abdominal wall he rnia. Results reported telephonically to Dr. Franco by Dr. Cruz at 4:20 PM on 02/10.
--- NOTE | ~2022-02-10 | XR_ITS ---
EXAMINATION: XR abdomen NG/feed tube insert DATE: 02/11/2022 01:49 INDICATION: Confirm nasogastric tube placement TECHNIQUE: A supine view of the abdomen and lower chest was obtained for evaluation of feeding tube placement. COMPARISON: CT dated 02/10/2022 FINDINGS: Nasogastric tube tip in proximal side port in the stomach. Persistent mildly dilated gas-filled loops of small bowel in the central abdomen consistent with small bowel obstruction. Again seen is promine nt pneumobilia within the common bile duct and left hepatic lobe likely related to prior cholecystect jade with surgical clips in right upper quadrant. Lung bases are clear. Heart size is normal. IMPRESSION: 1. Nasogastric tube in the stomach. 2. Small bowel obstruction. Reviewed, dictated and finalized at location A. BOILER
--- NOTE | ~2022-02-10 | CT_ITS ---
EXAMINATION: CT brain wo con DATE: 02/10/2022 15:52 INDICATION: AMS . TECHNIQUE: Computed tomography (CT) of the head was performed without intravenous contrast. The mA wa s adjusted according to patient size. Iterative reconstruction technique was employed. The dose-lengt h product was 1938.68 mGy-cm. COMPARISON: 09/13/2021. FINDINGS: No acute intracranial hemorrhage or extra-axial fluid collection. No hydrocephalus, mass, or herniation. No acute ischemic infarct. Unremarkable dural venous sinus attenuation. Trace bilateral mastoid effusions, the remaining acute osseous abnormality. The aerated spaces are clear. Mild atrophy. Atherosclerotic intracranial calcification. IMPRESSION: No acute intracranial process. Reviewed, dictated and finalized at location K. L ENGINEERING DESIGN DRAFTSPERSON
--- NOTE | 2022-02-10 13:49 | ECG_ITS ---
Measurements Intervals [place] Rate: 106 P: 38 NM: 150 QRS: 14 QRSD: 97 T: 113 QT: 325 QTc: 432 Interpretive Statements SINUS TACHYCARDIA WITH OCCASIONAL ECTOPIC PREMATURE COMPLEXES ST DEVIATION AND MODERATE T-WAVE ABNORMALITY, CONSIDER LATERAL ISCHEMIA ABNORMAL ECG NO PREVIOUS ECG AVAILABLE FOR COMPARISON Electronically Signed On 02-13-2022 17:34:42 CARPENTRY SPECIALIST by Manan Wick M.D.
--- NOTE | 2022-02-10 14:10 | ED.GENADULT ---
HPI - General Adult General Chief complaint: Weakness Stated complaint: lethargy/ covid+ History of Present Illness HPI narrative: Patient is a 61-year-old female jail resident with history of bipolar disorder, chronic venous stasis changes with history of encephalopathy presenting with altered mental status. group home stated patient was weak and not as responsive as normal. Patient found to be COVID-positive at jail. Transferred to emergency department. Patient alert and oriented to person and place. She states that she threw up today and that is why she is at the hospital. Patient unable to provide further history at this time and appears sleepy. Related Data Home Medications Medication Instructions Recorded Confirmed Lactobacillus acidophilus 10 mg PO BID 01/30/19 09/12/21 (Acidophilus capsule) aspirin 81 mg tablet,delayed 81 mg PO DAILY 01/30/19 09/12/21 release (Aspir-) cholecalciferol (vitamin D3) 100 25 mcg PO DAILY 01/30/19 09/12/21 mcg (4,000 unit) capsule divalproex 250 mg tablet,delayed 250 mg PO HS 01/30/19 09/12/21 release (Depakote) multivitamin 1 cap PO DAILY 01/30/19 09/12/21 acetaminophen 325 mg tablet 650 mg PO Q4H PRN Mild Pain (Scale 06/18/21 09/12/21 (Tylenol) Score 1-4) apixaban 5 mg tablet (Eliquis) 5 mg PO BID 06/18/21 09/12/21 arginine-vitamin C-vitamin E oral 9.2 g PO BID 06/18/21 09/12/21 4.5 gram-156 mg/9.2 gram powder pkt (Arginaid) aripiprazole 10 mg tablet 10 mg PO DAILY 06/18/21 09/12/21 ascorbic acid (vitamin C) 250 mg 250 mg PO DAILY 06/18/21 09/12/21 tablet atorvastatin 10 mg tablet 10 mg PO DAILY 06/18/21 09/12/21 furosemide 40 mg tablet 40 mg PO DAILY 06/18/21 09/12/21 gabapentin 300 mg capsule 300 mg PO TID 06/18/21 09/12/21 levothyroxine 88 mcg tablet 88 mcg PO DAILY 06/18/21 09/12/21 metformin 500 mg tablet 500 mg PO BID 06/18/21 09/12/21 olanzapine 5 mg tablet 5 mg PO BID 06/18/21 09/12/21 polyethylene glycol 3350 17 gram 17 g PO DAILY 06/18/21 09/12/21 oral powder packet potassium chloride 20 mEq 20 meq PO DAILY 06/18/21 09/12/21 tablet,extended release(part/cryst) spironolactone 25 mg tablet 25 mg PO DAILY 06/18/21 09/12/21 miconazole nitrate 1 applic topical BID 07/17/21 09/12/21 docusate sodium 100 mg capsule 100 mg PO BID 09/12/21 09/12/21 (Colace) Allergies Allergy/AdvReac Type Severity Reaction Status Date / Time Latex, Natural Rubber Allergy Mild Unknown Verified 02/10/22 13:50 Review of Systems Review of Systems: Unable to obtain full review of systems due to patient's mental status. [facility] Past Medical History Medical History Bipolar disorder Bowel obstruction Cancer of kidney Current use of detention anticoagulation Deep venous thrombosis Gastroesophageal reflux disease Hypercholesterolemia Hypothyroidism Incarcerated incisional hernia Kidney stones Peripheral vascular disease Type 2 diabetes mellitus Surgical History Surgical History History of cholecystectomy History of hysterectomy History of vascular surgery Bilateral common iliac stents. Family History Family History (System 10/19/21 @ 09:53 by Francis Peacock) Father Throat cancer Mother Heart disease Social History Social History (System 10/19/21 @ 09:53 by Francis Peacock) Social History: Patient lives at [facility]. She wishes to be a full code at this time. She does have 1 child and she still smokes. Omfwc-it-pjrimdry: Pete Posada. Code status: Full code. Smoking packs per day: 1 Smoking cigarettes per day: 20.0 Years smoked: 45 Smoking pack-years: 45.00 Smoking status: Current every day smoker Second hand tobacco smoke exposure: Yes Alcohol intake: never Substance use: never Substance use type: does not use Additional living arrangements comments: Currently at [place]. Ad
[2022-02-10 14:22] LABS: Basophils Percent Auto 0.2 % (0.2-1.2); Eosinophils Percent Auto 0.1 % (0-4.4); Hematocrit 42.4 % (37.0-47.0); Hemoglobin 13.1 g/dL (12.0-15.0); Immature Granulocyte Absolute 0.02 K/mm3 (0.00-0.031); Immature Granulocyte Percent A 0.2 % (0-0.5); Lymphocytes Absolute Auto 1.15 K/mm3 (0.9-3.2); Lymphocytes Percent Auto 12.7 % (18.3-44.2); Mean Corpuscular HGB Conc 30.9 g/dl (32-36); Mean Corpuscular Hemoglobin 27.6 pg (26-34); Mean Corpuscular Volume 89.3 fl (80-100); Mean Platelet Volume 9.5 fl (7.4-10.4); Monocytes Percent Auto 11.1 % (2.6-8.5); Neutrophils Absolute Auto 6.8 K/mm3 (1.3-6.7); Neutrophils Percent Auto 75.7 % (45.5-73.1); Platelet Count Result 331 k/mm3 (150-375); Red Blood Count 4.75 M/mm3 (4.2-5.4); Red Cell Distribution Width 14.8 % (11.5-14.5)
[2022-02-10] MEDS: LACTATED RINGERS 1,000 ML 999 ML IV CONT (14:24)
[2022-02-10 14:29] LABS: Ammonia < 9 umol/L (9-30)
[2022-02-10 14:32] LABS: INR 1.2; Prothrombin Time 14.5 Seconds (11.1-14.7)
[2022-02-10 14:33] LABS: Partial Thromboplastin Time 30.9 SECONDS (22.3-36.8)
[2022-02-10 14:37] LABS: Acetaminophen < 10 ug/mL (10-30); Ethanol < 10 mg/dL (<10); Salicylate < 1.0 mg/dL (2-20)
[2022-02-10 14:46] LABS: Alanine Aminotransferase 26 U/L (6-35); Albumin Level 3.9 g/dL (3.5-5.1); Alkaline Phosphatase 88 U/L (38-126); Anion Gap 4 mmol/L (8-16); Aspartate Amino Transferase 38 U/L (14-36); Bilirubin,Total 0.4 mg/dL (0.2-1.3); Blood Urea Nitrogen 22 mg/dL (7-17); Calcium 9.1 mg/dL (8.4-10.2); Carbon Dioxide 30 mmol/L (22-30); Chloride 101 mmol/L (98-107); Estimated Glomerular Filt Rate > 60; Glucose 138 mg/dL (65-110); Sodium 135 mmol/L (137-145)
[2022-02-10 15:28] LABS: Lipase < 10 U/L (23-300)
[2022-02-10 16:51] LABS: Influenza A QL RT-PCR Negative (Negative); Influenza B QL RT-PCR Negative (Negative); SARS-CoV-2 RNA PCR Positive
[2022-02-10 17:52] LABS: Add Urine Microscopic? YES; Appearance Urine Clear (Clear); Bilirubin Urine Negative (Negative); Blood Urine Negative (Negative); Color Urine Yellow (Yellow); Glucose Urine UA Negative (Negative); Ketones Urine Trace mg/dL (Negative); Leukocyte Esterase Ur Negative LEU/UL (Negative); Nitrate Urine Negative (Negative); Protein Urine Trace mg/dL (Negative)
[2022-02-10 18:12] LABS: Mucus Urine Moderate /lpf; Squamous Epithelial Cell Urine Occasional /hpf (Few); WBC Urine 0-3 /hpf
[2022-02-10] MEDS: MIDAZOLAM HCL (*CRX) 2 MG/2 ML VIAL IV PUSH (19:16)
[2022-02-11] VITALS (8 sets, daily range): BP systolic 129–134; BP diastolic 62–77; PULSE 92–109; RESP 14–22; TEMP 36.3–37.4; O2SAT 93–96
--- NOTE | 2022-02-11 03:16 | PC.NURSE ---
Pt was admitted to 348 from ER via cart. Pt unable to move self.Legs contracted. arms weak, hand grasp weak. Pt weight 240 pounds Transfer to bed. Pt yells in pain with movement. flat affect. A/O x3 forgetful. Hx from [facility] paperwork, and talked to nurse at the facility. Multiple wound noted. NPO. Oral care performed. NG inserted per [facility] nurse . portable chest xray completed.Abd large- distended- firm significant protruding hernia to right lateral abdominal wall. Smith to gravity. Fall precautions.
--- NOTE | 2022-02-11 05:54 | PM.IMHP ---
H&P: HPI History of Present Illness Date/Time: 02/11/22 05:54 Chief Complaint: Weakness, lethargy Narrative: 61-year-old female with past medical history of bipolar disorder, intellectual disability, hypothyroidism, type 2 diabetes and obesity who presented to the ER with generalized weakness and being less responsive than usual after being diagnosed with COVID 4 days ago. The patient does not provide me with any history. She will tell me her name. She tells me that she does not know what month or year it is. She has chronic intellectual disability and communication deficits due to her bipolar disorder. Patient has NG tube in place. It has not yet been connected to suction. The patient moans out in pain I touched her wrist abdomen feet were anywhere on her body. If I tried to evaluate the patient's eyes are pupils she clenches her eyes tightly. However when I am done trying to look at her eyes she will briefly look at me before turning away. His the patient has a known abdominal wall hernia that she is not a surgical candidate for repair. She has normoactive bowel sounds on exam. She has not had any vomiting since admission. There is no mention of the patient having vomiting at the custodial either. Patient had similar findings on imaging (concerning for worsening chronic partial versus acute complete or chronic partial small-bowel obstruction in the large right lateral abdominal wall hernia) compared to prior imaging. Exam is difficult and limited due to the above-mentioned factors. Patient was admitted in this setting. General surgery has been consulted. The patient remains afebrile. She has no evidence of respiratory distress. The patient has chronic wounds to her left foot and her right anterior kilpatrick. Review of Systems Review of Systems: Attempted but limited due to the patient's intellectual disability and psychiatric disorder with lack of cooperation ON LICENSE OF [facility] Past Medical History Medical History (Updated 02/11/22 @ 08:30 by Monique Lopez DO) Bipolar disorder Bowel obstruction Cancer of kidney Current use of shelter anticoagulation Deep venous thrombosis Diabetic peripheral neuropathy Gastroesophageal reflux disease Hypercholesterolemia Hypothyroidism Incarcerated incisional hernia Kidney stones Peripheral vascular disease Stasis dermatitis of right lower extremity with venous ulcer due to chronic peripheral venous hypertension Type 2 diabetes mellitus Surgical History Surgical History History of cholecystectomy History of hysterectomy History of vascular surgery Bilateral common iliac stents. Family History Family History Father Throat cancer Mother Heart disease Social History Social History (Updated 02/11/22 @ 08:16 by Monique Lopez DO) Social History: Patient lives at [facility]. She does have 1 child and she still smokes. Sxech-ke-eurywagx: Pete Posada. Code status: Full code. Smoking packs per day: 0.5 Smoking cigarettes per day: 10.0 Years smoked: 45 Smoking pack-years: 22.50 Smoking status: Heavy tobacco smoker Second hand tobacco smoke exposure: No Alcohol intake: never Substance use: never Substance use type: does not use Lack of Transportation: No Lack of Food: Never True Current Housing: I Have Housing Concerned About Future Housing: No Difficulty Paying Gas/Electric Bills: No Difficulty Paying for Meds: No Currently Unemployed: No Education: High School Diploma/GED Difficulty w/ Childcare or Family Care: No Additional living arrangements comments: Currently at [facility]. Additional occupation/education comments: Disabled. Gender identity (if verbalized by the patient): Female Sexual Orientation (if Verbalized by the Patient): Straight or Heterosexual Spiritual care concerns: No Agree to blood
--- NOTE | 2022-02-11 08:47 | PC.NURSE ---
All wound drsg removed, pictures taken and new drsg applied. Pt verbalized pain with drsg change and movement. Pt moves head and arms minimally. Per hospitalist [employer] CERDA placement verified Connected to LIS at 0545.
--- NOTE | 2022-02-11 09:54 | PM.IMPN ---
Progress Note: A&P Assessment and Plan (1) Partial small bowel obstruction: Code(s): K56.600 - Partial intestinal obstruction, unspecified as to cause Status: Acute Assessment and Plan: Patient presented to the ER from the residential with altered mental status. Patient is weak and not responsive, this is her normal. CT revealed evidence of small-bowel obstruction and bowel incarceration chronically within right-sided abdominal wall hernia. General surgery consulted General surgery recommends NG decompression and bowel rest Surgery plans to schedule Gastrografin small-bowel follow-through in the next 1-2 days Patient is high risk for surgery due to respiratory problems and being COVID positive Patient on continuous IV fluids NG tube placement Chest x-ray confirmed NG tube in the stomach, revealed small bowel obstruction Bowel rest NPO (2) COVID-19: Code(s): U07.1 - COVID-19 Status: Acute Assessment and Plan: Patient test positive for COVID on 02/10/2022. Patient not requiring oxygen Isolation precautions Stable Continue to monitor (3) Acute alteration in mental status: Code(s): R41.82 - Altered mental status, unspecified Status: Acute Assessment and Plan: Chronic Holding psychiatric medications due to NPO status (4) Type 2 diabetes mellitus: Qualifiers: Diabetes mellitus complication detail: with dermatitis Diabetes mellitus complication status: with skin complications Diabetes mellitus assisted insulin use: without assisted use Qualified Code(s): E11.620 - Type 2 diabetes mellitus with diabetic dermatitis Code(s): E11.9 - Type 2 diabetes mellitus without complications Status: Acute Assessment and Plan: Chronic Will check Accu-Cheks q.6 hours while on NPO NovoLog 3-6 units subQ q.6 hours Hypoglycemic protocol (5) Chronic wound of extremity: Status: Acute Assessment and Plan: Chronic Wound care consulted Chronic wounds on left foot and right anterior kilpatrick Plan The patient has several medications on her home med list that she actually has not been prescribed in months these medications include fluconazole, Keflex. Unsure how the still became verified on the patient's home med rec. They have been placed on hold at this time. Time Spent With Patient Time with patient: Greater than 35 minutes Subjective Date/time seen: 02/11/22 09:54 Interval history: 61-year-old female with a history of bipolar disorder, chronic venous stasis, history of encephalopathy, chronic wounds on lower extremities. Patient presented to ER due to altered mental status. Found to be COVID positive with small-bowel obstruction. Patient not a good historian and does not answer many questions. Patient is able to say that her lower legs hurt but unable to answer any more questions. Unable to complete review of systems. Review of Systems Review of Systems: ROS unobtainable: Yes unobtainable due to medical condition Exam Narrative: GENERAL: Comfortable, no acute distress, malodorous, obese HENMT: moist mucous membranes, dry skin over patient's face EYES: EOM intact b/l NECK: no lymphadenopathy RESPIRATORY: Unable to perform complete exam due to lack of patient mobility and cooperation. CARDIO: RRR GI: soft, nontender, bowel sounds present SKIN: no rashes EXTREMITIES: Chronic bilateral lower extremity venous stasis. Left foot and right anterior kilpatrick chronic wounds; dressings in place. No edema. Objective Data Vital Signs Vital Signs: Vital Signs - 24 hr 02/10/22 14:30 02/10/22 14:46 02/10/22 14:15 Temperature Pulse Rate 109 H 110 H 106 H Respiratory Rate 20 17 23 H Blood Pressure 133/78 138/68 126/67 Pulse Oximetry 94 95 94 Oxygen Delivery 02/10/22 14:11 02/10/22 15:01 02/10/22 15:51 Temperature Pulse Rate 105 H 105 H 105 H Respiratory Rate 20 23 H 11 L Blood Pressure 125/77 131/56
[2022-02-11] MEDS: ENOXAPARIN 40 MG/0.4 ML SYRINGE SUB-Q (10:12)
[2022-02-11] MEDS: SILVERGEL (ELTA) 45 ML 1 APPLIC TOPICAL ×2 (10:13→18:46)
[2022-02-11] MEDS: SODIUM CHLORIDE 0.9% IV 1,000 ML 70 ML IV CONT ×2 (10:14→22:59)
[2022-02-11 10:20] LABS: Hematocrit 36.7 % (37.0-47.0); Hemoglobin 11.5 g/dL (12.0-15.0); Mean Corpuscular HGB Conc 31.3 g/dl (32-36); Mean Corpuscular Hemoglobin 27.3 pg (26-34); Mean Corpuscular Volume 87.2 fl (80-100); Mean Platelet Volume 9.2 fl (7.4-10.4); Platelet Count Result 294 k/mm3 (150-375); Red Blood Count 4.21 M/mm3 (4.2-5.4); Red Cell Distribution Width 14.9 % (11.5-14.5); White Blood Count 7.8 K/mm3 (4.5-10.0)
[2022-02-11 10:32] LABS: Anion Gap 3 mmol/L (8-16); Blood Urea Nitrogen 23 mg/dL (7-17); Calcium 8.7 mg/dL (8.4-10.2); Carbon Dioxide 29 mmol/L (22-30); Chloride 103 mmol/L (98-107); Estimated CRCL calculation 107 ml/min; Estimated Glomerular Filt Rate > 60; Glucose 121 mg/dL (65-110); Sodium 135 mmol/L (137-145)
[2022-02-11 12:46] LABS: Glucose Point of Care 116 mg/dl (65-105)
--- NOTE | 2022-02-11 14:12 | PM.CNGS ---
Assessment and Plan Assessment and plan (1) Partial small bowel obstruction: Code(s): K56.600 - Partial intestinal obstruction, unspecified as to cause Status: Acute Assessment and Plan: I reviewed the CT. Patient has evidence of a small-bowel obstruction and bowel incarcerated chronically within her right-sided abdominal wall hernia. This appears soft and is at least partially reducible on exam. She does not show any signs of peritonitis or bowel ischemia. With her current positive COVID and history of respiratory problems to begin with, she is not a very good surgical candidate at this time. Will continue to attempt NG decompression and bowel rest to allow obstruction to resolve. Will likely get a Gastrografin small-bowel follow-through within the next 1-2 days. She may eventually require surgical intervention to prevent these recurrent obstructions, but this will not be an easy procedure and she will have significant respiratory risk factors. This may be need to be performed at a higher level of care. Will continue to follow along with patient. (2) Incarcerated incisional hernia: Code(s): K43.0 - Incisional hernia with obstruction, without gangrene Status: Acute (3) COVID-19: Code(s): U07.1 - COVID-19 Status: Acute (4) Acute alteration in mental status: Code(s): R41.82 - Altered mental status, unspecified Status: Acute (5) Bipolar disorder: Code(s): F31.9 - Bipolar disorder, unspecified Status: Acute History of Present Illness Consult details Consult date: 02/11/22 Reason for consult: other (Bowel obstruction) Narrative: this is a 61-year-old woman who asked to see for a recurrent bowel obstruction involving a chronically incarcerated ventral hernia. Patient does not answer questions other occasional yes or no and just moans and grunts in bed. Her chart is reviewed in history is obtained from the chart. She presented to the emergency department last night with mental status changes. She is a resident of a half[facility]way and has a history of bipolar disorder. Patient reportedly had some nausea and vomiting yesterday. A CT of her abdomen and pelvis in the emergency department showed evidence a hernia containing dilated loops bowel suggestive of partial small bowel obstruction. She was admitted twice in June of this year with similar problems. Her bowel obstruction appears to be intermittent and usually resolves with bowel rest and NG decompression. Surgery has been delayed due to poor respiratory and cardiac function. Patient just had a stress test on 01/26/2022 which appeared to show stable hemodynamics. An NG tube was placed in the emergency room and she has not had any bowel movements since being admitted. Review of Systems Review of Systems: ROS unobtainable: Yes unobtainable due to mental status [facility] Past Medical History Medical History (Updated 02/11/22 @ 14:25 by Christiano Taylor DO) Bipolar disorder Bowel obstruction Cancer of kidney Current use of penitentiary anticoagulation Deep venous thrombosis Diabetic peripheral neuropathy Gastroesophageal reflux disease Hypercholesterolemia Hypothyroidism Incarcerated incisional hernia Kidney stones Peripheral vascular disease Stasis dermatitis of right lower extremity with venous ulcer due to chronic peripheral venous hypertension Type 2 diabetes mellitus Surgical History Surgical History History of cholecystectomy History of hysterectomy History of vascular surgery Bilateral common iliac stents. Family History Family History Father Throat cancer Mother Heart disease Social History Social History (Updated 02/11/22 @ 08:16 by Monique Lopez DO) Social History: Patient lives at [facility]. She does have 1 child and she still smokes. Dtqhn-qo-hjvduzev: Luciano
[2022-02-11 17:26] LABS: Glucose Point of Care 118 mg/dl (65-105)
[2022-02-11 23:00] LABS: Glucose Point of Care 110 mg/dl (65-105)
[2022-02-12] VITALS (8 sets, daily range): BP systolic 138–140; BP diastolic 67–79; PULSE 75–100; RESP 18–20; TEMP 36.6–36.8; O2SAT 97
[2022-02-12 05:09] LABS: Glucose Point of Care 114 mg/dl (65-105)
[2022-02-12] MEDS: LEVOTHYROXINE SODIUM INJ 100 MCG/5 ML VIAL 50 MCG IV PUSH (05:47)
--- NOTE | 2022-02-12 06:18 | PC.NURSE ---
NG output 300ml this shift
[2022-02-12] MEDS: SILVERGEL (ELTA) 45 ML 1 APPLIC TOPICAL ×2 (09:30→16:14)
[2022-02-12] MEDS: ENOXAPARIN 40 MG/0.4 ML SYRINGE SUB-Q (10:10)
--- NOTE | 2022-02-12 11:16 | PC.NURSE ---
During assessment underwriter solicitation director asked patient orientation questions and patient proceeded to yell I don't have to tell you shit
--- NOTE | 2022-02-12 12:28 | PM.PNGS ---
Progress Note: A&P Assessment and Plan (1) Incarcerated incisional hernia: Code(s): K43.0 - Incisional hernia with obstruction, without gangrene Status: Acute Assessment and Plan: Patient is not answering questions and not cooperating. She does have some bowel function, therefore small-bowel obstruction is likely resolving. I do not feel comfortable removing the NG tube until patient is going to be more cooperative and compliant. Will consider small-bowel follow-through tomorrow if I cannot get a good exam or history from patient. (2) Partial small bowel obstruction: Code(s): K56.600 - Partial intestinal obstruction, unspecified as to cause Status: Acute (3) Bipolar disorder: Code(s): F31.9 - Bipolar disorder, unspecified Status: Acute (4) Type 2 diabetes mellitus: Qualifiers: Diabetes mellitus public opinion survey taker insulin use: without public opinion survey taker use Diabetes mellitus complication status: with skin complications Diabetes mellitus complication detail: with dermatitis Qualified Code(s): E11.620 - Type 2 diabetes mellitus with diabetic dermatitis Code(s): E11.9 - Type 2 diabetes mellitus without complications Status: Acute (5) COVID-19: Code(s): U07.1 - COVID-19 Status: Acute Subjective Subjective Date/Time Seen: 02/12/22 12:28 Interval history: patient is awake and alert and is aggravated. She states she is not talking. I asked her if she wanted to eventually get the NG tube removed and she said yes. I then asked her multiple other questions and she was not cooperating or answering. She continues to bear down and grunt, but she states she is not having abdominal pain. She would not give me a reason why she is grunting and straining and bearing down. Exam GI: Inspection: non-distended, obesity and visible herniation ( Right lateral abdomen) GI Palp: No Tenderness to palpation present (GI), No Guarding due to palpation present (GI) and No Rebound tenderness present Other: large right-sided abdominal hernia is soft and partially reducible. Patient periodically grunts and Valsalva's while I am trying to examine her which makes reducing the hernia difficult. She does not have any focal tenderness to palpation or any peritoneal signs. Objective Data Vital Signs Vital Signs: Vital Signs - 24 hr 02/11/22 14:00 02/11/22 16:00 02/11/22 20:36 Temperature 36.3 C L 37.2 C Pulse Rate 93 92 93 Respiratory Rate 14 20 Blood Pressure 129/62 132/65 Pulse Oximetry 93 96 Oxygen Delivery 02/11/22 20:00 02/11/22 20:00 02/12/22 00:00 Temperature Pulse Rate 92 87 Respiratory Rate Blood Pressure Pulse Oximetry 96 Oxygen Delivery Room Air 02/12/22 04:00 02/12/22 04:36 02/12/22 08:00 Temperature 36.8 C Pulse Rate 81 100 Respiratory Rate 20 Blood Pressure 138/79 Pulse Oximetry 97 Oxygen Delivery Room Air Intake/Output Intake/Output: Intake & Output 02/09/22 02/10/22 02/11/22 02/12/22 23:59 23:59 23:59 23:59 Intake Total 1000 1000 0 Output Total 300 Balance 1000 1000 -300 Meds/Results Medications: Active Medications Generic Name Dose Route Start Last Admin Trade Name Freq PRN Reason Stop Dose Admin Dextrose 12.5 gm 02/11/22 08:14 Dextrose 50% 25 Gm/50 Ml Syringe IV PUSH PRN PRN Hypoglycemia Protocol Enoxaparin Sodium 40 mg 02/11/22 09:00 02/12/22 10:10 Enoxaparin 40 Mg/0.4 Ml Syringe SUB-Q 40 mg DAILY BENNY Administration Glucagon 1 mg 02/11/22 08:14 Glucagon For Inj 1 Mg Vial IM PRN PRN Hypoglycemia Protocol Glucose 15 gm 02/11/22 08:14 Glucose Oral Gel 15 Gm Of Glucse In 37.5 Gm Tube PO PRN PRN Hypoglycemia Protocol Dextrose 1,000 mls @ 100 mls/hr 02/11/22 08:14 Dextrose 5% 1,000 Ml IVPB PRN PRN Hypoglycemia Protocol Sodium Chloride 1,000 mls @ 70 mls/hr 02/11/22 08:25 02/11/22 22:
--- NOTE | 2022-02-12 13:04 | PC.NURSE ---
Patient is refusing blood sugar checks and refusing to let supplier quality engineer drawl blood.
--- NOTE | 2022-02-12 14:00 | P.PNIM_ITS ---
Progress Note: A&P Assessment and Plan (1) Partial small bowel obstruction: Code(s): K56.600 - Partial intestinal obstruction, unspecified as to cause Status: Acute Assessment and Plan: Patient presented to the ER from the halfway with altered mental status. Patient is weak and not responsive, this is her normal. CT revealed evidence of small-bowel obstruction and bowel incarceration chronically within right-sided abdominal wall hernia. * General surgery consulted * General surgery recommends NG decompression and bowel rest * Surgery plans to schedule Gastrografin small-bowel follow-through in the next 1-2 days * Patient is high risk for surgery due to respiratory problems and being COVID positive * Patient on continuous IV fluids * NG tube placement * Chest x-ray confirmed NG tube in the stomach, revealed small bowel obstruction * Bowel rest * NPO * 02/12/22 -patient refused labs, nursing help, general surgeon questions and exam, and my questions and exam. (2) COVID-19: Code(s): U07.1 - COVID-19 Status: Acute Assessment and Plan: Patient test positive for COVID on 02/10/2022. * Patient not requiring oxygen * Isolation precautions * Stable * Continue to monitor (3) Acute alteration in mental status: Code(s): R41.82 - Altered mental status, unspecified Status: Acute Assessment and Plan: Chronic * Holding psychiatric medications due to NPO status (4) Type 2 diabetes mellitus: Qualifiers: Diabetes mellitus complication detail: with dermatitis Diabetes mellitus complication status: with skin complications Diabetes mellitus skilled nursing insulin use: without skilled nursing use Qualified Code(s): E11.620 - Type 2 diabetes mellitus with diabetic dermatitis Code(s): E11.9 - Type 2 diabetes mellitus without complications Status: Acute Assessment and Plan: Chronic * Will check Accu-Cheks q.6 hours while on NPO * NovoLog 3-6 units subQ q.6 hours * Hypoglycemic protocol (5) Chronic wound of extremity: Status: Acute Assessment and Plan: Chronic * Wound care consulted * Chronic wounds on left foot and right anterior kilpatrick (6) Diarrhea: Code(s): R19.7 - Diarrhea, unspecified Status: Acute Assessment and Plan: Patient developed diarrhea on 02/12/2022. Per nurse diarrhea is copious infrequent. * C diff ordered * Stool cultures ordered * Hemoccult ordered * Patient not currently on any medications that could potentially be causing diarrhea. * Patient on antibiotics around 4 months ago for ESBL E coli in urine Plan The patient has several medications on her home med list that she actually has not been prescribed in months these medications include fluconazole, Keflex. Unsure how the still became verified on the patient's home med rec. They have been placed on hold at this time. Time Spent With Patient Time with patient: 25 - 35 minutes Subjective Date/time seen: 02/12/22 14:00 Interval history: 61-year-old female with a history of bipolar disorder, chronic venous stasis, history of encephalopathy, chronic wounds on lower extremities. Patient presented to ER due to altered mental status. Found to be COVID positive with small-bowel obstruction. Patient not a good historian and refuses to answer my questions. Review of Systems Review of Systems: ROS unobtainable: Yes other (Unobtainable due to patient refusal) Exam Narrative: Patient refused exam Objective Data
--- NOTE | 2022-02-12 14:00 | PM.IMPN ---
Progress Note: A&P Assessment and Plan (1) Partial small bowel obstruction: Code(s): K56.600 - Partial intestinal obstruction, unspecified as to cause Status: Acute Assessment and Plan: Patient presented to the ER from the residential with altered mental status. Patient is weak and not responsive, this is her normal. CT revealed evidence of small-bowel obstruction and bowel incarceration chronically within right-sided abdominal wall hernia. General surgery consulted General surgery recommends NG decompression and bowel rest Surgery plans to schedule Gastrografin small-bowel follow-through in the next 1-2 days Patient is high risk for surgery due to respiratory problems and being COVID positive Patient on continuous IV fluids NG tube placement Chest x-ray confirmed NG tube in the stomach, revealed small bowel obstruction Bowel rest NPO 02/12/22 -patient refused labs, nursing help, general surgeon questions and exam, and my questions and exam. (2) COVID-19: Code(s): U07.1 - COVID-19 Status: Acute Assessment and Plan: Patient test positive for COVID on 02/10/2022. Patient not requiring oxygen Isolation precautions Stable Continue to monitor (3) Acute alteration in mental status: Code(s): R41.82 - Altered mental status, unspecified Status: Acute Assessment and Plan: Chronic Holding psychiatric medications due to NPO status (4) Type 2 diabetes mellitus: Qualifiers: Diabetes mellitus complication detail: with dermatitis Diabetes mellitus complication status: with skin complications Diabetes mellitus assisted insulin use: without assisted use Qualified Code(s): E11.620 - Type 2 diabetes mellitus with diabetic dermatitis Code(s): E11.9 - Type 2 diabetes mellitus without complications Status: Acute Assessment and Plan: Chronic Will check Accu-Cheks q.6 hours while on NPO NovoLog 3-6 units subQ q.6 hours Hypoglycemic protocol (5) Chronic wound of extremity: Status: Acute Assessment and Plan: Chronic Wound care consulted Chronic wounds on left foot and right anterior kilpatrick (6) Diarrhea: Code(s): R19.7 - Diarrhea, unspecified Status: Acute Assessment and Plan: Patient developed diarrhea on 02/12/2022. Per nurse diarrhea is copious infrequent. C diff ordered Stool cultures ordered Hemoccult ordered Patient not currently on any medications that could potentially be causing diarrhea. Patient on antibiotics around 4 months ago for ESBL E coli in urine Plan The patient has several medications on her home med list that she actually has not been prescribed in months these medications include fluconazole, Keflex. Unsure how the still became verified on the patient's home med rec. They have been placed on hold at this time. Time Spent With Patient Time with patient: 25 - 35 minutes Subjective Date/time seen: 02/12/22 14:00 Interval history: 61-year-old female with a history of bipolar disorder, chronic venous stasis, history of encephalopathy, chronic wounds on lower extremities. Patient presented to ER due to altered mental status. Found to be COVID positive with small-bowel obstruction. Patient not a good historian and refuses to answer my questions. Review of Systems Review of Systems: ROS unobtainable: Yes other (Unobtainable due to patient refusal) Exam Narrative: Patient refused exam Objective Data Vital Signs Vital Signs: Vital Signs - 24 hr 02/11/22 16:00 02/11/22 20:36 02/11/22 20:00 Temperature 98.9 F Pulse Rate 92 93 92 Respiratory Rate 20 Blood Pressure 132/65 Pulse Oximetry 96 Oxygen Delivery 02/11/22 20:00 02/12/22 00:00 02/12/22 04:00 Temperature Pulse Rate 87 81 Respiratory Rate Blood Pressure Pulse Oximetry 96 Oxygen Delivery Room Air 02/12/22 04:36 02/12/22 08:00 02/12/22 08:00 Temperature 98.3 F
[2022-02-12] MEDS: SODIUM CHLORIDE 0.9% IV 1,000 ML 70 ML IV CONT (16:44)
--- NOTE | 2022-02-12 16:51 | PC.NURSE ---
Patient refused vitals at 1400.
[2022-02-12 16:53] LABS: IFOB Positive Control Positive; Immunochemical Fecal Occult Bl Negative (N)
[2022-02-12 17:27] LABS: Toxigenic C. Diff NEGATIVE (NEGATIVE)
[2022-02-12 17:39] LABS: Glucose Point of Care 97 mg/dl (65-105)
[2022-02-13] VITALS: PULSE 64
[2022-02-13 00:09] LABS: Glucose Point of Care 85 mg/dl (65-105)
[2022-02-13 04:00] VITALS: PULSE 78
[2022-02-13] MEDS: LEVOTHYROXINE SODIUM INJ 100 MCG/5 ML VIAL 50 MCG IV PUSH (05:22)
[2022-02-13] MEDS: DEXTROSE 5% 1,000 ML 1,000 ML 100 ML IVPB (05:30)
[2022-02-13 05:43] LABS: Glucose Point of Care 87 mg/dl (65-105)
--- NOTE | 2022-02-13 06:40 | PC.NURSE ---
pt refused lab draws
[2022-02-13] MEDS: SODIUM CHLORIDE 0.9% IV 1,000 ML 70 ML IV CONT (06:52)
[2022-02-13 08:45] VITALS: PULSE 60
[2022-02-13] MEDS: SILVERGEL (ELTA) 45 ML 1 APPLIC TOPICAL ×2 (08:58→17:28)
[2022-02-13] MEDS: ENOXAPARIN 40 MG/0.4 ML SYRINGE SUB-Q (08:58)
--- NOTE | 2022-02-13 09:14 | P.PNIM_ITS ---
Progress Note: A&P Assessment and Plan (1) Partial small bowel obstruction: Code(s): K56.600 - Partial intestinal obstruction, unspecified as to cause Status: Acute Assessment and Plan: Patient presented to the ER from the senior living with altered mental status. Patient is weak and not responsive, this is her normal. CT revealed evidence of small-bowel obstruction and bowel incarceration chronically within right-sided abdominal wall hernia. * General surgery consulted * General surgery recommends NG decompression and bowel rest * Surgery plans to schedule Gastrografin small-bowel follow-through in the next 1-2 days * Patient is high risk for surgery due to respiratory problems and being COVID positive * Patient on continuous IV fluids * NG tube placement * Chest x-ray confirmed NG tube in the stomach, revealed small bowel obstruction * Bowel rest * NPO * 02/12/22 -patient refused labs, nursing help, general surgeon questions and exam, and my questions and exam. (2) COVID-19: Code(s): U07.1 - COVID-19 Status: Acute Assessment and Plan: Patient test positive for COVID on 02/10/2022. * Patient not requiring oxygen * Isolation precautions * Stable * Continue to monitor (3) Acute alteration in mental status: Code(s): R41.82 - Altered mental status, unspecified Status: Acute Assessment and Plan: Chronic * Holding psychiatric medications due to NPO status (4) Type 2 diabetes mellitus: Qualifiers: Diabetes mellitus jail insulin use: without jail use Diabetes mellitus complication status: with skin complications Diabetes mellitus complication detail: with dermatitis Qualified Code(s): E11.620 - Type 2 diabetes mellitus with diabetic dermatitis Code(s): E11.9 - Type 2 diabetes mellitus without complications Status: Acute Assessment and Plan: Chronic * Will check Accu-Cheks q.6 hours while on NPO * NovoLog 3-6 units subQ q.6 hours * Hypoglycemic protocol (5) Chronic wound of extremity: Status: Acute Assessment and Plan: Chronic * Wound care consulted * Chronic wounds on left foot and right anterior kilpatrick (6) Diarrhea: Code(s): R19.7 - Diarrhea, unspecified Status: Acute Assessment and Plan: Patient developed diarrhea on 02/12/2022. Per nurse diarrhea is copious infrequent. * C diff ordered * Stool cultures ordered * Hemoccult ordered * Patient not currently on any medications that could potentially be causing diarrhea. * Patient on antibiotics around 4 months ago for ESBL E coli in urine Plan The patient has several medications on her home med list that she actually has not been prescribed in months these medications include fluconazole, Keflex. Unsure how the still became verified on the patient's home med rec. They have been placed on hold at this time. Subjective Date/time seen: 02/13/22 09:14 Interval history: 61-year-old female with a history of bipolar disorder, chronic venous stasis, history of encephalopathy, chronic wounds on lower extremities. Patient presented to ER due to altered mental status. Found to be COVID positive with small-bowel obstruction. Patient not a good historian and refuses to answer my questions. Review of Systems Review of Systems: ROS unobtainable: Yes other (Unobtainable due to patient refusal) Objective Data Vital Signs Vital Signs: Vital Signs - 24 hr 02/12/22 12:00 02/12/22
--- NOTE | 2022-02-13 09:14 | PM.IMPN ---
Progress Note: A&P Assessment and Plan (1) Partial small bowel obstruction: Code(s): K56.600 - Partial intestinal obstruction, unspecified as to cause Status: Acute Assessment and Plan: Patient presented to the ER from the snf with altered mental status. Patient is weak and not responsive, this is her normal. CT revealed evidence of small-bowel obstruction and bowel incarceration chronically within right-sided abdominal wall hernia. General surgery consulted General surgery recommends NG decompression and bowel rest Surgery plans to schedule Gastrografin small-bowel follow-through in the next 1-2 days Patient is high risk for surgery due to respiratory problems and being COVID positive Patient on continuous IV fluids NG tube placement Chest x-ray confirmed NG tube in the stomach, revealed small bowel obstruction Bowel rest NPO 02/12/22 -patient refused labs, nursing help, general surgeon questions and exam, and my questions and exam. (2) COVID-19: Code(s): U07.1 - COVID-19 Status: Acute Assessment and Plan: Patient test positive for COVID on 02/10/2022. Patient not requiring oxygen Isolation precautions Stable Continue to monitor (3) Acute alteration in mental status: Code(s): R41.82 - Altered mental status, unspecified Status: Acute Assessment and Plan: Chronic Holding psychiatric medications due to NPO status (4) Type 2 diabetes mellitus: Qualifiers: Diabetes mellitus prison insulin use: without prison use Diabetes mellitus complication status: with skin complications Diabetes mellitus complication detail: with dermatitis Qualified Code(s): E11.620 - Type 2 diabetes mellitus with diabetic dermatitis Code(s): E11.9 - Type 2 diabetes mellitus without complications Status: Acute Assessment and Plan: Chronic Will check Accu-Cheks q.6 hours while on NPO NovoLog 3-6 units subQ q.6 hours Hypoglycemic protocol (5) Chronic wound of extremity: Status: Acute Assessment and Plan: Chronic Wound care consulted Chronic wounds on left foot and right anterior kilpatrick (6) Diarrhea: Code(s): R19.7 - Diarrhea, unspecified Status: Acute Assessment and Plan: Patient developed diarrhea on 02/12/2022. Per nurse diarrhea is copious infrequent. C diff ordered Stool cultures ordered Hemoccult ordered Patient not currently on any medications that could potentially be causing diarrhea. Patient on antibiotics around 4 months ago for ESBL E coli in urine Plan The patient has several medications on her home med list that she actually has not been prescribed in months these medications include fluconazole, Keflex. Unsure how the still became verified on the patient's home med rec. They have been placed on hold at this time. Subjective Date/time seen: 02/13/22 09:14 Interval history: 61-year-old female with a history of bipolar disorder, chronic venous stasis, history of encephalopathy, chronic wounds on lower extremities. Patient presented to ER due to altered mental status. Found to be COVID positive with small-bowel obstruction. Patient not a good historian and refuses to answer my questions. Review of Systems Review of Systems: ROS unobtainable: Yes other (Unobtainable due to patient refusal) Objective Data Vital Signs Vital Signs: Vital Signs - 24 hr 02/12/22 12:00 02/12/22 16:00 02/12/22 20:00 Temperature Pulse Rate 78 75 80 Respiratory Rate Blood Pressure Pulse Oximetry Oxygen Delivery 02/12/22 21:03 02/12/22 20:00 02/13/22 00:00 Temperature 97.8 F Pulse Rate 87 64 Respiratory Rate 18 Blood Pressure 140/67 Pulse Oximetry 97 97 Oxygen Delivery Room Air 02/13/22 04:00 Temperature Pulse Rate 78 Respiratory Rate Blood Pressure Pulse Oximetry Oxygen Delivery Intake/Output Intake/Output: Intake & Output
[2022-02-13 11:57] LABS: Glucose Point of Care 80 mg/dl (65-105)
[2022-02-13 12:00] VITALS: PULSE 77
--- NOTE | 2022-02-13 12:25 | PM.PNGS ---
Progress Note: A&P Assessment and Plan (1) Incarcerated incisional hernia: Code(s): K43.0 - Incisional hernia with obstruction, without gangrene Status: Acute Assessment and Plan: Patient improving and no signs of ongoing obstruction. Advance diet as tolerated. OK to discharge. She remains a poor surgical candidate and might be better treated at a higher level facility if she is going to need surgery. (2) Partial small bowel obstruction: Code(s): K56.600 - Partial intestinal obstruction, unspecified as to cause Status: Acute (3) COVID-19: Code(s): U07.1 - COVID-19 Status: Acute (4) Type 2 diabetes mellitus: Qualifiers: Diabetes mellitus custodial insulin use: without custodial use Diabetes mellitus complication status: with skin complications Diabetes mellitus complication detail: with dermatitis Qualified Code(s): E11.620 - Type 2 diabetes mellitus with diabetic dermatitis Code(s): E11.9 - Type 2 diabetes mellitus without complications Status: Acute (5) Tobacco abuse: Code(s): Z72.0 - Tobacco use Status: Acute Subjective Subjective Date/Time Seen: 02/13/22 12:25 Interval history: NG removed this AM. Tolerating clears and bowels moving. No abdominal pain. Hernia doesn't hurt unless it is pushed on. Patient still uncooperative and at times belligerent with nurses. Exam GI: Inspection: non-distended, obesity and visible herniation (right lateral abdomen) GI Palp: Yes Soft to palpation and Yes Tenderness to palpation present (GI) (mild tenderness to palpation around hernia) Other: hernia is soft and partially reducible Objective Data Vital Signs Vital Signs: Vital Signs - 24 hr 02/12/22 16:00 02/12/22 20:00 02/12/22 21:03 Temperature 36.6 C Pulse Rate 75 80 87 Respiratory Rate 18 Blood Pressure 140/67 Pulse Oximetry 97 Oxygen Delivery 02/12/22 20:00 02/13/22 00:00 02/13/22 04:00 Temperature Pulse Rate 64 78 Respiratory Rate Blood Pressure Pulse Oximetry 97 Oxygen Delivery Room Air 02/13/22 08:45 02/13/22 08:45 Temperature Pulse Rate 60 Respiratory Rate Blood Pressure Pulse Oximetry Oxygen Delivery Room Air Intake/Output Intake/Output: Intake & Output 02/10/22 02/11/22 02/12/2222 23:59 23:59 23:59 23:59 Intake Total 1000 1000 1000 1000 Output Total 600 Balance 1000 4497 892 1526 Meds/Results Medications: Active Medications Generic Name Dose Route Start Last Admin Trade Name Freq PRN Reason Stop Dose Admin Dextrose 12.5 gm 02/11/22 08:14 Dextrose 50% 25 Gm/50 Ml Syringe IV PUSH PRN PRN Hypoglycemia Protocol Enoxaparin Sodium 40 mg 02/11/22 09:00 02/13/22 08:58 Enoxaparin 40 Mg/0.4 Ml Syringe SUB-Q 40 mg DAILY BENNY Administration Glucagon 1 mg 02/11/22 08:14 Glucagon For Inj 1 Mg Vial IM PRN PRN Hypoglycemia Protocol Glucose 15 gm 02/11/22 08:14 Glucose Oral Gel 15 Gm Of Glucse In 37.5 Gm Tube PO PRN PRN Hypoglycemia Protocol Dextrose 1,000 mls @ 100 mls/hr 02/11/22 08:14 02/13/22 05:30 Dextrose 5% 1,000 Ml IVPB 100 mls/hr PRN PRN Administration Hypoglycemia Protocol Sodium Chloride 1,000 mls @ 70 mls/hr 02/11/22 08:25 02/13/22 06:52 Normal Saline Iv IV CONT 70 mls/hr .[id number] BENNY Administration Insulin Aspart 3 - 6 units 02/11/22 12:00 02/13/22 00:07 Insulin Aspart (*Bkc) 100 Units/Ml SUB-Q Not Given Q6HR BENNY Protocol Levothyroxine Sodium 50 mcg 02/12/22 06:30 02/13/22 05:22 Levothyroxine Sodium Inj 100 Mcg/5 Ml Vial IV PUSH 50 mcg DAILY@0630 BENNY Administration Silver Nitrate 1 applic 02/11/22 09:00 02/13/22 08:58 Silvergel (Elta) 45 Ml TOPICAL 1 applic BID BENNY Administration Trazodone HCl 100 mg 02/11/22 21:00 02/12/22 21:38 Trazodone Hcl 50 Mg Tablet PO Not Given HS BENNY
--- NOTE | 2022-02-13 13:49 | P.DS_ITS ---
DS: Admitting Diagnosis Discharge Date 02/13/22 Admitting Diagnosis COVID-19, altered mental status, possible small-bowel obstruction DS: Discharge Diagnosis Discharge Diagnosis (1) Partial small bowel obstruction: Code(s): K56.600 - Partial intestinal obstruction, unspecified as to cause Status: Acute Assessment and Plan: Patient [facility] the [facility] with altered mental status. Patient is weak and not responsive, this is her normal. CT revealed evidence of small-bowel obstruction and bowel incarceration chronically within right-sided abdominal wall hernia. * General surgery consulted * General surgery recommends NG decompression and bowel rest * Surgery plans to schedule Gastrografin small-bowel follow-through in the next 1-2 days * Patient is high risk for surgery due to respiratory problems and being COVID positive * Patient on continuous IV fluids * NG tube placement * Chest x-ray confirmed NG tube in the stomach, revealed small bowel obstruction * Bowel rest * NPO * 02/12/22 -patient refused labs, nursing help, general surgeon questions and exam, and my questions and exam. (2) COVID-19: Code(s): U07.1 - COVID-19 Status: Acute Assessment and Plan: Patient test positive for COVID on 02/10/2022. * Patient not requiring oxygen * Isolation precautions * Stable * Continue to monitor (3) Acute alteration in mental status: Code(s): R41.82 - Altered mental status, unspecified Status: Acute Assessment and Plan: Chronic * Holding psychiatric medications due to NPO status (4) Type 2 diabetes mellitus: Qualifiers: Diabetes mellitus complication detail: with dermatitis Diabetes mellitus complication status: with skin complications Diabetes mellitus emt intermediate insulin use: without emt intermediate use Qualified Code(s): E11.620 - Type 2 diabetes mellitus with diabetic dermatitis Code(s): E11.9 - Type 2 diabetes mellitus without complications Status: Acute Assessment and Plan: Chronic * Will check Accu-Cheks q.6 hours while on NPO * NovoLog 3-6 units subQ q.6 hours * Hypoglycemic protocol (5) Chronic wound of extremity: Status: Acute Assessment and Plan: Chronic * Wound care consulted * Chronic wounds on left foot and right anterior kilpatrick (6) Diarrhea: Code(s): R19.7 - Diarrhea, unspecified Status: Acute Assessment and Plan: Patient developed diarrhea on 02/12/2022. Per nurse diarrhea is copious infrequent. * C diff ordered * Stool cultures ordered * Hemoccult ordered * Patient not currently on any medications that could potentially be causing diarrhea. * Patient on antibiotics around 4 months ago for ESBL E coli in urine Plan The patient has several medications on her home med list that she actually has not been prescribed in months these medications include fluconazole, Keflex. Unsure how the still became verified on the patient's home med rec. They have been placed on hold at this time. DS: Summary Hospital Course Reason for hospitalization: COVID-19, altered mental status, possible small-bowel obstruction Hospital Course: 61-year-old [facility] from [facility] with history of bipolar disorder, chronic venous stasis, type 2 diabetes, hypothyroidism, chronic lower extremity ulcers. Chief complaint of altered mental status and found to be COVID positive at [facility]. Patient had 1 bout of emesis before arrival to the emergency department. CT abdomen concerning for possible acute on chronic small bowel
--- NOTE | 2022-02-13 13:49 | PM.DS ---
DS: Admitting Diagnosis Discharge Date 02/13/22 Admitting Diagnosis COVID-19, altered mental status, possible small-bowel obstruction DS: Discharge Diagnosis Discharge Diagnosis (1) Partial small bowel obstruction: Code(s): K56.600 - Partial intestinal obstruction, unspecified as to cause Status: Acute Assessment and Plan: Patient presented [facility] the ER from the [facility] with altered mental status. Patient is weak and not responsive, this is her normal. CT revealed evidence of small-bowel obstruction and bowel incarceration chronically within right-sided abdominal wall hernia. General surgery consulted General surgery recommends NG decompression and bowel rest Surgery plans to schedule Gastrografin small-bowel follow-through in the next 1-2 days Patient is high risk for surgery due to respiratory problems and being COVID positive Patient on continuous IV fluids NG tube placement Chest x-ray confirmed NG tube in the stomach, revealed small bowel obstruction Bowel rest NPO 02/12/22 -patient refused labs, nursing help, general surgeon questions and exam, and my questions and exam. (2) COVID-19: Code(s): U07.1 - COVID-19 Status: Acute Assessment and Plan: Patient test positive for COVID on 02/10/2022. Patient not requiring oxygen Isolation precautions Stable Continue to monitor (3) Acute alteration in mental status: Code(s): R41.82 - Altered mental status, unspecified Status: Acute Assessment and Plan: Chronic Holding psychiatric medications due to NPO status (4) Type 2 diabetes mellitus: Qualifiers: Diabetes mellitus complication detail: with dermatitis Diabetes mellitus complication status: with skin complications Diabetes mellitus press tender long goods insulin use: without press tender long goods use Qualified Code(s): E11.620 - Type 2 diabetes mellitus with diabetic dermatitis Code(s): E11.9 - Type 2 diabetes mellitus without complications Status: Acute Assessment and Plan: Chronic Will check Accu-Cheks q.6 hours while on NPO NovoLog 3-6 units subQ q.6 hours Hypoglycemic protocol (5) Chronic wound of extremity: Status: Acute Assessment and Plan: Chronic Wound care consulted Chronic wounds on left foot and right anterior kilpatrick (6) Diarrhea: Code(s): R19.7 - Diarrhea, unspecified Status: Acute Assessment and Plan: Patient developed diarrhea on 02/12/2022. Per nurse diarrhea is copious infrequent. C diff ordered Stool cultures ordered Hemoccult ordered Patient not currently on any medications that could potentially be causing diarrhea. Patient on antibiotics around 4 months ago for ESBL E coli in urine Plan The patient has several medications on her home med list that she actually has not been prescribed in months these medications include fluconazole, Keflex. Unsure how the still became verified on the patient's home med rec. They have been placed on hold at this time. DS: Summary Hospital Course Reason for hospitalization: COVID-19, altered mental status, possible small-bowel obstruction Hospital Course: 61-year-old female from [facility] with history of bipolar disorder, chronic venous stasis, type 2 diabetes, hypothyroidism, chronic lower extremity ulcers. Chief complaint of altered mental status and found to be COVID positive at [facility]. Patient had 1 bout of emesis before arrival to the emergency department. CT abdomen concerning for possible acute on chronic small bowel obstruction. General surgery consulted and advised conservative therapy due to poor operative candidate. NG tube placed. Patient not a good historian and not cooperative during entirety of hospital stay. Patient refused several exams as well as lab draws. Patient did have some bowel function due to having frequent bowel movements. Patient was recently planned to have small-bowel follow-through although she castillo
[2022-02-13 15:27] VITALS: BP 150/84; PULSE 74; RESP 16; TEMP 36.2; O2SAT 95
[2022-02-13 17:26] LABS: Glucose Point of Care 89 mg/dl (65-105)
[2022-02-13 20:00] VITALS: PULSE 74; RESP 16; O2SAT 95
[2022-02-13 20:07] LABS: Glucose Point of Care 101 mg/dl (65-105)
[2022-02-13] MEDS: traZODone HCL 50 MG TABLET 100 MG PO (20:36)
== END 2022-02-13 21:15 | DRG 393 ==
LOC: ANHED 18:42 → ANH3MED 02-11 06:45
PROVIDERS: Internal Medicine; Internal Medicine Critical Care Medicine; Admitting Provider Internal Medicine; Emergency Provider Emergency Medicine; PCP Internal Medicine; Visit Provider Student in an Organized Health Care Education/Training Program
DX: K43.0 Incisional hernia with obstruction, without gangrene (principal); U07.1 COVID-19; L97.819 Non-pressure chronic ulcer of other part of right lower leg with unspecified severity; R41.82 Altered mental status, unspecified; E11.9 Type 2 diabetes mellitus without complications; E03.9 Hypothyroidism, unspecified; F31.9 Bipolar disorder, unspecified; I50.9 Heart failure, unspecified; L97.529 Non-pressure chronic ulcer of other part of left foot with unspecified severity; R19.7 Diarrhea, unspecified; Z79.84 Long term (current) use of oral hypoglycemic drugs; Z79.82 Long term (current) use of aspirin; Z90.49 Acquired absence of other specified parts of digestive tract; Z90.710 Acquired absence of both cervix and uterus; Z95.820 Peripheral vascular angioplasty status with implants and grafts; I73.9 Peripheral vascular disease, unspecified; F17.210 Nicotine dependence, cigarettes, uncomplicated; Z87.442 Personal history of urinary calculi; Z86.718 Personal history of other venous thrombosis and embolism; Z85.528 Personal history of other malignant neoplasm of kidney; E66.9 Obesity, unspecified; Z68.36 Body mass index [BMI] 36.0-36.9, adult
CPT/HCPCS: 36415; 51701; 70450; 74177; 80048; 80053; 80307; 81001; 82140; 82274; 82948; 83605; 83690; 84443; 85025; 85027; 85610; 85730; 87040; 87045; 87269; 87272; 87427; 87493; 87636; 89055; 93005; 96360; 96361; 99285; A9270; J1650; J2250; J7030; J7070; J7120; Q9967

== ENCOUNTER 2022-02-23 14:30 | Inpatient (IN) | payer MEDICARE, MEDICAID, SELFPAY ==
[2022-02-23] VITALS (7 sets, daily range): BP systolic 124–156; BP diastolic 60–102; PULSE 71–104; RESP 16–20; TEMP 36.3–37.4; O2SAT 93–100
--- NOTE | ~2022-02-23 | US_ITS ---
EXAMINATION: US arterial ankle brachial ind DATE: 02/26/2022 10:58 INDICATION: Peripheral vascular disease. TECHNIQUE: Segmental pressures and plethysmographic and Doppler waveforms of the brachial and lower e xtremity arteries were obtained. COMPARISON: ABIs 09/13/2021 FINDINGS: Right and left brachial artery pressures of 142 mm Hg and 154 mm Hg, respectively, are concordant (no rmal difference <= 30 mmHg). The right ankle-brachial index (SALVADOR) is 0.73 (normal >= 0.9-1.0). The right great toe-brachial index (TBI) is 0.08 (normal >= 0.65). Arterial Doppler waveforms are biphasic at the ankle. The left SALVADOR is 0.89. The left TBI is 0.70. Arterial Doppler waveforms are biphasic at the ankle. IMPRESSION: 1. Moderately decreased right SALVADOR and mildly decreased left SALVADOR, consistent with arterial occlusive d isease. Reviewed, dictated and finalized at location A. TICE REPRESENTATIVE IMPRESSION: 1. Moderately decreased right SALVADOR and mildly decreased left SALVADOR, consistent wit h arterial occlusive disease.
--- NOTE | ~2022-02-23 | XR_ITS ---
CORRECTED REPORT Report and charges from from [id number]. This report was recreated on 03/05/2022. Original report was ER TRAPPER 03/05/2022 sef XR chest 1V portable 02/23/2022 15:50 Indication: Transient alteration of awareness Procedure: AP portable chest Comparison: 10/07/2021 Findings: Heart size normal. No focal air space disease, pulmonary edema, pleural effusion or suspected pneumothorax. No acute osseous abnormality. Impression: 1: No acute cardiopulmonary disease. Reviewed, dictated and finalized at location A. ER TRAPPER MTDD Impression: 1: No acute cardiopulmonary disease.
--- NOTE | ~2022-02-23 | CT_ITS ---
EXAMINATION: CT brain wo con DATE: 02/23/2022 15:25 INDICATION: Altered mental status. TECHNIQUE: Computed tomography (CT) of the head was performed without intravenous contrast. The mA wa s adjusted according to patient size. Iterative reconstruction technique was employed. The dose-lengt h product was 681.00 mGy-cm. COMPARISON: Head CT 02/10/2022 FINDINGS: There is no intracranial hemorrhage, acute infarction, or abnormal intracranial mass lesion . The ventricles are normal in size. The orbits are normal. There is mild mucosal thickening in the p aranasal sinuses. There is a small right mastoid effusion. IMPRESSION: 1. Normal brain. Reviewed, dictated and finalized at location A. ON COATER MACHINE OPERATOR IMPRESSION: 1. Normal brain.
--- NOTE | ~2022-02-23 | CT_ITS ---
EXAMINATION: CT LE RT w con DATE: 02/23/2022 17:14 INDICATION: Right lower limb abscess. TECHNIQUE: Computed tomography (CT) of the right lower limb was performed with 100 mL Omnipaque 350 i ntravenous contrast. Automated exposure control and iterative reconstruction technique were employed. The dose-length product was 1213.01 mGy-cm. COMPARISON: Right tibia and fibula radiographs 02/23/22 FINDINGS: Bone alignment is normal. No fracture. There is mild right knee osteoarthritis. There is fontana bcutaneous edema of right lower limb. There is skin thickening involving the right lower leg predomin antly laterally. No abscess. No knee joint effusion. Partially visualized is a stent in above-knee ri ght popliteal artery. Partially visualized is a bypass graft in left thigh with distal attachment at the above-knee left po pliteal artery. There is plate and screw fixation of distal left fibula and screw fixation of left me dial malleolus. There is a subcutaneous edema in left lower limb. IMPRESSION: 1. No abscess. Reviewed, dictated and finalized at location A. IR SERVICE CLERK IMPRESSION: 1. No abscess.
--- NOTE | ~2022-02-23 | XR_ITS ---
XR tibia fibula RT 2V DATE: 02/23/2022 15:51 INDICATION: Large wound of distal anterior lower leg. Concern for possible osteomyelitis TECHNIQUE: AP and lateral views COMPARISON: None FINDINGS: There is mild periosteal reaction of the mid to distal fibular shaft, suggesting possible o steomyelitis. No fracture or dislocation, periosteal reaction or bone destruction is noted otherwise. Normal alignment at the knee and ankle joints. IMPRESSION: Mild periosteal reaction of mid to distal fibular shaft, suggestive of osteomyelitis give n the adjacent soft tissue wound Reviewed, dictated and finalized at location B. STER IN CHANCERY IMPRESSION: Mild periosteal reaction of mid to distal fibular shaft, suggestive of osteomyelitis given the adjacent soft tissue wound
--- NOTE | 2022-02-23 14:34 | ECG_ITS ---
Rate 95 MO 140 QRSd 102 QT 333 QTc 419 --[place]-- P 58 QRS 23 [address]-T WAVE ABNORMALITY IN LATERAL LEADS- CONSIDER ISCHEMIA BASELINE ARTIFACT- I, II, III, AVR, AVL, AVF, V1-V2 ABNORMAL ECG NO PREVIOUS ECG AVAILABLE FOR COMPARISON Electronically Signed On 02-23-2022 16:02:22 CONSUMER SALES REPRESENTATIVE by Ian PAGE
--- NOTE | 2022-02-23 14:53 | ED.AMS ---
HPI - Altered Mental Status General Chief Complaint: Altered Mental Status <Mildred Her PA-C - Last Filed: 02/23/22 17:46> Stated Complaint: lethargy <Mildred Her PA-C - Last Filed: 02/23/22 17:46> Time Seen by Provider: 02/23/22 14:37 <Mildred Her PA-C - Last Filed: 02/23/22 17:46> History of Present Illness HPI narrative: 61-year-old female with a history of hypothyroidism, bipolar disorder, dementia, numerous chronic wounds, here from her nursing facility for evaluation of altered mental status. According to staff, patient had an episode where she was unresponsive for several seconds but then she quickly came to afterwards. She is currently at her baseline, declines any pain. Per chart review, patient was admitted to the hospital at the end of January for small bowel obstruction that was treated conservatively with NG tube, not currently a surgical candidate due to her multiple comorbidities. <Mildred Her PA-C - Last Filed: 02/23/22 17:46> Related Data Home Medications: Home Medications Medication Instructions Recorded Confirmed Lactobacillus acidophilus 10 mg PO BID 01/30/19 02/11/22 (Acidophilus capsule) aspirin 81 mg tablet,delayed 81 mg PO DAILY 01/30/19 02/11/22 release (Aspir-) cholecalciferol (vitamin D3) 100 25 mcg PO DAILY 01/30/19 02/11/22 mcg (4,000 unit) capsule divalproex 250 mg tablet,delayed 250 mg PO HS 01/30/19 02/11/22 release (Depakote) multivitamin 1 cap PO DAILY 01/30/19 02/11/22 acetaminophen 325 mg tablet 650 mg PO Q4H PRN Mild Pain (Scale 06/18/21 02/10/22 (Tylenol) Score 1-4) apixaban 5 mg tablet (Eliquis) 5 mg PO BID 06/18/21 02/11/22 arginine-vitamin C-vitamin E oral 9.2 g PO BID 06/18/21 02/11/22 4.5 gram-156 mg/9.2 gram powder pkt (Arginaid) aripiprazole 10 mg tablet 10 mg PO DAILY 06/18/21 02/11/22 ascorbic acid (vitamin C) 250 mg 250 mg PO DAILY 06/18/21 02/11/22 tablet atorvastatin 10 mg tablet 10 mg PO DAILY 06/18/21 02/11/22 furosemide 40 mg tablet 40 mg PO DAILY 06/18/21 02/10/22 gabapentin 300 mg capsule 300 mg PO TID 06/18/21 02/11/22 levothyroxine 88 mcg tablet 88 mcg PO DAILY 06/18/21 02/11/22 metformin 500 mg tablet 500 mg PO BID 06/18/21 02/11/22 olanzapine 5 mg tablet 5 mg PO BID 06/18/21 02/11/22 polyethylene glycol 3350 17 gram 17 g PO DAILY 06/18/21 02/11/22 oral powder packet potassium chloride 20 mEq 20 meq PO DAILY 06/18/21 02/11/22 tablet,extended release(part/cryst) spironolactone 25 mg tablet 25 mg PO DAILY 06/18/21 02/11/22 miconazole nitrate 1 % topical BID 07/17/21 02/11/22 docusate sodium 100 mg capsule 100 mg PO BID 09/12/21 02/11/22 (Colace) Milk of Magnesia (antacid) 30 ml PO Q12-24H PRN Constipation 02/11/22 02/11/22 carvedilol 3.125 mg tablet 3.125 mg PO BID 02/11/22 02/11/22 silver 200 mcg/gram topical gel 1 applic topical BID wound care 02/11/22 02/11/22 (Silver-Sept) trazodone 100 mg tablet 100 mg PO HS 02/11/22 02/11/22 <Mildred Her PA-C - Last Filed: 02/23/22 17:46> Allergies/Adverse Reactions: Allergies Allergy/AdvReac Type Severity Reaction Status Date / Time Latex, Natural Rubber Allergy Mild Unknown Verified 02/10/22 13:50 <Mildred Her PA-C - Last Filed: 02/23/22 17:46> Review of Systems Review of Systems: Gen.: Denies fevers or chills Eyes: Denies eye pain or visual change ENT: Denies congestion Respiratory: Denies shortness of breath or cough CV: Denies chest pain or palpitations GI: Denies abdominal pain nausea, emesis or diarrhea denies burning, urgency, frequency or hematuria Musculoskeletal: Denies back pain or muscle pain Neuro: Denies numbness, tingling, weakness or focal weakness Skin: Denies rash Except as documented, all other systems reviewed and negative <Mildred Her PA-C - Last Filed: 02/23/22 17:46> [facility] Past Medical History Medical History: Medical History (Reviewed
[2022-02-23 15:07] LABS: Basophils Absolute Auto 0.1 K/mm3 (0.0-0.1); Basophils Percent Auto 0.4 % (0.2-1.2); Eosinophils Absolute Auto 0.1 K/mm3 (0-0.3); Eosinophils Percent Auto 0.8 % (0-4.4); Hematocrit 44.1 % (37.0-47.0); Hemoglobin 13.7 g/dL (12.0-15.0); Immature Granulocyte Absolute 0.07 K/mm3 (0.00-0.031); Immature Granulocyte Percent A 0.4 % (0-0.5); Lymphocytes Absolute Auto 1.89 K/mm3 (0.9-3.2); Lymphocytes Percent Auto 11.2 % (18.3-44.2); Mean Corpuscular HGB Conc 31.1 g/dl (32-36); Mean Corpuscular Hemoglobin 27.3 pg (26-34); Mean Corpuscular Volume 87.8 fl (80-100); Mean Platelet Volume 9.7 fl (7.4-10.4); Monocytes Percent Auto 5.7 % (2.6-8.5); Neutrophils Absolute Auto 13.8 K/mm3 (1.3-6.7); Neutrophils Percent Auto 81.5 % (45.5-73.1); Platelet Count Result 502 k/mm3 (150-375); Red Blood Count 5.02 M/mm3 (4.2-5.4); Red Cell Distribution Width 14.6 % (11.5-14.5)
[2022-02-23 15:18] LABS: Lactic Acid Reflex 2.6 mmol/L (0.7-2.0)
[2022-02-23 15:19] LABS: Alanine Aminotransferase 33 U/L (6-35); Albumin Level 4.2 g/dL (3.5-5.1); Alkaline Phosphatase 114 U/L (38-126); Anion Gap 9 mmol/L (8-16); Aspartate Amino Transferase 26 U/L (14-36); Bilirubin,Total 0.8 mg/dL (0.2-1.3); Blood Urea Nitrogen 25 mg/dL (7-17); Calcium 9.5 mg/dL (8.4-10.2); Carbon Dioxide 30 mmol/L (22-30); Chloride 97 mmol/L (98-107); Estimated Glomerular Filt Rate > 60; Glucose 114 mg/dL (65-110); Potassium 4.5 mmol/L (3.4-5.0); Sodium 136 mmol/L (137-145)
[2022-02-23 15:20] LABS: INR 1.6; Partial Thromboplastin Time 30.9 SECONDS (22.3-36.8); Prothrombin Time 18.4 Seconds (11.1-14.7)
[2022-02-23 15:41] LABS: Mucus Urine Heavy /lpf; RBC Urine 21-50 /hpf (0-2); WBC Urine 31-50 /hpf
[2022-02-23 16:02] LABS: Add Urine Microscopic? YES; Appearance Urine Slightly Cloudy (Clear); Bilirubin Urine Negative (Negative); Blood Urine Negative (Negative); Color Urine Yellow (Yellow); Glucose Urine UA Negative (Negative); Ketones Urine Negative (Negative); Leukocyte Esterase Ur Trace LEU/UL (Negative); Nitrate Urine Negative (Negative); Protein Urine Negative (Negative); Specific Grav Ur 1.025 (1.001-1.035)
[2022-02-23 16:18] LABS: Influenza A QL RT-PCR Negative (Negative); Influenza B QL RT-PCR Negative (Negative); SARS-CoV-2 RNA PCR Positive
[2022-02-23] MEDS: SODIUM CHLORIDE 0.9% IV 1,000 ML 999 ML IV CONT (16:28)
[2022-02-23 16:57] LABS: CRP 6.6 mg/dL (<1.0)
--- NOTE | 2022-02-23 17:12 | PC.NURSE ---
diabetic dinner tray ordered
[2022-02-23 17:22] LABS: Erythrocyte Sedimentation Rate 23 mm/hr (0-20)
[2022-02-23 18:04] LABS: Reflex Lactic Acid Yes or No Add Lactic
--- NOTE | 2022-02-23 18:47 | PC.NURSE ---
pt accidently pulled out SLN, while in room starting new SLN noticed pt face appeared flush, ERP notified and Vanco held at this time. Pt denies any itching or new S/S
[2022-02-23 19:42] LABS: Lactic Acid 1.5 mmol/L (0.7-2.0)
--- NOTE | 2022-02-23 20:55 | PM.IMHP ---
H&P: HPI History of Present Illness Date/Time: 02/23/22 20:55 Chief Complaint: Altered mental status Narrative: This is a 61-year-old female patient who is here today from a nursing facility for evaluation of altered mental status. The patient had an episode where she was unresponsive for several seconds and then quickly came to afterwards. Patient was just discharged from here on 02/13/2022 with a small-bowel obstruction house treated conservatively. Patient had a positive COVID test on 02/10/2022 and was positive again today. The patient has a open wound on the right lower extremity. Lower extremity CT was read as no abscess. Tibia fibula x-ray was read as mild periosteal reaction of mid to distal fibular shaft suggested of osteomyelitis given the and adjacent soft tissue wound. Chest x-ray was read as no acute cardiopulmonary disease. Head CT was read as normal brain. Patient was given two L of IV fluids and started on vancomycin and Zosyn. White count is 17.0. Lactic was 2.6 and now is 1.5. CRP 6.6This is a 69-year-old female patient who has a history of diabetes poorly controlled. She has had multiple episodes of DKA. The patient was last discharged from the hospital on 02/13/2022 with DKA. Most admissions are due to noncompliance with insulin. Her white count is 17.7. On the arterial blood gases are pH was 7.081 CO2 was 12.2 PO2 122.8. Bicarb is 3.5. Sodium is 136. Glucose 816. Last A1c on 02/09/2022 was 14.0 and has been for 14.0 for several months. Lactic acid is 2.2. Her b hob is 16.8. She is negative for influenza A/B and COVID. The patient was given 2 L of normal saline bolus IV insulin. She was started on cefepime and vancomycin. TSH is 5.560 had T4 is 12.30. The patient is being admitted to observation status on the date of service of 02/23/2022. Review of Systems Review of Systems: see hpi All systems reviewed & are unremarkable except as noted in HPI and below Constitutional: Constitutional: Reports as per HPI and Reports no additional constitutional complaints Eyes: Eyes: Reports as per HPI and Reports no additional eye complaints ENT: Reports system reviewed and no additional complaints, except as documented and Reports Normal hearing present Cardiovascular: Cardiovascular: Reports no additional cardiovascular complaints Respiratory: Respiratory: Reports no additional respiratory complaints and Reports no additional respiratory complaints Gastrointestinal: Gastrointestinal: Reports as per HPI and Reports no additional gastrointestinal complaints Musculoskeletal: Musculoskeletal: Reports no additional musculoskeletal complaints Integumentary/Breasts: Skin/Breast: Reports system reviewed and no additional complaints, except as docu and Reports as per HPI Neurologic: Reports system reviewed and no additional complaints, except as documented, Reports as per HPI and Reports Normal hearing present Psychiatric: Psychiatric: Reports no additional psychiatric complaints and Reports as per HPI Endocrine: Endocrine: Reports no additional endocrine complaints Hematologic/Lymphatic: Hematologic/Lymphatic: Reports no additional hematologic/lymphatic complaints Allergic/Immunologic: Allergic/Immunologic: Reports no additional allergic/immunologic complaints [facility] Past Medical History Medical History Bipolar disorder Bowel obstruction Cancer of kidney Current use of intermediate anticoagulation Deep venous thrombosis Diabetic peripheral neuropathy Gastroesophageal reflux disease Hypercholesterolemia Hypothyroidism Incarcerated incisional hernia Kidney stones Peripheral vascular disease Stasis dermatitis of right lower extremity with venous ulcer due to chronic peripheral venous hypertension Type 2 diabetes mellitus Surgical History Surgical History History of cholecystectomy History of hysterectom
[2022-02-24] VITALS (7 sets, daily range): BP systolic 111–131; BP diastolic 57–90; PULSE 69–81; RESP 14–18; TEMP 36–37.1; O2SAT 94–97
[2022-02-24] MEDS: metroNIDAZOLE 500 MG/ISO 100ML 500 MG/100 ML BAG 100 MG IVPB ×4 (00:41→20:45)
[2022-02-24 01:10] LABS: Hemoglobin A1C 6.1 % (<5.7)
--- NOTE | 2022-02-24 06:04 | PC.NURSE ---
Pt admitted to the 3rd floor via cart from ER. Pt lives in [facility], daily smoker, nonambulatory. [place] to up in a wheelchair. Family told [facility] staff that pt lost consciousness, unresponsive few minutes. No staff witnessed the event. Pt recently discharged from here, admitted with SBO. Pt sleepy, alert to self, year, season , states that she is a in a hospital. Pt large abdomen with protruding right side hernia. Multiple wounds noted. Pt forgetful, incontinent and little movement. Does not turn self in bed. Clothes with pt, purse, wallet and 2 packs of smokes and a regular pepsi. Talked with staff nurse at [facility] , who stated that family provides patient cigarettes, unhealthy food and regular drinks with sugar. Pt diabetic. Fall precautions .
[2022-02-24 07:31] LABS: Basophils Percent Auto 0.3 % (0.2-1.2); Eosinophils Absolute Auto 0.1 K/mm3 (0-0.3); Eosinophils Percent Auto 0.7 % (0-4.4); Hematocrit 34.5 % (37.0-47.0); Hemoglobin 10.8 g/dL (12.0-15.0); Immature Granulocyte Absolute 0.06 K/mm3 (0.00-0.031); Immature Granulocyte Percent A 0.6 % (0-0.5); Lymphocytes Absolute Auto 1.67 K/mm3 (0.9-3.2); Lymphocytes Percent Auto 15.8 % (18.3-44.2); Mean Corpuscular HGB Conc 31.3 g/dl (32-36); Mean Corpuscular Hemoglobin 27.3 pg (26-34); Mean Corpuscular Volume 87.1 fl (80-100); Mean Platelet Volume 10.2 fl (7.4-10.4); Monocytes Absolute Auto 0.8 K/mm3 (0.1-0.6); Monocytes Percent Auto 7.5 % (2.6-8.5); Neutrophils Percent Auto 75.1 % (45.5-73.1); Platelet Count Result 330 k/mm3 (150-375); Red Blood Count 3.96 M/mm3 (4.2-5.4); Red Cell Distribution Width 14.6 % (11.5-14.5); White Blood Count 10.6 K/mm3 (4.5-10.0)
[2022-02-24 07:46] LABS: Alanine Aminotransferase 21 U/L (6-35); Albumin Level 3.3 g/dL (3.5-5.1); Alkaline Phosphatase 78 U/L (38-126); Anion Gap 6 mmol/L (8-16); Aspartate Amino Transferase 26 U/L (14-36); Bilirubin,Total 0.8 mg/dL (0.2-1.3); Blood Urea Nitrogen 18 mg/dL (7-17); Calcium 8.6 mg/dL (8.4-10.2); Carbon Dioxide 25 mmol/L (22-30); Chloride 100 mmol/L (98-107); Estimated CRCL calculation 114 ml/min; Estimated Glomerular Filt Rate > 60; Glucose 178 mg/dL (65-110); Magnesium 1.9 mg/dL (1.6-2.3); Potassium 3.8 mmol/L (3.4-5.0); Sodium 131 mmol/L (137-145)
[2022-02-24 08:26] LABS: Glucose Point of Care 130 mg/dl (65-105)
[2022-02-24 11:38] LABS: Glucose Point of Care 156 mg/dl (65-105)
--- NOTE | 2022-02-24 13:03 | PM.CNOR ---
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 SHE CURRENTLY HAS NO SIGN OF ABSCESS OR OSTEOMYELITIS. I WASHED HER WOUND AND DEBRIDED THE WOUND AT THE BEDSIDE WITH STERILE WATER AND CHLORHEXIDINE. THERE IS NO EVIDENCE OF DEEP SOFT TISSUE INVOLVEMENT AT THIS TIME. A STERILE XEROFORM DRESSING WAS PLACED. RECOMMEND SALVADOR EVALUATION. WE WILL HAVE THE WOUND NURSES FOLLOW HER WELL FOR NURSING HOME CARE. HISTORY, EXAM AND RADIOGRAPHS REVIEWED WITH THE PATIENT. REFERRING PHYSICIAN RECORDS AND IMAGES REVIEWED. CONDITION, NATURE, ETIOLOGY AND COURSE OF NATURAL HISTORY REVIEWED. CONSERVATIVE AND OPERATIVE TREATMENT OPTIONS REVIEWED WELL THE RISKS AND BENEFITS OF EACH. History of Present Illness HPI Consult date: 02/24/22 Chief complaint: Osteomyelitis Narrative: HARLEEN WAS SEEN IN THE ED YESTERDAY AND HAD SUSPICION FOR AN ABSCESS TO THE RIGHT LOWER LEG. SHE HAS A HISTORY OF CHRONIC VENOUS STASIS ULCERATIONS AND HAS A HISTORY OF BILATERAL ILIAC STENT PLACEMENTS. SHE HAS NO RECENT HISTORY OF TRAUMA. SHE IS IN RESIDENTIAL CARE DUE TO SEVERE MENTAL ILLNESS. SHE HAS HAD MULTIPLE DECUBITUS ISSUES TO BILATERAL LOWER EXTREMITIES IN THE LOWER LEG REGION. SHE WAS SEEN IN THE ED FOR SEPTIC PROFILE. HER XRAYS TO THE RIGHT LEG WERE SUSPICIOS FOR PERIOSTEAL REACTION AND POSSIBLE OSTEOMYELITIS TO THE DIATL FIBULA. CT SCAN WAS PREFORMED WHICH SHOWED NO ABSCESS OR PERIOESTEAL INVOLVEMENT. SHE CURRENTLY HAS AB ELEVATIED WBC COUNT WHICH HAS IMPROVED WITH ANTIBIOTIC COVERAGE. SHE IS VERY NON COMPLIANT AND DOES NOT FOLLOW COMMANDS. SHE IS A VERY POOR HISTORIAN WELL. SHE IS RELUCTANT TO ALLOW CARE TO HER LEG. Review of Systems Review of Systems: ROS unobtainable: Yes unobtainable due to mental status [facility] Past Medical History Medical History Bipolar disorder Bowel obstruction Cancer of kidney Current use of snf anticoagulation Deep venous thrombosis Diabetic peripheral neuropathy Gastroesophageal reflux disease Hypercholesterolemia Hypothyroidism Incarcerated incisional hernia Kidney stones Peripheral vascular disease Stasis dermatitis of right lower extremity with venous ulcer due to chronic peripheral venous hypertension Type 2 diabetes mellitus Surgical History Surgical History History of cholecystectomy History of hysterectomy History of vascular surgery Bilateral common iliac stents. Family History Family History Father Throat cancer Mother Heart disease Social History Social History Social History: Patient lives at [facility] . She does have 1 child and she still smokes. [id number]: Pete Posada. Code status: Full code. Smoking packs per day: 0.5 Smoking cigarettes per day: 10.0 Years smoked: 45 Smoking pack-years: 22.50 Smoking status: Current every day smoker Tobacco type: cigarettes Second hand tobacco smoke exposure: No Additional smoking assessment comments: continues to smoke at the intermediate Alcohol intake: never Substance use: never Substance use type: does not use Lack of Transportation: No Lack of Food: Never True Current Housing: I Do Not Have Housing Concerned About Future Housing: No Difficulty Paying Gas/Electric Bills: No Difficulty Paying for Meds: No Currently Unemployed: No Education: Grade School Difficulty w/ Childcare or Family Care: No Additional living arrangements comments: Currently at [facility]. Additional occupation/education comments: Disabled. Gender identity (if verbalized by the patient): Female Sexual Orientation (if Verbalized by the Patient): St
--- NOTE | 2022-02-24 15:13 | PM.IMPN ---
Progress Note: A&P Assessment and Plan (1) Cellulitis: Code(s): L03.90 - Cellulitis, unspecified Status: Acute Assessment and Plan: -has diabetic cellulitis protocol/antibiotic stewardship 02/23 was started on cefepime, Flagyl vancomycin -wound cultures pending (2) Hypothyroidism: Code(s): E03.9 - Hypothyroidism, unspecified Status: Acute Assessment and Plan: Continue with levothyroxine. Both T4 and TSH elevated (3) Type 2 diabetes mellitus: Qualifiers: Diabetes mellitus care home insulin use: without care home use Diabetes mellitus complication status: with skin complications Diabetes mellitus complication detail: with dermatitis Qualified Code(s): E11.620 - Type 2 diabetes mellitus with diabetic dermatitis Code(s): E11.9 - Type 2 diabetes mellitus without complications Status: Acute Assessment and Plan: -hold metformin -check A1c -sliding scale insulin. (4) Bipolar disorder: Code(s): F31.9 - Bipolar disorder, unspecified Status: Acute Assessment and Plan: Continue with divalproex Continue Zyprexa -continue trazodone (5) Acute metabolic encephalopathy: Code(s): G93.41 - Metabolic encephalopathy Status: Acute Assessment and Plan: -improved, possibly near baseline Subjective Date/time seen: 02/24/22 15:13 Interval history: 61[facility]-old [facility] was admitted February [address] with right leg infection. CT revealed no evidence of abscess or osteomyelitis. Patient complains of continued leg pain today. Appetite is good. She is diabetic. She states diabetes is well controlled at the [facility]. She denied chest pain or shortness of breath. Denied GI or issues. Denied abnormal bleeding. Review of Systems Review of Systems: All systems reviewed & are unremarkable except as noted in HPI and below Exam Narrative: Chronically ill-appearing elderly female in no acute distress lying comfortably in her hospital bed watching television. Alert and oriented to person and place and year thought the month was December. Oriented situation. Skin with erythema and venous stasis changes bilateral lower extremities with eschar over stasis ulcers. Right leg heavily bandaged over area in question. Neck without JVD chest clear to auscultation heart regular rate without audible murmurs extremities without edema cyanosis or clubbing musculoskeletal with no gross deformities to visual inspection neurologic cranial nerves symmetric to visual inspection Objective Data Vital Signs Vital Signs: Vital Signs - 24 hr 02/23/22 16:00 02/23/22 17:00 02/23/22 18:00 Temperature 97.6 F 98.6 F 98.3 F Pulse Rate 102 H 98 99 Respiratory Rate 16 16 20 Blood Pressure 150/84 H 152/91 H 156/68 H Pulse Oximetry 95 98 100 Oxygen Delivery 02/23/22 18:57 02/23/22 22:16 02/23/22 23:27 Temperature 98.7 F 99.4 F Pulse Rate 100 71 86 Respiratory Rate 18 16 18 Blood Pressure 137/60 148/71 H 124/84 Pulse Oximetry 96 97 93 Oxygen Delivery 02/24/22 04:00 02/24/22 00:00 02/24/22 04:00 Temperature 97.5 F L Pulse Rate 74 81 81 Respiratory Rate 16 Blood Pressure 124/90 Pulse Oximetry 94 Oxygen Delivery 02/24/22 08:00 02/24/22 08:00 02/24/22 08:00 Temperature 97.5 F L Pulse Rate 69 69 Respiratory Rate 14 Blood Pressure 113/57 L Pulse Oximetry 97 Oxygen Delivery Room Air 02/24/22 12:00 02/24/22 12:00 Temperature 96.8 F L Pulse Rate 70 73 Respiratory Rate 16 Blood Pressure 111/62 Pulse Oximetry 96 Oxygen Delivery Intake/Output Intake/Output: Intake & Output 02/21/22 02/22/22 02/23/22 02/24/22 23:59 23:59 23:59 23:59 Intake Total 1550 1444 Output Total 240 Balance 1310 1444 Meds/Results Medications: Active Medications Generic Name Dose Route Start Last Admin Trade Name Renée PRN Reason Stop Dose Admin Dextrose 12.5 gm 02/23/22 22:
[2022-02-24 16:53] LABS: Glucose Point of Care 131 mg/dl (65-105)
[2022-02-24 22:08] LABS: Glucose Point of Care 147 mg/dl (65-105)
[2022-02-25] VITALS (9 sets, daily range): BP systolic 132–134; BP diastolic 70–80; PULSE 54–84; RESP 14–18; TEMP 36–36.5; O2SAT 95–96
[2022-02-25] MEDS: metroNIDAZOLE 500 MG/ISO 100ML 500 MG/100 ML BAG 100 MG IVPB ×3 (06:31→21:11)
[2022-02-25 06:55] LABS: Estimated CRCL calculation 96 ml/min; Estimated Glomerular Filt Rate > 60
[2022-02-25 07:53] LABS: Vancomycin Trough 14.2 ug/mL (10.0-20.0)
[2022-02-25 08:19] LABS: Glucose Point of Care 108 mg/dl (65-105)
--- NOTE | 2022-02-25 08:58 | P.PN_ITS ---
Progress Note: A&P Assessment and Plan (1) Osteomyelitis: Code(s): M86.9 - Osteomyelitis, unspecified Status: Acute Assessment and Plan: * Ortho consulted * No osteomyelitis or abscess noted on CT * Wound debridement completed at bedside by Dr. Henao, please refer to note * SALVADOR evaluation recommended by Ortho * Wound and blood culture pending * CRP 6.6 * Not take acid2.6>1.5>1.0 (2) Chronic wound of extremity: Status: Acute Assessment and Plan: Ortho consulted * No osteomyelitis or abscess noted on CT * Wound debridement completed at bedside by Dr. Henao, please refer to note * SALVADOR evaluation recommended by Ortho * Wound and blood culture pending (3) Cellulitis: Code(s): L03.90 - Cellulitis, unspecified Status: Acute Assessment and Plan: * Continue cefepime, Flagyl and vancomycin * Wound culture pending * Wbc's 17.0>10.6 (4) Hypothyroidism: Code(s): E03.9 - Hypothyroidism, unspecified Status: Acute Assessment and Plan: * Continue with levothyroxine. (5) Type 2 diabetes mellitus: Qualifiers: Diabetes mellitus head trimmer insulin use: without fpc use Diabetes mellitus complication status: with skin complications Diabetes mellitus complication detail: with dermatitis Qualified Code(s): E11.620 - Type 2 diab etes mellitus with diabetic dermatitis Code(s): E11.9 - Type 2 diabetes mellitus without complications Status: Acute Assessment and Plan: * Continue Accu-Cheks with sliding scale hypoglycemic protocol * Metformin on hold * A1c 6.1 * Blood sugars below 300 * Continue diabetic meal (6) Bipolar disorder: Code(s): F31.9 - Bipolar disorder, unspecified Status: Acute Assessment and Plan: * Continue home medication (7) Acute metabolic encephalopathy: Code(s): G93.41 - Metabolic encephalopathy Status: Acute Assessment and Plan: * Improved * Secondary to infection versus mental illness Subjective Date/time seen: 02/25/22 08:58 Interval history: Patient continues to have discomfort to her right lower extremity. Patient notes that she did not any problems with sleeping and able to tolerate her. The patient denies SOB, CP, palpitation, extremity numbness, lightheadedness, dizziness, constipation, diarrhea, chills, or fever. Review of Systems Review of Systems: A 14 organ system Review of Systems was performed and pertinent positives included in the HPI, otherwise remaining ROS is negative. All systems reviewed & are unremarkable except as noted in HPI and below Exam Narrative: GENERAL: Elderly female, in no apparent distress. HEAD: normocephalic, atraumatic. EYES: PERRL. Sclera clear/white. Vision is grossly intact. EARS: External ears normal, auditory canals clear and without drainage, TMs normal without perforation. Hearing grossly intact. NOSE: External nose normal with no obvious nasal discharge, nares without redness, no rhinorrhea. THROAT: Mucous membranes moist, posterior pharynx clear. NECK: Neck supple, non-tender without lymphadenopathy, masses or thyromegaly. CARDIOVASCULAR: Regular rate and rhythm without murmurs, gallops, or rubs. RESPIRATORY: Clear to auscultation. Breath sounds equal bilaterally. No wheezes, rales, or rhonchi. GASTROINTESTINAL: Abdomen soft, non-tender, nondistended. Bowel sounds are active. No hepato-splenomegaly, or palpable masses. No guarding. SKIN: Bilateral 2+ pitting edema with erythema and tenderness to the right lower extremities sung
--- NOTE | 2022-02-25 08:58 | WPDPN ---
Progress Note: A&P Assessment and Plan (1) Osteomyelitis: Code(s): M86.9 - Osteomyelitis, unspecified Status: Acute Assessment and Plan: Ortho consulted No osteomyelitis or abscess noted on CT Wound debridement completed at bedside by Dr. Henao, please refer to note SALVADOR evaluation recommended by Ortho Wound and blood culture pending CRP 6.6 Not take acid2.6>1.5>1.0 (2) Chronic wound of extremity: Status: Acute Assessment and Plan: Ortho consulted No osteomyelitis or abscess noted on CT Wound debridement completed at bedside by Dr. Henao, please refer to note SALVADOR evaluation recommended by Ortho Wound and blood culture pending (3) Cellulitis: Code(s): L03.90 - Cellulitis, unspecified Status: Acute Assessment and Plan: Continue cefepime, Flagyl and vancomycin Wound culture pending Wbc's 17.0>10.6 (4) Hypothyroidism: Code(s): E03.9 - Hypothyroidism, unspecified Status: Acute Assessment and Plan: Continue with levothyroxine. (5) Type 2 diabetes mellitus: Qualifiers: Diabetes mellitus detention insulin use: without computer terminal operator use Diabetes mellitus complication status: with skin complications Diabetes mellitus complication detail: with dermatitis Qualified Code(s): E11.620 - Type 2 diabetes mellitus with diabetic dermatitis Code(s): E11.9 - Type 2 diabetes mellitus without complications Status: Acute Assessment and Plan: Continue Accu-Cheks with sliding scale hypoglycemic protocol Metformin on hold A1c 6.1 Blood sugars below 300 Continue diabetic meal (6) Bipolar disorder: Code(s): F31.9 - Bipolar disorder, unspecified Status: Acute Assessment and Plan: Continue home medication (7) Acute metabolic encephalopathy: Code(s): G93.41 - Metabolic encephalopathy Status: Acute Assessment and Plan: Improved Secondary to infection versus mental illness Subjective Date/time seen: 02/25/22 08:58 Interval history: Patient continues to have discomfort to her right lower extremity. Patient notes that she did not any problems with sleeping and able to tolerate her. The patient denies SOB, CP, palpitation, extremity numbness, lightheadedness, dizziness, constipation, diarrhea, chills, or fever. Review of Systems Review of Systems: A 14 organ system Review of Systems was performed and pertinent positives included in the HPI, otherwise remaining ROS is negative. All systems reviewed & are unremarkable except as noted in HPI and below Exam Narrative: GENERAL: Elderly female, in no apparent distress. HEAD: normocephalic, atraumatic. EYES: PERRL. Sclera clear/white. Vision is grossly intact. EARS: External ears normal, auditory canals clear and without drainage, TMs normal without perforation. Hearing grossly intact. NOSE: External nose normal with no obvious nasal discharge, nares without redness, no rhinorrhea. THROAT: Mucous membranes moist, posterior pharynx clear. NECK: Neck supple, non-tender without lymphadenopathy, masses or thyromegaly. CARDIOVASCULAR: Regular rate and rhythm without murmurs, gallops, or rubs. RESPIRATORY: Clear to auscultation. Breath sounds equal bilaterally. No wheezes, rales, or rhonchi. GASTROINTESTINAL: Abdomen soft, non-tender, nondistended. Bowel sounds are active. No hepato-splenomegaly, or palpable masses. No guarding. SKIN: Bilateral 2+ pitting edema with erythema and tenderness to the right lower extremities dressing clean dry and intact NEURO: awake, alert x2 There were no obvious focal neurologic abnormalities. Unsure of patient's baseline EXTREMITIES: Normal range of motion. . Extrem: Other: RIGHT LEG SHOWS 5 X 4 SKIN LESION WHICH APPEARS TO BE SUPERFICIAL IN NATURE. SHE HAS SKIN NECROSIS CONSISTENT WITH A PRESSURE ULCERATION. THE ULCERATION DOES NOT APPEAR TO VIOLATED THE SUBCUTANEOUS LAYER AND IS RESTRICTED TO THE D
[2022-02-25 12:08] LABS: Glucose Point of Care 127 mg/dl (65-105)
[2022-02-25 16:53] LABS: Glucose Point of Care 104 mg/dl (65-105)
[2022-02-25 20:02] LABS: Glucose Point of Care 150 mg/dl (65-105)
[2022-02-26] VITALS (9 sets, daily range): BP systolic 137–143; BP diastolic 57–71; PULSE 60–82; RESP 14–19; TEMP 36.1–37.1; O2SAT 95–97; BMI 38.7
[2022-02-26] MEDS: metroNIDAZOLE 500 MG/ISO 100ML 500 MG/100 ML BAG 100 MG IVPB (04:51)
--- NOTE | 2022-02-26 05:45 | PC.NURSE ---
Pt sleeps on and off all shift. Cannot change own position in bed. Complains of bilateral leg pain to all that enter her room. No pain meds on APR Pt had bedside debridement 02/24/22 with no pain meds given prior. Drsg to right lower leg intact Wound care to evaluate pt's multiple skin breakdown. Pt incontinent. Does not notify staff of such. Pt legs contracted close to one another. When pt is touched, cleaned up, pt tenses and pulls legs closer together. Turn reposition. Continue with the plan of care.
[2022-02-26 06:21] LABS: Basophils Percent Auto 0.4 % (0.2-1.2); Eosinophils Absolute Auto 0.1 K/mm3 (0-0.3); Eosinophils Percent Auto 1.4 % (0-4.4); Hematocrit 37.8 % (37.0-47.0); Hemoglobin 11.8 g/dL (12.0-15.0); Immature Granulocyte Absolute 0.03 K/mm3 (0.00-0.031); Immature Granulocyte Percent A 0.4 % (0-0.5); Lymphocytes Absolute Auto 1.75 K/mm3 (0.9-3.2); Lymphocytes Percent Auto 22.3 % (18.3-44.2); Mean Corpuscular HGB Conc 31.2 g/dl (32-36); Mean Corpuscular Hemoglobin 27.4 pg (26-34); Mean Corpuscular Volume 87.9 fl (80-100); Mean Platelet Volume 9.5 fl (7.4-10.4); Monocytes Absolute Auto 0.7 K/mm3 (0.1-0.6); Monocytes Percent Auto 9.1 % (2.6-8.5); Neutrophils Absolute Auto 5.2 K/mm3 (1.3-6.7); Neutrophils Percent Auto 66.4 % (45.5-73.1); Platelet Count Result 358 k/mm3 (150-375); Red Cell Distribution Width 14.6 % (11.5-14.5); White Blood Count 7.8 K/mm3 (4.5-10.0)
[2022-02-26 06:22] LABS: Estimated CRCL calculation 96 ml/min; Estimated Glomerular Filt Rate > 60
[2022-02-26 08:09] LABS: Glucose Point of Care 100 mg/dl (65-105)
--- NOTE | 2022-02-26 11:13 | P.CDI_ITS ---
CDI Query Clarification Request I have not yet started my note. It will be clarified when I do my progress note. <YESI Bowles - Last Filed: 02/26/22 11:44> Clarified Diagnosis Clarified Diagnosis: Pt tested positive for COVID on 02/10/22. PT tested positive for COVID again on 02/23/22. Please clarify the status of the patient's COVID-19 infection, if known. * COVID-19 is a current/active infection * Current condition is a sequela of COVID-19 * Past history of COVID-19 * Other explanation of clinical findings (please specify) * Unable to determine <Kellee Olivier RN - Last Filed: 02/26/22 11:16>
--- NOTE | 2022-02-26 11:13 | WPDCDIQUERY2 ---
CDI Query Clarification Request I have not yet started my note. It will be clarified when I do my progress note. <YESI Bowles - Last Filed: 02/26/22 11:44> Clarified Diagnosis Clarified Diagnosis: Pt tested positive for COVID on 02/10/22. PT tested positive for COVID again on 02/23/22. Please clarify the status of the patient's COVID-19 infection, if known. COVID-19 is a current/active infection Current condition is a sequela of COVID-19 Past history of COVID-19 Other explanation of clinical findings (please specify) Unable to determine <Kellee Olivier RN - Last Filed: 02/26/22 11:16>
--- NOTE | 2022-02-26 11:46 | PM.IMPN ---
Progress Note: A&P Assessment and Plan (1) Osteomyelitis: Code(s): M86.9 - Osteomyelitis, unspecified Status: Ruled-out Assessment and Plan: Ortho consulted, and bedside debridement performed yesterday per Dr. Henao. No osteomyelitis or abscess noted on CT SALVADOR evaluation to be performed today. Wound culture grew out staph and strep. Flagyl discontinued at this time. Blood culture x1 in the aerobic bottle only growing Gram-positive cocci in clusters. Continuing vancomycin and cefepime. CRP 6.6 upon last check. Will order with a.m. labs for trend. Noted Lactic Acid trend: 2.6>1.5>1.0 (2) Chronic wound of extremity: Status: Acute Assessment and Plan: -see problem 1 plan. (3) Cellulitis: Qualifiers: Site of cellulitis: extremity Site of cellulitis of extremity: lower extremity Laterality: right Qualified Code(s): L03.115 - Cellulitis of right lower limb Code(s): L03.90 - Cellulitis, unspecified Status: Acute Assessment and Plan: -see problem 1. Plan for care. -white blood cell count today is 7.8. (4) Hypothyroidism: Code(s): E03.9 - Hypothyroidism, unspecified Status: Chronic Assessment and Plan: Continue with levothyroxine. 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 intermediate use Diabetes mellitus complication status: with skin complications Diabetes mellitus complication detail: with dermatitis Qualified Code(s): E11.620 - Type 2 diabetes mellitus with diabetic dermatitis Code(s): E11.9 - Type 2 diabetes mellitus without complications Status: Chronic Assessment and Plan: Continue Accu-Cheks with sliding scale hypoglycemic protocol Metformin on hold A1c 6.1 Blood sugars below 300 Continue diabetic meal (6) Bipolar disorder: Code(s): F31.9 - Bipolar disorder, unspecified Status: Chronic Assessment and Plan: Continue home medication (7) Acute metabolic encephalopathy: Code(s): G93.41 - Metabolic encephalopathy Status: Resolved Assessment and Plan: Improved Secondary to infection versus mental illness Patient alert and oriented today without any abnormal mentation. Time Spent With Patient Time with patient: 25 - 35 minutes Subjective Date/time seen: 02/26/22929 This pt was examined at the bedside today in interval assessment. She is having pain in her affected leg. She has no fevers. Wound nurse was present to evaluate patient today and there was 2+ edema that was bedside debrided by Dr. Henao yesterday. Dressing changes are to clean with Soap and water and to apply xeroform gauze with dry dressing over daily. Wound cultures grew out Staph and Strep and urine culture grew out aerococcus urinae. Pt. has no other complaints or symptoms today. She will have SALVADOR performed today. Her flagyl was discontinued today in the setting of the wound growth and blood culture growth. No complaints of CP, dyspnea, N/V/D. Review of Systems Review of Systems: All systems reviewed & are unremarkable except as noted in HPI and below Exam Narrative: GENERAL: Elderly female, in no apparent distress. HEAD: normocephalic, atraumatic. EYES: PERRL. Sclera clear/white. Vision is grossly intact. EARS: External ears normal, auditory canals clear and without drainage, TMs normal without perforation. Hearing grossly intact. NOSE: External nose normal with no obvious nasal discharge, nares without redness, no rhinorrhea. THROAT: Mucous membranes moist, posterior pharynx clear. NECK: Neck supple, non-tender without lymphadenopathy, masses or thyromegaly. CARDIOVASCULAR: Regular rate and rhythm without murmurs, gallops, or rubs. RESPIRATORY: Clear to auscultation. Breath sounds equal bilaterally. No wheezes, rales, or rhonchi. GASTROINTESTINAL: Abdomen soft, non-tender, nondistended. Bowel sounds are active. No hepato-splen
[2022-02-26 12:03] LABS: Glucose Point of Care 209 mg/dl (65-105)
[2022-02-26 12:24] LABS: CRP 4.3 mg/dL (<1.0)
[2022-02-26] MEDS: INSULIN ASPART (*BKC) 100 UNITS/ML SUB-Q (12:50)
[2022-02-26 17:26] LABS: Glucose Point of Care 106 mg/dl (65-105)
[2022-02-27] VITALS (9 sets, daily range): BP systolic 120–130; BP diastolic 67–81; PULSE 54–73; RESP 16–20; TEMP 35.6–36.3; O2SAT 94–96
[2022-02-27 00:31] LABS: Glucose Point of Care 136 mg/dl (65-105)
[2022-02-27 07:33] LABS: Basophils Percent Auto 0.6 % (0.2-1.2); Eosinophils Absolute Auto 0.1 K/mm3 (0-0.3); Eosinophils Percent Auto 1.7 % (0-4.4); Hemoglobin 11.7 g/dL (12.0-15.0); Immature Granulocyte Absolute 0.03 K/mm3 (0.00-0.031); Immature Granulocyte Percent A 0.4 % (0-0.5); Lymphocytes Absolute Auto 1.72 K/mm3 (0.9-3.2); Lymphocytes Percent Auto 24.3 % (18.3-44.2); Mean Corpuscular HGB Conc 30.8 g/dl (32-36); Mean Corpuscular Hemoglobin 27.5 pg (26-34); Mean Corpuscular Volume 89.2 fl (80-100); Mean Platelet Volume 9.2 fl (7.4-10.4); Monocytes Absolute Auto 0.7 K/mm3 (0.1-0.6); Monocytes Percent Auto 9.2 % (2.6-8.5); Neutrophils Absolute Auto 4.5 K/mm3 (1.3-6.7); Neutrophils Percent Auto 63.8 % (45.5-73.1); Platelet Count Result 400 k/mm3 (150-375); Red Blood Count 4.26 M/mm3 (4.2-5.4); Red Cell Distribution Width 14.9 % (11.5-14.5); White Blood Count 7.1 K/mm3 (4.5-10.0)
[2022-02-27 07:44] LABS: Lactic Acid Reflex 0.9 mmol/L (0.7-2.0)
[2022-02-27 07:49] LABS: Alanine Aminotransferase 24 U/L (6-35); Albumin Level 3.4 g/dL (3.5-5.1); Alkaline Phosphatase 70 U/L (38-126); Anion Gap 4 mmol/L (8-16); Aspartate Amino Transferase 23 U/L (14-36); Bilirubin,Total 0.3 mg/dL (0.2-1.3); Blood Urea Nitrogen 12 mg/dL (7-17); CRP 2.6 mg/dL (<1.0); Calcium 9.1 mg/dL (8.4-10.2); Carbon Dioxide 29 mmol/L (22-30); Chloride 102 mmol/L (98-107); Estimated CRCL calculation 96 ml/min; Estimated Glomerular Filt Rate > 60; Glucose 113 mg/dL (65-110); Potassium 3.6 mmol/L (3.4-5.0); Sodium 135 mmol/L (137-145)
[2022-02-27 08:00] LABS: Glucose Point of Care 109 mg/dl (65-105)
[2022-02-27] MEDS: OLANZapine 5 MG TABLET PO (09:56)
[2022-02-27] MEDS: GABAPENTIN 300 MG CAPSULE PO ×3 (09:56→17:42)
[2022-02-27] MEDS: SPIRONOLACTONE 25 MG TABLET PO (09:56)
[2022-02-27] MEDS: ARIPiprazole 10 MG TABLET PO (09:57)
[2022-02-27] MEDS: carvediloL 3.125 MG TABLET PO ×2 (09:57→17:43)
[2022-02-27] MEDS: ASPIRIN 81 MG ENTERIC TABLET PO (09:57)
[2022-02-27] MEDS: LEVOTHYROXINE SODIUM 88 MCG TABLET PO (09:58)
[2022-02-27] MEDS: DOCUSATE SODIUM 100 MG CAPSULE PO ×2 (09:58→17:41)
[2022-02-27] MEDS: POTASSIUM CHLORIDE 20 MEQ TABLET.ER PO (09:58)
[2022-02-27] MEDS: APIXABAN 5 MG TABLET PO ×2 (09:58→17:43)
[2022-02-27] MEDS: MULTIVITAMINS THERAPEUTIC TAB (*BKC) 1 TABLET PO (09:58)
[2022-02-27] MEDS: metFORMIN HCL 500 MG TABLET PO ×2 (09:58→17:43)
[2022-02-27] MEDS: CHOLECALCIFEROL 1,000 UNITS TABLET 1000 UNITS PO (09:58)
[2022-02-27] MEDS: ACIDOPHILUS/BULGARICUS CHEWABLE TABLET 1 TABLET PO ×2 (09:58→17:43)
[2022-02-27] MEDS: FUROSEMIDE 40 MG TABLET PO (09:59)
[2022-02-27] MEDS: ASCORBIC ACID 250 MG TABLET PO (09:59)
[2022-02-27] MEDS: ATORVASTATIN 10 MG TABLET PO (09:59)
[2022-02-27] MEDS: TOLNAFTATE 1% POWDER 45 GM BTL 1 APPLIC TOPICAL (10:00)
[2022-02-27] MEDS: ACETAMINOPHEN 325 MG TABLET 650 MG PO (10:05)
[2022-02-27 11:43] LABS: Glucose Point of Care 200 mg/dl (65-105)
--- NOTE | 2022-02-27 14:12 | PM.IMPN ---
Progress Note: A&P Assessment and Plan (1) Cellulitis: Qualifiers: Laterality: right Site of cellulitis: extremity Site of cellulitis of extremity: lower extremity Qualified Code(s): L03.115 - Cellulitis of right lower limb Code(s): L03.90 - Cellulitis, unspecified Status: Acute Assessment and Plan: Patient presents with altered mental status and found to have RLE wound with cellulitis. Ortho consulted, and bedside debridement performed 02/24/22 No osteomyelitis or abscess noted on CT SALVADOR evaluation showing moderately decreased right and mild left LE consistent with arterial occlusive dz Wound culture growing MRSA and Group A Strept Blood culture x1 in the aerobic bottle only growing Staph epi felt to be a contaminant WBC normal and CRP 2.6 Adjusted abx to Vanco and Flagyl. Continue dressing changes. (2) Acute metabolic encephalopathy: Code(s): G93.41 - Metabolic encephalopathy Status: Resolved Assessment and Plan: Patietn confused on admission. Rescue secondary to infection versus mental illness Patient alert and appropriate today Monitor as home meds resumed today (3) Chronic wound of extremity: Status: Acute Assessment and Plan: As above (4) Hypothyroidism: Code(s): E03.9 - Hypothyroidism, unspecified Status: Chronic Assessment and Plan: TSH slightly elevated at 5.56. Resume levothyroxine at current dose. 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 Continue AccuCheks covering with sliding scale. Hypoglycemia protocol available as needed. Contine to follow. (6) Bipolar disorder: Code(s): F31.9 - Bipolar disorder, unspecified Status: Chronic Assessment and Plan: Resume home medication but monitor mental status. Subjective Date/time seen: 02/27/22 14:12 Interval history: 61yo female with DM and bipolar disorder here from a shelter for altered mental status. Assuming care. Chart reviewed. Patient slept well last night. Has chronic pain in the leg. No change from prior. No diarrhea. No cough. Denies chest pain or abdominal pain. No shortness of breath. Exam Narrative: AF 96.1 130/81 68 20 96% ra Gen - NARD Chest - CTA bilaterally, nml RR CV - RRR S1/S2 Abd - Soft with diffuse tenderness Ext - + pedal edema Neuro - alert, answers questions appropriately. right conference specialist weak with ext Psych - Nml mood and affect Skin - right LE dressing with serous stain. chronic venous stasis skin changes with scaling Objective Data Vital Signs Vital Signs: Vital Signs - 24 hr 02/26/22 16:00 02/26/22 22:00 02/26/22 20:00 Temperature 98.7 F Pulse Rate 64 70 Respiratory Rate 19 Blood Pressure 137/71 Pulse Oximetry 95 Oxygen Delivery Room Air 02/26/22 20:00 02/27/22 00:00 02/27/22 04:00 Temperature Pulse Rate 60 60 54 L Respiratory Rate Blood Pressure Pulse Oximetry Oxygen Delivery 02/27/22 06:00 02/27/22 08:00 02/27/22 08:00 Temperature 96.8 F L Pulse Rate 64 64 Respiratory Rate 16 Blood Pressure 120/78 Pulse Oximetry 94 Oxygen Delivery Room Air 02/27/22 12:00 02/27/22 14:00 Temperature 96.1 F L Pulse Rate 67 68 Respiratory Rate 20 Blood Pressure 130/81 Pulse Oximetry 96 Oxygen Delivery Intake/Output Intake/Output: Intake & Output 02/24/22 02/25/22 02/26/22 02/27/22 23:59 23:59 23:59 23:59 Intake Total 3107
[2022-02-27] MEDS: metroNIDAZOLE 250 MG TABLET 500 MG PO (14:59)
[2022-02-27 16:55] LABS: Glucose Point of Care 124 mg/dl (65-105)
--- NOTE | 2022-02-27 18:03 | PC.NURSE ---
Pt refused dressing change to RLE at this time.
--- NOTE | 2022-02-27 22:59 | PC.NURSE ---
Patient unwilling to take all evening P.O. medication and powdered medication but did allow I.V. vancomycin to be administered. Charge nurse made aware.
[2022-02-28] VITALS (12 sets, daily range): BP systolic 121–127; BP diastolic 54–70; PULSE 65–92; RESP 18–20; TEMP 35.8–36.2; O2SAT 92–95
[2022-02-28 01:17] LABS: Glucose Point of Care 110 mg/dl (65-105)
[2022-02-28] MEDS: LEVOTHYROXINE SODIUM 88 MCG TABLET PO (05:50)
[2022-02-28] MEDS: metroNIDAZOLE 250 MG TABLET 500 MG PO ×3 (05:50→20:55)
[2022-02-28 07:54] LABS: Glucose Point of Care 104 mg/dl (65-105)
[2022-02-28] MEDS: GABAPENTIN 300 MG CAPSULE PO ×3 (09:00→16:49)
[2022-02-28] MEDS: carvediloL 3.125 MG TABLET PO ×2 (09:00→16:49)
[2022-02-28] MEDS: APIXABAN 5 MG TABLET PO ×2 (09:00→16:49)
[2022-02-28] MEDS: POTASSIUM CHLORIDE 20 MEQ TABLET.ER PO (09:00)
[2022-02-28] MEDS: ACIDOPHILUS/BULGARICUS CHEWABLE TABLET 1 TABLET PO ×2 (09:01→16:49)
[2022-02-28] MEDS: ASCORBIC ACID 250 MG TABLET PO (09:01)
[2022-02-28] MEDS: metFORMIN HCL 500 MG TABLET PO ×2 (09:01→16:49)
[2022-02-28] MEDS: SPIRONOLACTONE 25 MG TABLET PO (09:01)
[2022-02-28] MEDS: ARIPiprazole 10 MG TABLET PO (09:01)
[2022-02-28] MEDS: OLANZapine 5 MG TABLET PO ×2 (09:01→20:56)
[2022-02-28] MEDS: ATORVASTATIN 10 MG TABLET PO (09:01)
[2022-02-28] MEDS: ASPIRIN 81 MG ENTERIC TABLET PO (09:01)
[2022-02-28] MEDS: MULTIVITAMINS THERAPEUTIC TAB (*BKC) 1 TABLET PO (09:01)
[2022-02-28] MEDS: FUROSEMIDE 40 MG TABLET PO (09:01)
[2022-02-28] MEDS: DOCUSATE SODIUM 100 MG CAPSULE PO (09:02)
[2022-02-28] MEDS: CHOLECALCIFEROL 1,000 UNITS TABLET 1000 UNITS PO (09:02)
[2022-02-28] MEDS: TOLNAFTATE 1% POWDER 45 GM BTL 1 APPLIC TOPICAL ×2 (09:02→20:57)
[2022-02-28 09:46] LABS: Anion Gap 2 mmol/L (8-16); Blood Urea Nitrogen 11 mg/dL (7-17); Calcium 8.9 mg/dL (8.4-10.2); Carbon Dioxide 28 mmol/L (22-30); Chloride 105 mmol/L (98-107); Estimated CRCL calculation 96 ml/min; Estimated Glomerular Filt Rate > 60; Glucose 105 mg/dL (65-110); Potassium 3.8 mmol/L (3.4-5.0); Sodium 135 mmol/L (137-145)
[2022-02-28 09:51] LABS: Vancomycin Trough 20.5 ug/mL (10.0-20.0)
--- NOTE | 2022-02-28 10:02 | PM.IMPN ---
Progress Note: A&P Assessment and Plan (1) Cellulitis: Qualifiers: Laterality: right Site of cellulitis: extremity Site of cellulitis of extremity: lower extremity Qualified Code(s): L03.115 - Cellulitis of right lower limb Code(s): L03.90 - Cellulitis, unspecified Status: Acute Assessment and Plan: Patient presents with altered mental status and found to have RLE wound with cellulitis Ortho consulted, and bedside debridement performed 02/24/22 No osteomyelitis or abscess noted on CT [facility] evaluation showing moderately decreased right and mild left LE consistent with arterial occlusive dz Wound culture 02/23/22 growing MRSA and Group A Strep Blood culture x1 in the aerobic bottle only growing staph epi felt to be a contaminant Continue dressing changes Discontinue vancomycin, start doxycycline, continue flagyl, follow-up wound culture taken February 24 (2) Acute metabolic encephalopathy: Code(s): G93.41 - Metabolic encephalopathy Status: Resolved Assessment and Plan: Resolved (3) Chronic wound of extremity: Status: Acute Assessment and Plan: As above (4) Hypothyroidism: Code(s): E03.9 - Hypothyroidism, unspecified Status: Chronic Assessment and Plan: TSH slightly elevated at 5.56. Resume levothyroxine at current dose. (5) Type 2 diabetes mellitus: Qualifiers: Diabetes mellitus complication detail: with dermatitis Diabetes mellitus complication status: with skin complications Diabetes mellitus extermination inspector insulin use: without extermination inspector use Qualified Code(s): E11.620 - Type 2 diabetes mellitus with diabetic dermatitis Code(s): E11.9 - Type 2 diabetes mellitus without complications Status: Chronic Assessment and Plan: The patient's blood glucose was reviewed on 02/28 Glucose remains reasonably well controlled. Continue AccuCheks covering with sliding scale. Hypoglycemia protocol available as needed. Contine to follow. (6) Bipolar disorder: Code(s): F31.9 - Bipolar disorder, unspecified Status: Chronic Assessment and Plan: Resume home medication but monitor mental status. Continue Abilify, Depakote, Zyprexa, trazodone Plan DVT prophylaxis with Eliquis GI prophylaxis not indicated Code status full code Subjective Date/time seen: 02/28/22 10:02 Interval history: Patient more lethargic and somnolent again today, arousable easily for short periods of time then she falls back asleep. No overnight events, no fevers. Review of Systems Review of Systems: ROS unobtainable: Yes unobtainable due to mental status Exam Narrative: General: No acute distress, somnolent HEENT: Atraumatic, normocephalic, mucous membranes moist CV: Regular rate and rhythm, S1, S2 Lungs: Clear to auscultation bilaterally, no rales or crackles noted, no wheezes, good air entry Abdomen: Soft, nontender, nondistended Extremities: Normal to inspection Skin: right LE dressing with serous drainage noted, chronic venous stasis skin changes with scaling Objective Data Vital Signs Vital Signs: Vital Signs - 24 hr 02/27/22 12:00 02/27/22 14:00 02/27/22 16:00 Temperature 96.1 F L Pulse Rate 67 68 68 Respiratory Rate 20 Blood Pressure 130/81 Pulse Oximetry 96 Oxygen Delivery 02/27/22 22:00 02/27/22 20:15 02/27/22 20:00 Temperature 97.4 F L Pulse Rate 70 73 Respiratory Rate 18 Blood Pressure 126/67 Pulse Oximetry 95 Oxygen Delivery Room Air 02/28/22 00:00 02/28/22 04:00 02/28/22 06:00 Temperature 96.7 F L Pulse Rate 66 65 69 Respiratory Rate 18 Blood Pressure 121/54 L Pulse Oximetry 94 Oxygen Delivery 02/28/22 09:00 Temperature Pulse Rate 80 Respiratory Rate Blood Pressure Pulse Oximetry Oxygen Delivery Intake/Output Intake/Output: Intake & Output 02/25/22 02/26/22 02/27/22 02/28/22 23:59 23:59 23:59
[2022-02-28] MEDS: DOXYCYCLINE HYCLATE 100 MG TABLET PO ×2 (10:43→20:56)
[2022-02-28 11:33] LABS: Glucose Point of Care 93 mg/dl (65-105)
[2022-02-28 16:29] LABS: Glucose Point of Care 100 mg/dl (65-105)
[2022-02-28 19:47] LABS: Glucose Point of Care 100 mg/dl (65-105)
[2022-02-28] MEDS: traZODone HCL 50 MG TABLET 100 MG PO (20:56)
[2022-02-28] MEDS: DIVALPROEX SODIUM DR 250 MG TABEC PO (20:56)
[2022-03-01] VITALS (9 sets, daily range): BP systolic 104–119; BP diastolic 59–67; PULSE 63–74; RESP 18–20; TEMP 35.8–36.8; O2SAT 94–96
[2022-03-01] MEDS: metroNIDAZOLE 250 MG TABLET 500 MG PO ×3 (05:36→21:40)
[2022-03-01] MEDS: LEVOTHYROXINE SODIUM 88 MCG TABLET PO (05:36)
[2022-03-01 06:33] LABS: Estimated CRCL calculation 84 ml/min; Estimated Glomerular Filt Rate > 60
[2022-03-01 07:42] LABS: Glucose Point of Care 104 mg/dl (65-105)
--- NOTE | 2022-03-01 09:01 | PM.IMPN ---
Progress Note: A&P Assessment and Plan (1) Cellulitis: Qualifiers: Laterality: right Site of cellulitis: extremity Site of cellulitis of extremity: lower extremity Qualified Code(s): L03.115 - Cellulitis of right lower limb Code(s): L03.90 - Cellulitis, unspecified Status: Acute Assessment and Plan: Patient presents with altered mental status and found to have RLE wound with cellulitis Ortho consulted, and bedside debridement performed 02/24/22 No osteomyelitis or abscess noted on CT [facility] evaluation showing moderately decreased right and mild left LE consistent with arterial occlusive dz Wound culture 02/23/22 growing MRSA and Group A Strep Blood culture x1 in the aerobic bottle only growing staph epi felt to be a contaminant Repeat blood cx pending, on day 6 of doxycycline, MRSA abx coverage started 02/23/22, but will count abx days starting after debridement (2) Acute metabolic encephalopathy: Code(s): G93.41 - Metabolic encephalopathy Status: Resolved Assessment and Plan: worsened after restarting home psych meds, will decrease doses a bit and reassess (3) Chronic wound of extremity: Status: Acute Assessment and Plan: As above (4) Hypothyroidism: Code(s): E03.9 - Hypothyroidism, unspecified Status: Chronic Assessment and Plan: TSH slightly elevated at 5.56. Resume levothyroxine at current dose. (5) Type 2 diabetes mellitus: Qualifiers: Diabetes mellitus complication detail: with dermatitis Diabetes mellitus complication status: with skin complications Diabetes mellitus correction insulin use: without manager intermediate use Qualified Code(s): E11.620 - Type 2 diabetes mellitus with diabetic dermatitis Code(s): E11.9 - Type 2 diabetes mellitus without complications Status: Chronic Assessment and Plan: Glucose remains reasonably well controlled. Continue AccuCheks covering with sliding scale. Hypoglycemia protocol available as needed. Contine to follow. (6) Bipolar disorder: Code(s): F31.9 - Bipolar disorder, unspecified Status: Chronic Assessment and Plan: Resume home medication but monitor mental status. Continue Abilify, Depakote, Zyprexa, trazodone 03/01: somewhat sedated, will decrease abilify from 10 mg to 5 mg and gabapentin from 300 mg TID to 100 mg TID and reassess Plan DVT prophylaxis with Eliquis GI prophylaxis not indicated Code status full code Subjective Date/time seen: 03/01/22 09:01 Interval history: No overnight events noted. No chest pain or shortness of breath. No nausea, vomiting or diarrhea. No fevers or chills. Appears to be at baseline mentation. Answers questions appropriately. Review of Systems Review of Systems: 12 point review of systems was assessed and was negative except as noted in the HPI Exam Narrative: General: No acute distress, alert and oriented per baseline HEENT: Atraumatic, normocephalic, mucous membranes moist CV: Regular rate and rhythm, S1, S2 Lungs: Clear to auscultation bilaterally, no rales or crackles noted, no wheezes, good air entry Abdomen: Soft, nontender, nondistended Extremities: Normal to inspection Objective Data Vital Signs Vital Signs: Vital Signs - 24 hr 02/28/22 10:49 02/28/22 14:00 02/28/22 12:00 Temperature 97.2 F L Pulse Rate 71 82 Respiratory Rate 18 Blood Pressure 126/65 Pulse Oximetry 92 95 Oxygen Delivery Room Air 02/28/22 16:49 02/28/22 16:00 02/28/22 21:11 Temperature 96.5 F L Pulse Rate 92 81 71 Respiratory Rate 20 Blood Pressure 127/70 Pulse Oximetry 92 Oxygen Delivery 02/28/22 20:55 02/28/22 20:00 03/01/22 00:00 Temperature Pulse Rate 68 68 Respiratory Rate Blood Pressure Pulse Oximetry Oxygen Delivery Room Air 03/01/22 04:00 03/01/22 05:45 03/01/22 08:00 Temperature 97.0 F L Pulse Rate 71 69 68 Res
[2022-03-01] MEDS: ASCORBIC ACID 250 MG TABLET PO (10:17)
[2022-03-01] MEDS: APIXABAN 5 MG TABLET PO (10:17)
[2022-03-01] MEDS: SPIRONOLACTONE 25 MG TABLET PO (10:18)
[2022-03-01] MEDS: carvediloL 3.125 MG TABLET PO (10:18)
[2022-03-01] MEDS: POTASSIUM CHLORIDE 20 MEQ TABLET.ER PO (10:18)
[2022-03-01] MEDS: ATORVASTATIN 10 MG TABLET PO (10:18)
[2022-03-01] MEDS: ASPIRIN 81 MG ENTERIC TABLET PO (10:18)
[2022-03-01] MEDS: OLANZapine 5 MG TABLET PO ×2 (10:18→21:40)
[2022-03-01] MEDS: metFORMIN HCL 500 MG TABLET PO (10:18)
[2022-03-01] MEDS: DOCUSATE SODIUM 100 MG CAPSULE PO (10:18)
[2022-03-01] MEDS: CHOLECALCIFEROL 1,000 UNITS TABLET 1000 UNITS PO (10:18)
[2022-03-01] MEDS: GABAPENTIN 100 MG CAPSULE PO ×3 (10:19→21:41)
[2022-03-01] MEDS: FUROSEMIDE 40 MG TABLET PO (10:19)
[2022-03-01] MEDS: DOXYCYCLINE HYCLATE 100 MG TABLET PO ×2 (10:19→21:40)
[2022-03-01] MEDS: TOLNAFTATE 1% POWDER 45 GM BTL 1 APPLIC TOPICAL ×2 (10:19→21:41)
[2022-03-01] MEDS: MULTIVITAMINS THERAPEUTIC TAB (*BKC) 1 TABLET PO (10:19)
[2022-03-01] MEDS: ACIDOPHILUS/BULGARICUS CHEWABLE TABLET 1 TABLET PO (10:19)
[2022-03-01] MEDS: ARIPiprazole 5 MG TABLET PO (10:20)
[2022-03-01 11:25] LABS: Glucose Point of Care 146 mg/dl (65-105)
[2022-03-01 16:25] LABS: Glucose Point of Care 133 mg/dl (65-105)
[2022-03-01 19:30] LABS: Glucose Point of Care 113 mg/dl (65-105)
[2022-03-01] MEDS: DIVALPROEX SODIUM DR 250 MG TABEC PO (21:40)
[2022-03-01] MEDS: traZODone HCL 50 MG TABLET 100 MG PO (21:41)
[2022-03-02] VITALS (9 sets, daily range): BP systolic 120–125; BP diastolic 67–74; PULSE 64–78; RESP 18–20; TEMP 35.8–36.1; O2SAT 94–95
[2022-03-02] MEDS: LEVOTHYROXINE SODIUM 88 MCG TABLET PO (05:50)
[2022-03-02] MEDS: metroNIDAZOLE 250 MG TABLET 500 MG PO ×2 (05:50→14:20)
[2022-03-02] MEDS: GABAPENTIN 100 MG CAPSULE PO ×2 (05:50→13:56)
[2022-03-02 06:08] LABS: Potassium 3.6 mmol/L (3.4-5.0)
[2022-03-02 08:10] LABS: Glucose Point of Care 108 mg/dl (65-105)
[2022-03-02] MEDS: ASCORBIC ACID 250 MG TABLET PO (08:21)
[2022-03-02] MEDS: OLANZapine 5 MG TABLET PO (08:21)
[2022-03-02] MEDS: ACIDOPHILUS/BULGARICUS CHEWABLE TABLET 1 TABLET PO ×2 (08:21→16:53)
[2022-03-02] MEDS: DOCUSATE SODIUM 100 MG CAPSULE PO ×2 (08:21→16:52)
[2022-03-02] MEDS: POTASSIUM CHLORIDE 20 MEQ TABLET.ER PO (08:21)
[2022-03-02] MEDS: carvediloL 3.125 MG TABLET PO ×2 (08:21→16:52)
[2022-03-02] MEDS: APIXABAN 5 MG TABLET PO ×2 (08:21→16:52)
[2022-03-02] MEDS: MULTIVITAMINS THERAPEUTIC TAB (*BKC) 1 TABLET PO (08:21)
[2022-03-02] MEDS: ATORVASTATIN 10 MG TABLET PO (08:22)
[2022-03-02] MEDS: polyethylene glycoL 3350 17 GM POWD.PACK PO (08:22)
[2022-03-02] MEDS: SPIRONOLACTONE 25 MG TABLET PO (08:22)
[2022-03-02] MEDS: CHOLECALCIFEROL 1,000 UNITS TABLET 1000 UNITS PO (08:22)
[2022-03-02] MEDS: ARIPiprazole 5 MG TABLET PO (08:22)
[2022-03-02] MEDS: TOLNAFTATE 1% POWDER 45 GM BTL 1 APPLIC TOPICAL (08:22)
[2022-03-02] MEDS: metFORMIN HCL 500 MG TABLET PO ×2 (08:22→16:52)
[2022-03-02] MEDS: ASPIRIN 81 MG ENTERIC TABLET PO (08:22)
[2022-03-02] MEDS: FUROSEMIDE 40 MG TABLET PO (08:22)
[2022-03-02] MEDS: DOXYCYCLINE HYCLATE 100 MG TABLET PO (08:52)
[2022-03-02 11:42] LABS: Glucose Point of Care 99 mg/dl (65-105)
--- NOTE | 2022-03-02 16:11 | PM.DS ---
DS: Admitting Diagnosis Discharge Date 03/02/22 Admitting Diagnosis ams DS: Discharge Diagnosis Discharge Diagnosis (1) Cellulitis: Qualifiers: Laterality: right Site of cellulitis: extremity Site of cellulitis of extremity: lower extremity Qualified Code(s): L03.115 - Cellulitis of right lower limb Code(s): L03.90 - Cellulitis, unspecified Status: Acute Assessment and Plan: Patient presents with altered mental status and found to have RLE wound with cellulitis Ortho consulted, and bedside debridement performed 02/24/22 No osteomyelitis or abscess noted on CT [facility] evaluation showing moderately decreased right and mild left LE consistent with arterial occlusive dz Wound culture 02/23/22 growing MRSA and Group A Strep Blood culture x1 in the aerobic bottle only growing staph epi felt to be a contaminant Repeat blood cx pending, on day 6 of doxycycline, MRSA abx coverage started 02/23/22, but will count abx days starting after debridement (2) Acute metabolic encephalopathy: Code(s): G93.41 - Metabolic encephalopathy Status: Resolved Assessment and Plan: worsened after restarting home psych meds, will decrease doses a bit and reassess (3) Chronic wound of extremity: Status: Acute Assessment and Plan: As above (4) Hypothyroidism: Code(s): E03.9 - Hypothyroidism, unspecified Status: Chronic Assessment and Plan: TSH slightly elevated at 5.56. Resume levothyroxine at current dose. (5) Type 2 diabetes mellitus: Qualifiers: Diabetes mellitus complication detail: with dermatitis Diabetes mellitus complication status: with skin complications Diabetes mellitus machine long goods helper insulin use: without jail use Qualified Code(s): E11.620 - Type 2 diabetes mellitus with diabetic dermatitis Code(s): E11.9 - Type 2 diabetes mellitus without complications Status: Chronic Assessment and Plan: Glucose remains reasonably well controlled. Continue AccuCheks covering with sliding scale. Hypoglycemia protocol available as needed. Contine to follow. (6) Bipolar disorder: Code(s): F31.9 - Bipolar disorder, unspecified Status: Chronic Assessment and Plan: Resume home medication but monitor mental status. Continue Abilify, Depakote, Zyprexa, trazodone 03/01: somewhat sedated, will decrease abilify from 10 mg to 5 mg and gabapentin from 300 mg TID to 100 mg TID and reassess Plan DVT prophylaxis with Eliquis GI prophylaxis not indicated Code status full code DS: Summary Hospital Course Hospital Course: 61-year-old female patient who is here today from a nursing facility for evaluation of altered mental status.? The patient had an episode where she was unresponsive for several seconds and then quickly came to afterwards.? Patient was just discharged from here on 02/13/2022 with a small-bowel obstruction house treated conservatively.? Patient had a positive COVID test on 02/10/2022 and was positive again today.? The patient has a open wound on the right lower extremity.? Lower extremity CT was read as no abscess.? Tibia fibula x-ray was read as mild periosteal reaction of mid to distal fibular shaft suggested of osteomyelitis given the and adjacent soft tissue wound.? Chest x-ray was read as no acute cardiopulmonary disease.? Head CT was read as normal brain.? Patient was given two L of? IV fluids and started on vancomycin and Zosyn.? Patient presents with altered mental status and found to have RLE wound with cellulitis. Ortho was consulted, and bedside debridement performed 02/24/22. No osteomyelitis or abscess noted on CT. [facility] evaluation showing moderately decreased right and mild left LE consistent with arterial occlusive dz. Wound culture 02/23/22 growing MRSA and Group A Strep. Blood culture x1 in the aerobic bottle only growing staph epi felt to be a contaminant. Repeat blood cx pending, on day 8 of doxycycl
--- NOTE | 2022-03-02 16:33 | PC.NURSE ---
attempted to call [facility] multiple times r/t discharge of pt back to facility. This nurse called three times as of 1632 with no answer. Attempted the directory to drying tumbler operator and also to nurses station and no answer. This nurse sat on the phone the 3rd call for close to 10 mins, with a repeat of please hold a moment . Charge nurse notified.
[2022-03-02 16:42] LABS: Glucose Point of Care 116 mg/dl (65-105)
--- NOTE | 2022-03-03 08:35 | PC.NURSE ---
[facility], discharging facility made aware of positive MRSA to wound culture. Results faxed to facility. THOMAS Robert, at [facility] made aware.
== END 2022-03-02 17:30 | DRG 602 ==
LOC: ANHED 16:48 → ANH3MEDSUR 19:37
PROVIDERS: Emergency Medicine; Internal Medicine; Nurse Practitioner; Nurse Practitioner Adult Health; Physician Assistant; Admitting Provider Family Medicine; Emergency Provider Emergency Medicine; PCP Internal Medicine; Visit Provider Student in an Organized Health Care Education/Training Program
DX: L03.115 Cellulitis of right lower limb (principal); G93.41 Metabolic encephalopathy; U07.1 COVID-19; E11.628 Type 2 diabetes mellitus with other skin complications; E03.9 Hypothyroidism, unspecified; E11.620 Type 2 diabetes mellitus with diabetic dermatitis; F31.9 Bipolar disorder, unspecified; Z86.718 Personal history of other venous thrombosis and embolism; F17.210 Nicotine dependence, cigarettes, uncomplicated; Z79.82 Long term (current) use of aspirin; Z79.84 Long term (current) use of oral hypoglycemic drugs; Z79.899 Other long term (current) drug therapy; Z91.040 Latex allergy status
CPT/HCPCS: 36415; 51701; 70450; 71045; 73590; 73701; 80048; 80053; 80202; 81001; 82565; 82948; 83036; 83605; 83735; 84132; 84436; 84443; 85025; 85610; 85652; 85730; 86140; 87040; 87070; 87077; 87086; 87088; 87186; 87205; 87636; 93005; 93922; 96361; 96365; 96366; 96367; 96375; 99285; A9270; G0378; J0692; J1815; J2543; J3370; J7030; Q9967

== ENCOUNTER 2022-05-29 17:27 | Inpatient (IN) | payer MEDICARE, MEDICAID, SELFPAY ==
--- NOTE | ~2022-05-29 | XR_ITS ---
EXAM: XR abdomen NG/feed tube insert DATE: 05/29/2022 22:00 HISTORY: NG tube . COMPARISON: CT abdomen and pelvis, same date. FINDINGS: NG tube, tip and side port within the stomach. Bibasilar scar/atelectasis. Loop of dilated small bowel in the upper abdomen. No abnormal abdominal calcification. Degenerative changes in the s pine. IMPRESSION: NG tube, in good position. Reviewed, dictated and finalized at location K. IMPRESSION: NG tube, in good position.
--- NOTE | ~2022-05-29 | CT_ITS ---
EXAMINATION: CT abdomen pelvis w con DATE: 05/29/2022 19:10 INDICATION: abdominal pain TECHNIQUE: Computed tomography (CT) of the abdomen and pelvis was performed with 100 mL Omnipaque-350 intravenous contrast. Automated exposure control and iterative reconstruction technique were employe d. The dose-length product was 1664.03 mGy-cm. COMPARISON: 02/10/2022. FINDINGS: Lower thorax: Minimal bibasilar scar/atelectasis. Aortic valve and coronary artery calcifications. Liver: Atrophy versus post surgical change in the left lobe. Biliary/Gallbladder: Gallbladder is absent. Pneumobilia. Pancreas: Atrophy. Spleen: Small cyst/hemangioma. Granulomatous calcification. Adrenals:No mass. Kidneys: No mass, stone, or hydronephrosis. GI tract: Distal esophageal and gastric wall edema. Increasing small bowel dilation, beginning in the distal ileum in the mid abdomen and extending into a right lateral abdominal wall hernia. A portion of the right colon is herniated. No large bowel dilation. Mildly dilated air-filled appendix without wall thickening and unchanged. Mesentery/Peritoneum: No ascites, mass, or free air. Retroperitoneum: No mass. Atherosclerotic abdominal aortic and/or arterial calcifications. Bilateral common iliac stents. Uniform bowel wall enhancement. No pneumatosis. No portal venous gas. Pelvis: Pelvic organs are within normal limits. Soft Tissues: Large right lateral abdominal wall hernia with a 3.7 cm neck. Inflammatory change and f luid within the hernia sac, increased since the prior study. Bones: No acute osseous finding. IMPRESSION: Continued worsening findings of chronic partial versus acute on chronic partial small bowel obstructi on, likely due to mechanical and/or vascular compromise in a large right lateral abdominal wall herni a. Reviewed, dictated and finalized at location K. IMPRESSION: Continued worsening findings of chronic partial versus acute on chronic partial small bowel obstruction, likely due to mechanical and/or vascular compromise i n a large right lateral abdominal wall hernia.
--- NOTE | ~2022-05-29 | XR_ITS ---
EXAM: XR ankle LT 2V DATE: 05/29/2022 20:12 HISTORY: osteomyelitis . COMPARISON: None available. FINDINGS: Screw fixation of the medial malleolus. Screw and plate fixation of the distal fibula. Deg enerative changes in the ankle joint. Subcutaneous edema. Decreased mineralization. No fracture or di slocation. No lytic or blastic lesion. Joint spaces are maintained. No erosion or periosteal change. IMPRESSION: No radiographic evidence of osteomyelitis in the left ankle. Reviewed, dictated and finalized at location [facility].
--- NOTE | ~2022-05-29 | XR_ITS ---
EXAM: XR tibia fibula RT 2V DATE: 05/29/2022 20:12 HISTORY: osteomyelitis . COMPARISON: 02/23/2022. FINDINGS: Decreased mineralization. No fracture or dislocation. No lytic or blastic lesion. Degenera tive changes in the right knee and right ankle. No erosion or suspicious periosteal change. Stable pe riosteal thickening along the mid fibula. Vascular calcifications. Subcutaneous edema in the leg. IMPRESSION: No radiographic evidence of osteomyelitis in the right tibia/fibula. Reviewed, dictated and finalized at location [facility]. IMPRESSION: No radiographic evidence of osteomyelitis in the right tibia/fibula .
--- NOTE | ~2022-05-29 | XR_ITS ---
Supine and upright views of the abdomen Clinical history: Small bowel obstruction Findings: Multiple dilated loops of small bowel are present, consistent with small bowel obstruction. NG tube in place. No free air evident. No abnormal mass lesion or calcification is seen. Osseous str uctures are intact. Impression: Small bowel obstruction with NG tube in place. Reviewed, dictated and finalized at [facility]. Impression: Small bowel obstruction with NG tube in place.
--- NOTE | ~2022-05-29 | XR_ITS ---
EXAMINATION: XR chest 1V portable Exam Date/Time: 05/29/2022 18:25 CDT HISTORY: potential sepsis Comparison: 02/23/2022. RESULT: Lines, tubes, and devices: None. Lungs and pleura: Low volumes with crowding. Streaky bibasilar opacities likely scar/atelectasis. Cardiomediastinal silhouette: Stable. Other: No acute osseous or upper abdominal finding. IMPRESSION: No acute cardiopulmonary process. Reviewed, dictated and finalized at location K.
[2022-05-29 17:27] VITALS: BP 149/95; PULSE 111; RESP 14; TEMP 36.8; O2SAT 97
--- NOTE | 2022-05-29 17:41 | ECG_ITS ---
Measurements Intervals [place] Rate: 100 P: 60 PA: 143 QRS: 1 QRSD: 91 T: 88 QT: 322 QTc: 416 Interpretive Statements SINUS TACHYCARDIA WITH OCCASIONAL SUPRAVENTRICULAR PREMATURE COMPLEXES MODERATE T-WAVE ABNORMALITY, CONSIDER LATERAL ISCHEMIA [-0.1+ mV T WAVE IN I/aVL/V5/V6] COMPARED TO ECG 02/10/2022 13:49:09 NO SIGNIFICANT CHANGES Electronically Signed On 05-30-2022 17:59:08 CDT by Ranjan Quinteros M.D.
[2022-05-29 18:12] LABS: Basophils Percent Auto 0.1 % (0.2-1.2); Eosinophils Absolute Auto 0.1 K/mm3 (0-0.3); Eosinophils Percent Auto 0.3 % (0-4.4); Hematocrit 47.7 % (37.0-47.0); Hemoglobin 15.4 g/dL (12.0-15.0); Immature Granulocyte Absolute 0.06 K/mm3 (0.00-0.031); Immature Granulocyte Percent A 0.4 % (0-0.5); Lymphocytes Absolute Auto 2.14 K/mm3 (0.9-3.2); Lymphocytes Percent Auto 13.5 % (18.3-44.2); Mean Corpuscular HGB Conc 32.3 g/dl (32-36); Mean Corpuscular Hemoglobin 28.8 pg (26-34); Mean Corpuscular Volume 89.3 fl (80-100); Mean Platelet Volume 9.2 fl (7.4-10.4); Monocytes Absolute Auto 0.9 K/mm3 (0.1-0.6); Monocytes Percent Auto 5.7 % (2.6-8.5); Neutrophils Absolute Auto 12.7 K/mm3 (1.3-6.7); Platelet Count Result 420 k/mm3 (150-375); Red Blood Count 5.34 M/mm3 (4.2-5.4); Red Cell Distribution Width 14.1 % (11.5-14.5); White Blood Count 15.8 K/mm3 (4.5-10.0)
--- NOTE | 2022-05-29 18:25 | ED.NAVMDI ---
HPI - Nausea/Vomiting/Diarrhea General Chief complaint: Nausea/Vomiting/Diarrhea Stated complaint: N/V Time Seen by Provider: 05/29/22 17:40 History of Present Illness HPI Narrative: 61-year-old female with a history of incarcerated ventral hernia, partial SBO, PVD, bipolar disorder, type 2 diabetes, cholecystectomy, sepsis reports to the ED from [facility] via [facility] for evaluation of nausea, vomiting and abdominal pain. Pt reports she went to bed last night feeling normal, then started to feel bad at breakfast after she drank milk. She has not eaten any food today. She reports her ventral hernia has been getting larger. She is complaining of generalized abdominal pain. She reports 3 episodes of vomiting today. Last BM 1 week ago. Denies obstipation, diarrhea, chest pain, shortness of breath, back pain, urinary complaints, headache, focal numbness or weakness, cough, congestion. Per chart review, patient was admitted in January 2022 for SBO treated conversively, and again in February 2022 for acute metabolic encephalopathy and cellulitis to right lower extremity that was treated with bedside debridement on 02/24. Related Data Home Medications Medication Instructions Recorded Confirmed Lactobacillus acidophilus 10 mg PO BID 01/30/19 02/23/22 (Acidophilus capsule) aspirin 81 mg tablet,delayed 81 mg PO DAILY 01/30/19 02/23/22 release (Aspir-) cholecalciferol (vitamin D3) 100 25 mcg PO DAILY 01/30/19 02/23/22 mcg (4,000 unit) capsule divalproex 250 mg tablet,delayed 250 mg PO HS 01/30/19 02/23/22 release (Depakote) multivitamin 1 cap PO DAILY 01/30/19 02/23/22 acetaminophen 325 mg tablet 650 mg PO Q4H PRN Mild Pain (Scale 06/18/21 02/23/22 (Tylenol) Score 1-4) apixaban 5 mg tablet (Eliquis) 5 mg PO BID 06/18/21 02/23/22 arginine-vitamin C-vitamin E oral 9.2 g PO BID 06/18/21 02/23/22 4.5 gram-156 mg/9.2 gram powder pkt (Arginaid) ascorbic acid (vitamin C) 250 mg 250 mg PO DAILY 06/18/21 02/23/22 tablet atorvastatin 10 mg tablet 10 mg PO DAILY 06/18/21 02/23/22 furosemide 40 mg tablet 40 mg PO DAILY 06/18/21 02/23/22 levothyroxine 88 mcg tablet 88 mcg PO DAILY 06/18/21 02/23/22 metformin 500 mg tablet 500 mg PO BID 06/18/21 02/23/22 olanzapine 5 mg tablet 5 mg PO BID 06/18/21 02/23/22 polyethylene glycol 3350 17 gram 17 g PO DAILY constipation 06/18/21 02/23/22 oral powder packet potassium chloride 20 mEq 20 meq PO DAILY 06/18/21 02/23/22 tablet,extended release(part/cryst) spironolactone 25 mg tablet 25 mg PO DAILY 06/18/21 02/23/22 miconazole nitrate 1 % topical BID groin 07/17/21 02/23/22 docusate sodium 100 mg capsule 100 mg PO BID 09/12/21 02/23/22 (Colace) Milk of Magnesia (antacid) 30 ml PO Q12-24H PRN Constipation 02/11/22 02/23/22 carvedilol 3.125 mg tablet 3.125 mg PO BID 02/11/22 02/23/22 silver 200 mcg/gram topical gel 1 applic topical BID wound care 02/11/22 02/23/22 (Silver-Sept) trazodone 100 mg tablet 100 mg PO HS 02/11/22 02/23/22 Allergies Allergy/AdvReac Type Severity Reaction Status Date / Time Latex, Natural Rubber Allergy Mild Unknown Verified 02/10/22 13:50 Review of Systems Review of Systems: CONSTITUTIONAL: Denies fever, chills EYES: Denies visual changes, redness, or discharge. ENT: Denies rhinorrhea, congestion, sore throat, or otalgia. CARDIOVASCULAR: Denies chest pain, palpitations, or edema. RESPIRATORY: Denies cough or dyspnea. GASTROINTESTINAL: See HPI GENITOURINARY: Denies dysuria or hematuria. SKIN: Denies rash or itching. MUSCULOSKELETAL: Denies back pain, joint pain, or myalgia. NEUROLOGIC: Denies headache, numbness, dizziness, or weakness. PSYCHIATRIC: Denies anxiety or depression. [facility] Past Medical History Medical History Bipolar disorder Bowel obstruction Cancer of kidney Current use of halfway anticoagulation Deep venous thrombosis Diabetic peripheral neuropathy Gastroesophageal reflux
[2022-05-29 18:30] LABS: Alanine Aminotransferase 16 U/L (6-35); Albumin Level 4.7 g/dL (3.5-5.1); Alkaline Phosphatase 117 U/L (38-126); Anion Gap 8 mmol/L (8-16); Aspartate Amino Transferase 21 U/L (14-36); Bilirubin,Total 0.7 mg/dL (0.2-1.3); Blood Urea Nitrogen 22 mg/dL (7-17); Calcium 9.8 mg/dL (8.4-10.2); Carbon Dioxide 30 mmol/L (22-30); Chloride 100 mmol/L (98-107); Estimated CRCL calculation 80 ml/min; Estimated Glomerular Filt Rate > 60; Glucose 170 mg/dL (65-110); Lipase 22 U/L (23-300); Potassium 4.5 mmol/L (3.4-5.0); Sodium 138 mmol/L (137-145)
[2022-05-29 19:16] VITALS: BP 155/85; PULSE 90; RESP 18; TEMP 37.1; O2SAT 97
[2022-05-29 19:17] LABS: Appearance Urine Cloudy (Clear); Bacteria Urine None Seen /hpf; Bilirubin Urine 1+ (Negative); Blood Urine Negative (Negative); Color Urine Dark Yellow (Yellow); Glucose Urine UA Negative (Negative); Hyaline Casts Urine Present /lpf; Ketones Urine Trace mg/dL (Negative); Leukocyte Esterase Ur 1+ LEU/UL (Negative); Nitrate Urine Negative (Negative); Non Pathogenic Casts >20; Protein Urine Trace mg/dL (Negative); Specific Grav Ur 1.031 (1.001-1.035); Squamous Epithelial Cell Urine None seen /hpf (Few)
[2022-05-29 19:18] LABS: Add Urine Microscopic? YES
[2022-05-29] MEDS: ONDANSETRON INJ 4 MG/2 ML VIAL IV PUSH (19:34)
[2022-05-29] MEDS: SODIUM CHLORIDE 0.9% IV 1,000 ML 999 ML IV CONT (19:35)
[2022-05-29 19:37] LABS: Troponin I < 0.012 ng/mL (0.000-0.034)
[2022-05-29] MEDS: MORPHINE SULFATE (*CRX) 2 MG/ML INJ IV PUSH (20:18)
[2022-05-29 20:58] LABS: Lactic Acid Reflex 1.4 mmol/L (0.7-2.0)
[2022-05-29] MEDS: PIPERACILLN/TAZ 3.375GM/NS50ML 3.375 GM/50 ML BAG IVPB (21:12)
--- NOTE | 2022-05-29 21:17 | PM.IMHP ---
H&P: HPI History of Present Illness Date/Time: 05/29/22 21:17 Chief Complaint: Nausea vomiting diarrhea Narrative: This is a 61-year-old female patient who has had a history of incarcerated ventral hernia, partial small-bowel obstruction peripheral vascular disease diabetes type 2 and bipolar disorder. The patient is a resident at [facility] it was brought into the emergency room department via ambulance. The patient was having nausea vomiting and abdominal pain. The patient went to bed last night in her normal state and then she started to feel poorly this morning after she breakfast and drank some milk. The patient felt that her ventral hernia was getting larger. Her abdomen was distended she had reported that she had 3 episodes of vomiting today. She did not notice any blood in her emesis. The patient stated she has not had a bowel movement in 1 week. The patient denies any chest pain or shortness of breath. No complaints of back pain. No fever chills. The patient was treated for small-bowel obstruction in January of 2022 and was treated conservatively. Again in February she had acute metabolic encephalopathy due to cellulitis to the lower extremity. She had a debridement at the bedside February of this year. Her white count was noted to be 15.8. H&H is 15.4 in 47.7. The patient appears to be dry. Neutrophil percentage 80.0 in left foot percentage 13.5. Glucose is 170. CRP is 5.4. Her urine is positive for UTI. Abdominal pelvis CT was read as a following Continued worsening findings of chronic partial versus acute on chronic partial small bowel obstruction, likely due to mechanical and/or vascular compromise in a large right lateral abdominal wall hernia. Tib-fib x-ray was read as no radiographic evidence of osteomyelitis in the right tibia/ fibula. X-ray of the left shows no radiographic evidence of osteomyelitis in the left ankle. The patient was given IV fluids, Zofran, Tylenol, Zosyn, vancomycin, and morphine in the emergency room. The patient is being admitted to inpatient status on the date of service of 05/29/2022. Review of Systems Review of Systems: All systems reviewed & are unremarkable except as noted in HPI and below Constitutional: Constitutional: Reports as per HPI and Reports no additional constitutional complaints Eyes: Eyes: Reports as per HPI and Reports no additional eye complaints ENT: Reports system reviewed and no additional complaints, except as documented and Reports Normal hearing present Cardiovascular: Cardiovascular: Reports no additional cardiovascular complaints Respiratory: Respiratory: Reports no additional respiratory complaints and Reports no additional respiratory complaints Gastrointestinal: Gastrointestinal: Reports as per HPI and Reports no additional gastrointestinal complaints Musculoskeletal: Musculoskeletal: Reports no additional musculoskeletal complaints Integumentary/Breasts: Skin/Breast: Reports system reviewed and no additional complaints, except as docu and Reports as per HPI Neurologic: Reports system reviewed and no additional complaints, except as documented, Reports as per HPI and Reports Normal hearing present Psychiatric: Psychiatric: Reports no additional psychiatric complaints and Reports as per HPI Endocrine: Endocrine: Reports no additional endocrine complaints Hematologic/Lymphatic: Hematologic/Lymphatic: Reports no additional hematologic/lymphatic complaints Allergic/Immunologic: Allergic/Immunologic: Reports no additional allergic/immunologic complaints [facility] Past Medical History Medical History (Updated 05/29/22 @ 22:48 by Sandra Weir NP) Bipolar disorder Bowel obstruction Cancer of kidney 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
[2022-05-29 21:41] VITALS: BP 140/94; PULSE 88; RESP 18; TEMP 36.6; O2SAT 95
[2022-05-29 22:01] VITALS: BP 106/64; PULSE 85; RESP 18; TEMP 36.5; O2SAT 94; BMI 36.9
[2022-05-29 22:14] LABS: CRP 5.4 mg/dL (<1.0)
[2022-05-29 22:40] LABS: Troponin I < 0.012 ng/mL (0.000-0.034)
--- NOTE | 2022-05-29 22:47 | ADMGEN ---
This patient, Rafia Spencer, was admitted to 2 Medical Room 254-01. Patient/family oriented to hospital policies and general routines including ID bracelet, bed and alarms, visiting hours, pain management, procedures, bathroom and other care routines, personal items, smoking policy, room service/diet, and visiting hours. Information on how to activate the Rapid Response Team has been discussed. Patient/Family are encouraged to report perceived risks to care and to ask questions if they do not understand what they are told or what they should do.
[2022-05-29] MEDS: SODIUM CHLORIDE 0.9% IV 1,000 ML 100 ML IV CONT (22:55)
[2022-05-29] MEDS: NICOTINE (*PBKC) 21 MG PATCH 1 PATCH TRANSDERM (22:55)
[2022-05-29 23:00] VITALS: PULSE 85; RESP 18; O2SAT 94
[2022-05-29] MEDS: ENOXAPARIN 120 MG/0.8 ML SYRINGE 105 MG SUB-Q (23:53)
[2022-05-30 00:06] LABS: Glucose Point of Care 133 mg/dl (65-105)
[2022-05-30 01:02] LABS: Troponin I < 0.012 ng/mL (0.000-0.034)
[2022-05-30] MEDS: MORPHINE SULFATE (*CRX) 2 MG/ML INJ IV PUSH ×3 (01:19→16:22)
[2022-05-30] MEDS: PIPERACILLN/TAZ 3.375GM/NS50ML 3.375 GM/50 ML BAG IVPB ×4 (02:53→20:14)
[2022-05-30] MEDS: LEVOTHYROXINE SODIUM INJ 100 MCG/5 ML VIAL 44 MCG IV PUSH (05:15)
[2022-05-30 05:19] VITALS: BP 117/69; PULSE 90; RESP 18; TEMP 36.7; O2SAT 95
[2022-05-30 05:26] LABS: Glucose Point of Care 126 mg/dl (65-105)
[2022-05-30 05:33] LABS: Basophils Percent Auto 0.2 % (0.2-1.2); Eosinophils Absolute Auto 0.1 K/mm3 (0-0.3); Eosinophils Percent Auto 0.6 % (0-4.4); Hematocrit 39.9 % (37.0-47.0); Hemoglobin 12.5 g/dL (12.0-15.0); Immature Granulocyte Absolute 0.03 K/mm3 (0.00-0.031); Immature Granulocyte Percent A 0.3 % (0-0.5); Lymphocytes Absolute Auto 1.84 K/mm3 (0.9-3.2); Mean Corpuscular HGB Conc 31.3 g/dl (32-36); Mean Corpuscular Hemoglobin 28.5 pg (26-34); Mean Corpuscular Volume 90.9 fl (80-100); Mean Platelet Volume 9.2 fl (7.4-10.4); Monocytes Absolute Auto 0.9 K/mm3 (0.1-0.6); Neutrophils Percent Auto 67.9 % (45.5-73.1); Platelet Count Result 290 k/mm3 (150-375); Red Blood Count 4.39 M/mm3 (4.2-5.4); Red Cell Distribution Width 14.1 % (11.5-14.5); White Blood Count 8.8 K/mm3 (4.5-10.0)
[2022-05-30 05:41] LABS: Lactic Acid Reflex 0.7 mmol/L (0.7-2.0)
[2022-05-30 05:43] LABS: Alanine Aminotransferase 11 U/L (6-35); Albumin Level 3.5 g/dL (3.5-5.1); Alkaline Phosphatase 77 U/L (38-126); Anion Gap 2 mmol/L (8-16); Aspartate Amino Transferase 17 U/L (14-36); Bilirubin,Total 0.6 mg/dL (0.2-1.3); Blood Urea Nitrogen 21 mg/dL (7-17); Calcium 8.6 mg/dL (8.4-10.2); Carbon Dioxide 29 mmol/L (22-30); Chloride 106 mmol/L (98-107); Estimated CRCL calculation 104 ml/min; Estimated Glomerular Filt Rate > 60; Glucose 129 mg/dL (65-110); Sodium 137 mmol/L (137-145)
[2022-05-30 05:55] LABS: Hemoglobin A1C 5.6 % (<5.7)
[2022-05-30 08:36] VITALS: O2SAT 95
[2022-05-30] MEDS: NICOTINE (*PBKC) 21 MG PATCH 1 PATCH TRANSDERM (08:37)
[2022-05-30] MEDS: SODIUM CHLORIDE 0.9% IV 1,000 ML 100 ML IV CONT ×2 (08:39→20:13)
[2022-05-30] MEDS: ENOXAPARIN 120 MG/0.8 ML SYRINGE 105 MG SUB-Q ×2 (08:40→20:13)
[2022-05-30] MEDS: ONDANSETRON INJ 4 MG/2 ML VIAL IV PUSH ×2 (08:41→17:28)
--- NOTE | 2022-05-30 10:15 | P.PNIM_ITS ---
Progress Note: A&P Assessment and Plan (1) Partial small bowel obstruction: Code(s): K56.600 - Partial intestinal obstruction, unspecified as to cause Status: Acute Assessment and Plan: * History of SBO in January of 2022 * CT of the abdomen was read as Continued worsening findings of chronic partial versus acute on chronic partial small bowel obstruction, likely due to mechanical and/or vascular compromise in a large right lateral abdominal wall hernia. * General surgery consulted * NG tube placed draining brown bile * Sodium chloride 100ml/hr continued * Will await further instructions from general surgery (2) Lower extremity ulceration: Qualifiers: Laterality: right Non-pressure ulcer stage: limited to breakdown of skin Qualified Code(s): L97.911 - Non-pressure chronic ulcer of unspecified part of right lower leg limited to breakdown of skin Code(s): L97.909 - Non-pressure chronic ulcer of unspecified part of unspecified lower leg with unspecified severity Status: Acute Assessment and Plan: Continue Zosyn for now Blood cultures are pending Tailor antibiotic according to culture and sensitive (3) Bipolar disorder: Code(s): F31.9 - Bipolar disorder, unspecified Status: Chronic Assessment and Plan: * P.r.n. Ativan while NPO * Hold home abilify, divalproex, olanzapine * Trend mood * Adjust medications as indicated (4) Type 2 diabetes mellitus: Qualifiers: Diabetes mellitus complication detail: with dermatitis Diabetes mellitus complication status: with skin complications Diabetes mellitus termite control representative insulin use: without termite control representative use Qualified Code(s): E11.620 - Type 2 diabetes mellitus with diabetic dermatitis Code(s): E11.9 - Type 2 diabetes mellitus without complications Status: Chronic Assessment and Plan: * A1c 5.6 * Current glucose 129 * Accu cheks Q6H while NPO * Hypoglycemia protocol * ISS * Hold home medications metformin * Trend labs * Adjust medications as indicated (5) Hypothyroidism: Code(s): E03.9 - Hypothyroidism, unspecified Status: Chronic Assessment and Plan: * TSH 1.770 * IV levothyroxine at 44mcg while NPO * Stable and chronic at this time (6) UTI (urinary tract infection): Code(s): N39.0 - Urinary tract infection, site not specified Status: Acute Assessment and Plan: * UA appear to be infectious * Awaiting urine culture * Continue Zosyn at this time * Trend urine output * Adjust therapy per susceptibilities (7) Current use of prison anticoagulation: Code(s): 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 * Eliquis on hold for now * Consider heparin or Lovenox * SCDs for now Time Spent With Patient Time: 51 minutes Time with patient: Greater than 35 minutes Subjective Date/time seen: 05/30/22 1015 Interval history: 05/30/22 1015 spoke with General surgery who stated that they would like to keep the NG tube going for the moment since the patient is still having quite a bit of nausea. Patient flaco
--- NOTE | 2022-05-30 10:15 | PM.IMPN ---
Progress Note: A&P Assessment and Plan (1) Partial small bowel obstruction: Code(s): K56.600 - Partial intestinal obstruction, unspecified as to cause Status: Acute Assessment and Plan: History of SBO in January of 2022 CT of the abdomen was read as Continued worsening findings of chronic partial versus acute on chronic partial small bowel obstruction, likely due to mechanical and/or vascular compromise in a large right lateral abdominal wall hernia. General surgery consulted NG tube placed draining brown bile Sodium chloride 100ml/hr continued Will await further instructions from general surgery (2) Lower extremity ulceration: Qualifiers: Laterality: right Non-pressure ulcer stage: limited to breakdown of skin Qualified Code(s): L97.911 - Non-pressure chronic ulcer of unspecified part of right lower leg limited to breakdown of skin Code(s): L97.909 - Non-pressure chronic ulcer of unspecified part of unspecified lower leg with unspecified severity Status: Acute Assessment and Plan: Continue Zosyn for now Blood cultures are pending Tailor antibiotic according to culture and sensitive (3) Bipolar disorder: Code(s): F31.9 - Bipolar disorder, unspecified Status: Chronic Assessment and Plan: P.r.n. Ativan while NPO Hold home abilify, divalproex, olanzapine Trend mood Adjust medications as indicated (4) Type 2 diabetes mellitus: Qualifiers: Diabetes mellitus complication detail: with dermatitis Diabetes mellitus complication status: with skin complications Diabetes mellitus retirement insulin use: without longshore equipment operator use Qualified Code(s): E11.620 - Type 2 diabetes mellitus with diabetic dermatitis Code(s): E11.9 - Type 2 diabetes mellitus without complications Status: Chronic Assessment and Plan: A1c 5.6 Current glucose 129 Accu cheks Q6H while NPO Hypoglycemia protocol ISS Hold home medications metformin Trend labs Adjust medications as indicated (5) Hypothyroidism: Code(s): E03.9 - Hypothyroidism, unspecified Status: Chronic Assessment and Plan: TSH 1.770 IV levothyroxine at 44mcg while NPO Stable and chronic at this time (6) UTI (urinary tract infection): Code(s): N39.0 - Urinary tract infection, site not specified Status: Acute Assessment and Plan: UA appear to be infectious Awaiting urine culture Continue Zosyn at this time Trend urine output Adjust therapy per susceptibilities (7) 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 Eliquis on hold for now Consider heparin or Lovenox SCDs for now Time Spent With Patient Time: 51 minutes Time with patient: Greater than 35 minutes Subjective Date/time seen: 05/30/22 1015 Interval history: 05/30/22 1015 spoke with General surgery who stated that they would like to keep the NG tube going for the moment since the patient is still having quite a bit of nausea. Patient denies any chest pain or shortness of breath however she did state that she does really wants something to drink. Labs do remained stable at this time. NG tube is still present hooked up to suction. General surgery did try to reduce the hernia however after reduction the patient pushed out. 05/29/22? 21:17 This is a 61-year-old female patient who has had a history of incarcerated ventral hernia, partial small-bowel obstruction peripheral vascular disease diabetes type 2 and bipolar disorder.? The patient is a resident at [facility] it was brought into the emergency room department via ambulance.? The patient was having nausea vomiting and abdominal pain.? The
--- NOTE | 2022-05-30 10:57 | PM.CNGS ---
Assessment and Plan Assessment and plan (1) Partial small bowel obstruction: Code(s): K56.600 - Partial intestinal obstruction, unspecified as to cause Status: Acute Assessment and Plan: CT showing evidence of a small bowel obstruction with chronically incarcerated bowel within her right-sided abdominal wall hernia. The hernia is soft on exam and partially reducible. There are no current signs of peritonitis or bowel ischemia. We would recommend to continue with NG tube decompression and bowel rest at this time to hopefully allow the obstruction to resolve. She continues to have recurrent bowel obstructions, but they have successfully been treated conservatively in the past. She may eventually need surgical repair to prevent recurrent obstructions, but she is a poor surgical candidate and this will likely be a difficult procedure. (2) Incarcerated incisional hernia: Code(s): K43.0 - Incisional hernia with obstruction, without gangrene Status: Acute (3) Type 2 diabetes mellitus: Qualifiers: Diabetes mellitus residential insulin use: without termination clerk use Diabetes mellitus complication status: with skin complications Diabetes mellitus complication detail: with dermatitis Qualified Code(s): E11.620 - Type 2 diabetes mellitus with diabetic dermatitis Code(s): E11.9 - Type 2 diabetes mellitus without complications Status: Chronic (4) Bipolar disorder: Code(s): F31.9 - Bipolar disorder, unspecified Status: Chronic (5) Current use of residential anticoagulation: Code(s): Z79.01 - assisted (current) use of anticoagulants Status: Acute Assessment and Plan: On Eliquis for hx of DVT. Continue to hold Eliquis for now. (6) Lower extremity ulceration: Qualifiers: Laterality: right Non-pressure ulcer stage: limited to breakdown of skin Qualified Code(s): L97.911 - Non-pressure chronic ulcer of unspecified part of right lower leg limited to breakdown of skin Code(s): L97.909 - Non-pressure chronic ulcer of unspecified part of unspecified lower leg with unspecified severity Status: Acute Assessment and Plan: Admitted in February for right lower extremity wounds and was evaluated by the Orthopedic surgeon who did a bedside debridement. Bilateral lower extremity ulcers appear stable at this time with no signs of infection or indication for surgical intervention. Continue local wound care as recommended by firer powerhouse. (7) UTI (urinary tract infection): Code(s): N39.0 - Urinary tract infection, site not specified Status: Acute Assessment and Plan: Possible UTI, urine cx pending. Abx and management per Hospitalist. (8) Tobacco abuse: Code(s): Z72.0 - Tobacco use Status: Acute Assessment and Plan: Continues to smoke daily at the senior living with over 40 year smoking history. Plan I have discussed the patient's case and plan of care with Dr. Taylor. Thank you for allowing us to see the patient in consultation and we will continue to follow along with you. History of Present Illness Consult details Consult date: 05/30/22 Reason for consult: other (Ventral hernia with recurrent small bowel obstruction) Requesting physician: Judi Lopez PA-C Narrative: This is a 61-year-old who we have been asked to see for a recurrent small bowel obstruction involving a chronically incarcerated ventral hernia. She is a poor historian. She has a history of bipolar disorder and resides in a senior living. Her history is primarily obtained by review of the electronic medical record. She was admitted three times in the last year, last being in January, for small bowel obstructions involving her large RUQ ventral hernia. She was successfully treated conservatively in the past. Surgery has been delayed due to poor respiratory and cardiac function and it was recommended to her previously that she be evaluated at a te
[2022-05-30 12:16] LABS: Glucose Point of Care 127 mg/dl (65-105)
[2022-05-30] MEDS: BISACODYL 10 MG SUPPOSITORY RECTAL (12:30)
[2022-05-30] MEDS: SILVERGEL (ELTA) 45 ML 1 APPLIC TOPICAL (12:30)
[2022-05-30 14:20] VITALS: BP 135/63; PULSE 88; RESP 16; TEMP 36.8; O2SAT 95
[2022-05-30 17:06] LABS: Glucose Point of Care 126 mg/dl (65-105)
--- NOTE | 2022-05-30 18:36 | PC.NURSE ---
On 05/30/22, the License pending RN Emely, provided care and completed [employer] documentation on this patient. I have reviewed Emely's elementary classroom teacher and agree with the findings.
[2022-05-30 20:00] VITALS: PULSE 88; RESP 16; O2SAT 95
[2022-05-30 21:07] VITALS: BP 132/69; PULSE 67; RESP 18; TEMP 36.7; O2SAT 95
[2022-05-31 00:42] LABS: Glucose Point of Care 126 mg/dl (65-105)
[2022-05-31] MEDS: ONDANSETRON INJ 4 MG/2 ML VIAL IV PUSH (01:24)
[2022-05-31] MEDS: MORPHINE SULFATE (*CRX) 2 MG/ML INJ IV PUSH ×4 (01:24→23:32)
[2022-05-31] MEDS: PIPERACILLN/TAZ 3.375GM/NS50ML 3.375 GM/50 ML BAG IVPB ×4 (02:23→21:32)
[2022-05-31] MEDS: LORazepam INJ (*CRX) 2 MG/ML VIAL 0.5 MG IV PUSH (03:12)
[2022-05-31 04:52] VITALS: BP 115/64; PULSE 88; RESP 20; TEMP 37.2; O2SAT 91
[2022-05-31] MEDS: HYDROmorphone HCL INJ (*CRX) 1 MG/ML SYR 0.5 MG IV PUSH (04:55)
[2022-05-31] MEDS: LEVOTHYROXINE SODIUM INJ 100 MCG/5 ML VIAL 44 MCG IV PUSH (04:56)
[2022-05-31 05:37] LABS: Glucose Point of Care 121 mg/dl (65-105)
[2022-05-31 08:27] LABS: Basophils Percent Auto 0.4 % (0.2-1.2); Eosinophils Percent Auto 0.4 % (0-4.4); Hematocrit 35.4 % (37.0-47.0); Immature Granulocyte Absolute 0.01 K/mm3 (0.00-0.031); Immature Granulocyte Percent A 0.2 % (0-0.5); Lymphocytes Absolute Auto 1.71 K/mm3 (0.9-3.2); Lymphocytes Percent Auto 36.5 % (18.3-44.2); Mean Corpuscular HGB Conc 31.1 g/dl (32-36); Mean Corpuscular Hemoglobin 29.2 pg (26-34); Mean Corpuscular Volume 93.9 fl (80-100); Mean Platelet Volume 9.1 fl (7.4-10.4); Monocytes Absolute Auto 0.7 K/mm3 (0.1-0.6); Monocytes Percent Auto 13.9 % (2.6-8.5); Neutrophils Absolute Auto 2.3 K/mm3 (1.3-6.7); Neutrophils Percent Auto 48.6 % (45.5-73.1); Platelet Count Result 255 k/mm3 (150-375); Red Blood Count 3.77 M/mm3 (4.2-5.4); Red Cell Distribution Width 14.1 % (11.5-14.5); White Blood Count 4.7 K/mm3 (4.5-10.0)
[2022-05-31 08:48] LABS: Glucose Point of Care 107 mg/dl (65-105)
[2022-05-31] MEDS: SODIUM CHLORIDE 0.9% IV 1,000 ML 100 ML IV CONT ×2 (08:56→20:14)
[2022-05-31] MEDS: ENOXAPARIN 120 MG/0.8 ML SYRINGE 105 MG SUB-Q (08:56)
[2022-05-31] MEDS: NICOTINE (*PBKC) 21 MG PATCH 1 PATCH TRANSDERM (08:58)
[2022-05-31] MEDS: SILVERGEL (ELTA) 45 ML 1 APPLIC TOPICAL (08:59)
[2022-05-31 09:54] LABS: Alanine Aminotransferase 10 U/L (6-35); Albumin Level 3.2 g/dL (3.5-5.1); Alkaline Phosphatase 69 U/L (38-126); Anion Gap 1 mmol/L (8-16); Aspartate Amino Transferase 22 U/L (14-36); Bilirubin,Total 0.4 mg/dL (0.2-1.3); Blood Urea Nitrogen 20 mg/dL (7-17); Calcium 8.3 mg/dL (8.4-10.2); Carbon Dioxide 31 mmol/L (22-30); Chloride 109 mmol/L (98-107); Estimated CRCL calculation 90 ml/min; Estimated Glomerular Filt Rate > 60; Glucose 108 mg/dL (65-110); Potassium 3.7 mmol/L (3.4-5.0); Sodium 141 mmol/L (137-145)
--- NOTE | 2022-05-31 10:15 | P.PNIM_ITS ---
Progress Note: A&P Assessment and Plan (1) Partial small bowel obstruction: Code(s): K56.600 - Partial intestinal obstruction, unspecified as to cause Status: Acute Assessment and Plan: * History of SBO in January of 2022 * CT of the abdomen was read as Continued worsening findings of chronic partial versus acute on chronic partial small bowel obstruction, likely due to mechanical and/or vascular compromise in a large right lateral abdominal wall hernia. * General surgery consulted * NG tube placed draining brown bile, continued * Sodium chloride 100ml/hr continued * Most likely need a small bowel follow through * Continue NPO for now (2) Lower extremity ulceration: Qualifiers: Laterality: right Non-pressure ulcer stage: limited to breakdown of skin Qualified Code(s): L97.911 - Non-pressure chronic ulcer of unspecified part of right lower leg limited to breakdown of skin Code(s): L97.909 - Non-pressure chronic ulcer of unspecified part of unspecified lower leg with unspecified severity Status: Acute Assessment and Plan: * Continue Zosyn for now * Blood cultures are pending * Tailor antibiotic according to culture and sensitive (3) Bipolar disorder: Code(s): F31.9 - Bipolar disorder, unspecified Status: Chronic Assessment and Plan: * P.r.n. Ativan while NPO * Hold home abilify, divalproex, olanzapine * Trend mood * Adjust medications as indicated (4) Type 2 diabetes mellitus: Qualifiers: Diabetes mellitus complication detail: with dermatitis Diabetes mellitus complication status: with skin complications Diabetes mellitus long term acute care registered nurse insulin use: without intermediate use Qualified Code(s): E11.620 - Type 2 diabetes mellitus with diabetic dermatitis Code(s): E11.9 - Type 2 diabetes mellitus without complications Status: Chronic Assessment and Plan: * A1c 5.6 * Current glucose 108 * Accu cheks Q6H while NPO * Hypoglycemia protocol * ISS * Hold home medications metformin * Trend labs * Adjust medications as indicated (5) Hypothyroidism: Code(s): E03.9 - Hypothyroidism, unspecified Status: Chronic Assessment and Plan: * TSH 1.770 * IV levothyroxine at 44mcg while NPO * Stable and chronic at this time (6) UTI (urinary tract infection): Code(s): N39.0 - Urinary tract infection, site not specified Status: Acute Assessment and Plan: * UA appear to be infectious * Continue Zosyn at this time * Trend urine output * Adjust therapy per susceptibilities * No growth noted on the urine culture * UTI no longer indicated (7) Current use of long term acute care registered nurse anticoagulation: Code(s): Z79.01 - terminal worker (current) use of 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 * Eliquis on hold for now * Consider heparin or Lovenox * SCDs for now Time Spent With Patient Time: 43 minutes Time with patient: Greater than 35 minutes Subjective Date/time seen: 05/31/22 1015 Interval history: 05/31/22 1015 Patient still appears to be well. She was a bit drowsy and was sleeping. She stat
--- NOTE | 2022-05-31 10:15 | PM.IMPN ---
Progress Note: A&P Assessment and Plan (1) Partial small bowel obstruction: Code(s): K56.600 - Partial intestinal obstruction, unspecified as to cause Status: Acute Assessment and Plan: History of SBO in January of 2022 CT of the abdomen was read as Continued worsening findings of chronic partial versus acute on chronic partial small bowel obstruction, likely due to mechanical and/or vascular compromise in a large right lateral abdominal wall hernia. General surgery consulted NG tube placed draining brown bile, continued Sodium chloride 100ml/hr continued Most likely need a small bowel follow through Continue NPO for now (2) Lower extremity ulceration: Qualifiers: Laterality: right Non-pressure ulcer stage: limited to breakdown of skin Qualified Code(s): L97.911 - Non-pressure chronic ulcer of unspecified part of right lower leg limited to breakdown of skin Code(s): L97.909 - Non-pressure chronic ulcer of unspecified part of unspecified lower leg with unspecified severity Status: Acute Assessment and Plan: Continue Zosyn for now Blood cultures are pending Tailor antibiotic according to culture and sensitive (3) Bipolar disorder: Code(s): F31.9 - Bipolar disorder, unspecified Status: Chronic Assessment and Plan: P.r.n. Ativan while NPO Hold home abilify, divalproex, olanzapine Trend mood Adjust medications as indicated (4) Type 2 diabetes mellitus: Qualifiers: Diabetes mellitus complication detail: with dermatitis Diabetes mellitus complication status: with skin complications Diabetes mellitus intermediate teacher insulin use: without intermediate teacher use Qualified Code(s): E11.620 - Type 2 diabetes mellitus with diabetic dermatitis Code(s): E11.9 - Type 2 diabetes mellitus without complications Status: Chronic Assessment and Plan: A1c 5.6 Current glucose 108 Accu cheks Q6H while NPO Hypoglycemia protocol ISS Hold home medications metformin Trend labs Adjust medications as indicated (5) Hypothyroidism: Code(s): E03.9 - Hypothyroidism, unspecified Status: Chronic Assessment and Plan: TSH 1.770 IV levothyroxine at 44mcg while NPO Stable and chronic at this time (6) UTI (urinary tract infection): Code(s): N39.0 - Urinary tract infection, site not specified Status: Acute Assessment and Plan: UA appear to be infectious Continue Zosyn at this time Trend urine output Adjust therapy per susceptibilities No growth noted on the urine culture UTI no longer indicated (7) Current use of fdc anticoagulation: Code(s): Z79.01 - terminal operator (current) use of anticoagulants Status: Acute Assessment and Plan: Eliquis due to history of DVT. Eliquis on hold for now Consider heparin or Lovenox SCDs for now Time Spent With Patient Time: 43 minutes Time with patient: Greater than 35 minutes Subjective Date/time seen: 05/31/22 1015 Interval history: 05/31/22 1015 Patient still appears to be well. She was a bit drowsy and was sleeping. She stated that she just wanted some water. She denied any her in chest pain or constipation, weakness or fatigue. NG tube still present did drain out 600 overnight. Will continue NG tube at this time. 05/30/22 1015 spoke with General surgery who stated that they would like to keep the NG tube going for the moment since the patient is still having quite a bit of nausea. Patient denies any chest pain or shortness of breath however she did state that she does really wants something to drink. Labs do remained stable at this time. NG tube is still present hooked up to suction. General surgery did try to reduce the hernia however after reduction the patient pushed out. 05/29/22?
--- NOTE | 2022-05-31 11:26 | PM.PNGS ---
Progress Note: A&P Assessment and Plan (1) Partial small bowel obstruction: Code(s): K56.600 - Partial intestinal obstruction, unspecified as to cause Status: Acute Assessment and Plan: Nausea improved and had a small BM last night. Obstructive series still shows multiple loops of dilated small bowel suggesting an obstruction, and still had a fair amount of output from NG tube overnight. Hernia is still soft and at least partially reducible on exam. Will continue NG tube, bowel rest, and IV fluids. Consider water-soluble small bowel follow through if she continues to show signs of ongoing obstruction. (2) Incarcerated incisional hernia: Code(s): K43.0 - Incisional hernia with obstruction, without gangrene Status: Acute (3) Type 2 diabetes mellitus: Qualifiers: Diabetes mellitus half-way insulin use: without technician terminal and repeater use Diabetes mellitus complication status: with skin complications Diabetes mellitus complication detail: with dermatitis Qualified Code(s): E11.620 - Type 2 diabetes mellitus with diabetic dermatitis Code(s): E11.9 - Type 2 diabetes mellitus without complications Status: Chronic (4) Bipolar disorder: Code(s): F31.9 - Bipolar disorder, unspecified Status: Chronic (5) Current use of half-way anticoagulation: Code(s): Z79.01 - custodial (current) use of anticoagulants Status: Acute Assessment and Plan: Eliquis on hold. Currently on therapeutic-dosed Lovenox. (6) UTI (urinary tract infection): Code(s): N39.0 - Urinary tract infection, site not specified Status: Acute (7) Tobacco abuse: Code(s): Z72.0 - Tobacco use Status: Acute Plan I have discussed the patient's case and plan of care with Dr. Taylor. Subjective Subjective Date/Time Seen: 05/31/22 11:26 Patient reports: flatus, bowel movement and afebrile Interval history: Patient denies any abdominal pain or nausea this morning. No more vomiting since early yesterday morning. She is passing flatus and had 1 small formed BM overnight. Still had 600 cc NG output overnight. No other complaints at this time. Review of Systems Review of Systems: ROS unchanged Exam Const: General: comfortable and no acute distress Nutritional Appearance: obese Orientation/consciousness: patient oriented x3 GI: Inspection: visible herniation (right lateral abdominal wall) and other (mildly distended) GI Palp: Yes Soft to palpation, Yes Tenderness to palpation present (GI) (diffuse tenderness), No Guarding due to palpation present (GI) and No Rebound tenderness present Auscultation: normal bowel sounds Other: Large right lateral abdominal wall hernia containing bowel that is still soft and partially reducible, able to reduce nearly entire hernia but patient continues to grunt and bear down during the exam making it hard to fully reduce Psych: Attitude: cooperative Insight: Limited insight present (Psych) Objective Data Vital Signs Vital Signs: Vital Signs - 24 hr 05/30/22 14:20 05/30/22 20:00 05/30/22 21:07 Temperature 98.2 F 98.0 F Pulse Rate 88 88 67 Respiratory Rate 16 16 18 Blood Pressure 135/63 132/69 Pulse Oximetry 95 95 95 Oxygen Delivery Room Air 05/31/22 04:52 05/31/22 11:01 Temperature 98.9 F Pulse Rate 88 Respiratory Rate 20 Blood Pressure 115/64 Pulse Oximetry 91 Oxygen Delivery Room Air Intake/Output Intake/Output: Intake & Output 05/28/22 05/29/22 05/30/22 05/31/22 23:59 23:59 23:59 23:59 Intake Total 1150 2210 1070 Output Total 800 800 Balance 1150 1410 270 Meds/Results Medications: Active Medications Generic Name Dose Route Start Last Admin Trade Name Freq PRN Reason Stop Dose Admin Dextrose 12.5 gm 05/29/22 22:27 Dextrose 50% 25 Gm/50 Ml Syringe IV PUSH PRN PRN Hypoglycemia Protocol Enoxaparin Sodium 105 mg 05/29/22 22:55 05/31/22 08:56 Enoxapari
[2022-05-31 11:33] VITALS: BMI 36.9
--- NOTE | 2022-05-31 12:31 | PC.NURSE ---
On 05/31/22, the student, [Eusebio Rondon], provided care and completed [facility] documentation on this patient. I have reviewed the student's documentation and agree with the findings.
[2022-05-31 12:38] LABS: Glucose Point of Care 100 mg/dl (65-105)
[2022-05-31] MEDS: polyethylene glycoL 3350 17 GM POWD.PACK FEED TUBE ×3 (14:47→23:19)
[2022-05-31 16:59] LABS: Glucose Point of Care 100 mg/dl (65-105)
[2022-05-31 21:01] VITALS: BP 136/65; PULSE 72; RESP 18; TEMP 36.2; O2SAT 90
[2022-05-31 23:39] LABS: Glucose Point of Care 92 mg/dl (65-105)
[2022-06-01] VITALS (14 sets, daily range): BP systolic 114–160; BP diastolic 66–97; PULSE 74–99; RESP 12–20; TEMP 35.7–37.4; O2SAT 90–100
[2022-06-01] MEDS: PIPERACILLN/TAZ 3.375GM/NS50ML 3.375 GM/50 ML BAG IVPB ×2 (03:10→08:01)
[2022-06-01] MEDS: polyethylene glycoL 3350 17 GM POWD.PACK FEED TUBE (03:35)
[2022-06-01 05:21] LABS: Basophils Percent Auto 0.3 % (0.2-1.2); Eosinophils Percent Auto 0.7 % (0-4.4); Hematocrit 36.7 % (37.0-47.0); Hemoglobin 11.2 g/dL (12.0-15.0); Immature Granulocyte Absolute 0.02 K/mm3 (0.00-0.031); Immature Granulocyte Percent A 0.3 % (0-0.5); Lymphocytes Absolute Auto 1.44 K/mm3 (0.9-3.2); Lymphocytes Percent Auto 23.5 % (18.3-44.2); Mean Corpuscular HGB Conc 30.5 g/dl (32-36); Mean Corpuscular Hemoglobin 28.9 pg (26-34); Mean Corpuscular Volume 94.8 fl (80-100); Mean Platelet Volume 8.9 fl (7.4-10.4); Monocytes Absolute Auto 0.5 K/mm3 (0.1-0.6); Monocytes Percent Auto 8.5 % (2.6-8.5); Neutrophils Absolute Auto 4.1 K/mm3 (1.3-6.7); Neutrophils Percent Auto 66.7 % (45.5-73.1); Platelet Count Result 252 k/mm3 (150-375); Red Blood Count 3.87 M/mm3 (4.2-5.4); White Blood Count 6.1 K/mm3 (4.5-10.0)
[2022-06-01 05:25] LABS: Alanine Aminotransferase 9 U/L (6-35); Albumin Level 3.1 g/dL (3.5-5.1); Alkaline Phosphatase 58 U/L (38-126); Anion Gap 5 mmol/L (8-16); Aspartate Amino Transferase 15 U/L (14-36); Bilirubin,Total 0.5 mg/dL (0.2-1.3); Blood Urea Nitrogen 19 mg/dL (7-17); Calcium 8.2 mg/dL (8.4-10.2); Carbon Dioxide 27 mmol/L (22-30); Chloride 107 mmol/L (98-107); Estimated CRCL calculation 90 ml/min; Estimated Glomerular Filt Rate > 60; Glucose 91 mg/dL (65-110); Magnesium 1.9 mg/dL (1.6-2.3); Potassium 3.6 mmol/L (3.4-5.0); Sodium 139 mmol/L (137-145)
[2022-06-01] MEDS: LEVOTHYROXINE SODIUM INJ 100 MCG/5 ML VIAL 44 MCG IV PUSH (05:31)
[2022-06-01 05:37] LABS: Glucose Point of Care 85 mg/dl (65-105)
[2022-06-01 07:42] LABS: Glucose Point of Care 92 mg/dl (65-105)
[2022-06-01] MEDS: SODIUM CHLORIDE 0.9% IV 1,000 ML 100 ML IV CONT (07:59)
[2022-06-01] MEDS: SILVERGEL (ELTA) 45 ML 1 APPLIC TOPICAL (08:13)
[2022-06-01] MEDS: MORPHINE SULFATE (*CRX) 2 MG/ML INJ IV PUSH (08:21)
--- NOTE | 2022-06-01 08:30 | PM.IMPN ---
Progress Note: A&P Assessment and Plan (1) Partial small bowel obstruction: Code(s): K56.600 - Partial intestinal obstruction, unspecified as to cause Status: Acute Assessment and Plan: History of SBO in January of 2022 CT of the abdomen was read as Continued worsening findings of chronic partial versus acute on chronic partial small bowel obstruction, likely due to mechanical and/or vascular compromise in a large right lateral abdominal wall hernia. General surgery consulted NG tube placed draining brown bile, continued Sodium chloride 100ml/hr continued Hernia repair and bowel resection for today GS to manage post op care Continue NPO for now (2) Lower extremity ulceration: Qualifiers: Laterality: right Non-pressure ulcer stage: limited to breakdown of skin Qualified Code(s): L97.911 - Non-pressure chronic ulcer of unspecified part of right lower leg limited to breakdown of skin Code(s): L97.909 - Non-pressure chronic ulcer of unspecified part of unspecified lower leg with unspecified severity Status: Acute Assessment and Plan: Change Zosyn to ceftriaxone Blood cultures are pending preliminary culture results show Tailor antibiotic according to culture and sensitive (3) Bipolar disorder: Code(s): F31.9 - Bipolar disorder, unspecified Status: Chronic Assessment and Plan: P.r.n. Ativan while NPO Hold home abilify, divalproex, olanzapine Trend mood Adjust medications as indicated (4) Type 2 diabetes mellitus: Qualifiers: Diabetes mellitus complication detail: with dermatitis Diabetes mellitus complication status: with skin complications Diabetes mellitus terminal clerk insulin use: without terminal clerk use Qualified Code(s): E11.620 - Type 2 diabetes mellitus with diabetic dermatitis Code(s): E11.9 - Type 2 diabetes mellitus without complications Status: Chronic Assessment and Plan: A1c 5.6 Current glucose 91 Accu cheks Q6H while NPO Hypoglycemia protocol ISS Hold home medications metformin Trend labs Adjust medications as indicated (5) Hypothyroidism: Code(s): E03.9 - Hypothyroidism, unspecified Status: Chronic Assessment and Plan: TSH 1.770 IV levothyroxine at 44mcg while NPO Stable and chronic at this time (6) Current use of terminal clerk anticoagulation: Code(s): Z79.01 - intermediate frame tender (current) use of anticoagulants Status: Acute Assessment and Plan: Eliquis due to history of DVT. Eliquis on hold for now Consider heparin or Lovenox SCDs for now Time Spent With Patient Time: 39 minutes Time with patient: Greater than 35 minutes Subjective Date/time seen: 06/01/22 08:30 Interval history: 06/01/22 08 Patient is lying in bed. Patient states she is in a lot of pain an 8/10. she denies any nausea, vomiting, diarrhea constipation. She does still have her NG tube which is draining quite a bit of brown fluid. She does have right lower quadrant pain as well. Reviewed the Trend this afternoon does indicate that she is going down for a hernia repair and bowel resection. Currently labs and vital signs are stable. 05/31/22 1015 Patient still appears to be well. She was a bit drowsy and was sleeping. She stated that she just wanted some water. She denied any her in chest pain or constipation, weakness or fatigue. NG tube still present did drain out 600 overnight. Will continue NG tube at this time. 05/30/22 1015 spoke with General surgery who stated that they would like to keep the NG tube going for the moment since the patient is still having quite a bit of nausea. Patient denies any chest pain or shortness of breath however she did state that she does really wants something to drink. Labs do remained stable at this time. NG tube is still presen
--- NOTE | 2022-06-01 08:30 | P.PNIM_ITS ---
Progress Note: A&P Assessment and Plan (1) Partial small bowel obstruction: Code(s): K56.600 - Partial intestinal obstruction, unspecified as to cause Status: Acute Assessment and Plan: * History of SBO in January of 2022 * CT of the abdomen was read as Continued worsening findings of chronic partial versus acute on chronic partial small bowel obstruction, likely due to mechanical and/or vascular compromise in a large right lateral abdominal wall hernia. * General surgery consulted * NG tube placed draining brown bile, continued * Sodium chloride 100ml/hr continued * Hernia repair and bowel resection for today * GS to manage post op care * Continue NPO for now (2) Lower extremity ulceration: Qualifiers: Laterality: right Non-pressure ulcer stage: limited to breakdown of skin Qualified Code(s): L97.911 - Non-pressure chronic ulcer of unspecified part of right lower leg limited to breakdown of skin Code(s): L97.909 - Non-pressure chronic ulcer of unspecified part of unspecified lower leg with unspecified severity Status: Acute Assessment and Plan: * Change Zosyn to ceftriaxone * Blood cultures are pending * preliminary culture results show * Tailor antibiotic according to culture and sensitive (3) Bipolar disorder: Code(s): F31.9 - Bipolar disorder, unspecified Status: Chronic Assessment and Plan: * P.r.n. Ativan while NPO * Hold home abilify, divalproex, olanzapine * Trend mood * Adjust medications as indicated (4) Type 2 diabetes mellitus: Qualifiers: Diabetes mellitus complication detail: with dermatitis Diabetes mellitus complication status: with skin complications Diabetes mellitus prison insulin use: without local intermodal truck driver use Qualified Code(s): E11.620 - Type 2 diabetes mellitus with diabetic dermatitis Code(s): E11.9 - Type 2 diabetes mellitus without complications Status: Chronic Assessment and Plan: * A1c 5.6 * Current glucose 91 * Accu cheks Q6H while NPO * Hypoglycemia protocol * ISS * Hold home medications metformin * Trend labs * Adjust medications as indicated (5) Hypothyroidism: Code(s): E03.9 - Hypothyroidism, unspecified Status: Chronic Assessment and Plan: * TSH 1.770 * IV levothyroxine at 44mcg while NPO * Stable and chronic at this time (6) Current use of prison anticoagulation: Code(s): Z79.01 - detention (current) use of 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 * Eliquis on hold for now * Consider heparin or Lovenox * SCDs for now Time Spent With Patient Time: 39 minutes Time with patient: Greater than 35 minutes Subjective Date/time seen: 06/01/22 08:30 Interval history: 06/01/22 0830 Patient is lying in bed. Patient states she is in a lot of pain an 8/10. she denies any nausea, vomiting, diarrhea constipation. She does still have her NG tube which is draining quite a bit of brown fluid. She does have right lower quadrant pain as well. Reviewed the Trend this afternoon does indicate that she is going down for a hernia repair and bowel resection. Currently labs and vital signs are stable. 05/31/22 1015 Patient still appears to be well.
--- NOTE | 2022-06-01 11:23 | PCNFU ---
Nutrition Follow-Up Complete: Inadequate energy intake related to altered GI function as evidenced by NPO status with noted SBO Goal: Diet advancement, tolerance, po intake greater than 50% of meals Patient has limited progress towards goal. We will continue current goal. Pt current nutrition is NPO x 4 Nutrition Recommendations: Kenan BID when diet order advances. Last recorded weight is 107.1 kg. Bowel Motility: +Bm reported 05/31 Labs Reviewed:Alb 3.1,Hgb 11.2, Hct 36.7 Meds Noted:NS, Zosyn, Synthroid Skin: Stage II Pressure Ulcer-left ankle Additional Notes: Patient remains NPO x 4 days. Plans for hernia repair today. NGT to suction. Monitor for diet order, intake, tolerance, wt, labs. Follow up in 3 day.
[2022-06-01 11:48] LABS: Glucose Point of Care 90 mg/dl (65-105)
--- NOTE | 2022-06-01 12:27 | PC.NURSE ---
Patient off floor for hernia repair surgery.
--- NOTE | 2022-06-01 13:04 | WPDANESEPPF ---
Anes - Initial Pre Proc Eval Procedure: Operation Date: 06/01/22 12:30 Proposed Procedures p Open Incarcerated Incisional Hernia Repair, Possible Bowel Resection - Christiano Taylor DO Date/Time: 06/01/22 13:04 Surgeon: Alfred Cervantes MD Pre Op Diagnosis: Partial SBO Patient Data Age: 61 Gender: F Height: 1.7 m Weight: 107.1 kg Last Vital Signs Temp 36.6 C 06/01/22 12:18 Pulse 79 06/01/22 12:18 Resp 16 06/01/22 12:18 BP 147/69 H 06/01/22 12:18 Pulse Ox 96 06/01/22 12:18 O2 Del Method Nasal Cannula 06/01/22 12:18 O2 Flow Rate 3 06/01/22 12:18 Allergies Allergy/AdvReac Type Severity Reaction Status Date / Time Latex, Natural Rubber Allergy Mild Unknown Verified 05/30/22 01:29 Home Medications Medication Instructions Recorded Confirmed Type Lactobacillus acidophilus 10 mg PO BID 01/30/19 05/29/22 History (Acidophilus capsule) aspirin 81 mg tablet,delayed 81 mg PO DAILY 01/30/19 05/29/22 History release (Aspir-) cholecalciferol (vitamin D3) 100 25 mcg PO DAILY 01/30/19 05/29/22 History mcg (4,000 unit) capsule divalproex 250 mg tablet,delayed 250 mg PO HS 01/30/19 05/29/22 History release (Depakote) multivitamin 1 cap PO DAILY 01/30/19 05/29/22 History acetaminophen 325 mg tablet 650 mg PO Q4H PRN Mild Pain (Scale 06/18/21 05/29/22 History (Tylenol) Score 1-4) apixaban 5 mg tablet (Eliquis) 5 mg PO BID 06/18/21 05/29/22 History ascorbic acid (vitamin C) 250 mg 500 mg PO DAILY 06/18/21 05/29/22 History tablet atorvastatin 10 mg tablet 10 mg PO DAILY 06/18/21 05/29/22 History furosemide 40 mg tablet 40 mg PO DAILY 06/18/21 05/29/22 History levothyroxine 88 mcg tablet 88 mcg PO DAILY 06/18/21 05/29/22 History metformin 500 mg tablet 500 mg PO BID 06/18/21 05/29/22 History olanzapine 5 mg tablet 5 mg PO BID 06/18/21 05/29/22 History polyethylene glycol 3350 17 gram 17 g PO DAILY constipation 06/18/21 05/29/22 History oral powder packet potassium chloride 20 mEq 20 meq PO DAILY 06/18/21 05/29/22 History tablet,extended release(part/cryst) spironolactone 25 mg tablet 25 mg PO DAILY 06/18/21 05/29/22 History miconazole nitrate 1 % topical BID groin 07/17/21 05/29/22 History docusate sodium 100 mg capsule 100 mg PO BID 09/12/21 05/29/22 History (Colace) hydrocodone 5 mg-acetaminophen 325 1 tablet PO Q4H PRN Pain Rated 09/21/21 05/29/22 Rx mg tablet 4-10 #12 tabs Milk of Magnesia (antacid) 30 ml PO Q12-24H PRN Constipation 02/11/22 05/29/22 History carvedilol 3.125 mg tablet 3.125 mg PO BID 02/11/22 05/29/22 History silver 200 mcg/gram topical gel 1 applic topical BID wound care 02/11/22 05/29/22 History (Silver-Sept) trazodone 100 mg tablet 100 mg PO HS 02/11/22 05/29/22 History aripiprazole 5 mg tablet (Abilify) 5 mg PO DAILY 1 month #30 tabs 03/02/22 05/29/22 Rx gabapentin 100 mg capsule 100 mg PO Q8HR 1 month #90 caps 03/02/22 05/29/22 Rx metronidazole 500 mg tablet 500 mg PO Q8H 5 days #15 tabs 03/02/22 05/29/22 Rx bisacodyl 5 mg tablet 5 mg PO HS 05/29/22 05/29/22 History Laboratory Tests 05/31/22 05/31/22 06/01/22 16:57 23:15 04:54 WBC RBC Hgb Hct MCV MCH MCHC RDW Plt Count MPV Immature Gran % (Auto) Neut % (Auto) Lymph % (Auto) Cooke % (Auto) Eos % (Auto) Baso % (Auto) Lymph # (Auto) [place] # (Auto) Eos # (Auto) Baso # (Auto) Abs Immat Gran (auto) Absolute Neuts (auto) Absolute Nucleated RBC Nucleated RBC % Sodium Potassium Chloride Carbon Dioxide Anion Gap BUN Creatinine Estim Creat Clear Calc Estimated GFR Glucose
[2022-06-01] MEDS: LACTATED RINGERS 1,000 ML 30 ML IV CONT ×2 (13:15→16:44)
--- NOTE | 2022-06-01 13:30 | WPDHPUPDATE1 ---
History and Physical Update Update Date/Time: 06/01/22 13:30 History and Physical has been reviewed, including an updated exam of the patient. There are NO changes in the patient's condition. Risks, benefits, and alternatives have been discussed and questions answered. Patient agrees to proceed with procedure.
[2022-06-01] MEDS: cefTRIAXone 2 GM/NS 100 ML 2 GM/100 ML BAG IVPB (13:48)
[2022-06-01] MEDS: BUPIVACAINE/EPINEPHRINE 0.5% 50 ML VIAL 30 ML INFILTRATE (14:24)
--- NOTE | 2022-06-01 16:16 | SUR.OPER ---
125 mL dark yellow urine drained from pantoja in the operating room at 1615
--- NOTE | 2022-06-01 16:38 | W.PM.PROC2 ---
Procedure Note - Detailed Date of Procedure 06/01/22 Pre-op Diagnosis Partial SBO, Incarcerated incisional hernia Post-op Diagnosis Same (5 cm incarcerated incisional) Procedure Performed 1. Incarcerated 5 cm incisional hernia repair with mesh 2. Incidental appendectomy 3. Small-bowel serosal injury repair Surgeon Christiano Taylor, Anesthesia General and Local (0.5% bupivicaine with epi) Indications This is a 61-year-old woman who presented with an incarcerated incisional hernia in her right upper quadrant. She has presented multiple times to the hospital with partial bowel obstructions related to this hernia. She continues to have recurrent obstructions and poses a risk for strangulation or bowel ischemia. Discussions were made with the patient and her power of civil litigation attorney about further treatment options and decision was made to proceed with an incarcerated incisional hernia repair with possible bowel resection. Findings Open incarcerated incisional hernia repair was performed. The patient had a large right upper quadrant incisional hernia containing multiple loops of bowel. The hernia sac was very large and extensive dissection needed to be carried out around the hernia sac to get down to the level of the fascia. Once I was able to open up the hernia sac and inspect the bowel it all appeared viable but there were still dense small bowel and cecum adhesions up to the hernia sac. The appendix was also stuck within the hernia sac and with the dense adhesions around the appendix the decision was then made to perform an appendectomy. There was also 1 small bowel serosal injury from taking down these adhesions near the level of the fascia. This was inherent to the nature of the surgery and the extensive adhesiolysis required. There was no full-thickness injury and no spillage of bowel contents. The serosal tear was repaired using 3-0 silk seromuscular imbricating sutures. Once all of the adhesions were taken down I was able to excise the hernia sac and this was sent to the lab for pathology. The hernia defect measured 5 cm x 5 cm. The decision was made to place a 15 cm x [address] mesh. The mesh was secured with 8 trans fascial sutures. The hernia was then closed over mesh using #1 PDS running suture. Due to the wide subcutaneous pocket remaining after the hernia sac was excised, I chose to place a 19 round Wan drain within the subcutaneous space. Description of Procedure Procedure as well as risks, benefits, and alternatives were discussed with the patient and her POA. Written consent was obtained and placed in chart prior to procedure. Patient was brought back to surgical suite. She was placed supine on operating table. Time-out was done to confirm patient and procedure. She was then intubated by the anesthesia department. She was then repositioned with a beanbag to be slightly right hip elevated to expose the right upper quadrant where the hernia was. Her abdomen was prepped and draped in sterile fashion using chlorhexidine prep. A 15 cm transverse incision was then made using a 10 blade scalpel directly over the area of the hernia. Electrocautery was used for hemostasis and for dissection through Ronal's fascia and the subcutaneous tissue. The hernia sac was identified and was carefully dissected circumferentially using electrocautery. Hernia sac was freed up from all the subcutaneous attachments all the way down to the level of the fascia. The hernia sac was then opened and the bowel was inspected. The bowel all appeared healthy and viable but was still densely adherent to the hernia sac in multiple locations. The adhesions were carefully taken down using Metzenbaum scissors to free up the entire bowel within the hernia defect. The appendix was densely adherent within the hernia sac. Decision was made to remove the appendix. A window was created in the mesoappendix right at the base of the appendix using a curved hemostat. Cu
[2022-06-01 16:51] LABS: Glucose Point of Care 119 mg/dl (65-105)
[2022-06-01] MEDS: fentaNYL CITRATE INJ (*CRX) 100 MCG/2 ML VIAL 25 MCG IV PUSH ×4 (17:16→17:46)
[2022-06-01] MEDS: HYDROmorphone HCL INJ (*CRX) 1 MG/ML SYR IV PUSH ×2 (21:02→23:02)
[2022-06-01 23:15] LABS: Glucose Point of Care 105 mg/dl (65-105)
[2022-06-02] VITALS (8 sets, daily range): BP systolic 109–155; BP diastolic 53–75; PULSE 79–95; RESP 18–19; TEMP 36.2–37; O2SAT 91–95
[2022-06-02] MEDS: HYDROmorphone HCL INJ (*CRX) 1 MG/ML SYR IV PUSH ×8 (01:33→20:27)
[2022-06-02] MEDS: SODIUM CHLORIDE 0.9% IV 1,000 ML 100 ML IV CONT ×3 (01:46→23:21)
[2022-06-02 05:52] LABS: Glucose Point of Care 96 mg/dl (65-105)
[2022-06-02] MEDS: LEVOTHYROXINE SODIUM INJ 100 MCG/5 ML VIAL 44 MCG IV PUSH (06:12)
[2022-06-02 07:01] LABS: Basophils Percent Auto 0.2 % (0.2-1.2); Eosinophils Percent Auto 0.1 % (0-4.4); Hemoglobin 12.1 g/dL (12.0-15.0); Immature Granulocyte Absolute 0.05 K/mm3 (0.00-0.031); Immature Granulocyte Percent A 0.5 % (0-0.5); Lymphocytes Absolute Auto 1.15 K/mm3 (0.9-3.2); Lymphocytes Percent Auto 12.2 % (18.3-44.2); Mean Corpuscular Hemoglobin 28.7 pg (26-34); Mean Corpuscular Volume 92.6 fl (80-100); Mean Platelet Volume 8.9 fl (7.4-10.4); Monocytes Percent Auto 10.1 % (2.6-8.5); Neutrophils Absolute Auto 7.3 K/mm3 (1.3-6.7); Neutrophils Percent Auto 76.9 % (45.5-73.1); Platelet Count Result 265 k/mm3 (150-375); Red Blood Count 4.21 M/mm3 (4.2-5.4); White Blood Count 9.5 K/mm3 (4.5-10.0)
[2022-06-02 07:35] LABS: Alanine Aminotransferase 15 U/L (6-35); Albumin Level 3.1 g/dL (3.5-5.1); Alkaline Phosphatase 57 U/L (38-126); Anion Gap 6 mmol/L (8-16); Aspartate Amino Transferase 21 U/L (14-36); Bilirubin,Total 0.6 mg/dL (0.2-1.3); Blood Urea Nitrogen 13 mg/dL (7-17); Calcium 8.1 mg/dL (8.4-10.2); Carbon Dioxide 26 mmol/L (22-30); Chloride 108 mmol/L (98-107); Estimated CRCL calculation 123 ml/min; Estimated Glomerular Filt Rate > 60; Glucose 97 mg/dL (65-110); Magnesium 1.6 mg/dL (1.6-2.3); Potassium 3.6 mmol/L (3.4-5.0); Sodium 140 mmol/L (137-145)
[2022-06-02] MEDS: NICOTINE (*PBKC) 21 MG PATCH 1 PATCH TRANSDERM (08:06)
[2022-06-02] MEDS: ENOXAPARIN 40 MG/0.4 ML SYRINGE SUB-Q (08:07)
[2022-06-02] MEDS: SILVERGEL (ELTA) 45 ML 1 APPLIC TOPICAL (08:08)
[2022-06-02 08:46] LABS: Glucose Point of Care 100 mg/dl (65-105)
--- NOTE | 2022-06-02 10:14 | PM.PNGS ---
Progress Note: A&P Assessment and Plan (1) Incarcerated incisional hernia: Code(s): K43.0 - Incisional hernia with obstruction, without gangrene Status: Acute Assessment and Plan: Await return of bowel function Continue NG today, Ice chips ok. (2) Partial small bowel obstruction: Code(s): K56.600 - Partial intestinal obstruction, unspecified as to cause Status: Acute (3) Type 2 diabetes mellitus: Qualifiers: Diabetes mellitus middle or intermediate school principal insulin use: without middle or intermediate school principal use Diabetes mellitus complication status: with skin complications Diabetes mellitus complication detail: with dermatitis Qualified Code(s): E11.620 - Type 2 diabetes mellitus with diabetic dermatitis Code(s): E11.9 - Type 2 diabetes mellitus without complications Status: Chronic (4) Bipolar disorder: Code(s): F31.9 - Bipolar disorder, unspecified Status: Chronic (5) Current use of assisted anticoagulation: Code(s): Z79.01 - senior care (current) use of anticoagulants Status: Acute Assessment and Plan: Eliquis on hold. (6) UTI (urinary tract infection): Code(s): N39.0 - Urinary tract infection, site not specified Status: Acute (7) Tobacco abuse: Code(s): Z72.0 - Tobacco use Status: Acute Subjective Subjective Date/Time Seen: 06/02/22 10:14 Interval history: Doing well on POD#1. No flatus or BM yet. Pain controlled. Exam GI: Inspection: non-distended and other (JOHANN with mostly serous output) GI Palp: Yes Soft to palpation and Yes Tenderness to palpation present (GI) (Incisional) Auscultation: Hypoactive bowel sounds present Objective Data Vital Signs Vital Signs: Vital Signs - 24 hr 06/01/22 12:18 06/01/22 16:50 06/01/22 17:05 Temperature 36.6 C 37.4 C Pulse Rate 79 99 95 Respiratory Rate 16 12 12 Blood Pressure 147/69 H 156/78 H 160/75 H Pulse Oximetry 96 99 100 Oxygen Delivery Nasal Cannula Simple Face Mask Simple Face Mask Oxygen Flow Rate 3 8 8 06/01/22 17:20 06/01/22 17:35 06/01/22 17:50 Temperature Pulse Rate 92 96 89 Respiratory Rate 13 20 13 Blood Pressure 147/66 H 147/76 H 147/73 H Pulse Oximetry 99 96 98 Oxygen Delivery Simple Face Mask Nasal Cannula Nasal Cannula Oxygen Flow Rate 8 3 3 06/01/22 18:05 06/01/22 18:20 06/01/22 18:50 Temperature 36.4 C 36.3 C L 36.6 C Pulse Rate 84 79 79 Respiratory Rate 14 16 16 Blood Pressure 152/97 H 144/77 H 131/66 Pulse Oximetry 94 96 96 Oxygen Delivery Oxygen Flow Rate 06/01/22 19:22 06/01/22 20:40 06/01/22 23:50 Temperature 36.1 C L 35.7 C L Pulse Rate 80 74 Respiratory Rate 20 20 Blood Pressure 114/70 126/74 Pulse Oximetry 96 98 98 Oxygen Delivery Nasal Cannula Oxygen Flow Rate 1 06/02/22 03:50 06/02/22 07:48 06/02/22 08:18 Temperature 36.6 C Pulse Rate 79 Respiratory Rate 18 Blood Pressure 155/75 H Pulse Oximetry 95 93 94 Oxygen Delivery Nasal Cannula Autopap Oxygen Flow Rate 2.5 06/02/22 07:50 Temperature 36.4 C L Pulse Rate 89 Respiratory Rate 18 Blood Pressure 116/60 Pulse Oximetry 94 Oxygen Delivery Oxygen Flow Rate Intake/Output Intake/Output: Intake & Output 05/30/22 05/31/22 06/01/22 06/02/22 23:59 23:59 23:59 23:59 Intake Total 2210 2900 2950 1100 Output Total 800 2350 910 220 Balance 9591 632 5675 880 Meds/Results Medications: Active Medications Generic Name Dose Route Start Last Admin Trade Name Freq PRN Reason Stop Dose Admin Dextrose 12.5 gm 05/29/22 22:27 Dextrose 50% 25 Gm/50 Ml Syringe IV PUSH PRN PRN Hypoglycemia Protocol Enoxaparin Sodium 105 mg 05/29/22 22:55 05/31/22 08:56 Enoxaparin 120 Mg/0.8 Ml Syringe SUB-Q 105 mg Q12HR BENNY Administration Enoxaparin Sodium 40 mg 06/02/22 09:00 06/02/22 08:07 Enoxaparin 40 Mg/0.4 Ml Syringe SUB-Q 40 mg DAILY BENNY Administration Glucagon 1 mg 05/29/22 22:27 Glucagon For
--- NOTE | 2022-06-02 10:30 | PM.IMPN ---
Progress Note: A&P Assessment and Plan (1) Partial small bowel obstruction: Code(s): K56.600 - Partial intestinal obstruction, unspecified as to cause Status: Acute Assessment and Plan: POD 1 History of SBO in January of 2022 CT of the abdomen was read as Continued worsening findings of chronic partial versus acute on chronic partial small bowel obstruction, likely due to mechanical and/or vascular compromise in a large right lateral abdominal wall hernia. General surgery consulted NG tube placed draining brown bile, continued Sodium chloride 100ml/hr continued Hernia repair and bowel resection on 06/01/22 GS to manage post op care Continue NPO for now (2) Lower extremity ulceration: Qualifiers: Laterality: right Non-pressure ulcer stage: limited to breakdown of skin Qualified Code(s): L97.911 - Non-pressure chronic ulcer of unspecified part of right lower leg limited to breakdown of skin Code(s): L97.909 - Non-pressure chronic ulcer of unspecified part of unspecified lower leg with unspecified severity Status: Acute Assessment and Plan: Continue ceftriaxone day 4 total Blood cultures NGTD Tailor antibiotic according to culture and sensitive (3) Bipolar disorder: Code(s): F31.9 - Bipolar disorder, unspecified Status: Chronic Assessment and Plan: P.r.n. Ativan while NPO Hold home abilify, divalproex, olanzapine Trend mood Adjust medications as indicated (4) Type 2 diabetes mellitus: Qualifiers: Diabetes mellitus group home insulin use: without buttermaker use Diabetes mellitus complication status: with skin complications Diabetes mellitus complication detail: with dermatitis Qualified Code(s): E11.620 - Type 2 diabetes mellitus with diabetic dermatitis Code(s): E11.9 - Type 2 diabetes mellitus without complications Status: Chronic Assessment and Plan: A1c 5.6 Current glucose 97 Accu cheks Q6H while NPO Hypoglycemia protocol ISS Hold home medications metformin Trend labs Adjust medications as indicated (5) Hypothyroidism: Code(s): E03.9 - Hypothyroidism, unspecified Status: Chronic Assessment and Plan: TSH 1.770 IV levothyroxine at 44mcg while NPO Stable and chronic at this time (6) Current use of group home anticoagulation: Code(s): Z79.01 - halfway (current) use of anticoagulants Status: Acute Assessment and Plan: Eliquis due to history of DVT. Eliquis on hold for now Consider heparin or Lovenox SCDs for now Time Spent With Patient Time: 36 minutes Time with patient: Greater than 35 minutes Subjective Date/time seen: 06/02/22 1030 Interval history: 06/02/22 1030 Patient is quite a bit pain today. She still has an NG tube in that is draining a clear brown liquid. She also has an abdominal binder on she states that her belly hurts and rates an 8/10. JOHANN drain in the right lower quadrant is draining a red serosanguineous fluid. Labs vital signs remained stable today. 06/01/22 0830 Patient is lying in bed. Patient states she is in a lot of pain an 8/10. she denies any nausea, vomiting, diarrhea constipation. She does still have her NG tube which is draining quite a bit of brown fluid. She does have right lower quadrant pain as well. Reviewed the Trend this afternoon does indicate that she is going down for a hernia repair and bowel resection. Currently labs and vital signs are stable. 05/31/22 1015 Patient still appears to be well. She was a bit drowsy and was sleeping. She stated that she just wanted some water. She denied any her in chest pain or constipation, weakness or fatigue. NG tube still present did drain out 600 overnight. Will continue NG tube at this time. 05/30/22 1015 spoke with General surgery who stated that
--- NOTE | 2022-06-02 10:30 | P.PNIM_ITS ---
Progress Note: A&P Assessment and Plan (1) Partial small bowel obstruction: Code(s): K56.600 - Partial intestinal obstruction, unspecified as to cause Status: Acute Assessment and Plan: * POD 1 * History of SBO in January of 2022 * CT of the abdomen was read as Continued worsening findings of chronic partial versus acute on chronic partial small bowel obstruction, likely due to mechanical and/or vascular compromise in a large right lateral abdominal wall hernia. * General surgery consulted * NG tube placed draining brown bile, continued * Sodium chloride 100ml/hr continued * Hernia repair and bowel resection on 06/01/22 * GS to manage post op care * Continue NPO for now (2) Lower extremity ulceration: Qualifiers: Laterality: right Non-pressure ulcer stage: limited to breakdown of skin Qualified Code(s): L97.911 - Non-pressure chronic ulcer of unspecified part of right lower leg limited to breakdown of skin Code(s): L97.909 - Non-pressure chronic ulcer of unspecified part of unspecified lower leg with unspecified severity Status: Acute Assessment and Plan: * Continue ceftriaxone day 4 total * Blood cultures NGTD * Tailor antibiotic according to culture and sensitive (3) Bipolar disorder: Code(s): F31.9 - Bipolar disorder, unspecified Status: Chronic Assessment and Plan: * P.r.n. Ativan while NPO * Hold home abilify, divalproex, olanzapine * Trend mood * Adjust medications as indicated (4) Type 2 diabetes mellitus: Qualifiers: Diabetes mellitus care home insulin use: without care home use Diabetes mellitus complication status: with skin complications Diabetes mellitus complication detail: with dermatitis Qualified Code(s): E11.620 - Type 2 diabetes mellitus with diabetic dermatitis Code(s): E11.9 - Type 2 diabetes mellitus without complications Status: Chronic Assessment and Plan: * A1c 5.6 * Current glucose 97 * Accu cheks Q6H while NPO * Hypoglycemia protocol * ISS * Hold home medications metformin * Trend labs * Adjust medications as indicated (5) Hypothyroidism: Code(s): E03.9 - Hypothyroidism, unspecified Status: Chronic Assessment and Plan: * TSH 1.770 * IV levothyroxine at 44mcg while NPO * Stable and chronic at this time (6) Current use of assistant terminal manager anticoagulation: Code(s): Z79.01 - termite control service representative (current) use of 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 * Eliquis on hold for now * Consider heparin or Lovenox * SCDs for now Time Spent With Patient Time: 36 minutes Time with patient: Greater than 35 minutes Subjective Date/time seen: 06/02/22 1030 Interval history: 06/02/22 1030 Patient is quite a bit pain today. She still has an NG tube in that is draining a clear brown liquid. She also has an abdominal binder on she states that her belly hurts and rates an 8/10. JOHANN drain in the right lower quadrant is draining a red serosanguineous fluid. Labs vital signs remained stable today. 06/01/22 0830 Patient is lying in bed. Patient states she is in a lot of pain an 8/10. she denies any nausea, vomiting, diarrhea constipation. She does still have her NG tube which is
[2022-06-02] MEDS: MAGNESIUM SULF 4 GM/WATER100ML 4 GM/100 ML BAG IVPB (11:39)
[2022-06-02 12:12] LABS: Glucose Point of Care 108 mg/dl (65-105)
[2022-06-02] MEDS: cefTRIAXone 2 GM/NS 100 ML 2 GM/100 ML BAG IVPB (13:46)
[2022-06-02 18:06] LABS: Glucose Point of Care 103 mg/dl (65-105)
[2022-06-03 00:30] LABS: Glucose Point of Care 97 mg/dl (65-105)
[2022-06-03] MEDS: HYDROmorphone HCL INJ (*CRX) 1 MG/ML SYR IV PUSH ×4 (00:32→14:06)
[2022-06-03 00:37] VITALS: BP 112/60; PULSE 89; RESP 18; TEMP 36.8; O2SAT 91
[2022-06-03 05:13] VITALS: BP 130/57; PULSE 83; RESP 19; TEMP 36.4; O2SAT 94
[2022-06-03] MEDS: FUROSEMIDE INJ 40 MG/4 ML VIAL IV PUSH (05:42)
[2022-06-03] MEDS: LEVOTHYROXINE SODIUM INJ 100 MCG/5 ML VIAL 44 MCG IV PUSH (05:45)
[2022-06-03 05:53] LABS: Glucose Point of Care 102 mg/dl (65-105)
[2022-06-03 06:39] LABS: Hemoglobin 12.3 g/dL (12.0-15.0); Mean Corpuscular HGB Conc 31.5 g/dl (32-36); Mean Corpuscular Hemoglobin 29.2 pg (26-34); Mean Corpuscular Volume 92.6 fl (80-100); Platelet Count Result 244 k/mm3 (150-375); Red Blood Count 4.21 M/mm3 (4.2-5.4); Red Cell Distribution Width 14.2 % (11.5-14.5); White Blood Count 10.8 K/mm3 (4.5-10.0)
[2022-06-03 07:20] LABS: Anion Gap 7 mmol/L (8-16); Blood Urea Nitrogen 10 mg/dL (7-17); Calcium 8.4 mg/dL (8.4-10.2); Carbon Dioxide 29 mmol/L (22-30); Chloride 107 mmol/L (98-107); Estimated CRCL calculation 123 ml/min; Estimated Glomerular Filt Rate > 60; Glucose 101 mg/dL (65-110); Magnesium 2.2 mg/dL (1.6-2.3); Potassium 3.5 mmol/L (3.4-5.0); Sodium 143 mmol/L (137-145)
[2022-06-03 08:19] LABS: Glucose Point of Care 105 mg/dl (65-105)
[2022-06-03] MEDS: ENOXAPARIN 40 MG/0.4 ML SYRINGE SUB-Q (08:29)
[2022-06-03] MEDS: NICOTINE (*PBKC) 21 MG PATCH 1 PATCH TRANSDERM (08:29)
[2022-06-03] MEDS: SILVERGEL (ELTA) 45 ML 1 APPLIC TOPICAL (08:30)
--- NOTE | 2022-06-03 08:30 | PM.IMPN ---
Progress Note: A&P Assessment and Plan (1) Partial small bowel obstruction: Code(s): K56.600 - Partial intestinal obstruction, unspecified as to cause Status: Acute Assessment and Plan: POD 2 History of SBO in January of 2022 CT of the abdomen was read as Continued worsening findings of chronic partial versus acute on chronic partial small bowel obstruction, likely due to mechanical and/or vascular compromise in a large right lateral abdominal wall hernia. General surgery consulted NG tube placed draining brown bile, continued Sodium chloride 100ml/hr continued Hernia repair and bowel resection on 06/01/22 GS to manage post op care Continue NPO until bowel return (2) Lower extremity ulceration: Qualifiers: Laterality: right Non-pressure ulcer stage: limited to breakdown of skin Qualified Code(s): L97.911 - Non-pressure chronic ulcer of unspecified part of right lower leg limited to breakdown of skin Code(s): L97.909 - Non-pressure chronic ulcer of unspecified part of unspecified lower leg with unspecified severity Status: Acute Assessment and Plan: Continue ceftriaxone day 5 with Zosyn Blood cultures NGTD Tailor antibiotic according to culture and sensitive appears to be better today Continue to trend symptoms (3) Bipolar disorder: Code(s): F31.9 - Bipolar disorder, unspecified Status: Chronic Assessment and Plan: P.r.n. Ativan while NPO Hold home abilify, divalproex, olanzapine Trend mood Adjust medications as indicated (4) Type 2 diabetes mellitus: Qualifiers: Diabetes mellitus complication detail: with dermatitis Diabetes mellitus complication status: with skin complications Diabetes mellitus intermediate accountant insulin use: without usp use Qualified Code(s): E11.620 - Type 2 diabetes mellitus with diabetic dermatitis Code(s): E11.9 - Type 2 diabetes mellitus without complications Status: Chronic Assessment and Plan: A1c 5.6 Current glucose 101 Accu cheks Q6H while NPO Hypoglycemia protocol ISS Hold home medications metformin Trend labs Adjust medications as indicated (5) Hypothyroidism: Code(s): E03.9 - Hypothyroidism, unspecified Status: Chronic Assessment and Plan: TSH 1.770 IV levothyroxine at 44mcg while NPO Stable and chronic at this time (6) Current use of usp anticoagulation: Code(s): Z79.01 - detention (current) use of anticoagulants Status: Acute Assessment and Plan: Eliquis due to history of DVT. Eliquis on hold for now Lovenox currently on board Restart Eliquis when appropriate Time Spent With Patient Time: 37 minutes Time with patient: Greater than 35 minutes Subjective Date/time seen: 06/03/22829 Interval history: 06/03/22829 Currently patient is doing about the same. She really did not want to answer any questions. She just kept repeat its an 8. Was able to break the repetition however, she would not complete a review of systems at this time. Currently she is stable. JOHANN drain still in place. NG tube is also in place, with significant amount of drainage present. 06/02/22 1030 Patient is quite a bit pain today. She still has an NG tube in that is draining a clear brown liquid. She also has an abdominal binder on she states that her belly hurts and rates an 8/10. JOHANN drain in the right lower quadrant is draining a red serosanguineous fluid. Labs vital signs remained stable today. 06/01/22 08 Patient is lying in bed. Patient states she is in a lot of pain an 8/10. she denies any nausea, vomiting, diarrhea constipation. She does still have her NG tube which is draining quite a bit of brown fluid. She does have right lower quadrant pain as well. Reviewed the Trend this afternoon does indicate that she
--- NOTE | 2022-06-03 08:30 | P.PNIM_ITS ---
Progress Note: A&P Assessment and Plan (1) Partial small bowel obstruction: Code(s): K56.600 - Partial intestinal obstruction, unspecified as to cause Status: Acute Assessment and Plan: * POD 2 * History of SBO in January of 2022 * CT of the abdomen was read as Continued worsening findings of chronic partial versus acute on chronic partial small bowel obstruction, likely due to mechanical and/or vascular compromise in a large right lateral abdominal wall hernia. * General surgery consulted * NG tube placed draining brown bile, continued * Sodium chloride 100ml/hr continued * Hernia repair and bowel resection on 06/01/22 * GS to manage post op care * Continue NPO until bowel return (2) Lower extremity ulceration: Qualifiers: Laterality: right Non-pressure ulcer stage: limited to breakdown of skin Qualified Code(s): L97.911 - Non-pressure chronic ulcer of unspecified part of right lower leg limited to breakdown of skin Code(s): L97.909 - Non-pressure chronic ulcer of unspecified part of unspecified lower leg with unspecified severity Status: Acute Assessment and Plan: * Continue ceftriaxone day 5 with Zosyn * Blood cultures NGTD * Tailor antibiotic according to culture and sensitive * appears to be better today * Continue to trend symptoms (3) Bipolar disorder: Code(s): F31.9 - Bipolar disorder, unspecified Status: Chronic Assessment and Plan: * P.r.n. Ativan while NPO * Hold home abilify, divalproex, olanzapine * Trend mood * Adjust medications as indicated (4) Type 2 diabetes mellitus: Qualifiers: Diabetes mellitus complication detail: with dermatitis Diabetes mellitus complication status: with skin complications Diabetes mellitus terminal make up operator insulin use: without terminal make up operator use Qualified Code(s): E11.620 - Type 2 diabetes mellitus with diabetic dermatitis Code(s): E11.9 - Type 2 diabetes mellitus without complications Status: Chronic Assessment and Plan: * A1c 5.6 * Current glucose 101 * Accu cheks Q6H while NPO * Hypoglycemia protocol * ISS * Hold home medications metformin * Trend labs * Adjust medications as indicated (5) Hypothyroidism: Code(s): E03.9 - Hypothyroidism, unspecified Status: Chronic Assessment and Plan: * TSH 1.770 * IV levothyroxine at 44mcg while NPO * Stable and chronic at this time (6) Current use of skilled nursing anticoagulation: Code(s): Z79.01 - terminal make up operator (current) use of 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 * Eliquis on hold for now * Lovenox currently on board * Restart Eliquis when appropriate Time Spent With Patient Time: 37 minutes Time with patient: Greater than 35 minutes Subjective Date/time seen: 06/03/22829 Interval history: 06/03/22829 Currently patient is doing about the same. She really did not want to answer any questions. She just kept repeat its an 8. Was able to break the repetition however, she would not complete a review of systems at this time. Currently she is stable. JOHANN drain still in place. NG tube is also in place, with significant amount of drainage present. 06/02/22 1030 Patient is quite a bit pain t
[2022-06-03] MEDS: SODIUM CHLORIDE 0.9% IV 1,000 ML 100 ML IV CONT ×2 (08:32→19:57)
[2022-06-03 11:54] LABS: Glucose Point of Care 103 mg/dl (65-105)
[2022-06-03] MEDS: cefTRIAXone 2 GM/NS 100 ML 2 GM/100 ML BAG IVPB (13:19)
--- NOTE | 2022-06-03 15:50 | PM.PNGS ---
Progress Note: A&P Assessment and Plan (1) Incarcerated incisional hernia: Code(s): K43.0 - Incisional hernia with obstruction, without gangrene Status: Acute Assessment and Plan: Remove NG and start clear liquids today. Await return of bowel function. Transition to oral pain meds. (2) Partial small bowel obstruction: Code(s): K56.600 - Partial intestinal obstruction, unspecified as to cause Status: Acute (3) Type 2 diabetes mellitus: Qualifiers: Diabetes mellitus fpc insulin use: without intermission coordinator use Diabetes mellitus complication status: with skin complications Diabetes mellitus complication detail: with dermatitis Qualified Code(s): E11.620 - Type 2 diabetes mellitus with diabetic dermatitis Code(s): E11.9 - Type 2 diabetes mellitus without complications Status: Chronic (4) Bipolar disorder: Code(s): F31.9 - Bipolar disorder, unspecified Status: Chronic (5) Current use of intermission coordinator anticoagulation: Code(s): Z79.01 - snf (current) use of anticoagulants Status: Acute Assessment and Plan: Eliquis on hold. Restart therapeutic Lovenox today. (6) UTI (urinary tract infection): Code(s): N39.0 - Urinary tract infection, site not specified Status: Acute (7) Tobacco abuse: Code(s): Z72.0 - Tobacco use Status: Acute Subjective Subjective Date/Time Seen: 06/03/22 15:50 Interval history: Continuing to do well. C/o pain. Not much NG output. Exam GI: Inspection: incision (dressing dry) and other (JOHANN serous) GI Palp: Yes Soft to palpation, Yes Tenderness to palpation present (GI) (incisional) and No Guarding due to palpation present (GI) Objective Data Vital Signs Vital Signs: Vital Signs - 24 hr 06/02/22 19:47 06/02/22 20:30 06/03/22 00:37 Temperature 36.2 C L 36.8 C Pulse Rate 95 89 Respiratory Rate 19 18 Blood Pressure 109/69 112/60 Pulse Oximetry 92 92 91 Oxygen Delivery Nasal Cannula Oxygen Flow Rate 1 06/03/22 05:13 06/03/22 08:30 Temperature 36.4 C Pulse Rate 83 Respiratory Rate 19 Blood Pressure 130/57 L Pulse Oximetry 94 Oxygen Delivery Room Air Oxygen Flow Rate Intake/Output Intake/Output: Intake & Output 05/31/22 06/01/22 06/02/22 06/03/22 23:59 23:59 23:59 23:59 Intake Total 2900 2950 3200 1000 Output Total 2350 910 1430 3000 Balance 550 2040 1770 -2000 Meds/Results Medications: Active Medications Generic Name Dose Route Start Last Admin Trade Name Freq PRN Reason Stop Dose Admin Acetaminophen 1,000 mg 06/03/22 15:50 Acetaminophen 500 Mg Tablet PO Q6H BENNY Dextrose 12.5 gm 05/29/22 22:27 Dextrose 50% 25 Gm/50 Ml Syringe IV PUSH PRN PRN Hypoglycemia Protocol Enoxaparin Sodium 105 mg 05/29/22 22:55 05/31/22 08:56 Enoxaparin 120 Mg/0.8 Ml Syringe SUB-Q 105 mg Q12HR BENNY Administration Glucagon 1 mg 05/29/22 22:27 Glucagon For Inj 1 Mg Vial IM PRN PRN Hypoglycemia Protocol Glucose 15 gm 05/29/22 22:27 Glucose Oral Gel 15 Gm Of Glucse In 37.5 Gm Tube PO PRN PRN Hypoglycemia Protocol Hydralazine HCl 10 mg 05/29/22 20:47 Hydralazine Hcl 20 Mg/Ml Vial IV PUSH Q6H PRN Hypertension Hydromorphone HCl 0.5 mg 06/01/22 18:05 Hydromorphone Hcl Inj (*Crx) 1 Mg/Ml Syr IV PUSH Q2H PRN Pain Rated 4-6 Hydromorphone HCl 1 mg 06/01/22 18:05 06/03/22 14:06 Hydromorphone Hcl Inj (*Crx) 1 Mg/Ml Syr IV PUSH 1 mg Q2H PRN Administration Pain Rated 7-10 Sodium Chloride 1,000 mls @ 100 mls/hr 05/29/22 20:50 06/03/22 08:32 Normal Saline Iv IV CONT 100 mls/hr .Q10H BENNY Administration Dextrose 1,000 mls @ 100 mls/hr 05/29/22 22:27 Dextrose 5% 1,000 Ml IVPB PRN PRN Hypoglycemia Protocol Ceftriaxone Sodium 2 gm in 100 mls @ 200 mls/hr 06/01/22 13:00 06/03/22 13:19 Rocephin 2 G
[2022-06-03 17:06] LABS: Glucose Point of Care 102 mg/dl (65-105)
[2022-06-03] MEDS: ACETAMINOPHEN 500 MG TABLET 1000 MG PO ×2 (18:30→23:23)
[2022-06-03 19:50] VITALS: BP 146/79; PULSE 100; RESP 18; TEMP 37.2; O2SAT 90
[2022-06-03] MEDS: ENOXAPARIN 120 MG/0.8 ML SYRINGE 105 MG SUB-Q (20:00)
[2022-06-03 20:34] LABS: Glucose Point of Care 104 mg/dl (65-105)
[2022-06-03] MEDS: oxyCODONE HCL (*CRX) 5 MG TAB IR PO (22:00)
[2022-06-03 23:08] VITALS: BP 152/84; PULSE 97; RESP 18; TEMP 36.4; O2SAT 95
[2022-06-03 23:26] VITALS: PULSE 97; RESP 18; O2SAT 95
[2022-06-04] VITALS (8 sets, daily range): BP systolic 144–154; BP diastolic 72–78; PULSE 73–94; RESP 14–18; TEMP 36.6–37; O2SAT 96–100
[2022-06-04] MEDS: HYDROmorphone HCL INJ (*CRX) 1 MG/ML SYR IV PUSH (01:26)
[2022-06-04] MEDS: SODIUM CHLORIDE 0.9% IV 1,000 ML 100 ML IV CONT (05:53)
[2022-06-04] MEDS: ACETAMINOPHEN 500 MG TABLET 1000 MG PO ×3 (05:54→18:10)
[2022-06-04] MEDS: LEVOTHYROXINE SODIUM INJ 100 MCG/5 ML VIAL 44 MCG IV PUSH (05:54)
[2022-06-04 07:47] LABS: Glucose Point of Care 109 mg/dl (65-105)
[2022-06-04 08:28] LABS: Basophils Percent Auto 0.2 % (0.2-1.2); Eosinophils Absolute Auto 0.1 K/mm3 (0-0.3); Eosinophils Percent Auto 0.5 % (0-4.4); Hematocrit 36.7 % (37.0-47.0); Hemoglobin 11.3 g/dL (12.0-15.0); Immature Granulocyte Absolute 0.04 K/mm3 (0.00-0.031); Immature Granulocyte Percent A 0.4 % (0-0.5); Lymphocytes Absolute Auto 1.53 K/mm3 (0.9-3.2); Lymphocytes Percent Auto 13.8 % (18.3-44.2); Mean Corpuscular HGB Conc 30.8 g/dl (32-36); Mean Corpuscular Hemoglobin 29.3 pg (26-34); Mean Corpuscular Volume 95.1 fl (80-100); Mean Platelet Volume 9.1 fl (7.4-10.4); Monocytes Absolute Auto 0.9 K/mm3 (0.1-0.6); Monocytes Percent Auto 7.8 % (2.6-8.5); Neutrophils Absolute Auto 8.6 K/mm3 (1.3-6.7); Neutrophils Percent Auto 77.3 % (45.5-73.1); Platelet Count Result 247 k/mm3 (150-375); Red Blood Count 3.86 M/mm3 (4.2-5.4); Red Cell Distribution Width 14.4 % (11.5-14.5); White Blood Count 11.1 K/mm3 (4.5-10.0)
[2022-06-04 08:35] LABS: Alanine Aminotransferase 12 U/L (6-35); Albumin Level 2.9 g/dL (3.5-5.1); Alkaline Phosphatase 67 U/L (38-126); Anion Gap 7 mmol/L (8-16); Aspartate Amino Transferase 17 U/L (14-36); Bilirubin,Total 0.5 mg/dL (0.2-1.3); Blood Urea Nitrogen 10 mg/dL (7-17); Calcium 8.1 mg/dL (8.4-10.2); Carbon Dioxide 29 mmol/L (22-30); Chloride 108 mmol/L (98-107); Estimated CRCL calculation 123 ml/min; Estimated Glomerular Filt Rate > 60; Glucose 108 mg/dL (65-110); Magnesium 1.9 mg/dL (1.6-2.3); Sodium 144 mmol/L (137-145)
[2022-06-04] MEDS: NICOTINE (*PBKC) 21 MG PATCH 1 PATCH TRANSDERM (09:08)
[2022-06-04] MEDS: ENOXAPARIN 120 MG/0.8 ML SYRINGE 105 MG SUB-Q ×2 (09:08→20:40)
[2022-06-04] MEDS: SILVERGEL (ELTA) 45 ML 1 APPLIC TOPICAL (09:08)
--- NOTE | 2022-06-04 10:00 | PM.IMPN ---
Progress Note: A&P Assessment and Plan (1) Partial small bowel obstruction: Code(s): K56.600 - Partial intestinal obstruction, unspecified as to cause Status: Acute Assessment and Plan: POD 3 History of SBO in January of 2022 CT of the abdomen was read as Continued worsening findings of chronic partial versus acute on chronic partial small bowel obstruction, likely due to mechanical and/or vascular compromise in a large right lateral abdominal wall hernia. 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 Ativan while NPO Hold home abilify, divalproex, olanzapine Trend mood Adjust medications as indicated restart home medications if able to tolerate diet (4) Type 2 diabetes mellitus: Qualifiers: Diabetes mellitus complication detail: with dermatitis Diabetes mellitus complication status: with skin complications Diabetes mellitus detention insulin use: without extermination supervisor use Qualified Code(s): E11.620 - Type 2 diabetes mellitus with diabetic dermatitis Code(s): E11.9 - Type 2 diabetes mellitus without complications Status: Chronic Assessment and Plan: A1c 5.6 Current glucose 108 Accu cheks Q6H while NPO, change to AC/HS if continuing on diet Hypoglycemia protocol ISS Hold home medications metformin Trend labs Adjust medications as indicated (5) Hypothyroidism: Code(s): E03.9 - Hypothyroidism, unspecified Status: Chronic Assessment and Plan: TSH 1.770 IV levothyroxine at 44mcg while NPO Stable and chronic at this time (6) Current use of extermination supervisor anticoagulation: Code(s): Z79.01 - intermediate accountant (current) use of anticoagulants Status: Acute Assessment and Plan: Eliquis due to history of DVT. Eliquis on hold for now Lovenox currently on board Restart Eliquis when appropriate Plan was placed on 2LNC most likely related to sleep apnea Time Spent With Patient Time: 48 minutes Time with patient: Greater than 35 minutes Subjective Date/time seen: 06/04/22 1000 Interval history: 06/04/22 1000 Patient is lying in bed. JOHANN drain is still in place draining a clear orangy drainage. Abdominal binder in place. NG tube has been removed. bowels seems to be still hypoactive at this point. She denies any chest pain and shortness of breath. Complete review of systems unable to be obtained due to medical condition. 06/03/22 0830 Currently patient is doing about the same. She really did not want to answer any questions. She just kept repeat its an 8. Was able to break the repetition however, she would not complete a review of systems at this time. Currently she is stable. JOHANN drain still in place. NG tube is also in place, with significant amount of drainage present. 06/02/22 1030 Patient is quite a bit pain today. She still has an NG tube in that is draining a clear brown li
--- NOTE | 2022-06-04 10:00 | P.PNIM_ITS ---
Progress Note: A&P Assessment and Plan (1) Partial small bowel obstruction: Code(s): K56.600 - Partial intestinal obstruction, unspecified as to cause Status: Acute Assessment and Plan: * POD 3 * History of SBO in January of 2022 * CT of the abdomen was read as Continued worsening findings of chronic partial versus acute on chronic partial small bowel obstruction, likely due to mechanical and/or vascular compromise in a large right lateral abdominal wall hernia. * General surgery consulted * NG tube removed tiraling clear liquid * Sodium chloride 100ml/hr continued * Hernia repair and bowel resection on 06/01/22 * GS to manage post op care * Clear liquids started * restart medications tomorrow if able to tolerate clear liquids (2) Lower extremity ulceration: Qualifiers: Laterality: right Non-pressure ulcer stage: limited to breakdown of skin Qualified Code(s): L97.911 - Non-pressure chronic ulcer of unspecified part of right lower leg limited to breakdown of skin Code(s): L97.909 - Non-pressure chronic ulcer of unspecified part of unspecified lower leg with unspecified severity Status: Acute Assessment and Plan: * Continue ceftriaxone day 6 total including Zosyn * Blood cultures NGTD * Tailor antibiotic according to culture and sensitive * appears to be better today * Continue to trend symptoms (3) Bipolar disorder: Code(s): F31.9 - Bipolar disorder, unspecified Status: Chronic Assessment and Plan: * P.r.n. Ativan while NPO * Hold home abilify, divalproex, olanzapine * Trend mood * Adjust medications as indicated * restart home medications if able to tolerate diet (4) Type 2 diabetes mellitus: Qualifiers: Diabetes mellitus complication detail: with dermatitis Diabetes mellitus complication status: with skin complications Diabetes mellitus fdc insulin use: without fdc use Qualified Code(s): E11.620 - Type 2 diabetes mellitus with diabetic dermatitis Code(s): E11.9 - Type 2 diabetes mellitus without complications Status: Chronic Assessment and Plan: * A1c 5.6 * Current glucose 108 * Accu cheks Q6H while NPO, change to AC/HS if continuing on diet * Hypoglycemia protocol * ISS * Hold home medications metformin * Trend labs * Adjust medications as indicated (5) Hypothyroidism: Code(s): E03.9 - Hypothyroidism, unspecified Status: Chronic Assessment and Plan: * TSH 1.770 * IV levothyroxine at 44mcg while NPO * Stable and chronic at this time (6) Current use of fdc anticoagulation: Code(s): Z79.01 - alf (current) use of 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 * Eliquis on hold for now * Lovenox currently on board * Restart Eliquis when appropriate Plan was placed on 2LNC most likely related to sleep apnea Time Spent With Patient Time: 48 minutes Time with patient: Greater than 35 minutes Subjective Date/time seen: 06/04/22 1000 Interval history: 06/04/22 1000 Patient is lying in bed. JOHANN drain is still in place draining a clear orangy drainage. Abdominal binder in place. NG tube has been removed. bowels seems to be still hypoactive at this p
--- NOTE | 2022-06-04 10:34 | PCNFU ---
Nutrition Follow-Up Complete: Inadequate energy intake related to altered GI function as evidenced by NPO status with noted SBO Goal: Diet advancement, tolerance, po intake greater than 50% of meals - not progressing Pt current nutrition is Clear liquids. Refused dinner meal last night. Nutrition recommendation: Consider alternative nutrition delivery method such as TPN if diet is not progressed within 24 hours Last recorded weight is 107.1 kg. Bowel Motility: Last BM 05/31/22 (4 days) Labs Reviewed: Hgb 11.3, Hgb 36.7, Alb 2.9, K+ 3.0, Cre 0.5 Meds Noted: Synthroid, Zosyn Skin: Stasis, non pressure to LLE Additional Notes: Diet advanced to clear but intakes remain poor. May need to consider TPN if not improving today. Will monitor Monitor for diet order, intake, tolerance, wt, labs. Follow up in 3 day.
--- NOTE | 2022-06-04 11:17 | PM.PNGS ---
Progress Note: A&P Assessment and Plan (1) Incarcerated incisional hernia: Code(s): K43.0 - Incisional hernia with obstruction, without gangrene Status: Acute Assessment and Plan: POD3 and bowel function has returned. Will advance to full liquids. Incision healing well. Will start daily dressing changes. Continue abdominal binder. (2) Partial small bowel obstruction: Code(s): K56.600 - Partial intestinal obstruction, unspecified as to cause Status: Acute Assessment and Plan: Bowel function returned. Slowly advance diet as tolerated. (3) Type 2 diabetes mellitus: Qualifiers: Diabetes mellitus longterm insulin use: without intermediate school teacher use Diabetes mellitus complication status: with skin complications Diabetes mellitus complication detail: with dermatitis Qualified Code(s): E11.620 - Type 2 diabetes mellitus with diabetic dermatitis Code(s): E11.9 - Type 2 diabetes mellitus without complications Status: Chronic (4) Bipolar disorder: Code(s): F31.9 - Bipolar disorder, unspecified Status: Chronic Assessment and Plan: Okay to resume home medications, discussed with Hospitalist. (5) Current use of longterm anticoagulation: Code(s): Z79.01 - [facility] (current) use of anticoagulants Status: Acute Assessment and Plan: Therapeutic-dosed Lovenox resumed yesterday. (6) UTI (urinary tract infection): Code(s): N39.0 - Urinary tract infection, site not specified Status: Acute (7) Tobacco abuse: Code(s): Z72.0 - Tobacco use Status: Acute Plan I have discussed the patient's case and plan of care with Dr. Taylor. Subjective Subjective Date/Time Seen: 06/04/22 11:17 Post Op day: 3 (Incarcerated incisional hernia repair with mesh, Incidental appendectomy, Small-bowel serosal injury repair) Patient reports: tolerating liquids well, flatus, bowel movement and afebrile Interval history: Chart reviewed since last seen. Patient will only answer certain questions when asked. She denies any pain at this time. She will not respond when asked about nausea or her bowels. Per nursing, she has had at least two large bowel movements this morning. She has been drinking some but refused majority of her breakfast tray this morning. Review of Systems Review of Systems: Limited due to patient's cooperation Exam Const: General: comfortable, no acute distress and obese Resp: Effort & Inspection: no respiratory distress Auscultation: clear to auscultation bilaterally Cardio: Rate: regular rate Rhythm: regular rhythm GI: Inspection: non-distended, incision (dry and issa intact, no erythema) and other (JOHANN drain with serous output) GI Palp: Yes Soft to palpation Auscultation: normal bowel sounds Objective Data Vital Signs Vital Signs: Vital Signs - 24 hr 06/03/22 19:50 06/03/22 20:00 06/03/22 23:08 Temperature 99 F 97.6 F Pulse Rate 100 97 Respiratory Rate 18 18 Blood Pressure 146/79 H 152/84 H Pulse Oximetry 90 95 Oxygen Delivery Room Air Oxygen Flow Rate 06/03/22 23:26 06/04/22 03:31 Temperature 97.8 F Pulse Rate 97 94 Respiratory Rate 18 18 Blood Pressure 154/78 H Pulse Oximetry 95 96 Oxygen Delivery Nasal Cannula Oxygen Flow Rate 1 Intake/Output Intake/Output: Intake & Output 06/01/22 06/02/22 06/03/22 06/04/22 23:59 23:59 23:59 23:59 Intake Total 2950 3200 2220 1140 Output Total 910 1430 3930 150 Balance 2040 1770 -1710 990 Meds/Results Medications: Active Medications Generic Name Dose Route Start Last Admin Trade Name Freq PRN Reason Stop Dose Admin Acetaminophen 1,000 mg 06/03/22 15:50 06/04/22 05:54 Acetaminophen 500 Mg Tablet PO 1,000 mg Q6HR BENNY Administration Dextrose 12.5 gm 05/29/22 22:27 Dextrose 50% 25 Gm/50 Ml Syringe IV PUSH PRN PRN Hypoglycemia Protocol Enoxaparin Sodium 105 mg 05/29/22 22:55
[2022-06-04 12:21] LABS: Glucose Point of Care 125 mg/dl (65-105)
[2022-06-04] MEDS: POTASSIUM CHLORIDE INJ 40 MEQ in SODIUM CHLORIDE 0.9% IV 500 ML 130 MEQ IVPB (12:54)
[2022-06-04] MEDS: ACIDOPHILUS/BULGARICUS CHEWABLE TABLET 1 TABLET PO ×2 (12:54→18:10)
[2022-06-04] MEDS: ASCORBIC ACID 500 MG TABLET PO (12:55)
[2022-06-04] MEDS: ATORVASTATIN 10 MG TABLET PO (12:55)
[2022-06-04] MEDS: ARIPiprazole 5 MG TABLET PO (12:55)
[2022-06-04] MEDS: SPIRONOLACTONE 25 MG TABLET PO (12:55)
[2022-06-04] MEDS: GABAPENTIN 100 MG CAPSULE PO ×2 (12:55→20:41)
[2022-06-04] MEDS: FUROSEMIDE 40 MG TABLET PO (12:55)
[2022-06-04] MEDS: carvediloL 3.125 MG TABLET PO ×2 (12:55→18:10)
[2022-06-04 17:11] LABS: Glucose Point of Care 114 mg/dl (65-105)
[2022-06-04] MEDS: OLANZapine 5 MG TABLET PO (18:10)
[2022-06-04 20:25] LABS: Glucose Point of Care 122 mg/dl (65-105)
[2022-06-04] MEDS: traZODone HCL 50 MG TABLET 100 MG PO (20:40)
[2022-06-04] MEDS: DIVALPROEX SODIUM DR 250 MG TABEC PO (20:40)
[2022-06-05] MEDS: oxyCODONE HCL (*CRX) 5 MG TAB IR PO ×3 (03:29→18:00)
[2022-06-05 05:01] VITALS: BP 142/72; PULSE 69; RESP 20; TEMP 36.6; O2SAT 92
[2022-06-05] MEDS: ACETAMINOPHEN 500 MG TABLET 1000 MG PO ×3 (05:03→18:00)
[2022-06-05] MEDS: GABAPENTIN 100 MG CAPSULE PO ×3 (05:09→22:39)
[2022-06-05] MEDS: SODIUM CHLORIDE 0.9% IV 1,000 ML 999 ML IV CONT (05:09)
[2022-06-05] MEDS: LEVOTHYROXINE SODIUM 88 MCG TABLET PO (05:09)
[2022-06-05] MEDS: HYDROcodone/acetaminophen (*CRX) 5-325 MG TABLET 1 TAB PO (06:10)
[2022-06-05 08:00] VITALS: O2SAT 92
[2022-06-05 08:09] LABS: Glucose Point of Care 107 mg/dl (65-105)
[2022-06-05 08:10] LABS: Basophils Percent Auto 0.3 % (0.2-1.2); Eosinophils Absolute Auto 0.2 K/mm3 (0-0.3); Eosinophils Percent Auto 2.3 % (0-4.4); Hematocrit 37.6 % (37.0-47.0); Hemoglobin 11.3 g/dL (12.0-15.0); Immature Granulocyte Absolute 0.03 K/mm3 (0.00-0.031); Immature Granulocyte Percent A 0.3 % (0-0.5); Immature Platelet Fraction Pct 2.8 % (0.9-11.2); Lymphocytes Absolute Auto 1.53 K/mm3 (0.9-3.2); Lymphocytes Percent Auto 17.3 % (18.3-44.2); Mean Corpuscular HGB Conc 30.1 g/dl (32-36); Mean Corpuscular Hemoglobin 29.4 pg (26-34); Mean Corpuscular Volume 97.9 fl (80-100); Mean Platelet Volume 9.7 fl (7.4-10.4); Monocytes Absolute Auto 0.6 K/mm3 (0.1-0.6); Monocytes Percent Auto 6.2 % (2.6-8.5); Neutrophils Absolute Auto 6.5 K/mm3 (1.3-6.7); Neutrophils Percent Auto 73.6 % (45.5-73.1); Platelet Count Result 228 k/mm3 (150-375); Red Blood Count 3.84 M/mm3 (4.2-5.4); Red Cell Distribution Width 14.4 % (11.5-14.5); White Blood Count 8.8 K/mm3 (4.5-10.0)
--- NOTE | 2022-06-05 08:45 | PM.IMPN ---
Progress Note: A&P Assessment and Plan (1) Partial small bowel obstruction: Code(s): K56.600 - Partial intestinal obstruction, unspecified as to cause Status: Acute Assessment and Plan: POD 4 History of SBO in January of 2022 CT of the abdomen was read as Continued worsening findings of chronic partial versus acute on chronic partial small bowel obstruction, likely due to mechanical and/or vascular compromise in a large right lateral abdominal wall hernia. General surgery consulted NG tube removed, low fiber diet Sodium chloride 100ml/hr continued Hernia repair and bowel resection on 06/01/22 GS to manage post op custodial medications restarted Pain medications adjusted to oxycodone 5-10mg PO Adjust pain medications as indicated (2) Lower extremity ulceration: Qualifiers: Laterality: right Non-pressure ulcer stage: limited to breakdown of skin Qualified Code(s): L97.911 - Non-pressure chronic ulcer of unspecified part of right lower leg limited to breakdown of skin Code(s): L97.909 - Non-pressure chronic ulcer of unspecified part of unspecified lower leg with unspecified severity Status: Acute Assessment and Plan: Continue ceftriaxone day 7 total including Zosyn Blood cultures NGTD Tailor antibiotic according to culture and sensitive appears to be better today Continue to trend symptoms (3) Bipolar disorder: Code(s): F31.9 - Bipolar disorder, unspecified Status: Chronic Assessment and Plan: P.r.n. Ativan while NPO Hold home abilify, divalproex, olanzapine Mood a lot better today Adjust medications as indicated restart home medications if able to tolerate diet (4) Type 2 diabetes mellitus: Qualifiers: Diabetes mellitus complication detail: with dermatitis Diabetes mellitus complication status: with skin complications Diabetes mellitus intermediate insulin use: without terminal operations supervisor use Qualified Code(s): E11.620 - Type 2 diabetes mellitus with diabetic dermatitis Code(s): E11.9 - Type 2 diabetes mellitus without complications Status: Chronic Assessment and Plan: A1c 5.6 Current glucose 107 Accu cheks Q6H while NPO, change to AC/HS if continuing on diet Hypoglycemia protocol ISS Hold home medications metformin Trend labs Adjust medications as indicated (5) Hypothyroidism: Code(s): E03.9 - Hypothyroidism, unspecified Status: Chronic Assessment and Plan: TSH 1.770 IV levothyroxine at 44mcg while NPO Stable and chronic at this time (6) Current use of terminal operations supervisor anticoagulation: Code(s): Z79.01 - buttermaker (current) use of anticoagulants Status: Acute Assessment and Plan: Eliquis due to history of DVT. Eliquis on hold for now Lovenox currently on board Restart Eliquis when appropriate Plan was placed on 2LNC most likely related to sleep apnea Time Spent With Patient Time: 48 minutes Time with patient: Greater than 35 minutes Subjective Date/time seen: 06/05/22844 Interval history: 06/05/22844 Patient seems to be more active today. She also is talking more. She denies any current chest pain, shortness a breath, nausea, vomiting, diarrhea constipation. She did complain of pain and stated that her pain was an 8/10. Talked to her about adding some oral pain medicines. Also talked to her about the urination she stated that she has not urinated yet. She was bladder scanned however the bladder scanner is stating that the patient only has 180 cc of urine left in her bladder. will have the nurse straight catheter to see if that will help. 06/04/22 1000 Patient is lying in bed. JOHANN drain is still in place draining a clear orangy drainage. Abdominal binder in place. NG tube has been removed. bowels seems to be still hypoactive at this point
--- NOTE | 2022-06-05 08:45 | P.PNIM_ITS ---
Progress Note: A&P Assessment and Plan (1) Partial small bowel obstruction: Code(s): K56.600 - Partial intestinal obstruction, unspecified as to cause Status: Acute Assessment and Plan: * POD 4 * History of SBO in January of 2022 * CT of the abdomen was read as Continued worsening findings of chronic partial versus acute on chronic partial small bowel obstruction, likely due to mechanical and/or vascular compromise in a large right lateral abdominal wall hernia. * General surgery consulted * NG tube removed, low fiber diet * Sodium chloride 100ml/hr continued * Hernia repair and bowel resection on 06/01/22 * GS to manage post op care * Home medications restarted * Pain medications adjusted to oxycodone 5-10mg PO * Adjust pain medications as indicated (2) Lower extremity ulceration: Qualifiers: Laterality: right Non-pressure ulcer stage: limited to breakdown of skin Qualified Code(s): L97.911 - Non-pressure chronic ulcer of unspecified part of right lower leg limited to breakdown of skin Code(s): L97.909 - Non-pressure chronic ulcer of unspecified part of unspecified lower leg with unspecified severity Status: Acute Assessment and Plan: * Continue ceftriaxone day 7 total including Zosyn * Blood cultures NGTD * Tailor antibiotic according to culture and sensitive * appears to be better today * Continue to trend symptoms (3) Bipolar disorder: Code(s): F31.9 - Bipolar disorder, unspecified Status: Chronic Assessment and Plan: * P.r.n. Ativan while NPO * Hold home abilify, divalproex, olanzapine * Mood a lot better today * Adjust medications as indicated * restart home medications if able to tolerate diet (4) Type 2 diabetes mellitus: Qualifiers: Diabetes mellitus complication detail: with dermatitis Diabetes mellitus complication status: with skin complications Diabetes mellitus mcc insulin use: without mcc use Qualified Code(s): E11.620 - Type 2 diabetes mellitus with diabetic dermatitis Code(s): E11.9 - Type 2 diabetes mellitus without complications Status: Chronic Assessment and Plan: * A1c 5.6 * Current glucose 107 * Accu cheks Q6H while NPO, change to AC/HS if continuing on diet * Hypoglycemia protocol * ISS * Hold home medications metformin * Trend labs * Adjust medications as indicated (5) Hypothyroidism: Code(s): E03.9 - Hypothyroidism, unspecified Status: Chronic Assessment and Plan: * TSH 1.770 * IV levothyroxine at [facility] [place] while NPO * Stable and chronic at this time (6) Current use of outreach representative anticoagulation: Code(s): Z79.01 - human resources project coordinator (current) use of 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 * Eliquis on hold for now * Lovenox currently on board * Restart Eliquis when appropriate Plan was placed on 2LNC most likely related to sleep apnea Time Spent With Patient Time: 48 minutes Time with patient: Greater than 35 minutes Subjective Date/time seen: 06/05/22844 Interval history: 06/05/22844 Patient seems to be more active today. She also is talking more. She denies any current chest pain, shortness a breath, nausea, vomiting, luis a
[2022-06-05 09:17] VITALS: PULSE 72
[2022-06-05] MEDS: carvediloL 3.125 MG TABLET PO ×2 (09:17→18:00)
[2022-06-05] MEDS: ACIDOPHILUS/BULGARICUS CHEWABLE TABLET 1 TABLET PO ×2 (09:17→18:00)
[2022-06-05] MEDS: ATORVASTATIN 10 MG TABLET PO (09:18)
[2022-06-05] MEDS: ASCORBIC ACID 500 MG TABLET PO (09:18)
[2022-06-05] MEDS: OLANZapine 5 MG TABLET PO ×2 (09:18→18:01)
[2022-06-05] MEDS: FUROSEMIDE 40 MG TABLET PO (09:18)
[2022-06-05] MEDS: ARIPiprazole 5 MG TABLET PO (09:18)
[2022-06-05] MEDS: SPIRONOLACTONE 25 MG TABLET PO (09:18)
[2022-06-05] MEDS: NICOTINE (*PBKC) 21 MG PATCH 1 PATCH TRANSDERM (09:19)
[2022-06-05] MEDS: ENOXAPARIN 120 MG/0.8 ML SYRINGE 105 MG SUB-Q ×2 (09:19→22:38)
[2022-06-05] MEDS: SILVERGEL (ELTA) 45 ML 1 APPLIC TOPICAL (09:19)
[2022-06-05 09:50] LABS: Alanine Aminotransferase 13 U/L (6-35); Albumin Level 2.5 g/dL (3.5-5.1); Alkaline Phosphatase 62 U/L (38-126); Anion Gap 3 mmol/L (8-16); Aspartate Amino Transferase 22 U/L (14-36); Bilirubin,Total 0.6 mg/dL (0.2-1.3); Blood Urea Nitrogen 9 mg/dL (7-17); Calcium 7.8 mg/dL (8.4-10.2); Carbon Dioxide 29 mmol/L (22-30); Chloride 110 mmol/L (98-107); Estimated CRCL calculation 149 ml/min; Estimated Glomerular Filt Rate > 60; Glucose 101 mg/dL (65-110); Magnesium 1.8 mg/dL (1.6-2.3); Potassium 3.7 mmol/L (3.4-5.0); Sodium 142 mmol/L (137-145)
--- NOTE | 2022-06-05 09:50 | PM.PNGS ---
Progress Note: A&P Assessment and Plan (1) Incarcerated incisional hernia: Code(s): K43.0 - Incisional hernia with obstruction, without gangrene Status: Acute Assessment and Plan: Continues to improve. Tolerating full liquids and bowels are moving. Will advance to soft diet. Appetite improving. (2) Partial small bowel obstruction: Code(s): K56.600 - Partial intestinal obstruction, unspecified as to cause Status: Acute Assessment and Plan: Due to chronically incarcerated incisional hernia, s/p repair. Resolved. Advance diet as tolerated. (3) Urinary retention: Code(s): R33.9 - Retention of urine, unspecified Status: Acute Assessment and Plan: Smith removed yesterday and she has not voided overnight. Bladder scan ordered. Will need catheterized if unable to void. (4) Type 2 diabetes mellitus: Qualifiers: Diabetes mellitus senior care insulin use: without senior care use Diabetes mellitus complication status: with skin complications Diabetes mellitus complication detail: with dermatitis Qualified Code(s): E11.620 - Type 2 diabetes mellitus with diabetic dermatitis Code(s): E11.9 - Type 2 diabetes mellitus without complications Status: Chronic (5) Bipolar disorder: Code(s): F31.9 - Bipolar disorder, unspecified Status: Chronic Assessment and Plan: More alert and cooperative today. Home medications were restarted. (6) Current use of senior care anticoagulation: Code(s): Z79.01 - custodial (current) use of anticoagulants Status: Acute Assessment and Plan: Therapeutic-dosed Lovenox resumed yesterday. If patient continues to improve, she may be able to transition back to her Eliquis in the next 1-2 days. (7) UTI (urinary tract infection): Code(s): N39.0 - Urinary tract infection, site not specified Status: Acute Plan I have discussed the patient's case and plan of care with Dr. Taylor. Subjective Subjective Date/Time Seen: 06/05/22 09:50 Post Op day: 4 (Incarcerated incisional hernia repair with mesh, Incidental appendectomy, Small-bowel serosal injury repair) Patient reports: no new complaints, tolerating liquids well, flatus, bowel movement and afebrile Interval history: Patient seen this morning and is more alert. She is answering more questions for me today and more cooperative. She denies any abdominal pain at the time of my exam. Nursing is at the bedside doing a bladder scan as she has not voided overnight since the Smith was removed. She is tolerating full liquids. Denies any nausea and no vomiting. Still on 1 liter of O2 and nursing is going to try and wean her off today. Exam Const: General: comfortable and no acute distress GI: Inspection: non-distended, incision (dry and issa intact, no erythema) and other (JOHANN drain with serosanguineous output) GI Palp: Yes Soft to palpation, Yes Tenderness to palpation present (GI) (incisional) and No Guarding due to palpation present (GI) Auscultation: normal bowel sounds Extrem: General: no calf tenderness and no edema Psych: Insight: Limited insight present (Psych) Judgement: Limited judgement present (Psych) Objective Data Vital Signs Vital Signs: Vital Signs - 24 hr 06/04/22 12:55 06/04/22 14:00 06/04/22 18:10 Temperature 98.6 F Pulse Rate 94 84 86 Respiratory Rate 14 Blood Pressure 152/72 H Pulse Oximetry 100 Oxygen Delivery Oxygen Flow Rate 06/04/22 20:44 06/04/22 20:00 06/05/22 05:01 Temperature 98.1 F 97.9 F Pulse Rate 73 69 Respiratory Rate 17 20 Blood Pressure 144/75 H 142/72 H Pulse Oximetry 96 96 92 Oxygen Delivery Nasal Cannula Oxygen Flow Rate 1 06/05/22 09:17 Temperature Pulse Rate 72 Respiratory Rate Blood Pressure Pulse Oximetry Oxygen Delivery Oxygen Flow Rate Intake/Output Intake/Output: Intake & Output 06/02/22 06/03/22 06/04/22 06/05/22 23:59
[2022-06-05 12:14] LABS: Glucose Point of Care 121 mg/dl (65-105)
[2022-06-05 13:41] VITALS: BP 110/62; PULSE 62; RESP 14; TEMP 36.8; O2SAT 96
[2022-06-05 17:58] LABS: Glucose Point of Care 98 mg/dl (65-105)
[2022-06-05 18:00] VITALS: PULSE 64
[2022-06-05 19:39] VITALS: BP 122/64; PULSE 56; RESP 18; TEMP 35.8; O2SAT 100
[2022-06-05] MEDS: traZODone HCL 50 MG TABLET 100 MG PO (22:39)
[2022-06-05] MEDS: DIVALPROEX SODIUM DR 250 MG TABEC PO (22:39)
[2022-06-05 22:58] LABS: Glucose Point of Care 110 mg/dl (65-105)
[2022-06-06 03:34] VITALS: BP 126/55; PULSE 62; RESP 18; TEMP 35.7; O2SAT 100
[2022-06-06] MEDS: SODIUM CHLORIDE 0.9% IV 1,000 ML 100 ML IV CONT (05:45)
[2022-06-06 05:51] LABS: Alanine Aminotransferase 11 U/L (6-35); Albumin Level 2.7 g/dL (3.5-5.1); Alkaline Phosphatase 49 U/L (38-126); Anion Gap 3 mmol/L (8-16); Aspartate Amino Transferase 20 U/L (14-36); Bilirubin,Total 0.4 mg/dL (0.2-1.3); Blood Urea Nitrogen 12 mg/dL (7-17); Calcium 8.1 mg/dL (8.4-10.2); Carbon Dioxide 30 mmol/L (22-30); Chloride 107 mmol/L (98-107); Estimated CRCL calculation 149 ml/min; Estimated Glomerular Filt Rate > 60; Glucose 94 mg/dL (65-110); Potassium 3.6 mmol/L (3.4-5.0); Sodium 140 mmol/L (137-145)
[2022-06-06 05:58] LABS: Basophils Percent Auto 0.4 % (0.2-1.2); Eosinophils Absolute Auto 0.2 K/mm3 (0-0.3); Eosinophils Percent Auto 3.5 % (0-4.4); Hemoglobin 11.6 g/dL (12.0-15.0); Immature Granulocyte Absolute 0.02 K/mm3 (0.00-0.031); Immature Granulocyte Percent A 0.4 % (0-0.5); Lymphocytes Absolute Auto 1.29 K/mm3 (0.9-3.2); Mean Corpuscular HGB Conc 28.3 g/dl (32-36); Mean Corpuscular Hemoglobin 28.5 pg (26-34); Mean Corpuscular Volume 100.7 fl (80-100); Mean Platelet Volume 10.1 fl (7.4-10.4); Monocytes Absolute Auto 0.3 K/mm3 (0.1-0.6); Monocytes Percent Auto 6.6 % (2.6-8.5); Neutrophils Absolute Auto 3.3 K/mm3 (1.3-6.7); Neutrophils Percent Auto 64.1 % (45.5-73.1); Platelet Count Result 152 k/mm3 (150-375); Red Blood Count 4.07 M/mm3 (4.2-5.4); Red Cell Distribution Width 14.2 % (11.5-14.5); White Blood Count 5.2 K/mm3 (4.5-10.0)
[2022-06-06] MEDS: LEVOTHYROXINE SODIUM INJ 100 MCG/5 ML VIAL 44 MCG IV PUSH (06:35)
[2022-06-06 06:48] LABS: Anisocytosis 1+ (NORMAL); Hypochromasia 1+ (NORMAL); Platelet Estimate Adequate (Adequate); Schistocytes None Seen (NORMAL)
--- NOTE | 2022-06-06 07:00 | P.PNIM_ITS ---
Progress Note: A&P Assessment and Plan (1) Partial small bowel obstruction: Code(s): K56.600 - Partial intestinal obstruction, unspecified as to cause Status: Acute Assessment and Plan: * POD 5 * History of SBO in January of 2022 * CT of the abdomen was read as Continued worsening findings of chronic partial versus acute on chronic partial small bowel obstruction, likely due to mechanical and/or vascular compromise in a large right lateral abdominal wall hernia. * General surgery consulted * NG tube removed, low fiber diet * Sodium chloride 100ml/hr stopped at this time * Hernia repair and bowel resection on 06/01/22 * GS to manage post op care * Home medications restarted * Pain medications adjusted to oxycodone 5-10mg PO * Adjust pain medications as indicated (2) Lower extremity ulceration: Qualifiers: Laterality: right Non-pressure ulcer stage: limited to breakdown of s kin Qualified Code(s): L97.911 - Non-pressure chronic ulcer of unspecified part of right lower leg limited to breakdown of skin Code(s): L97.909 - Non-pressure chronic ulcer of unspecified part of unspecified lower leg with unspecified severity Status: Acute Assessment and Plan: * Antibiotics discontinued at this time * Continue ceftriaxone day 7 total including Zosyn * Blood cultures NGTD * Tailor antibiotic according to culture and sensitive * appears to be better today * Continue to trend symptoms (3) Bipolar disorder: Code(s): F31.9 - Bipolar disorder, unspecified Status: Chronic Assessment and Plan: * P.r.n. Ativan while NPO * Hold home abilify, divalproex, olanzapine * Mood a lot better today * Adjust medications as indicated * restart home medications if able to tolerate diet (4) Type 2 diabetes mellitus: Qualifiers: Diabetes mellitus care home insulin use: without care home use Diabetes mellitus complication status: with skin complications Diabetes mellitus complication detail: with dermatitis Qualified Code(s): E11.620 - Type 2 diabetes mellitus with diabetic dermatitis Code(s): E11.9 - Type 2 diabetes mellitus without complications Status: Chronic Assessment and Plan: * A1c 5.6 * Current glucose 94 * Accu cheks Q6H while NPO, change to AC/HS if continuing on diet * Hypoglycemia protocol * ISS * Hold home medications metformin * Trend labs * Adjust medications as indicated (5) Hypothyroidism: Code(s): E03.9 - Hypothyroidism, unspecified Status: Chronic Assessment and Plan: * TSH 1.770 * IV levothyroxine at 44mcg while NPO * Stable and chronic at this time (6) Current use of termite control service representative anticoagulation: Code(s): Z79.01 - group home (current) use of 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 * Eliquis on hold for now * Lovenox currently on board * Restart Eliquis when appropriate Plan was placed on 2LNC most likely related to sleep apnea Subjective Date/time seen: 06/06/22 07:00 Interval history: 06/06/22 06/05/22 0845 Patient seems to be more active today. She also is talking more. She denies any current chest pain, shortness a breath, nausea, vomiting, diarrhea constipa
--- NOTE | 2022-06-06 07:00 | PM.IMPN ---
Progress Note: A&P Assessment and Plan (1) Partial small bowel obstruction: Code(s): K56.600 - Partial intestinal obstruction, unspecified as to cause Status: Acute Assessment and Plan: POD 5 History of SBO in January of 2022 CT of the abdomen was read as Continued worsening findings of chronic partial versus acute on chronic partial small bowel obstruction, likely due to mechanical and/or vascular compromise in a large right lateral abdominal wall hernia. General surgery consulted NG tube removed, low fiber diet Sodium chloride 100ml/hr stopped at this time Hernia repair and bowel resection on 06/01/22 GS to manage post op senior living medications restarted Pain medications adjusted to oxycodone 5-10mg PO Adjust pain medications as indicated (2) Lower extremity ulceration: Qualifiers: Laterality: right Non-pressure ulcer stage: limited to breakdown of skin Qualified Code(s): L97.911 - Non-pressure chronic ulcer of unspecified part of right lower leg limited to breakdown of skin Code(s): L97.909 - Non-pressure chronic ulcer of unspecified part of unspecified lower leg with unspecified severity Status: Acute Assessment and Plan: Antibiotics discontinued at this time Continue ceftriaxone day 7 total including Zosyn Blood cultures NGTD Tailor antibiotic according to culture and sensitive appears to be better today Continue to trend symptoms (3) Bipolar disorder: Code(s): F31.9 - Bipolar disorder, unspecified Status: Chronic Assessment and Plan: P.r.n. Ativan while NPO Hold home abilify, divalproex, olanzapine Mood a lot better today Adjust medications as indicated restart home medications if able to tolerate diet (4) Type 2 diabetes mellitus: Qualifiers: Diabetes mellitus senior care insulin use: without emt intermediate use Diabetes mellitus complication status: with skin complications Diabetes mellitus complication detail: with dermatitis Qualified Code(s): E11.620 - Type 2 diabetes mellitus with diabetic dermatitis Code(s): E11.9 - Type 2 diabetes mellitus without complications Status: Chronic Assessment and Plan: A1c 5.6 Current glucose 94 Accu cheks Q6H while NPO, change to AC/HS if continuing on diet Hypoglycemia protocol ISS Hold home medications metformin Trend labs Adjust medications as indicated (5) Hypothyroidism: Code(s): E03.9 - Hypothyroidism, unspecified Status: Chronic Assessment and Plan: TSH 1.770 IV levothyroxine at 44mcg while NPO Stable and chronic at this time (6) Current use of emt intermediate anticoagulation: Code(s): Z79.01 - 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 Eliquis on hold for now Lovenox currently on board Restart Eliquis when appropriate Plan was placed on 2LNC most likely related to sleep apnea Subjective Date/time seen: 06/06/22 07:00 Interval history: 06/06/22 06/05/22 0845 Patient seems to be more active today. She also is talking more. She denies any current chest pain, shortness a breath, nausea, vomiting, diarrhea constipation. She did complain of pain and stated that her pain was an 8/10. Talked to her about adding some oral pain medicines. Also talked to her about the urination she stated that she has not urinated yet. She was bladder scanned however the bladder scanner is stating that the patient only has 180 cc of urine left in her bladder. will have the nurse straight catheter to see if that will help. 06/04/22 1000 Patient is lying in bed. JOHANN drain is still in place draining a clear orangy drainage. Abdominal binder in place. NG tube has been removed. bowels seems to be still hypoactive at this point. She denies any devendra
[2022-06-06 08:18] LABS: Glucose Point of Care 93 mg/dl (65-105)
[2022-06-06] MEDS: ACIDOPHILUS/BULGARICUS CHEWABLE TABLET 1 TABLET PO ×2 (09:14→16:58)
[2022-06-06] MEDS: ATORVASTATIN 10 MG TABLET PO (09:14)
[2022-06-06] MEDS: FUROSEMIDE 40 MG TABLET PO (09:14)
[2022-06-06] MEDS: oxyCODONE HCL (*CRX) 2.5 MG TAB IR PO ×2 (09:14→16:59)
[2022-06-06 09:15] VITALS: PULSE 78
[2022-06-06] MEDS: ASCORBIC ACID 500 MG TABLET PO (09:15)
[2022-06-06] MEDS: SILVERGEL (ELTA) 45 ML 1 APPLIC TOPICAL (09:15)
[2022-06-06] MEDS: SPIRONOLACTONE 25 MG TABLET PO (09:15)
[2022-06-06] MEDS: carvediloL 3.125 MG TABLET PO ×2 (09:15→16:58)
[2022-06-06] MEDS: OLANZapine 5 MG TABLET PO ×2 (09:15→16:59)
[2022-06-06] MEDS: ARIPiprazole 5 MG TABLET PO (09:15)
--- NOTE | 2022-06-06 09:17 | PC.NURSE ---
student RN will administer lovenox and nicotine patch this a.m with instructor
[2022-06-06 09:30] VITALS: O2SAT 96
[2022-06-06] MEDS: NICOTINE (*PBKC) 21 MG PATCH 1 PATCH TRANSDERM (09:58)
[2022-06-06] MEDS: ENOXAPARIN 120 MG/0.8 ML SYRINGE 105 MG SUB-Q (09:59)
--- NOTE | 2022-06-06 11:00 | PM.DS ---
DS: Admitting Diagnosis Discharge Date 06/06/22 1100 Admitting Diagnosis Small-bowel obstruction DS: Discharge Diagnosis Discharge Diagnosis (1) Partial small bowel obstruction: Code(s): K56.600 - Partial intestinal obstruction, unspecified as to cause Status: Acute Assessment and Plan: POD 5 History of SBO in January of 2022 CT of the abdomen was read as Continued worsening findings of chronic partial versus acute on chronic partial small bowel obstruction, likely due to mechanical and/or vascular compromise in a large right lateral abdominal wall hernia. General surgery consulted NG tube removed, low fiber diet Sodium chloride 100ml/hr stopped at this time Hernia repair and bowel resection on 06/01/22 GS to manage post op alf medications restarted Pain medications adjusted to oxycodone 5-10mg PO Adjust pain medications as indicated (2) Lower extremity ulceration: Qualifiers: Laterality: right Non-pressure ulcer stage: limited to breakdown of skin Qualified Code(s): L97.911 - Non-pressure chronic ulcer of unspecified part of right lower leg limited to breakdown of skin Code(s): L97.909 - Non-pressure chronic ulcer of unspecified part of unspecified lower leg with unspecified severity Status: Acute Assessment and Plan: Antibiotics discontinued at this time Continue ceftriaxone day 7 total including Zosyn Blood cultures NGTD Tailor antibiotic according to culture and sensitive appears to be better today Continue to trend symptoms (3) Bipolar disorder: Code(s): F31.9 - Bipolar disorder, unspecified Status: Chronic Assessment and Plan: P.r.n. Ativan while NPO Hold home abilify, divalproex, olanzapine Mood a lot better today Adjust medications as indicated restart home medications if able to tolerate diet (4) Type 2 diabetes mellitus: Qualifiers: Diabetes mellitus complication detail: with dermatitis Diabetes mellitus complication status: with skin complications Diabetes mellitus care home insulin use: without care home use Qualified Code(s): E11.620 - Type 2 diabetes mellitus with diabetic dermatitis Code(s): E11.9 - Type 2 diabetes mellitus without complications Status: Chronic Assessment and Plan: A1c 5.6 Current glucose 94 Accu cheks Q6H while NPO, change to AC/HS if continuing on diet Hypoglycemia protocol ISS Hold home medications metformin Trend labs Adjust medications as indicated (5) Hypothyroidism: Code(s): E03.9 - Hypothyroidism, unspecified Status: Chronic Assessment and Plan: TSH 1.770 IV levothyroxine at 44mcg while NPO Stable and chronic at this time (6) Current use of care home anticoagulation: Code(s): Z79.01 - shelter (current) use of anticoagulants Status: Acute Assessment and Plan: Eliquis due to history of DVT. Eliquis on hold for now Lovenox currently on board Restart Eliquis when appropriate DS: Summary Hospital Course Hospital Course: patient is 59-year-old female with a past medical history type 2 diabetes, bowel obstruction, bipolar disorder who was brought to the ED with complaints nausea, vomiting abdominal pain. Patient is a known right-sided hernia that was reducible. CT upon arrival did show worsening findings of chronic partial versus acute on chronic partial bowel obstruction likely due to mechanical and or vesicular compromise in the large right lateral abdominal wall hernia. General surgery has been consulted NG tube was placed. Hernia was reduced manually without any improvements. Patient was monitored for a few days without any improvement and it was decided for the patient to go down for a bowel resection with hernia repair on 06/01/2022. Diet had been advanced slowly and NG tube continued at
--- NOTE | 2022-06-06 11:00 | P.DS_ITS ---
DS: Admitting Diagnosis Discharge Date 06/06/22 1100 Admitting Diagnosis Small-bowel obstruction DS: Discharge Diagnosis Discharge Diagnosis (1) Partial small bowel obstruction: Code(s): K56.600 - Partial intestinal obstruction, unspecified as to cause Status: Acute Assessment and Plan: * POD 5 * History of SBO in January of 2022 * CT of the abdomen was read as Continued worsening findings of chronic partial versus acute on chronic partial small bowel obstruction, likely due to mec hanical and/or vascular compromise in a large right lateral abdominal wall hernia. * General surgery consulted * NG tube removed, low fiber diet * Sodium chloride 100ml/hr stopped at this time * Hernia repair and bowel resection on 06/01/22 * GS to manage post op care * Home medications restarted * Pain medications adjusted to oxycodone 5-10mg PO * Adjust pain medications as indicated (2) Lower extremity ulceration: Qualifiers: Laterality: right Non-pressure ulcer stage: limited to breakdown of skin Qualified Code(s): L97.911 - Non-pressure chronic ulcer of unspecified part of right lower leg limited to breakdown of skin Code(s): L97.909 - Non-pressure chronic ulcer of unspecified part of unspecified lower leg with unspecified severity Status: Acute Assessment and Plan: * Antibiotics discontinued at this time * Continue ceftriaxone day 7 total including Zosyn * Blood cultures NGTD * Tailor antibiotic according to culture and sensitive * appears to be better today * Continue to trend symptoms (3) Bipolar disorder: Code(s): F31.9 - Bipolar disorder, unspecified Status: Chronic Assessment and Plan: * P.r.n. Ativan while NPO * Hold home abilify, divalproex, olanzapine * Mood a lot better today * Adjust medications as indicated * restart home medications if able to tolerate diet (4) Type 2 diabetes mellitus: Qualifiers: Diabetes mellitus complication detail: with dermatitis Diabetes mellitus complication status: with skin complications Diabetes mellitus fdc insulin use: without fdc use Qualified Code(s): E11.620 - Type 2 diabetes mellitus with diabetic dermatitis Code(s): E11.9 - Type 2 diabetes mellitus without complications Status: Chronic Assessment and Plan: * A1c 5.6 * Current glucose 94 * Accu cheks Q6H while NPO, change to AC/HS if continuing on diet * Hypoglycemia protocol * ISS * Hold home medications metformin * Trend labs * Adjust medications as indicated (5) Hypothyroidism: Code(s): E03.9 - Hypothyroidism, unspecified Status: Chronic Assessment and Plan: * TSH 1.770 * IV levothyroxine at [facility] while NPO * Stable and chronic at this time (6) Current use of terminal carman anticoagulation: Code(s): Z79.01 - [facility] (current) use of 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 * Eliquis on hold for now * Lovenox currently on board * Restart Eliquis when appropriate DS: Summary Hospital Course Hospital Course: patient is 59-year-old female with a past medical history type 2 diabetes, bowel obstruction, bipolar disorder who was brought to the ED with complaints nausea, vomiting abdominal love
[2022-06-06 12:03] LABS: Glucose Point of Care 104 mg/dl (65-105)
[2022-06-06] MEDS: ACETAMINOPHEN 500 MG TABLET 1000 MG PO ×2 (12:03→17:00)
--- NOTE | 2022-06-06 12:53 | PM.PNGS ---
Progress Note: A&P Assessment and Plan (1) Incarcerated incisional hernia: Code(s): K43.0 - Incisional hernia with obstruction, without gangrene Status: Acute Assessment and Plan: Tolerating a solid diet. Incision healing well with repair intact. Okay from our standpoint to [facility] Will leave JOHANN drain in place on discharge. Follow-up with Dr. Taylor in 1 week to reassess for drain removal and staple removal. (2) Partial small bowel obstruction: Code(s): K56.600 - Partial intestinal obstruction, unspecified as to cause Status: Acute Assessment and Plan: Due to chronically incarcerated incisional hernia, s/p repair. Resolved. (3) Urinary retention: Code(s): R33.9 - Retention of urine, unspecified Status: Acute (4) Type 2 diabetes mellitus: Qualifiers: Diabetes mellitus fdc insulin use: without fdc use Diabetes mellitus complication status: with skin complications Diabetes mellitus complication detail: with dermatitis Qualified Code(s): E11.620 - Type 2 diabetes mellitus with diabetic dermatitis Code(s): E11.9 - Type 2 diabetes mellitus without complications Status: Chronic (5) Bipolar disorder: Code(s): F31.9 - Bipolar disorder, unspecified Status: Chronic (6) Current use of fdc anticoagulation: Code(s): Z79.01 - supervisor intermediates (current) use of anticoagulants Status: Acute Assessment and Plan: [facility] (7) UTI (urinary tract infection): Code(s): N39.0 - Urinary tract infection, site not specified Status: Acute Plan I have discussed the patient's case and plan of care with Dr. Taylor. Subjective Subjective Date/Time Seen: 06/06/22 09:53 Patient reports: no new complaints, tolerating a regular diet, flatus, bowel movement (yesterday) and afebrile Interval history: Patient seen this morning. Denies any abdominal pain at rest. No specific complaints at this time. Review of Systems Review of Systems: ROS unchanged Exam Const: General: comfortable and no acute distress GI: Inspection: non-distended, incision (dry and issa intact, no erythema) and other (JOHANN drain with serosanguineous output) GI Palp: Yes Soft to palpation, Yes Tenderness to palpation present (GI) (incisional) and No Hernia present (repair intact) Auscultation: normal bowel sounds Extrem: General: no calf tenderness and no edema Psych: Insight: Limited insight present (Psych) Judgement: Limited judgement present (Psych) Objective Data Vital Signs Vital Signs: Vital Signs - 24 hr 06/05/22 13:41 06/05/22 18:00 06/05/22 19:39 Temperature 98.2 F 96.5 F L Pulse Rate 62 64 56 L Respiratory Rate 14 18 Blood Pressure 110/62 122/64 Pulse Oximetry 96 100 Oxygen Delivery 06/05/22 22:20 06/06/22 03:34 06/06/22 09:15 Temperature 96.2 F L Pulse Rate 62 78 Respiratory Rate 18 Blood Pressure 126/55 L Pulse Oximetry 100 Oxygen Delivery Room Air 06/06/22 09:30 Temperature Pulse Rate Respiratory Rate Blood Pressure Pulse Oximetry 96 Oxygen Delivery Room Air Intake/Output Intake/Output: Intake & Output 06/03/22 06/04/22 06/05/22 06/06/22 23:59 23:59 23:59 23:59 Intake Total 2220 1944 1940 240 Output Total 3930 1050 40 30 Balance -6076 808 7979 210 Meds/Results Medications: Active Medications Generic Name Dose Route Start Last Admin Trade Name Dannyq PRN Reason Stop Dose Admin Acetaminophen 1,000 mg 06/03/22 15:50 06/06/22 12:03 Acetaminophen 500 Mg Tablet PO 1,000 mg Q6HR BENNY Administration Hydrocodone Bitart/Acetaminophen 1 tab 06/04/22 11:27 06/05/22 06:10 Hydrocodone/Acetaminophen (*Crx) 5-325 Mg Tablet PO 1 tab Q4H PRN Administration Pain Rated 4-10 Aripiprazole 5 mg 06/04/22 12:00 06/06/22 09:15 Aripiprazole 5 Mg Tablet PO 5 mg DA
[2022-06-06] MEDS: GABAPENTIN 100 MG CAPSULE PO (14:33)
[2022-06-06 15:00] VITALS: BP 120/52; PULSE 65; RESP 16; TEMP 36.9; O2SAT 97
[2022-06-06 15:55] LABS: EDCOVIDSCREEN Negative (Negative)
[2022-06-06 16:58] VITALS: PULSE 65
[2022-06-06 18:12] LABS: Glucose Point of Care 98 mg/dl (65-105)
== END 2022-06-06 17:45 | DRG 336 ==
LOC: ANHED 20:52 → ANH2MED 21:26
PROVIDERS: Nurse Practitioner; Surgery; Admitting Provider Internal Medicine; Emergency Provider Physician Assistant; PCP Internal Medicine; Visit Provider Nurse Practitioner
PROC: 0WQF0ZZ Repair Abdominal Wall, Open Approach (ICD-10-PCS; principal; 2022-06-01 12:30)
DX: K43.0 Incisional hernia with obstruction, without gangrene (principal); L97.911 Non-pressure chronic ulcer of unspecified part of right lower leg limited to breakdown of skin; N39.0 Urinary tract infection, site not specified; Z20.822 Contact with and (suspected) exposure to COVID-19; F31.9 Bipolar disorder, unspecified; E11.42 Type 2 diabetes mellitus with diabetic polyneuropathy; K66.0 Peritoneal adhesions (postprocedural) (postinfection); E11.620 Type 2 diabetes mellitus with diabetic dermatitis; E03.9 Hypothyroidism, unspecified; R33.9 Retention of urine, unspecified; K21.9 Gastro-esophageal reflux disease without esophagitis; F17.210 Nicotine dependence, cigarettes, uncomplicated; Z79.01 Long term (current) use of anticoagulants; Z90.49 Acquired absence of other specified parts of digestive tract; Z79.82 Long term (current) use of aspirin; Z85.528 Personal history of other malignant neoplasm of kidney; Z86.718 Personal history of other venous thrombosis and embolism
CPT/HCPCS: 36415; 71045; 73590; 73600; 74019; 74177; 80048; 80053; 81001; 82948; 83036; 83605; 83690; 83735; 84443; 84484; 85025; 85027; 85055; 86140; 86850; 86900; 86901; 87040; 87086; 87426; 88302; 88304; 88342; 93005; 96365; 96375; 99285; A9270; C1781; C9803; J0131; J0330; J0696; J1100; J1170; J1650; J1940; J2060; J2250; J2270; J2405; J2543; J2704; J3010; J3475; J3480; J7030; J7040; J7120; Q9967

== ENCOUNTER 2024-06-29 12:09 | Inpatient (IN) | payer MEDICARE, SELFPAY ==
[2024-06-29] VITALS (18 sets, daily range): BP systolic 90–158; BP diastolic 41–91; PULSE 24–111; RESP 14–79; TEMP 36.8–39.4; O2SAT 89–99; BMI 36.9; BMI 37.9
--- NOTE | ~2024-06-29 | XR_ITS ---
Portable chest x-ray Comparison: 06/29/2024 Clinical History: Pneumonia Findings: Possible mild central congestive changes. No other consolidation or pleural effusion evide nt. Cardiomediastinal silhouette is stable. Bones and soft tissues are unremarkable. Impression: Mild central congestive changes. Reviewed, dictated and finalized at location . Impression: Mild central congestive changes.
--- NOTE | ~2024-06-29 | CT_ITS ---
EXAMINATION: CT brain wo con DATE: 06/29/2024 12:16 INDICATION: Altered mental status. 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 Sagittal and coronal reconstructions were performed. The mA was adjusted according to patient size. Iterative reconstruction technique was employed. The dose-length product was 605.33 mGy-cm. COMPARISON: head CT dated 02/23/2022 FINDINGS: No acute intracranial hemorrhage, acute infarction or abnormal extra axial fluid collection. Ventricl es are normal and symmetric. No mass/mass effect. The orbits and paranasal sinuses are normal. Unchan ged tiny right mastoid effusion. IMPRESSION: 1. No acute intracranial process. Reviewed, dictated and finalized at location A.
--- NOTE | ~2024-06-29 | XR_ITS ---
XR chest 1V portable Ordering provider: Fabrice Moreira MD History: 63 years Female with . AMS . Comparison: May 29, 2022 FINDINGS: MEDIASTINUM: The cardiac silhouette is slightly enlarged. Congestive bruno. LUNGS: No effusions or pneumothorax. Prominent bronchovascular markings bilaterally with interstitial thickening. Minimal opacification the left lung base. OTHER: No free air under the diaphragm. IMPRESSION: Highly suggestive cardiomegaly with cardiac decompensation and pulmonary edema. Prominent markings in the left lung with interstitial thickening which may indicate pneumonitis. Follow-up advised. Reviewed, dictated and finalized at location A. IMPRESSION: Highly suggestive cardiomegaly with cardiac decompensation and pulmonary edema. Prominent markings in the left lung with interstitial thickening which may ind icate pneumonitis. Follow-up advised.
--- NOTE | ~2024-06-29 | CT_ITS ---
EXAMINATION: CTA BRAIN/CAROTID DATE: 06/29/2024 12:24 INDICATION: Altered mental status. 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 TECHNIQUE: Computed tomographic angiography (CTA) of the head and neck was performed with 100 mL Omni paque-350 intravenous contrast. Multiplanar reconstructions and maximum intensity projection 3D-recon structions of the carotid arteries and of the intracranial arteries were created by the technologist on a separate workstation. Precontrast CT of the head was also obtained. Automated exposure control and iterative reconstruction technique were employed.The dose-length product was 1083.17 mGy-cm. COMPARISON: None. FINDINGS: Carotid arteries: Aortic arch and the great vessels arising from the arch are normal in caliber with scattered nonhemod ynamically significant atherosclerotic plaque and no dissection. Left vertebral artery is dominant. T here is no hemodynamically significant stenosis along the bilateral extracranial vertebral arteries. There is atherosclerotic plaque with 0% stenosis of the right and left carotid bulbs relative to norm al distal artery lumen diameter (NASCET criteria). Cervical soft tissues are unremarkable. Calcified left apical nodule consistent with old granulomatous disease. Moderate cervical spondylosis. Intracranial arteries Left vertebral artery is dominant. Small amount scattered nonhemodynamically significant atherosclero tic plaque along the bilateral carotid siphons. There is no hemodynamically significant stenosis in t he vertebral, basilar and internal carotid arteries. Both A1 and P1 segments are patent. There is are also patent bilateral posterior communicating arteries, diminutive on the left. There are no aneurys ms identified. Cerebral arterial arborization appears symmetric. No abnormally enhancing brain lesio ns. IMPRESSION: 1. Small amount of atherosclerotic plaque with 0% stenosis of the right and left carotid bulbs relati ve to normal distal artery lumen diameter (NASCET criteria). 2. Unremarkable cerebral CT angiogram with no hemodynamically significant stenosis, thrombosis or ane urysm.% stenosis of the left carotid bulb relative to normal distal artery lumen diameter. Reviewed, dictated and finalized at location A. IMPRESSION: 1. Small amount of atherosclerotic plaque with 0% stenosis of the right and lef t carotid bulbs relative to normal distal artery lumen diameter (NASCET criteri a). 2. Unremarkable cerebral CT angiogram with no hemodynamically significant steno sis, thrombosis or aneurysm.% stenosis of the left carotid bulb relative to nor mal distal artery lumen diameter.
--- NOTE | 2024-06-29 12:10 | ECG_ITS ---
Test Date: 2024-06-29 12:32:21 Measurements Intervals [place] Rate: 109 P: 74 WI: 175 QRS: 29 QRSD: 100 T: 172 QT: 274 QTc: 369 Interpretive Statements SINUS TACHYCARDIA ST DEVIATION AND MODERATE T-WAVE ABNORMALITY, CONSIDER LATERAL ISCHEMIA [-0.1+ mV T-WAVE IN I/aVL/V5/V6] No previous ECG available for comparison Electronically Signed On 06-30-2024 14:38:05 CDT by Ranjan Quinteros M.D.
--- NOTE | 2024-06-29 12:21 | ED.GENADULT ---
HPI - General Adult General Chief complaint: Neuro Symptoms/Deficit Stated complaint: AMS, LKW Time Seen by Provider: 06/29/24 12:18 History of Present Illness HPI narrative: [age] old female presented emergency department for evaluation for altered mental status. Nursing states that the patient was more appropriate at 9:00 a.m. when they did rounds but when they checked on her and noon she was more altered. Related Data Home Medications Medication Instructions Recorded Confirmed Last Taken Type aspirin 81 mg tablet,delayed 81 mg PO DAILY 01/30/19 06/29/24 02/23/22 09:00 History release (Aspir-) multivitamin 1 cap PO DAILY 01/30/19 06/29/24 02/23/22 09:00 History acetaminophen 325 mg tablet 650 mg PO Q4H PRN Mild Pain (Scale 06/18/21 06/29/24 02/06/22 05:00 History (Tylenol) Score 1-4) apixaban 5 mg tablet (Eliquis) 5 mg PO BID 06/18/21 06/29/24 02/23/22 09:00 History ascorbic acid (vitamin C) 250 mg 500 mg PO DAILY 06/18/21 06/29/24 02/23/22 09:00 History tablet atorvastatin 10 mg tablet 20 mg PO DAILY 06/18/21 06/29/24 02/23/22 09:00 History furosemide 40 mg tablet 40 mg PO DAILY 06/18/21 06/29/24 02/23/22 09:00 History levothyroxine 88 mcg tablet 88 mcg PO DAILY 06/18/21 06/29/24 02/23/22 06:00 History metformin 500 mg tablet 500 mg PO BID 06/18/21 06/29/24 02/23/22 09:00 History olanzapine 5 mg tablet 5 mg PO QPM 06/18/21 06/29/24 02/23/22 09:00 History potassium chloride 20 mEq 20 meq PO DAILY 06/18/21 06/29/24 02/23/22 09:00 History tablet,extended release(part/cryst) spironolactone 25 mg tablet 25 mg PO DAILY 06/18/21 06/29/24 02/23/22 09:00 History docusate sodium 100 mg capsule 100 mg PO BID 09/12/21 06/29/24 02/23/22 09:00 History (Colace) Milk of Magnesia (antacid) 30 ml PO Q12-24H PRN Constipation 02/11/22 06/29/24 02/22/22 20:00 History carvedilol 3.125 mg tablet 3.125 mg PO BID 02/11/22 06/29/24 02/23/22 History 0900 trazodone 100 mg tablet 100 mg PO HS 02/11/22 06/29/24 02/22/22 20:00 History bisacodyl 5 mg tablet 5 mg PO HS 05/29/22 06/29/24 Unknown History albuterol sulfate 90 mcg/actuation 2 puff inhalation Q4H PRN 06/29/24 06/29/24 Unknown History aerosol inhaler shortness of breath or wheezing aripiprazole 2 mg tablet 2 mg PO DAILY 06/29/24 06/29/24 Unknown History aripiprazole 5 mg tablet (Abilify) 5 mg PO DAILY 06/29/24 06/29/24 Unknown History cholecalciferol (vitamin D3) 25 25 mcg PO DAILY 06/29/24 06/29/24 Unknown History mcg (1,000 unit) capsule cyanocobalamin (vitamin B-12) 500 500 mcg PO DAILY 06/29/24 06/29/24 Unknown History mcg tablet (B-12 DOTS) ferrous sulfate 325 mg (65 mg 325 mg PO DAILY 06/29/24 06/29/24 Unknown History iron) tablet (Feosol) fluticasone furoate 100 1 inh inhalation DAILY 06/29/24 06/29/24 Unknown History mcg-vilanterol 25 mcg/dose inhalation powder (Breo Ellipta) folic acid 20 mg capsule 20 mg PO DAILY 06/29/24 06/29/24 Unknown History hydroxyzine HCl 10 mg tablet 10 mg PO Q8H PRN itching 06/29/24 06/29/24 Unknown History pentoxifylline 400 mg 400 mg PO Q12H 06/29/24 06/29/24 Unknown History tablet,extended release tramadol 50 mg tablet 50 mg PO TID 06/29/24 06/29/24 Unknown History Allergies Allergy/AdvReac Type Severity Reaction Status Date / Time Latex, Natural Rubber Allergy Mild Unknown Verified 06/29/24 18:13 [facility] Past Medical History Medical History Bipolar disorder Bowel obstruction Cancer of kidney Current use of public service representative anticoagulation Deep venous thrombosis Diabetic peripheral neuropathy DVT of leg (deep venous thrombosis) left leg Gastroesophageal reflux disease Hypercholesterolemia Hypothyroidism Incarcerated incisional hernia Kidney stones Peripheral vascular disease Stasis dermatitis of right lower extremity with venous ulcer due to chronic peripheral venous hypertension Type 2 diabetes mellitus Surgical History Surgical History History of cholecystectomy History of hysterectomy History of vascular surgery Bilateral common iliac stents. S/P appendectomy incidental appendectomy on 06/02/11 S/P hernia repair incarcerated 5 cm incisional hernia repair with mesh, small bowel serosal injury repair, incidental appendectomy 06/01/22 Family History Family History Father Throat cancer Mother Heart disease Social History Social History Social History: The patient resides patient resides at [facility] . She does have 1 child and she still smokes. [id number]: Pete Posada. and Priya ku Code status: Full code. Smoking packs per day: 0.5 Smoking cigarettes per day: 10.0 Years smoked: 35 Smoking pack-years: 17.50 Smoking status: Current every day smoker Tobacco type: cigarettes Second hand tobacco smoke exposure: Yes Additional smoking assessment comments: continues to smoke at the senior care Alcohol intake: unknown Substance use: unknown Substance use type: unknown Lack of Transportation: No Lack of Food: Never True Current Housing: I Do Not Have Housing Concerned About Future Housing: No Difficulty Paying Gas/Electric Bills: No Difficulty Paying for Meds: No Currently Unemployed: No Education: Grade School Difficulty w/ Childcare or Family Care: No Living arrangements: senior care Additional living arrangements comments: Currently at [place]. Additional occupation/education comments: Disabled. Gender identity (if verbalized by the patient): Female Sexual Orientation (if Verbalized by the Patient): Straight or Heterosexual Spiritual care concerns: No Agree to blood products: Yes Exam Narrative: APPEARANCE: Ill-appearing HEAD: normocephalic, atraumatic. EYES: PERRLA/EOMI, conjunctivae clear. NOSE: Normal no drainage EARS:TMS clear with good light reflex. THROAT: Pharynx clear, no exudate. NECK: Supple. No adenopathy, no masses. RESPIRATORY: Airway patent, respirations nonlabored. Clear to auscultation bilaterally, no rales, rhonchi, wheezing. CARDIOVASCULAR: Regular rate and rhythm without murmurs rubs or gallops. ABDOMINAL: Soft, nontender, nondistended, normal bowel sounds MUSCULOSKELETAL: Moves all extremities. Strength/ROM intact, No edema, No calf tenderness. NEURO: Alert. Cranial nerves II through XII intact. Good gait. Good coordination SKIN: Multiple wounds lower extremities Course Vital Signs Vital signs: Vital Signs Temperature 102.9 F H 06/29/24 12:29 Pulse Rate 111 H 06/29/24 12:29 Respiratory Rate 17 06/29/24 12:29 Blood Pressure 158/68 H 06/29/24 12:29 Pulse Oximetry 89 L 06/29/24 12:29 Oxygen Delivery Room Air 06/29/24 12:29 Oxygen Flow Rate 3 06/29/24 12:29 Temperature 98.0 F 07/02/24 15:45 Pulse Rate 63 07/02/24 15:45 Respiratory Rate 16 07/02/24 15:45 Blood Pressure 118/55 L 07/02/24 15:45 Pulse Oximetry 95 07/02/24 15:45 Oxygen Delivery Room Air 07/02/24 15:42 Oxygen Flow Rate 1 07/02/24 08:47 Medical Decision Making [facility] Narrative Medical decision making narrative: 63 old female present to the emergency department for evaluation for altered mental status. CT head and CTA brain were negative for acute intravascular event. Patient was tachycardic normotensive but febrile on arrival. Blood cultures were ordered and patient does have multiple skin wounds that were also cultured. Patient was started on antibiotics for diabetic wounds. Patient was started on IV cefepime, IV Flagyl and IV vanc. Blood cultures and wound cultures were sent. UA was not significant for infection. Chest x-ray does show evidence of pulmonary edema. Patient was not treated with the full 30 mL/kg of IV fluids was treated with 1 L of IV fluids. Patient was febrile white count of 27.7 and hemoglobin of 12.5. Patient's INR is 1.4. Patient does take Eliquis. Patient's creatinine was 0.66 with no other significant abnormalities on her CMP UA was negative for infection. Case was discussed with Shirley the patient is being admitted to the IMU. Differential Diagnosis Differential Diagnosis: TIA, CVA, sepsis UTI, cellulitis, pneumonia Vital Signs Vital Signs: Vital Signs Temperature 102.9 F H 06/29/24 12:29 Pulse Rate 111 H 06/29/24 12:29 Respiratory Rate 17 06/29/24 12:29 Blood Pressure 158/68 H 06/29/24 12:29 Pulse Oximetry 89 L 06/29/24 12:29 Oxygen Delivery Room Air 06/29/24 12:29 Oxygen Flow Rate 3 06/29/24 12:29 Temperature 98.0 F 07/02/24 15:45 Pulse Rate 63 07/02/24 15:45 Respiratory Rate 16 07/02/24 15:45 Blood Pressure 118/55 L 07/02/24 15:45 Pulse Oximetry 95 07/02/24 15:45 Oxygen Delivery Room Air 07/02/24 15:42 Oxygen Flow Rate 1 07/02/24 08:47 Lab Data Lab results reviewed: Yes I reviewed the patient's lab results. 07/02/24 05:08 07/02/24 05:08 Labs: Lab Results 06/29/24 06/29/24 06/29/24 Range/Units 12:16 12:18 12:59 WBC 27.7 H (4.5-10.0) K/mm3 RBC 4.46 (4.2-5.4) M/mm3 Hgb 12.5 (12.0-15.0) g/dL Hct 39.8 (37.0-47.0) % MCV 89.2 (80-100) fl MCH 28.0 (26-34) pg MCHC 31.4 L (32-36) g/dl RDW 14.6 H (11.5-14.5) % Plt Count 303 D (150-375) k/mm3 MPV 9.2 (7.4-10.4) fl Immature Gran % (Auto) 0.8 H (0-0.5) % Neut % (Auto) 90.2 H (45.5-73.1) % Lymph % (Auto) 4.9 L (18.3-44.2) % [place] % (Auto) 3.9 (2.6-8.5) % Eos % (Auto) 0.0 (0-4.4) % Baso % (Auto) 0.2 (0.2-1.2) % Lymph # (Auto) 1.37 (0.9-3.2) K/mm3 [place] # (Auto) 1.1 H (0.1-0.6) K/mm3 Eos # (Auto) 0.0 (0-0.3) K/mm3 Baso # (Auto) 0.1 (0.0-0.1) K/mm3 Abs Immat Gran (auto) 0.21 H (0.00-0.031) K/mm3 Absolute Neuts (auto) 25.0 H (1.3-6.7) K/mm3 Absolute Nucleated RBC 0.000 (0.0-0.012) K/mm3 Nucleated RBC % 0.0 (0.0-0.2) % PT 17.7 H (11.1-14.7) Seconds INR 1.4 APTT 29.6 (22.3-36.8) Seconds Sodium 136 L (137-145) mmol/L Potassium 4.1 (3.4-5.0) mmol/L Chloride 101 (98-107) mmol/L Carbon Dioxide 28 (22-30) mmol/L Anion Gap 7 (4-12) mmol/L BUN 15 (7-17) mg/dL Creatinine 0.66 L (0.7-1.0) mg/dL Estim Creat Clear Calc 93 ml/min Estimated GFR > 60 (59 - ) Glucose 130 H (65-110) mg/dL POC Capillary Glucose 139 H (65-105) mg/dl Calcium 9.3 (8.4-10.2) mg/dL Total Bilirubin 0.5 (0.2-1.3) mg/dL AST 28 (14-36) U/L ALT 17 (6-35) U/L Alkaline Phosphatase 102 (38-126) U/L Troponin I < 0.012 (0.000-0.034) ng/mL C-Reactive Protein 8.0 H (<1.0) mg/dL Total Protein 7.0 (6.3-8.2) g/dL Albumin 3.9 (3.5-5.1) g/dL Urine Color Yellow (Yellow) Urine Appearance Clear (Clear) Urine pH 8.0 (5.0-9.0) Ur Specific [place] 1.041 H (1.001-1.035) Urine Protein Negative (Negative) mg/dL Urine Glucose (UA) Negative (Negative) mg/dL Urine Ketones Negative (Negative) mg/dL Ur Blood (Man) Negative (Negative) Urine Nitrate Negative (Negative) Urine Bilirubin Negative (Negative) Urine Urobilinogen 1.0 (<2.0) mg/dL Leukocyte Esterase Rfl Negative (Negative) DAVONTE/UL Influenza A (RT-PCR) (Negative) Influenza B (RT-PCR) (Negative) RSV (RT-PCR) (Negative) SARS-CoV-2 RNA (RT-PCR) (Negative) 06/29/24 Range/Units 13:33 WBC (4.5-10.0) K/mm3 RBC (4.2-5.4) M/mm3 Hgb (12.0-15.0) g/dL Hct (37.0-47.0) % MCV (80-100) fl MCH (26-34) pg MCHC (32-36) g/dl RDW (11.5-14.5) % Plt Count (150-375) k/mm3 MPV (7.4-10.4) fl Immature Gran % (Auto) (0-0.5) % Neut % (Auto) (45.5-73.1) % Lymph % (Auto) (18.3-44.2) % [place] % (Auto) (2.6-8.5) % Eos % (Auto) (0-4.4) % Baso % (Auto) (0.2-1.2) % Lymph # (Auto) (0.9-3.2) K/mm3 [place] # (Auto) (0.1-0.6) K/mm3 Eos # (Auto) (0-0.3) K/mm3 Baso # (Auto) (0.0-0.1) K/mm3 Abs Immat Gran (auto) (0.00-0.031) K/mm3 Absolute Neuts (auto) (1.3-6.7) K/mm3 Absolute Nucleated RBC (0.0-0.012) K/mm3 Nucleated RBC % (0.0-0.2) % PT (11.1-14.7) Seconds INR APTT (22.3-36.8) Seconds Sodium (137-145) mmol/L Potassium (3.4-5.0) mmol/L Chloride (98-107) mmol/L Carbon Dioxide (22-30) mmol/L Anion Gap (4-12) mmol/L BUN (7-17) mg/dL Creatinine (0.7-1.0) mg/dL Estim Creat Clear Calc ml/min Estimated GFR (59 - ) Glucose (65-110) mg/dL POC Capillary Glucose (65-105) mg/dl Calcium (8.4-10.2) mg/dL Total Bilirubin (0.2-1.3) mg/dL AST (14-36) U/L ALT (6-35) U/L Alkaline Phosphatase (38-126) U/L Troponin I (0.000-0.034) ng/mL C-Reactive Protein (<1.0) mg/dL Total Protein (6.3-8.2) g/dL Albumin (3.5-5.1) g/dL Urine Color (Yellow) Urine Appearance (Clear) Urine pH (5.0-9.0) Ur Specific [place] (1.001-1.035) Urine Protein (Negative) mg/dL Urine Glucose (UA) (Negative) mg/dL Urine Ketones (Negative) mg/dL Ur Blood (Man) (Negative) Urine Nitrate (Negative) Urine Bilirubin (Negative) Urine Urobilinogen (<2.0) mg/dL Leukocyte Esterase Rfl (Negative) DAVONTE/UL Influenza A (RT-PCR) Negative (Negative) Influenza B (RT-PCR) Negative (Negative) RSV (RT-PCR) Negative (Negative) SARS-CoV-2 RNA (RT-PCR) Negative (Negative) Discharge Plan Discharge Clinical Impression: Wounds, multiple, Cellulitis, AMS (altered mental status) Patient Disposition: Still a Patient Condition: Stable
[2024-06-29 12:23] LABS: Glucose Point of Care 139 mg/dl (65-105)
[2024-06-29 12:26] LABS: Basophils Absolute Auto 0.1 K/mm3 (0.0-0.1); Basophils Percent Auto 0.2 % (0.2-1.2); Hematocrit 39.8 % (37.0-47.0); Hemoglobin 12.5 g/dL (12.0-15.0); Immature Granulocyte Absolute 0.21 K/mm3 (0.00-0.031); Immature Granulocyte Percent A 0.8 % (0-0.5); Lymphocytes Absolute Auto 1.37 K/mm3 (0.9-3.2); Lymphocytes Percent Auto 4.9 % (18.3-44.2); Mean Corpuscular HGB Conc 31.4 g/dl (32-36); Mean Corpuscular Volume 89.2 fl (80-100); Mean Platelet Volume 9.2 fl (7.4-10.4); Monocytes Absolute Auto 1.1 K/mm3 (0.1-0.6); Monocytes Percent Auto 3.9 % (2.6-8.5); Neutrophils Percent Auto 90.2 % (45.5-73.1); Platelet Count Result 303 k/mm3 (150-375); Red Blood Count 4.46 M/mm3 (4.2-5.4); Red Cell Distribution Width 14.6 % (11.5-14.5); White Blood Count 27.7 K/mm3 (4.5-10.0)
--- OUTSIDE RECORDS SUMMARY | 2024-06-29 12:28 | XMS_ITS | CONTINUITY OF CARE DOCUMENT ---
Author Name gege de guzman Address Unknown Organization [facility] Address [address] [address] [address] [place] [address] Phone [phone] Care Team Providers Care Date Puller Name Role Phone Krystian Justice MD Unavailable [phone] AR CABELLO MD Unavailable AR CABELLO MD Unavailable [phone] PROBLEMS Condition Status Date Provider Notes DVT- hx of active Cecilio Florence RN PVD active Krystian Justice MD TOBACCO ABUSE active Krystian Justice MD HTN CONTROLLED active Krystian Justice MD Hypercholesterolemia active Aundrea Sal lder Edema, peripheral active Krystian Justice MD ENCOUNTERS Date Type Provider Location Encounter Diag nosis - In-person encounter Office Visit Krystian Justice MD [facility] - In-person encounter Office Visit Krystian Justice MD [facility] - In-person encounter Office Visit Krystian Justice MD [facility] - In-person encounter Office Visit Krystian Justice MD [facility] - In-person encounter Office Visit Krystian Justice MD [facility] - In-person encounter Office Visit Krystian Justice MD [facility] - In-person encounter Office Visit Krystian Justice MD [facility] - In-person encounter Office Visit Krystian Justice MD [facility] - In-person encounter Office Visit Krystian Justice MD [facility] - In-person encounter Office Visit Krystian Justice MD [facility] - In-person encounter Office Visit Krystian Justice MD [facility] - In-person encounter Office Visit Krystian Justice MD [facility] Edema, peripheral - In-person encounter Office Visit Krystian Justice MD [facility] - In-person encounter Office Visit Krystian Justice MD [facility] - In-person encounter Office Visit Krystian Justice MD [facility] PVDTOBACCO ABUSEHTN CONTROLLEDHypercholesterolemia VITAL SIGNS Date Observation Value Provider blood pressure, cuff size large Ke rrtye Patricia blood pressure, diastolic 80 mm[Hg] Ke rri Harshad blood pressure, systolic 160 mm[Hg] Hawk Patricia oxygen saturation, oximetry 96 % Aundrea Patricia respiratory rate E&M 18 /min Aundrea marin pulse rate 83 /min Aundrea Sal lder height E&M 64 [in_i] Aundrea Sal lder blood pressure, diastolic 83 mm[Hg] Hao Trejo blood pressure, systolic 132 mm[Hg] Tootie Trejo oxygen saturation, oximetry 93 % Zulma Trejo respiratory rate E&M 18 /min Holli Trejo pulse rate 60 /min Zulma rhodes height E&M 64 [in_i] Zulma Orozco [facility] blood pressure, cuff size regular Ke rri Dutchangelrogerio blood pressure, diastolic 85 mm[Hg] Ke rri Hareshclairerogerio blood pressure, systolic 125 mm[Hg] Hawk waldron Dutchangelrogerio oxygen saturation, oximetry 96 % Aundrea Dutchangelrogerio respiratory rate E&M 16 /min Aundrea G aaronenenfeldaissatou pulse rate 75 /min Aundrea Doron er height E&M 64 [in_i] Aundrea Andrewjulio er Body Mass Index (Ratio) 34.15 kg/m2 Chris Justice MD blood pressure, diastolic 74 mm[Hg] Hao Trejo blood pressure, systolic 119 mm[Hg] Tootie Trejo oxygen saturation, oximetry 96 % Zulma Trejo respiratory rate E&M 18 /min Holli Trejo pulse rate 73 /min Zulma Ernesto meagan weight E&M 199 [lb_av] Zulma Orozco avril height E&M 64 [in_i] Zulma Orozco meagan Body Mass Index (Ratio) 34.15 kg/m2 Ángel White blood pressure, resting No Linda Trejo blood pressure, diastolic 73 mm[Hg] Hao Trejo blood pressure, systolic 110 mm[Hg] Tootie Trejo oxygen saturation, oximetry 96 % Zulma Trejo respiratory rate E&M 18 /min Holli Trejo pulse rate 71 /min Zulma Ernesto meagan weight E&M 199 [lb_av] Zulma Orozco meagan height E&M 64 [in_i] ZulmaRosaan rhodes Body Mass Index (Ratio) 36.04 kg/m2 Chris Justice MD blood pressure, diastolic 75 mm[Hg] Hao Trjeo blood pressure, systolic 144 mm[Hg] Tootie Trejo oxygen saturation, oximetry 92 % Zulma Trejo respiratory rate E&M 18 /min Holli Trejo pulse rate 63 /min Zulma rhodes weight E&M 210 [lb_av] Zulma rhodes height E&M 64 [in_i] Zulma rhodes blood pressure, diastolic 60 mm[Hg] Hao Trejo blood pressure, systolic 110 mm[Hg] Tootie Trejo pulse rate 74 /min Zulma rhodes oxygen saturation, oximetry 98 % Zulma Trejo respiratory rate E&M 16 /min Holli Trejo Body Mass Index (Ratio) 36.04 kg/m2 Linda Trejo weight E&M 210 [lb_av] Zulma rhodes blood pressure, diastolic 70 mm[Hg] Hao Trejo blood pressure, systolic 120 mm[Hg] Tootie Trejo pulse rate 87 /min Zulma rhodes oxygen saturation, oximetry 99 % Zulma Trejo respiratory rate E&M 18 /min Holli Trejo Body Mass Index (Ratio) 36.04 kg/m2 Linda rTejo weight E&M 210 [lb_av] Zulma rhodes blood pressure, diastolic 74 mm[Hg] narciso Kitty blood pressure, systolic 120 mm[Hg] Trisha Tang pulse rate 79 /min Brittany Tang oxygen saturation, oximetry 94 % Brittany Tang respiratory rate E&M 16 /min Brittany Tang Body Mass Index (Ratio) 36.04 kg/m2 Lilian Tang weight E&M 210 [lb_av] Brittany Tang blood pressure, diastolic 64 mm[Hg] Hao Trejo blood pressure, systolic 109 mm[Hg] Tootie Trejo pulse rate 67 /min Zulma rhodes oxygen saturation, oximetry 93 % Zulma Trejo respiratory rate E&M 18 /min Holli Trejo blood pressure, diastolic 66 mm[Hg] Hao Trejo blood pressure, systolic 121 mm[Hg] Tootie Trejo pulse rate 70 /min Zulma rhodes oxygen saturation, oximetry 93 % Zulma Trejo respiratory rate E&M 18 /min Holli Trejo Body Mass Index (Ratio) 36.04 kg/m2 Linda Trejo weight E&M 210 [lb_av] Zulma rhodes blood pressure, diastolic 76 mm[Hg] Me narciso Tang blood pressure, systolic 140 mm[Hg] Trisha Tang pulse rate 68 /min Brittany Tang oxygen saturation, oximetry 92 % Brittany Tang respiratory rate E&M 16 /min Brittany Tang blood pressure, diastolic 74 mm[Hg] Aric Florence RN blood pressure, systolic 129 mm[Hg] Cecilio Florence RN pulse rate 80 /min Cecilio Florence RN oxygen saturation, oximetry 98 % Cecilio Florence RN respiratory rate E&M 18 /min Cecilio sanchez RN Body Mass Index (Ratio) 34.63 kg/m2 Cecilio Florence RN weight E&M 201 [lb_av] Cecilio Florence RN Body Mass Index (Ratio) 36.18 kg/m2 Kym tellez Stueber blood pressure, diastolic 70 mm[Hg] Otis costello Stueber blood pressure, systolic 134 mm[Hg] Gerard lim Stueber pulse rate 62 /min Crystal Stueber oxygen saturation, oximetry 99 % Crystal Stueber respiratory rate E&M 18 /min Crystal Fuchs tueber weight E&M 210 [lb_av] Crystal Stueber Body Mass Index (Ratio) 37.38 kg/m2 Gamble i Harshad blood pressure, diastolic 96 mm[Hg] Ke rri Harshad blood pressure, systolic 164 mm[Hg] Hawk ri Harshad pulse rate 78 /min Aundrea sanford oxygen saturation, oximetry 96 % Aundrea Patricia respiratory rate E&M 15 /min Aundrea marin weight E&M 217 [lb_av] Aundrea stephensoner height E&M 64 [in_i] Aundrea Doron sanford ALLERGIES No Known Drug Allergies RESULTS Date Observation Value Provider Reference Range Interpretation Location 07/16 coagulation managed by Chantell Melendez RN 07/16 international normalized ratio (INR) 1.5 Jocelyn Abby Normal 07/16 prothrombin time (patient) 18.3 s Jocelyn Abby 07/01 coagulation managed by Cecilio Florence RN 07/01 international normalized ratio (INR) 1.7 Jocelyn Abby Normal 07/01 prothrombin time (patient) 20.8 s Jocelyn Abby 05/20 coagulation managed by Cecilio Florence RN 05/20 international normalized ratio (INR) 2.4 Zulma Trejo Normal 05/20 prothrombin time (patient) 28.4 s Zulma Trejo 04/23 coagulation managed by Cecilio Florence RN 04/23 international normalized ratio (INR) 2.9 Jocelyn Abby Normal 04/23 prothrombin time (patient) 35.1 s Jocelyn Abby 03/28 coagulation managed by Cecilio Florence RN 03/28 international normalized ratio (INR) 2.8 Jocelyn Abby Normal 03/28 prothrombin time (patient) 33.1 s Jocelyn Abby 03/13 coagulation managed by Cecilio Florence RN 03/13 international normalized ratio (INR) 1.5 Jocelyn Abby Normal 03/13 prothrombin time (patient) 18.4 s Jocelyn Abby 03/07 coagulation managed by Linda Valderrama RN 03/07 international normalized ratio (INR) 1.2 Jocelyn Abby Normal 03/07 prothrombin time (patient) 14.0 s Jocelyn Abby 03/31 coagulation managed by Cecilio Florence RN 03/31 international normalized ratio (INR) 2.4 Zulma Trejo Normal 03/31 prothrombin time (patient) 28.4 s Zulma Trejo 03/18 coagulation managed by Linda Valderrama RN 03/18 international normalized ratio (INR) 3.7 Jocelyn Abby Normal 03/18 prothrombin time (patient) 44.9 s Jocelyn Abby 03/11 coagulation managed by Cecilio Florence RN 03/11 international normalized ratio (INR) 3.3 Zulma Trejo Normal 03/11 prothrombin time (patient) 39.0 s Zulma Trejo 02/25 coagulation managed by Cecilio Florence RN 02/25 international normalized ratio (INR) 2.0 Jocelyn Abby Normal 02/25 prothrombin time (patient) 24.0 s Jocelyn Abby coagulation managed by Cecilio Florence RN international normalized ratio (INR) 3.8 Aundrea Patricia Normal prothrombin time (patient) 45.3 s Aundrea Patricia 11/14 international normalized ratio (INR) 2.6 Jocelyn Abby Normal 11/14 prothrombin time (patient) 30.9 s Jocelyn Abby 10/17 coagulation managed by Cecilio Florence RN 10/17 international normalized ratio (INR) 2.5 Jocelyn Abby Normal 10/17 prothrombin time (patient) 29.7 s Jocelyn Abby 09/19 coagulation managed by Cecilio Florence RN 09/19 international normalized ratio (INR) 2.7 Jocelyn Abby Normal 09/19 prothrombin time (patient) 32.5 s Jocelyn Abby 08/23 very low density lipoproteins 18.0 mg/dL [facility] 5.0 - 40.0 08/23 LDL/HDL (low-density lipoprotein/high-d ensity lipoprotein) ratio 2.5 RATIO [facility] - 08/23 lipoprotein, beta, serum, point, quantitative, calculated 111.0 (?) [facility] 0.0 - 100.0 High 08/23 HDL cholesterol, serum 45.0 mg/dL [facility] 45.0 - 65.0 08/23 cholesterol, serum 174.0 mg/dL [facility] 0.0 - 200.0 08/23 triglyceride, serum, fasting 90.0 mg/dL [facility] 0.0 - 150.0 08/23 urea nitrogen/creatinin e ratio, serum 18.8 [facility] - 08/23 Estimated Glomerular Filtration Rate (calc) 78.6 (?) [facility] 59.0 - 08/23 chloride, serum 104.7 mmol/L [facility] 98.0 - 107.0 08/23 potassium, serum 4.4 mmol/L [facility] 3.5 - 5.1 08/23 sodium, serum 141.0 mmol/L [facility] 136.0 - 145.0 08/23 creatinine, serum 0.8 mg/dL [facility] 0.5 - 1.0 08/23 carbon dioxide, venous blood 23.0 mmol/L [facility] 22.0 - 29.0 08/23 calcium, serum 9.3 mg/dL [facility] 8.6 - 10.2 08/23 urea nitrogen, blood 15.0 mg/dL [facility] 6.0 - 20.0 08/23 blood glucose, random 83.0 mg/dL [facility] 74.0 - 99.0 08/23 red blood cell distribution width, size density 45.6 fL [facility] 08/23 immature granulocytes, percentage of total cells, blood 0.3 % [facility] 08/23 nucleated red blood cells as percent of blood leukocytes 0.0 % [facility] 08/23 red blood cell (erythrocyte) count, per high power field 0.0 10*3/UL [facility] 08/23 eosinophils as percent of blood leukocytes 0.7 % [facility] 08/23 neutrophils as percent of blood leukocytes 67.8 % [facility] 08/23 Absolute [facility]roph[facility] 5.1 [facility] - 7[facility]8 [facility]/23 basophils as percent of blood leukocytes 0.3 % [facility] 08/23 Absolute Basophils 0.0 CELLS/UL [facility] 0.0 - 0.2 08/23 monocytes as percent of blood leukocytes 6.7 % [facility] 08/23 Absolute Monocytes 0.5 [facility]LLS/[facility] 0.2 - 1.0 08/23 lymphocytes as percent of blood leukocytes 24.2 % [facility] 08/23 Absolute Lymphocytes 1.8 [facility]LLS/[facility] 0.9 - 3.9 08/23 mean platelet volume 10.2 (?) [facility] 08/23 platelet count 282.0 THOUSAND/UL [facility] 100.0 - 400.0 08/23 mean corpuscular hemoglobin concentration, RBC 31.9 G/DL [facility] 31.0 - 38.0 08/23 mean corpuscular hemoglobin, RBC 29.1 pg [facility] 25.0 - 35.0 08/23 mean corpuscular volume, RBC 91.5 fL [facility] 75.0 - 100.0 08/23 hematocrit, blood 40.8 % [facility] 35.0 - 55.0 08/23 hemoglobin, blood 13.0 g/dL [facility] 11.5 - 16.5 08/23 erythrocyte count, whole blood 4.5 MILLION/UL [facility] 3.5 - 5.5 08/23 prothrombin time (patient) 21.5 s [facility] 9.0 - 11.5 High 08/23 international normalized ratio (INR) 2.1 [facility] 0.9 - 1.1 High 08/10 coagulation managed by Cecilio Florence RN 08/10 international normalized ratio (INR) 1.8 Jocelyn Abby Normal 08/10 prothrombin time (patient) 22.0 s Jocelyn Abby 07/13 coagulation managed by Cecilio Florence RN 07/13 international normalized ratio (INR) 3.5 Jocelyn Abby Normal 07/13 prothrombin time (patient) 42.4 s Jocelyn Abby 06/22 coagulation managed by Cecilio Florence RN 06/22 international normalized ratio (INR) 2.6 Jocelyn Abby Normal 06/22 prothrombin time (patient) 31.8 s Jocelyn Abby 06/07 coagulation managed by Linda Valderrama RN 06/07 international normalized ratio (INR) 2.7 Anuja Valderrama Normal 06/07 prothrombin time (patient) 32.0 s Anuja Valderrama 05/25 coagulation managed by Cecilio Florence RN 05/25 international normalized ratio (INR) 4.8 Zulma Trejo Normal 05/25 prothrombin time (patient) 57.9 s Zulma Trejo 04/27 international normalized ratio (INR) 2.5 Zulma Trejo Normal 04/27 prothrombin time (patient) 29.7 s Zulma Trejo 03/30 coagulation managed by Cecilio Florence RN 03/30 international normalized ratio (INR) 2.4 Aundrea Palominoer Normal 03/30 prothrombin time (patient) 28.5 s Aundrea Gruenenfelder 02/28 coagulation managed by Cecilio Florence RN 02/28 international normalized ratio (INR) 2.6 Jocelyn Abby Normal 02/28 prothrombin time (patient) 31.7 s Jocelyn Abby 04/01 coagulation managed by Cecilio Florence RN 04/01 international normalized ratio (INR) 2.2 Jocelyn Abby Normal 04/01 prothrombin time (patient) 26.8 s Jocelyn Abby 03/05 coagulation managed by Cecilio Florence RN 03/05 international normalized ratio (INR) 3.2 Jocelyn Abby Normal 03/05 prothrombin time (patient) 38.1 s Jocelyn Abby coagulation managed by Anuja Hurtado RN international normalized ratio (INR) 1.9 Brittany Tang Normal prothrombin time (patient) 22.5 s Brittany Tang 11/02 coagulation managed by Cecilio Florence RN 11/02 international normalized ratio (INR) 2.1 Zulma Trejo Normal 11/02 prothrombin time (patient) 24.9 s Zulma Trejo 10/18 coagulation managed by Cecilio Florence RN 10/18 international normalized ratio (INR) 2.1 Aundrea Gruenenfelder Normal 10/18 prothrombin time (patient) 25.0 s Aundrea Gruenenfelder 10/04 coagulation managed by Cecilio Florence RN 10/04 international normalized ratio (INR) 1.8 Cecilio Florence RN Normal 10/04 prothrombin time (patient) 21.2 s Cecilio Florence RN 09/14 coagulation managed by Cecilio Florence RN 09/14 international normalized ratio (INR) 2.6 Cecilio Florence RN Normal 09/14 prothrombin time (patient) 31.0 s Cecilio Florence RN 08/23 coagulation managed by Cecilio Florence RN 08/23 international normalized ratio (INR) 1.7 Cecilio Florence RN Normal 08/23 prothrombin time (patient) 20.1 s Cecilio Florence RN 08/11 international normalized ratio (INR) 3.0 Cecilio Donnick GALINDO Normal 08/11 prothrombin time (patient) 36.1 s Cecilio Florence RN 08/03 coagulation managed by Anuja Hurtado RN 08/03 international normalized ratio (INR) 2.0 Aundrea Moralessallie Normal 08/03 prothrombin time (patient) 24.0 s Aundrea Harshad 07/20 coagulation managed by Cecilio Florence RN 07/20 international normalized ratio (INR) 1.7 Zulma Trejo Normal 07/20 prothrombin time (patient) 20.2 s Zulma Trejo 07/07 coagulation managed by Cecilio Florence RN 07/07 international normalized ratio (INR) 1.8 Zulma Trejo Normal 07/07 prothrombin time (patient) 21.5 s Zulma Trejo 06/23 coagulation managed by Cecilio Florence RN 06/23 international normalized ratio (INR) 2.7 Brittany Tang Normal 06/23 prothrombin time (patient) 32.9 s Brittany Tang 06/15 coagulation managed by Cecilio Florence RN 06/15 international normalized ratio (INR) 4.0 Cecilio Florence RN Normal 06/15 prothrombin time (patient) 47.7 s Cecilio Florence RN 05/26 coagulation managed by Cecilio Florence RN 05/26 international normalized ratio (INR) 1.7 Cecilio Florence RN Normal 04/07 coagulation managed by Cecilio Florence RN 04/07 international normalized ratio (INR) 3.0 Brittany Belcher Normal 04/07 prothrombin time (patient) 36.4 s Brittany Belcher 03/25 Nitrite Urine Negative [facility] Negative 03/25 urobilinogen, urine 0.2 E.U./dL mg/dl [facility] 0.2 - 1.0 03/25 specific gravity, urine 1.010 [facility] 1.001 - 1.035 03/25 KETONES, URINE Negative [facility] Negative 03/25 bilirubin, urine Negative [facility] Negative 03/25 Glucose Urine Negative [facility] Negative 03/25 clarity, urine, point Clear [facility] Yellow 03/25 urine color Yellow [facility] yellow to melissa 03/25 pro brain natriuretic peptide 111.1 pg/mL [facility] 0.0 - 125.0 03/25 anion gap, serum 10.8 [facility] - 03/25 albumin/globulin ratio, serum 2.4 g/dL [facility] 1.1 - 2.5 03/25 globulin, serum 2.9 [facility] 2.3 - 3.8 03/25 urea nitrogen/creatinin e ratio, serum 21.4 [facility] - 03/25 Estimated Glomerular Filtration Rate (calc) 92.3 (?) [facility] 59.0 - 03/25 chloride, serum 102.2 mmol/L [facility] 98.0 - 107.0 03/25 potassium, serum 4.6 mmol/L [facility] 3.5 - 5.1 03/25 sodium, serum 139.0 mmol/L [facility] 136.0 - 145.0 03/25 creatinine, serum 0.7 mg/dL [facility] 0.5 - 0.9 03/25 carbon dioxide, venous blood 26.0 mmol/L [facility] 22.0 - 29.0 03/25 albumin, serum 4.1 g/dL [facility] 3.5 - 5.2 03/25 calcium, serum 9.6 mg/dL [facility] 8.6 - 10.2 03/25 aspartate aminotransferase (SGOT), serum 12.0 1/L [facility] 0.0 - 32.0 03/25 alkaline phosphatase, serum 77.0 1/L [facility] 40.0 - 130.0 03/25 alanine aminotransferase (SGPT), serum 10.0 1/L [facility] 0.0 - 33.0 03/25 protein, total, serum 7.0 g/dL [facility] 6.6 - 8.7 03/25 bilirubin, serum, total 0.1 mg/dL [facility] 0.0 - 1.2 03/25 urea nitrogen, blood 15.0 mg/dL [facility] 6.0 - 20.0 03/25 blood glucose, random 93.0 mg/dL [facility] 74.0 - 99.0 03/24 coagulation managed by Cecilio Dons RN 03/24 international normalized ratio (INR) 2.7 Brittany Tang Normal 03/24 prothrombin time (patient) 32.0 s Brittany Tang 02/28 coagulation managed by Cecilio Ludivina Hernandes Florence RN 02/28 international normalized ratio (INR) 1.3 Brittany Tang Normal 02/28 prothrombin time (patient) 15.8 s Brittany Tang 04/10 coagulation managed by Cecilio Florence RN Cecilio Florence RN 04/10 international normalized ratio (INR) 3.5 Cecilio Florence RN Normal 04/10 prothrombin time (patient) 38.8 s Cecilio Florence RN 09/28 coagulation managed by Cecilio Florence RN Cecilio Florence RN 09/28 international normalized ratio (INR) 2.9 Cecilio Florence RN Normal 09/28 prothrombin time (patient) 34.5 s Cecilio Florence RN 09/13 coagulation managed by Cecilio Florence RN Cecilio Florence RN 09/13 international normalized ratio (INR) 3.0 Cecilio Florence RN Normal 09/13 prothrombin time (patient) 35.4 s Cecilio Florence RN 08/30 coagulation managed by Cecilio Florence RN Cecilio Florence RN 08/30 international normalized ratio (INR) 1.6 Cecilio Florence RN Normal 08/30 prothrombin time (patient) 19.7 s Cecilio Florence RN 08/09 coagulation managed by Cecilio Dons JOSIE Dons RN 08/09 international normalized ratio (INR) 32.3 Aneatris Brown Normal 08/09 prothrombin time (patient) 2.7 s Aneatris Brown 07/28 coagulation managed by Cecilio Florence RN 07/28 international normalized ratio (INR) 4.1 Aneatris Brown Normal 07/28 prothrombin time (patient) 48.9 s Aneatris Brown 07/21 coagulation managed by Cecilio Florence RN 07/21 international normalized ratio (INR) 1.6 Cecilio Florence RN Normal 07/21 prothrombin time (patient) 18.9 s Cecilio Florence RN 07/14 coagulation managed by Cecilio Florence RN 07/14 international normalized ratio (INR) 1.2 Cecilio Florence RN Normal 07/14 prothrombin time (patient) 14.2 s Cecilio Florence RN 06/09 coagulation managed by [id number]|2024-06-29 17:09:00|2024-06-29 17:09:00|PC.NURSE||||"This RN spoke with pt LAURA Powell regarding pt status and informed her that pt is to be admitted to this hospital"
--- OUTSIDE RECORDS SUMMARY | 2024-06-29 12:29 | XMS_ITS | Data Portability ---
Author Organization [facility] LOCJeremy Lin Address [address] [facility] [place] [address] Care Team Providers Care Supervisor [employer] Name Role Phone JOVITA HIGGINBOTHAM Vascular Surgeon Assessment No assessment recorded. Plan of Treatment Reminders Order Date Submit Date Provider Last Modified By Organization Details Last Modified Time Details Appointments None recorded. Lab unlisted lab - compliance drug analysis, ur 2017 018 [facility], [facility], [address], [place], [address], 8 16:41:30 hemoglobin + hematocrit , blood 2017 018 oajao [facility], [facility] [employer] [address]emi, [address], [place], [address], 8 21:19:44 iron + total iron-yumiko ng capacity (TIBC), serum 2017 018 [facility], [address] [place], [place] [address]W[place] [address], [address], [place], [address], 8 16:49:56 ferritin, serum or plasma 2017 018 [facility], [address], [address], [place], [address], 8 16:49:56 HbA1c (hemoglobi n A1c), blood 2017 018 [facility], [address] [place], [place] [address], [address], [place], [address], 8 07:14:41 lipid panel, serum 2017 018 BRIANA PATRIC[facility], L[address], [address], [place], [address], 8 07:14:40 CBC w/ auto diff 2017 018 [facility], [facility], [address], [place], [address], 8 07:14:40 HbA1c (hemoglobi n A1c), blood 2017 018 BRIANA PATRICIARP, Lori [address], [address], [place], [address], 8 11:15:07 lipid panel, serum 2017 018 [facility], [facility], [address], [place], [address], 8 11:15:05 BMP, serum or plasma 2017 018 BRI[facility] PATRICIA, [facility] [address], [address], [place], [address], 8 11:15:06 microalbum in, urine 2017 018 [facility], [facility], [address], [place], [address], 8 11:15:08 urinalysis , complete 2017 018 BRIANA PATRICIA, [facility] [address] [address], [address], [place], [address], 8 11:15:06 HIV 1+2 AB + HIV 1 p24 Ag, qualitativ e immunoassa y, serum 2017 018 [facility], [address] [facility] [address], [address], [place], [address], 8 11:15:08 microalbum in, urine 2016 017 [facility], [address] [facility], [address], [place], [address], 7 15:43:43 HbA1c (hemoglobi n A1c), blood 2016 017 [facility], [address] [facility], [address], [place], [address], 8 10:42:40 lipid panel, serum 2016 017 [facility], [address] [facility], [address], [place], [address], 8 10:42:33 BMP, serum or plasma 2016 017 [facility], [address] [facility] [address], [address], [place], [address], 8 10:22:21 HIV 1+2 AB + HIV 1 p24 Ag, qualitativ e immunoassa y, serum 2016 017 [facility], [address] [facility] [address], [address], [place], [address], 7 15:43:42 Referral diabetic ophthalmol ogy referral - Please call patient to schedule appt. Thank you 2017 018 [facility], [address], [place], [address], 8 12:40:21 diabetic ophthalmol ogy referral - Please call patient to schedule appt. thank you 2016 017 [facility] [employer] [facility], [address], [place], [address], 7 13:14:05 Procedures None recorded. Surgeries None recorded. Imaging MAMMO, screening, bilateral 2017 018 [email or web address] [facility] ([facility]), [address] [place], [address], 8 12:20:10 MAMMO, screening, bilateral [address] [facility] ([facility]), [address] [place], [address], 8 11:34:28 MAMMO, screening, bilateral [address] [facility] ([facility]), [address] [place], [address], 8 10:50:56 Medication Orders clopidogre l 75 mg tablet 2017 018 [id number], [address], [place], [place], [id number], 8 16:48:14 tramadol 50 mg tablet 2017 018 oajao [facility] #[id number], [address], [place], [place], [id number], 8 16:51:26 Crestor 40 mg tablet 2017 018 [id number], [address], [place], [place], [id number], 8 16:48:12 Eliquis 5 mg tablet 2017 018 [facility] #[id number], [address], [place], [place], [id number], 8 16:41:15 Crestor 40 mg tablet 2017 018 oarei [facility] #[id number], [address], [place], [place], [id number], 8 15:34:58 Crestor 40 mg tablet 2016 017 [facility] #[id number], [address], [place], [place], [id number], 7 15:46:08 Patient TargetsNo targets recorded. Patient Instructions Encounter Date Encounter Id Patient Instructions Last Modified By Organization Details Last Modified Time 11/07/2016 [id number] influenza (flu) vaccine: care instructions [email or web address] Not available 11/07/2016 15:49:45 Quitting Tobacco : Care Instructions [email or web address] Not available 11/07/2016 15:49:45 learning about breast cancer screening hdoverma Not available 11/07/2016 15:49:45 type 2 diabetes: care instructions hdoverma Not available 11/07/2016 15:49:45 HIV testing: car e instructions hdoverma Not available 11/07/2016 15:49:45 Labs Stop smokin g FU in 4 months oajao Not available 11/07/2016 19:31:32 Lab results were discussed oajao Not available 11/07/2016 19:32:05 03/11/2017 [id number] mammogram: about this test oajao Not available 03/11/2017 15:34:57 A healthy lifestyle: care instructions oajao Not available 03/11/2017 15:34:57 tetanus and diphtheria booster: care instructions oajao Not available 03/11/2017 15:34:57 type 2 diabetes: care instructions oajao Not available 03/11/2017 15:34:57 HIV testing: car e instructions oajao Not available 03/11/2017 15:34:57 LDCT Labs MMG Follow up in 4 months Test blood sugars 3/week oajao Not available 03/11/2017 15:36:12 The need to stop smoking was discussed oajao Not available 03/11/2017 15:36:32 07/10/2017 [id number] ER note from her last visit ER Follow up in 2 weeks oajao Not available 07/10/2017 17:17:[address] Higginbotham, he is in surgery. Ms Spencer cannot go to the [facility] 07/11/2017 for an office visit with Dr. Higginbotham as recommended by his nurse who called back, I do not think it is prudent to wait until next week for her to be seen in the [place] office, she has poor general hygeine and infected wounds with possible localized collections. Discussed with the ERMD, Dr. Irving at [facility]. Face to face tme over 40 minutes Her lab results were also discussed oajao Not available 07/10/2017 20:17:48 07/26/2017 [id number] type 2 diabetes: care instructions oajao Not available 07/26/2017 16:15:32 Labs Stop smokin g FU in 3 months oajao Not available 07/26/2017 17:09:38 Her discharge summary was discussed oajao Not available 07/26/2017 17:10:12 10/29/2017 [id number] influenza (flu) vaccine: care instructions oajao Not available 10/29/2017 16:41:00 Peripheral Arterial Disease (PAD): Care Instructions oajao Not available 10/29/2017 16:48:07 mammogram: about this test oajao Not available 10/29/2017 16:44:30 type 2 diabetes: care instructions oajao Not available 10/29/2017 16:44:[address] Jones ([facility]) Labs Pain contract MMG Follow up in 3 months oajao Not available 10/29/2017 17:54:56 Lab results were discussed oajao Not available 10/29/2017 16:46:44 Reason for Referral Diabetic Ophthalmology Refer ral for Type 2 diabetes mellitus without complication Please call patient to schedule appt. thank you Referring Physician: Katharine Heart, Internal Medicine, Encounter Date: 11/07/2016 Diabetic Ophthalmology Refer ral for Uncontrolled type 2 diabetes mellitus Please call patient to schedule appt. Thank you Referring Physician: Katharine Heart, Internal Medicine, Encounter Date: 10/29/2017 Results Created Date Observation Date Name Description Value Unit Range Abnormal Flag Note LastModifiedBy Organization Detail LastModifiedTime 04/15/19 18 04/16/2017 lipid panel , serum cholesterol, total 205 mg/dL 100-19 9 above high normal Not Available [facility] ([facility]) [address] [facility], [place], [address], 04/16/2017 11:15:05 04/15/19 18 04/16/2017 lipid panel , serum triglyceride s 185 mg/dL 0-149 above high normal Not Available [facility] ([facility]) [address] [place], [address], 04/16/2017 11:15:05 04/15/19 18 04/16/2017 lipid panel , serum LDL chol. (direct) 131 mg/dL 0-99 above high normal Not Available [facility] ([facility]) [address] [facility], [place], [address], 04/16/2017 11:15:05 04/15/19 18 04/16/2017 lipid panel , serum HDL cholesterol 34 mg/dL >39 below low normal Not Available [facility] ([facility]) [address] [facility], [place], [address], 04/16/2017 11:15:05 04/15/19 18 04/16/2017 lipid panel , serum VLDL cholesterol gary 37 mg/dL 5-40 Not Available [facility] ([facility]) [address] [place], [address], 04/16/2017 11:15:05 04/15/19 18 04/16/2017 lipid panel , serum LDL cholesterol calc 134 mg/dL 0-99 above high normal Not Available [facility] ([facility]) [address] [place], [address], 04/16/2017 11:15:05 04/15/19 18 04/16/2017 lipid panel , serum comment: CHART CLERK Not Available [facility] ([facility]) [address] [place], [address], 04/16/2017 11:15:05 04/15/19 18 04/16/2017 lipid panel , serum LDL/HDL ratio 3.9 ratio _unit s 0.0-3. 2 above high normal LDL/H DL Ratio Men Women 1/2 Avg.R isk 1.0 1.5 Avg.R isk 3.6 3.2 2X Avg.R isk 6.2 5.0 3X Avg.R isk 8.0 6.1 Not Available [facility] ([facility]) [address] [place], [address], 04/16/2017 11:15:05 04/15/19 18 04/16/2017 urina lysis , compl ete specific gravity 1.018 1.005- 1.030 Not Available [facility] ([facility]) [address] [place], [address], 04/16/2017 11:15:06 04/15/19 18 04/16/2017 urina lysis , compl ete pH 5.0 5.0-7. 5 Not Available [facility] ([facility]) [address] [place], [address], 04/16/2017 11:15:06 04/15/19 18 04/16/2017 urina lysis , compl ete urine-color YELLOW yellow Not Available [facility] ([facility]) [address] [place], [address], 04/16/2017 11:15:06 04/15/19 18 04/16/2017 urina lysis , compl ete appearance CLOUDY clear abnormal Not Available [facility] ([facility]) [address] [place], [address], 04/16/2017 11:15:06 04/15/19 18 04/16/2017 urina lysis , compl ete WBC esterase NEGATI VE negati ve Not Available [facility] ([facility]) [address] [facility], [place], [address], 04/16/2017 11:15:06 04/15/19 18 04/16/2017 urina lysis , compl ete protein NEGATI VE negati ve/tra ce Not Available [facility] ([facility]) [address] [facility], [place], [address], 04/16/2017 11:15:06 04/15/19 18 04/16/2017 urina lysis , compl ete glucose NEGATI VE negati ve Not Available [facility] ([facility]) [address] [facility], [place], [address], 04/16/2017 11:15:06 04/15/19 18 04/16/2017 urina lysis , compl ete ketones NEGATI VE negati ve Not Available [facility] ([facility]) [address] [facility], [place], [address], 04/16/2017 11:15:06 04/15/19 18 04/16/2017 urina lysis , compl ete occult blood NEGATI VE negati ve Not Available [facility] ([facility]) [address] [facility], [place], [address], 04/16/2017 11:15:06 04/15/19 18 04/16/2017 urina lysis , compl ete bilirubin NEGATI VE negati ve Not Available [facility] ([facility]) [address] [place], [address], 04/16/2017 11:15:06 04/15/19 18 04/16/2017 urina lysis , compl ete urobilinogen ,semi-qn 0.2 mg/dL 0.2-1. 0 Not Available [facility] ([facility]) [address] [place], [address], 04/16/2017 11:15:06 04/15/19 18 04/16/2017 urina lysis , compl ete nitrite, urine NEGATI VE negati ve Not Available [facility] ([facility]) [address] [facility], [place], [address], 04/16/2017 11:15:06 04/15/19 18 04/16/2017 urina lysis , compl ete microscopic examination COMMEN T Micro scopi c follo ws if indic ated. Not Available [facility] ([facility]) [address] [facility], [place], [address], 04/16/2017 11:15:06 04/15/19 18 04/16/2017 urina lysis , compl ete microscopic examination SEE BELOW: Micro scopi c was indic ated and was perfo rmed. Not Available [facility] ([facility]) [address] [facility], [place], [address], 04/16/2017 11:15:06 04/15/19 18 04/16/2017 urina lysis , compl ete WBC 0-5 /hpf 0 - 5 Not Available [facility] ([facility]) [address] [facility], [place], [address], 04/16/2017 11:15:06 04/15/19 18 04/16/2017 urina lysis , compl ete RBC 0-2 /hpf 0 - 2 Not Available [facility] ([facility]) [address] [facility], [place], [address], 04/16/2017 11:15:06 04/15/19 18 04/16/2017 urina lysis , compl ete epithelial cells (non renal) >10 /hpf 0 - 10 abnormal Not Available [facility] ([facility]) [address] [facility], [place], [address], 04/16/2017 11:15:06 04/15/19 18 04/16/2017 urina lysis , compl ete epithelial cells (renal) CHART CLERK Not Available [facility] ([facility]) [address] [facility], [place], [address], 04/16/2017 11:15:06 04/15/19 18 04/16/2017 urina lysis , compl ete casts CHART CLERK Not Available [facility] ([facility]) [address] [facility], [place], [address], 04/16/2017 11:15:06 04/15/19 18 04/16/2017 urina lysis , compl ete cast type CHART CLERK Not Available [facility] ([facility]) [address] [facility], [place], [address], 04/16/2017 11:15:06 04/15/19 18 04/16/2017 urina lysis , compl ete crystals CHART CLERK Not Available [facility] ([facility]) [address] [place], [address], 04/16/2017 11:15:06 04/15/19 18 04/16/2017 urina lysis , compl ete crystal type CHART CLERK Not Available [facility] ([facility]) [address] [facility], [place], [address], 04/16/2017 11:15:06 04/15/19 18 04/16/2017 urina lysis , compl ete mucus threads PRESEN T not estab. Not Available [facility] ([facility]) [address] [facility], [place], [address], 04/16/2017 11:15:06 04/15/19 18 04/16/2017 urina lysis , compl ete bacteria MANY none seen/f ew abnormal Not Available [facility] ([facility]) [address] [place], [address], 04/16/2017 11:15:06 04/15/19 18 04/16/2017 urina lysis , compl ete yeast CHART CLERK Not Available [facility] ([facility]) [address] [place], [address], 04/16/2017 11:15:06 04/15/19 18 04/16/2017 urina lysis , compl ete trichomonas CHART CLERK Not Available [facility] ([facility]) [address] [place], [address], 04/16/2017 11:15:06 04/15/19 18 04/16/2017 urina lysis , compl ete comment CHART CLERK Not Available [facility] ([facility]) [address] [place], [address], 04/16/2017 11:15:06 04/15/19 18 04/16/2017 BMP, serum or plasm a glucose, serum 98 mg/dL 65-99 Not Available [facility] ([facility]) [address] [place], [address], 04/16/2017 11:15:06 04/15/19 18 04/16/2017 BMP, serum or plasm a BUN 13 mg/dL 6-24 Not Available [facility] ([facility]) [address] [place], [address], 04/16/2017 11:15:06 04/15/19 18 04/16/2017 BMP, serum or plasm a creatinine, serum 0.76 mg/dL 0.57-1 .00 Not Available [facility] ([facility]) [address] [place], [address], 04/16/2017 11:15:06 04/15/19 18 04/16/2017 BMP, serum or plasm a eGFR if nonafricn AM 87 mL/mi n/1.7 3 >59 Not Available [facility] ([facility]) [address] [place], [address], 04/16/2017 11:15:06 04/15/19 18 04/16/2017 BMP, serum or plasm a eGFR if africn AM 101 mL/mi n/1.7 3 >59 Not Available [facility] ([facility]) [address] [place], [address], 04/16/2017 11:15:06 04/15/19 18 04/16/2017 BMP, serum or plasm a BUN/creatini ne ratio 17 9-23 Not Available [facility] ([facility]) [address] [place], [address], 04/16/2017 11:15:06 04/15/19 18 04/16/2017 BMP, serum or plasm a sodium, serum 143 mmol/ L 134-14 4 Not Available [facility] ([facility]) [address] [place], [address], 04/16/2017 11:15:06 04/15/19 18 04/16/2017 BMP, serum or plasm a potassium, serum 4.7 mmol/ L 3.5-5. 2 Not Available [facility] ([facility]) [address] [place], [address], 04/16/2017 11:15:06 04/15/19 18 04/16/2017 BMP, serum or plasm a chloride, serum 102 mmol/ L 96-106 Not Available [facility] ([facility]) [address] [place], [address], 04/16/2017 11:15:06 04/15/19 18 04/16/2017 BMP, serum or plasm a carbon dioxide, total 25 mmol/ L 18-29 Not Available [facility] ([facility]) [address] [place], [address], 04/16/2017 11:15:06 04/15/19 18 04/16/2017 BMP, serum or plasm a anion gap 16.0 mmol/ L 10.0-1 8.0 Not Available [facility] ([facility]) [address] [place], [address], 04/16/2017 11:15:06 04/15/19 18 04/16/2017 HbA1c (hemo globi n A1c), blood hemoglobin A1C 5.9 % 4.8-5. 6 above high normal Pre-d iabet es: 5.7 - 6.4 Diabe radha: >6.4 Glyce anthony contr ol for adult s with diabe radha: <7.0 Not Available [facility] ([facility]) [address] [facility] [place], [address], 04/16/2017 11:15:07 04/15/19 18 04/16/2017 HIV 1+2 AB + HIV 1 p24 Ag, quali tativ e immun oassa y, serum HIV screen 4TH generation wrfx NON REACTI VE non reacti ve Not Available [facility] ([facility]) [address] [facility], [place], [address], 04/16/2017 11:15:08 04/15/19 18 04/16/2017 micro album in, urine albumin, urine 3.4 ug/mL not estab. Not Available [facility] ([facility]) [address] [facility], [place], [address], 04/16/2017 11:15:08 04/15/19 18 04/16/2017 diabe radha patie nt educa tion pdf image . Not Available [facility] ([facility]) [address] [facility], [place], [address], 04/16/2017 11:15:09 10/29/19 18 10/29/2017 CBC w/ auto diff WBC 8.4 x10e3 /uL 3.4-10 .8 Not Available [facility] ([facility]) [address] [place], [address], 10/29/2017 07:14:40 10/29/19 18 10/29/2017 CBC w/ auto diff RBC 4.79 x10e6 /uL 3.77-5 .28 Not Available [facility] ([facility]) [address] [facility] [place], [address], 10/29/2017 07:14:40 10/29/19 18 10/29/2017 CBC w/ auto diff hemoglobin 11.7 g/dL 11.1-1 5.9 Not Available [facility] ([facility]) [address] [place], [address], 10/29/2017 07:14:40 10/29/19 18 10/29/2017 CBC w/ auto diff hematocrit 36.8 % 34.0-4 6.6 Not Available [facility] ([facility]) [address] [facility], [place], [address], 10/29/2017 07:14:40 10/29/19 18 10/29/2017 CBC w/ auto diff MCV 77 fL 79-97 below low normal Not Available [facility] ([facility]) [address] [facility], [place], [address], 10/29/2017 07:14:40 10/29/19 18 10/29/2017 CBC w/ auto diff MCH 24.4 pg 26.6-3 3.0 below low normal Not Available [facility] ([facility]) [address] [facility], [place], [address], 10/29/2017 07:14:40 10/29/19 18 10/29/2017 CBC w/ auto diff MCHC 31.8 g/dL 31.5-3 5.7 Not Available [facility] ([facility]) [address] [facility], [place], [address], 10/29/2017 07:14:40 10/29/19 18 10/29/2017 CBC w/ auto diff RDW 19.3 % 12.3-1 5.4 above high normal Not Available [facility] ([facility]) [address] [facility], [place], [address], 10/29/2017 07:14:40 10/29/19 18 10/29/2017 CBC w/ auto diff platelets 308 x10e3 /uL 150-37 9 Not Available [facility] ([facility]) [address] [facility], [place], [address], 10/29/2017 07:14:40 10/29/19 18 10/29/2017 CBC w/ auto diff neutrophils 69 % not estab. Not Available [facility] ([facility]) [address] [facility], [place], [address], 10/29/2017 07:14:40 10/29/19 18 10/29/2017 CBC w/ auto diff lymphs 23 % not estab. Not Available [facility] ([facility]) [address] [facility], [place], [address], 10/29/2017 07:14:40 10/29/19 18 10/29/2017 CBC w/ auto diff monocytes 7 % not estab. Not Available [facility] ([facility]) [address] [facility], [place], [address], 10/29/2017 07:14:40 10/29/19 18 10/29/2017 CBC w/ auto diff eos 1 % not estab. Not Available [facility] ([facility]) [address] [facility], [place], [address], 10/29/2017 07:14:40 10/29/19 18 10/29/2017 CBC w/ auto diff basos 0 % not estab. Not Available [facility] ([facility]) [address] [facility], [place], [address], 10/29/2017 07:14:40 10/29/19 18 10/29/2017 CBC w/ auto diff immature cells CHART CLERK Not Available [facility] ([facility]) [address] [facility], [place], [address], 10/29/2017 07:14:40 10/29/19 18 10/29/2017 CBC w/ auto diff neutrophils (absolute) 5.7 x10e3 /uL 1.4-7. 0 Not Available [facility] ([facility]) [address] [facility], [place], [address], 10/29/2017 07:14:40 10/29/19 18 10/29/2017 CBC w/ auto diff lymphs (absolute) 1.9 x10e3 /uL 0.7-3. 1 Not Available [facility] ([facility]) [address] [facility], [place], [address], 10/29/2017 07:14:40 10/29/19 18 10/29/2017 CBC w/ auto diff monocytes(ab solute) 0.6 x10e3 /uL 0.1-0. 9 Not Available [facility] ([facility]) [address] [facility], [place], [address], 10/29/2017 07:14:40 10/29/19 18 10/29/2017 CBC w/ auto diff eos (absolute) 0.1 x10e3 /uL 0.0-0. 4 Not Available [facility] ([facility]) [address] [facility], [place], [address], 10/29/2017 07:14:40 10/29/19 18 10/29/2017 CBC w/ auto diff baso (absolute) 0.0 x10e3 /uL 0.0-0. 2 Not Available [facility] ([facility]) [address] [facility], [place], [address], 10/29/2017 07:14:40 10/29/19 18 10/29/2017 CBC w/ auto diff immature granulocytes 0 % not estab. Not Available [facility] ([facility]) [address] [facility], [place], [address], 10/29/2017 07:14:40 10/29/19 18 10/29/2017 CBC w/ auto diff immature grans (abs) 0.0 x10e3 /uL 0.0-0. 1 Not Available [facility] ([facility]) [address] [facility], [place], [address], 10/29/2017 07:14:40 10/29/19 18 10/29/2017 CBC w/ auto diff NRBC CHART CLERK Not Available [facility] ([facility]) [address] [facility], [place], [address], 10/29/2017 07:14:40 10/29/19 18 10/29/2017 CBC w/ auto diff hematology comments: CHART CLERK Not Available [facility] ([facility]) [address], [place], [address], 10/29/2017 07:14:40 10/29/19 18 10/29/2017 lipid panel , serum cholesterol, total 176 mg/dL 100-19 9 Not Available [facility] ([facility]) [address], [place], [address], 10/29/2017 07:14:40 10/29/19 18 10/29/2017 lipid panel , serum triglyceride s 130 mg/dL 0-149 Not Available [facility] ([facility]) [address], [place], [address], 10/29/2017 07:14:40 10/29/19 18 10/29/2017 lipid panel , serum HDL cholesterol 40 mg/dL >39 Not Available [facility] ([facility]) [address], [place], [address], 10/29/2017 07:14:40 10/29/19 18 10/29/2017 lipid panel , serum VLDL cholesterol gary 26 mg/dL 5-40 Not Available [facility] ([facility]) [address] [facility], [place], [address], 10/29/2017 07:14:40 10/29/19 18 10/29/2017 lipid panel , serum LDL cholesterol calc 110 mg/dL 0-99 above high normal Not Available [facility] ([facility]) [address] [facility], [place], [address], 10/29/2017 07:14:40 10/29/19 18 10/29/2017 lipid panel , serum comment: CHART CLERK Not Available [facility] ([facility]) [address], [place], [address], 10/29/2017 07:14:40 10/29/19 18 10/29/2017 lipid panel , serum LDL/HDL ratio 2.8 ratio 0.0-3. 2 LDL/H DL Ratio Men Women 1/2 Avg.R isk 1.0 1.5 Avg.R isk 3.6 3.2 2X Avg.R isk 6.2 5.0 3X Avg.R isk 8.0 6.1 Not Available [facility] ([facility]) [address] [facility], [place], [address], 10/29/2017 07:14:40 10/29/19 18 10/29/2017 HbA1c (hemo globi n A1c), blood hemoglobin A1C 6.0 % 4.8-5. 6 above high normal Predi abete s: 5.7 - 6.4 Diabe radha: >6.4 Glyce anthony contr ol for adult s with diabe radha: <7.0 Not Available [facility] ([facility]) [address] [facility], [place], [address], 10/29/2017 07:14:41 10/29/19 18 10/29/2017 diabe radha patie nt educa tion pdf image . Not Available [facility] ([facility]) [address] [facility], [place], [address], 10/29/2017 07:14:41 03/11/19 18 11/26/2016 LDCT, chest , for lung cance r herminia garcia No observ ation record ed. [facility] Not Available 2017 16:35:26 05/08/19 18 05/07/2017 cardi ac stres s test No observ ation record ed. [facility] [address], [place], [address], 07/10/2017 16:35:26 05/10/19 18 Perip heral Arter y Disea se (PAD) Self Asses sment Tool* No observ ation record ed. [facility] [id number]|2024-06-29 16:35:17|2024-06-29 16:35:17|PC.NURSE||||"This RN spoke with Dom GALINDO at [facility] and gave her update regarding pt and that pt is to be admitted to this hospital "
[2024-06-29 12:38] LABS: INR 1.4; Prothrombin Time 17.7 Seconds (11.1-14.7)
[2024-06-29 12:39] LABS: Partial Thromboplastin Time 29.6 Seconds (22.3-36.8)
[2024-06-29 12:40] LABS: Alanine Aminotransferase 17 U/L (6-35); Albumin Level 3.9 g/dL (3.5-5.1); Alkaline Phosphatase 102 U/L (38-126); Anion Gap 7 mmol/L (4-12); Aspartate Amino Transferase 28 U/L (14-36); Bilirubin,Total 0.5 mg/dL (0.2-1.3); Blood Urea Nitrogen 15 mg/dL (7-17); Calcium 9.3 mg/dL (8.4-10.2); Carbon Dioxide 28 mmol/L (22-30); Chloride 101 mmol/L (98-107); Estimated CRCL calculation 93 ml/min; Estimated Glomerular Filt Rate > 60; Glucose 130 mg/dL (65-110); Potassium 4.1 mmol/L (3.4-5.0); Sodium 136 mmol/L (137-145)
[2024-06-29 13:01] LABS: Troponin I < 0.012 ng/mL (0.000-0.034)
[2024-06-29 13:05] LABS: Add Urine Microscopic? NO; Appearance Urine Clear (Clear); Bilirubin Urine Negative (Negative); Blood Urine Negative (Negative); Color Urine Yellow (Yellow); Glucose Urine UA Negative (Negative); Ketones Urine Negative (Negative); Leukocyte Esterase Ur Negative LEU/UL (Negative); Nitrate Urine Negative (Negative); Protein Urine Negative (Negative); Specific Grav Ur 1.041 (1.001-1.035)
--- NOTE | 2024-06-29 13:24 | PC.NURSE ---
[employer] Footcheck applied to both feet
[2024-06-29] MEDS: ACETAMINOPHEN 500 MG TABLET 1000 MG PO (13:28)
[2024-06-29] MEDS: CEFEPIME 2 GM/NS 50 ML 2 GM/50 ML BAG IVPB ×2 (13:33→21:46)
[2024-06-29] MEDS: VANCOMYCIN 1,250 MG/NS 250 ML 1,250 MG/250 ML BAG 166.67 MG IVPB ×2 (14:04→15:49)
[2024-06-29 14:14] LABS: Influenza A QL RT-PCR Negative (Negative); Influenza B QL RT-PCR Negative (Negative); RSV RNA, RT-PCR Negative (Negative); SARS-CoV-2 RNA PCR Negative (Negative)
--- NOTE | 2024-06-29 14:59 | P.HP_ITS ---
H&P: HPI History of Present Illness Date/Time: 06/29/24 14:59 Chief Complaint: Altered mental status Narrative: 63-year-old female past medical history of DVT and left leg, hypothyroidism, diabetes type 2, bipolar disorder, PVD and kidney cancer presents to the hospital from a correction with altered mental status. HPI is limited patient does not know what happened. Per the ED note staff had checked on her at 9:00 a.m. and at noon, the nursing knows that she had increased altered mental status. Patient complains of redness on her buttocks and left leg. Patient presented to the hospital with fever 102.9, heart rate of 111, pulse ox of 89 on room air. Lab work shows leukocytosis at 27.7, C-reactive protein of 8, UA noninfective. CT head shows no acute intercranial process, CTA shows no acute process, chest x-ray shows Highly suggestive cardiomegaly with cardiac decompensation and pulmonary edema. Prominent markings in the left lung with interstitial thickening which may indicate pneumonitis. Review of Systems Review of Systems: ROS unobtainable: Yes unobtainable due to mental status [facility] Past Medical History Medical History Bipolar disorder Bowel obstruction Cancer of kidney Current use of press tender long goods anticoagulation Deep venous thrombosis Diabetic peripheral neuropathy DVT of leg (deep venous thrombosis) left leg Gastroesophageal reflux disease Hypercholesterolemia Hypothyroidism Incarcerated incisional hernia Kidney stones Peripheral vascular disease Stasis dermatitis of right lower extremity with venous ulcer due to chronic peripheral venous hypertension Type 2 diabetes mellitus Surgical History Surgical History History of cholecystectomy History of hysterectomy History of vascular surgery Bilateral common iliac stents. S/P appendectomy incidental appendectomy on 06/02/11 S/P hernia repair incarcerated 5 cm incisional hernia repair with mesh, small bowel serosal injury repair, incidental appendectomy 06/01/22 Family History Family History Father Throat cancer Mother Heart disease Social History Social History Social History: The patient resides patient resides at [facility] . She does have 1 child and she still smokes. [id number]: Pete Posada. and Priya ku Code status: Full code. Smoking packs per day: 0.5 Smoking cigarettes per day: 10.0 Years smoked: 35 Smoking pack-years: 17.50 Smoking status: Current every day smoker Tobacco type: cigarettes Second hand tobacco smoke exposure: Yes Additional smoking assessment comments: continues to smoke at the correction Alcohol intake: unknown Substance use: unknown Substance use type: unknown Lack of Transportation: No Lack of Food: Never True Current Housing: I Do Not Have Housing Concerned About Future Housing: No Difficulty Paying Gas/Electric Bills: No Difficulty Paying for Meds: No Currently Unemployed: No Education: Grade School Difficulty w/ Childcare or Family Care: No Living arrangements: correction Additional living arrangements comments: Currently at [facility]. Additional occupation/education comments: Disabled. Gender identity (if verbalized by the patient): Female Sexual Orientation (if Verbalized by the Patient): Straight or Heterosexual Spiritual care concerns: No Agree to blood products: Yes Meds Home Medications and Allergies Home Medications Medication Instructions Recorded Confirmed Type aspirin 81 mg tablet,delayed 81 mg PO DAILY 01/30/19 06/29/24 History release (Aspir-) multivitamin 1 cap PO DAILY 01/30/19 06/29/24 History acetaminophen 325 mg tablet 650 mg PO Q4H PRN Mild Pain (Scale 06/18/21 06/29/24 History (Tylenol) Score 1-4) apixaban 5 mg tablet (Eliquis) 5 mg PO BID 06/18/21 06/29/24 History ascorbic acid (vitamin C) 250 mg 500 mg PO DAILY 06/18/21 06/29/24 History tablet atorvastatin 10 mg tablet 20 mg PO DAILY 06/18/21 06/29/24 History furosemide 40 mg tablet 40 mg PO DAILY 06/18/21 06/29/24 History levothyroxine 88 mcg tablet 88 mcg PO DAILY 06/18/21 06/29/24 History metformin 500 mg tablet 500 mg PO BID 06/18/21 06/29/24 History olanzapine 5 mg tablet 5 mg PO QPM 06/18/21 06/29/24 History potassium chloride 20 mEq 20 meq PO DAILY 06/18/21 06/29/24 History tablet,extended release(part/cryst) spironolactone 25 mg tablet 25 mg PO DAILY 06/18/21 06/29/24 History docusate sodium 100 mg capsule 100 mg PO BID 09/12/21 06/29/24 History (Colace) Milk of Magnesia (antacid) 30 ml PO Q12-24H PRN Constipation 02/11/22 06/29/24 History carvedilol 3.125 mg tablet 3.125 mg PO BID 02/11/22 06/29/24 History trazodone 100 mg tablet 100 mg PO HS 02/11/22 06/29/24 History aripiprazole 5 mg tablet (Abilify) 5 mg PO DAILY 1 month #30 tabs 03/02/22 06/29/24 Rx bisacodyl 5 mg tablet 5 mg PO HS 05/29/22 06/29/24 History albuterol sulfate 90 mcg/actuation 2 puff inhalation Q4H PRN 06/29/24 06/29/24 History aerosol inhaler shortness of breath or wheezing aripiprazole 2 mg tablet 2 mg PO DAILY 06/29/24 06/29/24 History aripiprazole 5 mg tablet (Abilify) 5 mg PO DAILY 06/29/24 06/29/24 History cholecalciferol (vitamin D3) 25 25 mcg PO DAILY 06/29/24 06/29/24 History mcg (1,000 unit) capsule cyanocobalamin (vitamin B-12) 500 500 mcg PO DAILY 06/29/24 06/29/24 History mcg tablet (B-12 DOTS) ferrous sulfate 325 mg (65 mg 325 mg PO DAILY 06/29/24 06/29/24 History iron) tablet (Feosol) fluticasone furoate 100 1 inh inhalation DAILY 06/29/24 06/29/24 History mcg-vilanterol 25 mcg/dose inhalation powder (Breo Ellipta) folic acid 20 mg capsule 20 mg PO DAILY 06/29/24 06/29/24 History hydroxyzine HCl 10 mg tablet 10 mg PO Q8H PRN itching 06/29/24 06/29/24 History pentoxifylline 400 mg 400 mg PO Q12H 06/29/24 06/29/24 History tablet,extended release tramadol 50 mg tablet 50 mg PO TID 06/29/24 06/29/24 History Allergies Allergy/AdvReac Type Severity Reaction Status Date / Time Latex, Natural Rubber Allergy Mild Unknown Verified 06/29/24 18:13 Vital Signs Vital Signs - 24 hr 06/29/24 12:29 06/29/24 12:29 06/29/24 12:29 Temperature 102.9 F H 102.9 F H Pulse Rate 111 H 111 H 111 H Respiratory Rate 17 17 17 Blood Pressure 158/68 H 158/68 H 158/68 H Pulse Oximetry 89 L 96 89 L Oxygen Delivery Room Air Oxygen Flow Rate 3 06/29/24 12:38 06/29/24 13:38 06/29/24 14:05 Temperature 98.9 F Pulse Rate 102 H Respiratory Rate Blood Pressure Pulse Oximetry 96 Oxygen Delivery Nasal Cannula Oxygen Flow Rate 3 06/29/24 14:40 Temperature 99.2 F Pulse Rate 98 Respiratory Rate 14 Blood Pressure 106/54 L Pulse Oximetry 95 Oxygen Delivery Oxygen Flow Rate Exam Narrative: General: Chronically ill HEENT: normocephalic, atraumatic. Mucous membranes moist. EOMI, PERRLA, bilateral sclera anicteric, no conjunctival injection. Neck supple without JVD, lymphadenopathy, or bruit. Respiratory: clear to ascultation bilaterally. No rales/rhonic/wheezes. Cardiovascular: Regular rate and rhythm, normal S1-S2 upon ascultation. No murmurs, rubs, or clicks. PMI is nondisplaced, capillary refill less than 3 second. Abdomen: Soft, round, no pulsatile masses, nondistended and nontender. No rebound, no guarding. No CVA tenderness, no hepatosplenomegaly. Bowel sounds present to all four quadrants. No high pitch or tinkling sounds, resonant to percussion. Extremities: No cyanosis, clubbing, or edema present. Pulses are palpable 2/2. Left lower extremity with erythema. Neuro: Alert and orientated x 2. PERRLA. Cranial nerves 2-12 intact without focal deficit. Skin: Warm, dry, and intact, without rash, erythema, or lesion. Psych: pleasant, cooperative, normal speech, normal affect, no hallucinations, no dysarthia H&P: Results Labs Labs: Short CBC 06/29/24 Range/Units 12:18 WBC 27.7 H (4.5-10.0) K/mm3 Hgb 12.5 (12.0-15.0) g/dL Hct 39.8 (37.0-47.0) % Plt Count 303 D (150-375) k/mm3 BMP 06/29/24 12:18 Sodium 136 L Potassium 4.1 Chloride 101 Carbon Dioxide 28 BUN 15 Creatinine 0.66 L Glucose 130 H Calcium 9.3 Cardiac Enzymes 06/29/24 Range/Units 12:18 Troponin I < 0.012 (0.000-0.034) ng/mL Liver Function 06/29/24 Range/Units 12:18 Total Bilirubin 0.5 (0.2-1.3) mg/dL AST 28 (14-36) U/L ALT 17 (6-35) U/L Alkaline Phosphatase 102 (38-126) U/L Albumin 3.9 (3.5-5.1) g/dL Urine 06/29/24 Range/Units 12:59 Urine Color Yellow (Yellow) Urine Appearance Clear (Clear) Urine pH 8.0 (5.0-9.0) Ur Specific [place] 1.041 H (1.001-1.035) Urine Protein Negative (Negative) mg/dL Urine Glucose (UA) Negative (Negative) mg/dL Assessment and Plan Assessment and plan (1) Pulmonary edema: Code(s): J81.1 - Chronic pulmonary edema Status: Acute Assessment and Plan: Chest x-ray Highly suggestive cardiomegaly with cardiac decompensation and pulmonary edema. Echocardiogram pending Unable to give diuretics night due to hypotension Restart home diuretics the morning (2) Cellulitis: Qualifiers: Laterality: right Site of cellulitis: extremity Site of cellulitis of extremity: lower extremity Qualified Code(s): L03.115 - Cellulitis of right lower limb Code(s): L03.90 - Cellulitis, unspecified Status: Acute Assessment and Plan: Lactic acid 1.7 IV cefepime, Flagyl, vancomycin CBC in the morning (3) Pneumonia: Code(s): J18.9 - Pneumonia, unspecified organism Status: Acute Assessment and Plan: Chest x-ray Prominent markings in the left lung with interstitial thickening which may indicate pneumonitis. Repeat chest x-ray in the morning after diuresis IV cefepime, Flagyl, vancomycin (4) Lower extremity ulceration: Qualifiers: Laterality: right Non-pressure ulcer stage: limited to breakdown of skin Qualified Code(s): L97.911 - Non-pressure chronic ulcer of unspecified part of right lower leg limited to breakdown of skin Code(s): L97.909 - Non-pressure chronic ulcer of unspecified part of unspecified lower leg with unspecified severity Status: Acute Assessment and Plan: Wound care consult (5) Bipolar disorder: Code(s): F31.9 - Bipolar disorder, unspecified Status: Chronic Assessment and Plan: Continue Zyprexa (6) Hypercholesterolemia: Code(s): E78.00 - Pure hypercholesterolemia, unspecified Status: Acute Assessment and Plan: Continue home statin (7) Type 2 diabetes mellitus: Qualifiers: Diabetes mellitus complication detail: with dermatitis Diabetes mellitus complication status: with skin complications Diabetes mellitus press tender long goods insulin use: without press tender long goods use Qualified Code(s): E11.620 - Type 2 diabetes mellitus with diabetic dermatitis Code(s): E11.9 - Type 2 diabetes mellitus without complications Status: Chronic Assessment and Plan: Hold home metformin Diabetic diet Accu-Ray a.cNeymar HS SSI (8) Hypothyroidism: Code(s): E03.9 - Hypothyroidism, unspecified Status: Chronic Assessment and Plan: Continue Synthroid Quality VTE Prophylaxis VTE prophylaxis: mechanical ordered and pharmacologic ordered Hospitalist MIPS Advance Care Plan I have confirmed that the patient's Advanced Care Plan is present, code status is documented, or surrogate decision maker is listed in patient medical record.: Yes Medication Reconciliation I have utilized all available resources to obtain, update and review the patients current medications (includes all prescriptions, OTC, herbals, cannabis, and nutritional supplements).: Yes
[2024-06-29] MEDS: LACTATED RINGERS 1,000 ML 999 ML IV CONT (15:48)
--- NOTE | 2024-06-29 16:49 | ECG_ITS ---
Test Date: 2024-06-29 18:15:50 Measurements Intervals [place] Rate: 93 P: 74 DC: 157 QRS: 19 QRSD: 96 T: 132 QT: 336 QTc: 419 Interpretive Statements SINUS RHYTHM WITH FREQUENT SUPRAVENTRICULAR PREMATURE COMPLEXES ST DEVIATION AND MODERATE T-WAVE ABNORMALITY, CONSIDER ANTEROLATERAL ISCHEMIA Compared to ECG 06/29/2024 12:32:21 NO SIGNIFICANT CHANGES Electronically Signed On 06-30-2024 14:50:02 CDT by Ranjan Quinteros M.D.
[2024-06-29 17:31] LABS: Lactic Acid Reflex 1.7 mmol/L (0.7-2.0)
[2024-06-29] MEDS: metroNIDAZOLE 500 MG/ISO 100ML 500 MG/100 ML BAG 100 MG IVPB ×2 (17:31→22:11)
--- NOTE | 2024-06-29 17:35 | ADMGEN ---
This patient, Rafia Spencer, was admitted to [facility]. Patient/family oriented to hospital policies and general routines including ID bracelet, bed and alarms, visiting hours, pain management, procedures, bathroom and other care routines, personal items, smoking policy, room service/diet, and visiting hours. Information on how to activate the Rapid Response Team has been discussed. Patient/Family are encouraged to report perceived risks to care and to ask questions if they do not understand what they are told or what they should do.
[2024-06-29] MEDS: ACETAMINOPHEN 325 MG TABLET 650 MG PO (17:40)
[2024-06-29 17:52] LABS: Troponin I < 0.012 ng/mL (0.000-0.034)
[2024-06-29] MEDS: DOCUSATE SODIUM 100 MG CAPSULE PO (18:03)
[2024-06-29 20:02] LABS: Glucose Point of Care 135 mg/dl (65-105)
[2024-06-29] MEDS: SODIUM CHLORIDE 0.9% IV 500 ML IV CONT (20:41)
[2024-06-29] MEDS: PENTOXIFYLLINE 400 MG TABCR PO (20:45)
[2024-06-29] MEDS: APIXABAN 5 MG TABLET PO (20:45)
[2024-06-29] MEDS: carvediloL 3.125 MG TABLET PO (20:49)
[2024-06-29] MEDS: FLUTICASONE/SALMETEROL 115-21 MCG INHALER 1 PUFF 2 PUFF INHALATION (22:26)
[2024-06-30] VITALS (19 sets, daily range): BP systolic 111–119; BP diastolic 46–86; PULSE 65–110; RESP 18–20; TEMP 36.4–38.4; O2SAT 91–100
[2024-06-30] MEDS: VANCOMYCIN 1,500 MG/NS 500 ML 1,500 MG/500 ML BAG 250 MG IVPB ×2 (02:27→13:52)
[2024-06-30 04:26] LABS: Basophils Percent Auto 0.1 % (0.2-1.2); Hematocrit 34.6 % (37.0-47.0); Hemoglobin 10.9 g/dL (12.0-15.0); Immature Granulocyte Absolute 0.06 K/mm3 (0.00-0.031); Immature Granulocyte Percent A 0.4 % (0-0.5); Lymphocytes Absolute Auto 1.37 K/mm3 (0.9-3.2); Lymphocytes Percent Auto 8.8 % (18.3-44.2); Mean Corpuscular HGB Conc 31.5 g/dl (32-36); Mean Corpuscular Hemoglobin 28.3 pg (26-34); Mean Corpuscular Volume 89.9 fl (80-100); Mean Platelet Volume 9.5 fl (7.4-10.4); Monocytes Absolute Auto 0.7 K/mm3 (0.1-0.6); Monocytes Percent Auto 4.4 % (2.6-8.5); Neutrophils Absolute Auto 13.4 K/mm3 (1.3-6.7); Neutrophils Percent Auto 86.3 % (45.5-73.1); Platelet Count Result 242 k/mm3 (150-375); Red Blood Count 3.85 M/mm3 (4.2-5.4); Red Cell Distribution Width 14.8 % (11.5-14.5); White Blood Count 15.5 K/mm3 (4.5-10.0)
[2024-06-30 04:41] LABS: Anion Gap 3 mmol/L (4-12); Blood Urea Nitrogen 13 mg/dL (7-17); Calcium 8.4 mg/dL (8.4-10.2); Carbon Dioxide 28 mmol/L (22-30); Chloride 104 mmol/L (98-107); Estimated CRCL calculation 96 ml/min; Estimated Glomerular Filt Rate > 60; Glucose 122 mg/dL (65-110); Potassium 3.3 mmol/L (3.4-5.0); Sodium 135 mmol/L (137-145)
[2024-06-30] MEDS: metroNIDAZOLE 500 MG/ISO 100ML 500 MG/100 ML BAG 100 MG IVPB ×2 (06:06→13:51)
[2024-06-30] MEDS: LEVOTHYROXINE SODIUM 88 MCG TABLET PO (06:06)
--- NOTE | 2024-06-30 07:57 | PC.NURSE ---
Refuses to cooperate with assessment. When asked to say name and/or birthday, patient yells No . When asked to take a deep breath, patient yells No . When asked to squeeze hands or move legs, patient yells No . Repositioned waffle boots, however it was very difficult. Bilateral lower extremities appear to be contracted. Per report, patient is able to feed self and take drinks, however anytime this nurse touches the patient for assessment she yells and screams and her body stiffens. She screams out in pain when touching her bilateral lower extremities anywhere. Difficult to assess at this time. At rest with no one assessing her, patient appears at rest with no pain.
[2024-06-30 08:20] LABS: Glucose Point of Care 129 mg/dl (65-105)
[2024-06-30] MEDS: ACETAMINOPHEN 325 MG TABLET 650 MG PO ×2 (08:34→20:35)
[2024-06-30] MEDS: FERROUS SULFATE 325 MG TABLET DR PO (08:34)
[2024-06-30] MEDS: ARIPiprazole 2 MG TABLET PO (08:34)
[2024-06-30] MEDS: PENTOXIFYLLINE 400 MG TABCR PO ×2 (08:34→20:25)
[2024-06-30] MEDS: FUROSEMIDE 40 MG TABLET PO (08:35)
[2024-06-30] MEDS: CEFEPIME 2 GM/NS 50 ML 2 GM/50 ML BAG IVPB (08:35)
[2024-06-30] MEDS: ATORVASTATIN 10 MG TABLET 20 MG PO (08:35)
[2024-06-30] MEDS: ARIPiprazole 5 MG TABLET PO (08:35)
[2024-06-30] MEDS: carvediloL 3.125 MG TABLET PO ×2 (08:35→20:25)
[2024-06-30] MEDS: DOCUSATE SODIUM 100 MG CAPSULE PO (08:35)
[2024-06-30] MEDS: SPIRONOLACTONE 25 MG TABLET PO (08:35)
[2024-06-30] MEDS: ASPIRIN 81 MG ENTERIC TABLET PO (08:35)
[2024-06-30] MEDS: APIXABAN 5 MG TABLET PO ×2 (08:35→20:25)
--- NOTE | 2024-06-30 08:41 | PC.NURSE ---
Patient remains uncooperative, however; she is able to tell this RN her name, date of brit, and place that she currently is. She appears to be very angry when asked and screams her name and date of . She is able to feed herself using both right and left hand as needed. She is able to swallow all of her medications at once and drink from her cup. She remains very tense when touching her but doesn't appear to be contracted, even in bilateral lower extremities as this nurse previously thought. Wound nurse at bedside to assess her wounds and although tense in bilateral lower extremities she is able to move them, just very uncooperative.
[2024-06-30] MEDS: FLUTICASONE/SALMETEROL 115-21 MCG INHALER 1 PUFF 2 PUFF INHALATION ×2 (09:26→21:02)
[2024-06-30 11:40] LABS: Glucose Point of Care 145 mg/dl (65-105)
[2024-06-30] MEDS: POTASSIUM CHLORIDE 20 MEQ ER TABLET PO (12:05)
[2024-06-30 15:27] LABS: Glucose Point of Care 114 mg/dl (65-105)
--- NOTE | 2024-06-30 17:15 | P.PNIM_ITS ---
Progress Note: A&P Assessment and Plan (1) Pulmonary edema: Code(s): J81.1 - Chronic pulmonary edema Status: Acute Assessment and Plan: Chest x-ray Highly suggestive cardiomegaly with cardiac decompensation and pulmonary edema. Echocardiogram pending Unable to give diuretics night due to hypotension Restart home diuretics the morning (2) Cellulitis: Qualifiers: Laterality: right Site of cellulitis: extremity Site of cellulitis of extremity: lower extremity Qualified Code(s): L03.115 - Cellulitis of right lower limb Code(s): L03.90 - Cellulitis, unspecified Status: Acute Assessment and Plan: Lactic acid 1.7 IV cefepime, Flagyl, vancomycin CBC in the morning (3) Pneumonia: Code(s): J18.9 - Pneumonia, unspecified organism Status: Acute Assessment and Plan: Chest x-ray Prominent markings in the left lung with interstitial thickening which may indicate pneumonitis. Repeat chest x-ray in the morning after diuresis IV cefepime, Flagyl, vancomycin (4) Lower extremity ulceration: Qualifiers: Laterality: right Non-pressure ulcer stage: limited to breakdown of skin Qualified Code(s): L97.911 - Non-pressure chronic ulcer of unspecified p art of right lower leg limited to breakdown of skin Code(s): L97.909 - Non-pressure chronic ulcer of unspecified part of unspecified lower leg with unspecified severity Status: Acute Assessment and Plan: Wound care consult (5) Bipolar disorder: Code(s): F31.9 - Bipolar disorder, unspecified Status: Chronic Assessment and Plan: Continue Zyprexa (6) Hypercholesterolemia: Code(s): E78.00 - Pure hypercholesterolemia, unspecified Status: Acute Assessment and Plan: Continue home statin (7) Type 2 diabetes mellitus: Qualifiers: Diabetes mellitus skilled nursing insulin use: without skilled nursing use Diabetes mellitus complication status: with skin complications Diabetes mellitus complication detail: with dermatitis Qualified Code(s): E11.620 - Type 2 diabetes mellitus with diabetic dermatitis Code(s): E11.9 - Type 2 diabetes mellitus without complications Status: Chronic Assessment and Plan: Hold home metformin Diabetic diet Accu-Cheks a.c. HS SSI (8) Hypothyroidism: Code(s): E03.9 - Hypothyroidism, unspecified Status: Chronic Assessment and Plan: Continue Synthroid Plan patient with history of bipolar unable to provide detail history or ROS, was sent to ER for increasing AMS, patient is found to have cellulitis on buttocks and left leg and being treated with vancomycin, patient is also found to cardiomegaly concerning of CHF to further evaluate will do cardiac echo. will have PT/OT evaluate the patient. Subjective Date/time seen: 06/30/24 17:15 Interval history: Altered mental status Narrative: 63-year-old female past medical history of DVT and left leg, hypothyroidism, diabetes type 2, bipolar disorder, PVD and kidney cancer presents to the hospital from a care home with altered mental status. HPI is limited patient does not know what happened. Per the ED note staff had checked on her at 9:00 a.m. and at noon, the nursing knows that she had increased altered mental status. Patient complains of redness on her buttocks and left leg. Patient presented to the hospital with fever 102.9, heart rate of 111, pulse ox of 89 on room air. Lab work shows leukocytosis at 27.7, C-reactive protein of 8, UA noninfective. CT head shows no acute intercranial process, CTA shows no acute process, chest x-ray shows Highly suggestive cardiomegaly with cardiac decompensation and pulmonary edema. Prominent markings in the left lung with interstitial thickening which may indicate pneumonitis. patient with history of bipolar unable to provide detail history or ROS, was sent to ER for increasing AMS, patient is found to have cellulitis on buttocks and left leg and being treated with vancomycin, patient is also found to cardiomegaly concerning of CHF to further evaluate will do cardiac echo. will have PT/OT evaluate the patient. Review of Systems Review of Systems: ROS unobtainable: Yes unobtainable due to mental status Exam Narrative: Patient is comfortable, NAD HEENT: eyes are clear and none icteric ABD: Obese distended Lower extremities: edema SKIN: nonjaundiced Neuro: grossly intact bipolar Objective Data Vital Signs Vital Signs: Vital Signs - 24 hr 06/29/24 17:33 06/29/24 17:40 06/29/24 18:14 Temperature 38.2 C H 38.2 C H Pulse Rate 86 90 Respiratory Rate 17 Blood Pressure 142/91 H Pulse Oximetry 98 Oxygen Delivery Oxygen Flow Rate 06/29/24 18:20 06/29/24 18:30 06/29/24 19:47 Temperature 37.4 C 37.4 C 37.2 C Pulse Rate 88 89 Respiratory Rate 19 18 18 Blood Pressure 114/87 90/41 L 116/43 L Pulse Oximetry 95 99 96 Oxygen Delivery Oxygen Flow Rate 06/29/24 20:00 06/29/24 20:00 06/29/24 20:49 Temperature Pulse Rate 84 77 Respiratory Rate Blood Pressure Pulse Oximetry 96 Oxygen Delivery Nasal Cannula Oxygen Flow Rate 3 06/29/24 22:00 06/29/24 22:26 06/29/24 22:26 Temperature Pulse Rate 85 79 24 L Respiratory Rate 24 H 79 H Blood Pressure Pulse Oximetry 95 Oxygen Delivery Nasal Cannula Oxygen Flow Rate 3 06/29/24 23:35 06/30/24 00:00 06/30/24 00:00 Temperature 36.8 C Pulse Rate 93 99 Respiratory Rate 18 Blood Pressure 103/55 L Pulse Oximetry 92 92 Oxygen Delivery Nasal Cannula Oxygen Flow Rate 3 06/30/24 02:00 06/30/24 03:34 06/30/24 04:00 Temperature 36.4 C L Pulse Rate 110 H 110 H Respiratory Rate 18 Blood Pressure 119/46 L Pulse Oximetry 91 92 Oxygen Delivery Nasal Cannula Oxygen Flow Rate 3 06/30/24 04:00 06/30/24 06:00 06/30/24 07:40 Temperature Pulse Rate 109 H 97 97 Respiratory Rate 18 Blood Pressure Pulse Oximetry 92 Oxygen Delivery Nasal Cannula Oxygen Flow Rate 3 06/30/24 07:40 06/30/24 07:56 06/30/24 08:07 Temperature 38.4 C H Pulse Rate 86 106 H 80 Respiratory Rate Blood Pressure 111/86 Pulse Oximetry 96 Oxygen Delivery Oxygen Flow Rate 06/30/24 08:34 06/30/24 08:35 06/30/24 09:26 Temperature 38.3 C H Pulse Rate 80 Respiratory Rate Blood Pressure Pulse Oximetry 94 Oxygen Delivery Nasal Cannula Oxygen Flow Rate 3 06/30/24 09:26 06/30/24 10:00 06/30/24 11:41 Temperature 36.4 C Pulse Rate 98 75 88 Respiratory Rate 20 20 Blood Pressure 119/63 Pulse Oximetry 98 Oxygen Delivery Oxygen Flow Rate 06/30/24 12:00 06/30/24 12:00 06/30/24 16:02 Temperature 37.0 C Pulse Rate 88 92 75 Respiratory Rate 20 20 Blood Pressure 111/57 L Pulse Oximetry 98 100 Oxygen Delivery Nasal Cannula Oxygen Flow Rate 3 Intake/Output Intake/Output: Intake & Output 06/27/24 06/28/24 06/29/24 06/30/24 23:59 23:59 23:59 23:59 Intake Total 1700 1100 Output Total 280 700 Balance 1420 400 Meds/Results Medications: Active Medications Generic Name Dose Route Start Last Admin Trade Name Freq PRN Reason Stop Dose Admin Acetaminophen 650 mg 06/29/24 17:26 06/30/24 08:34 Acetaminophen 325 Mg Tablet PO 650 mg Q4H PRN Administration Mild Pain (1-3) or Fever Albuterol 2 puff 06/29/24 19:44 Albuterol Sulfate (*Sp) Aerosol 1 Puff INHALATION Q4H PRN shortness of breath or wheezing Apixaban 5 mg 06/29/24 21:00 06/30/24 08:35 Apixaban 5 Mg Tablet PO 5 mg Q12HR BENNY Administration Aripiprazole 5 mg 06/30/24 09:00 06/30/24 08:35 Aripiprazole 5 Mg Tablet PO 5 mg DAILY BENNY Administration Aripiprazole 2 mg 06/30/24 09:00 06/30/24 08:34 Aripiprazole 2 Mg Tablet PO 2 mg DAILY BENNY Administration Aspirin 81 mg 06/30/24 09:00 06/30/24 08:35 Aspirin 81 Mg Enteric Tablet PO 81 mg DAILY BENNY Administration Atorvastatin Calcium 20 mg 06/30/24 09:00 06/30/24 08:35 Atorvastatin 10 Mg Tablet PO 20 mg DAILY BENNY Administration Carvedilol 3.125 mg 06/29/24 21:00 06/30/24 08:35 Carvedilol 3.125 Mg Tablet PO 3.125 mg Q12HR BENNY Administration Dextrose 12.5 gm 06/29/24 17:26 Dextrose 50% 25 Gm/50 Ml Syringe IV PUSH PRN PRN Hypoglycemia Protocol Docusate Sodium 100 mg 06/29/24 17:35 06/30/24 16:42 Docusate Sodium 100 Mg Capsule PO Not Given BID BENNY Docusate Sodium 100 mg 06/30/24 09:00 06/30/24 16:24 Docusate Sodium 100 Mg Capsule PO Not Given BID BENNY Ferrous Sulfate 325 mg 06/30/24 09:00 06/30/24 08:34 Ferrous Sulfate [address] PO 325 mg DAILY BENNY Administration Furosemide 40 mg 06/30/24 09:00 06/30/24 08:35 Furosemide 40 Mg Tablet PO 40 mg DAILY BENNY Administration Glucose 15 gm 06/29/24 17:26 Glucose Oral Gel 15 Gm Of Glucse In 37.5 Gm Tube PO PRN PRN Hypoglycemia Protocol Hydroxyzine HCl 10 mg 06/29/24 19:44 Hydroxyzine Hcl 10 Mg Tablet PO Q8H PRN itching Vancomycin HCl 1,500 mg in 500 mls @ 250 mls/hr 06/30/24 03:00 06/30/24 13:52 Vancomycin 1,500 Mg/Ns 500 Ml IVPB 250 mls/hr Q12H BENNY Administration Dextrose 1,000 mls @ 100 mls/hr 06/29/24 17:26 Dextrose 5% 1,000 Ml IVPB PRN PRN Hypoglycemia Protocol Insulin Aspart 2 - 5 units 06/30/24 08:00 06/30/24 16:42 Insulin Aspart (*Bkc) 100 Units/Ml SUB-Q Not Given TIDWM COUNTS INCLUDE 234 BEDS AT THE [facility] Protocol Insulin Aspart 1 - 2 units 06/29/24 21:00 06/29/24 20:45 Insulin Aspart (*Bkc) 100 Units/Ml SUB-Q Not Given HS COUNTS INCLUDE 234 BEDS AT THE [facility] Protocol Levothyroxine Sodium 88 mcg 06/30/24 06:30 06/30/24 06:06 Levothyroxine Sodium 88 Mcg Tablet PO 88 mcg DAILY@0630 COUNTS INCLUDE 234 BEDS AT THE [facility] Administration Miscellaneous Information 1 each 06/30/24 00:01 Clarify Folic Acid Dose-- 20 Mg Is A Very High Dose Please Verify; Also Pharmacy Only [facility] XX 07/30/24 00:00 CLARIFY COUNTS INCLUDE 234 BEDS AT THE [facility] Non-Formulary Medication 20 mg 06/30/24 09:00 Folic Acid PO 07/30/24 08:59 DAILY BENNY Olanzapine 5 mg 06/30/24 18:00 Olanzapine 5 Mg Tablet PO QPM BENNY Ondansetron HCl 4 mg 06/29/24 14:11 Ondansetron Inj 4 Mg/2 Ml Vial IV PUSH Q4H PRN Nausea Pentoxifylline 400 mg 06/29/24 21:00 06/30/24 08:34 Pentoxifylline 400 Mg Tabcr PO 400 mg Q12H BENNY Administration Fluticasone/Salmeterol 2 puff 06/29/24 20:00 06/30/24 09:26 Fluticasone/Salmeterol 115-21 Mcg Inhaler 1 Puff INHALATION 2 puff Q12HRT BENNY Administration Spironolactone 25 mg 06/30/24 09:00 06/30/24 08:35 Spironolactone 25 Mg Tablet PO 25 mg DAILY BENNY Administration Radiology Results: ITS Impressions Head CT 06/29/24 12:17 IMPRESSION: 1. No acute intracranial process. Head/Neck CTA 06/29/24 12:43 IMPRESSION: 1. Small amount of atherosclerotic plaque with 0% stenosis of the right and left carotid bulbs relative to normal distal artery lumen diameter (NASCET criteria). 2. Unremarkable cerebral CT angiogram with no hemodynamically significant stenosis, thrombosis or aneurysm.% stenosis of the left carotid bulb relative to normal distal artery lumen diameter. Chest X-Ray 06/30/24 06:03 Impression: Mild central congestive changes. Labs Labs: Laboratory Results - last 24 hr 06/29/24 06/29/24 06/29/24 16:09 16:53 19:58 WBC RBC Hgb Hct MCV MCH MCHC RDW Plt Count MPV Immature Gran % (Auto) Neut % (Auto) Lymph % (Auto) [place] % (Auto) Eos % (Auto) Baso % (Auto) Lymph # (Auto) [place] # (Auto) Eos # (Auto) Baso # (Auto) Abs Immat Gran (auto) Absolute Neuts (auto) Absolute Nucleated RBC Nucleated RBC % Sodium Potassium Chloride Carbon Dioxide Anion Gap BUN Creatinine Estim Creat Clear Calc Estimated GFR Glucose POC Capillary Glucose 135 H Lactic Acid 1.7 Calcium Troponin I < 0.012 06/30/24 06/30/24 06/30/24 04:09 08:18 11:32 WBC 15.5 H RBC 3.85 L Hgb 10.9 L Hct 34.6 L MCV 89.9 MCH 28.3 MCHC 31.5 L RDW 14.8 H Plt Count 242 MPV 9.5 Immature Gran % (Auto) 0.4 Neut % (Auto) 86.3 H Lymph % (Auto) 8.8 L [place] % (Auto) 4.4 Eos % (Auto) 0.0 Baso % (Auto) 0.1 L Lymph # (Auto) 1.37 [place] # (Auto) 0.7 H Eos # (Auto) 0.0 Baso # (Auto) 0.0 Abs Immat Gran (auto) 0.06 H Absolute Neuts (auto) 13.4 H Absolute Nucleated RBC 0.000 Nucleated RBC % 0.0 Sodium 135 L Potassium 3.3 L Chloride 104 Carbon Dioxide 28 Anion Gap 3 L BUN 13 Creatinine 0.65 L Estim Creat Clear Calc 96 Estimated GFR > 60 Glucose 122 H POC Capillary Glucose 129 H 145 H Lactic Acid Calcium 8.4 Troponin I 06/30/24 15:12 WBC RBC Hgb Hct MCV MCH MCHC RDW Plt Count MPV Immature Gran % (Auto) Neut % (Auto) Lymph % (Auto) [place] % (Auto) Eos % (Auto) Baso % (Auto) Lymph # (Auto) [place] # (Auto) Eos # (Auto) Baso # (Auto) Abs Immat Gran (auto) Absolute Neuts (auto) Absolute Nucleated RBC Nucleated RBC % Sodium Potassium Chloride Carbon Dioxide Anion Gap BUN Creatinine Estim Creat Clear Calc Estimated GFR Glucose POC Capillary Glucose 114 H Lactic Acid Calcium Troponin I Quality VTE Prophylaxis VTE prophylaxis: mechanical ordered and pharmacologic ordered
[2024-06-30] MEDS: OLANZapine 5 MG TABLET PO (18:19)
[2024-06-30 20:29] LABS: Glucose Point of Care 126 mg/dl (65-105)
[2024-06-30] MEDS: hydrOXYzine HCL 10 MG TABLET PO (20:35)
[2024-07-01] VITALS (9 sets, daily range): BP systolic 102–135; BP diastolic 58–82; PULSE 64–99; RESP 16–20; TEMP 36.2–36.9; O2SAT 96–98
--- NOTE | 2024-07-01 | ECHO_ITS ---
Patient Info Name: Rafia Spencer Age: 63 years : 1960 Gender: Female Ht: 67 in Wt: 236 lbs BSA: 2.30 m2 BP: 123 / 59 mmHg Technical Quality: Fair Exam Date: 07/01/2024 1:39 PM Patient Status: I Admit Date: 06/29/2024 Exam Type: CA echo dop color flow w con Complete two-dimensional, color flow and Doppler transthoracic echocardiogram is performed with contrast to opacify the left ventricle and to improve the deliniation of the left ventricle endocardial borders. Staff Referring Physician: Maty Pinto Bagger Meat: Ayana Olivier Attending Provider: Heather Roper MD Contrast/Agitated Saline Contrast/Ag. Saline: Definity Amount: 2.00 ml Existing IV Access: Yes IV Access Condition: patent with no signs of infiltration Summary 1. The left ventricle is mildly dilated with normal systolic function. 2. The right ventricle is normal in size and systolic function. 3. There is no significant valvular abnormalities in this study. Left Ventricle The left ventricle is mildly dilated with normal systolic function. The left ventricular ejection fraction is visually estimated to be 60-65%. Right Ventricle The right ventricle is normal in size and systolic function. Left Atria The left atrium is normal size. Right Atria The right atrium is normal size. Atrial Septum The atrial septum is not well visualized. Aortic Valve The aortic valve is trileaflet and sclerotic but opens well. There is no aortic regurgitation. Pulmonic Valve The pulmonic valve is not well visualized. There is no color Doppler evidence of significant pulmonic valve regurgitation. Mitral Valve The mitral valve opens well. There is trace mitral regurgitation. Tricuspid Valve The tricuspid valve is grossly normal. Pericardium/Pleural Pericardium is normal in appearance with no evidence for significant pericardial effusion. Inferior Vena Cava The inferior vena cava was not visualized. Aorta The aortic root at the level of the sinus of Valsalva measures 3.5 cm in diameter. Left Ventricular Outflow Tract Name Value Normal LVOT 2D LVOT Diameter 2.2 cm LVOT Doppler LVOT Peak Velocity 95 cm/s LVOT Peak Gradient 4 mmHg LVOT Mean Gradient 3 mmHg LVOT VTI 23 cm LVOT VTI/AV VTI Ratio 0.6 LVOT Stroke Volume 87 ml LVOT CO 17.5 l/min LVOT CI 7.6 l/min/m2 Pulmonic Valve Name Value Normal PV Doppler PV Peak Velocity 86 cm/s PV Peak Gradient 3 mmHg Mitral Valve Name Value Normal MV Diastolic Function MV E Peak Velocity 95 cm/s MV A Peak Velocity 90 cm/s MV E/A 1.1 MV Decel Time (PW) 190 ms MV Annular TDI MV E/e' (Septal) 8.2 MV E/e' (Lateral) 7.2 MV E/e' (Average) 7.7 Tricuspid Valve Name Value Normal TV Annular TDI TV Lateral Alisha s' Velocity 14.6 cm/s >=9.5 Aorta Name Value Normal Ascending Aorta Ao Root Diameter (MM) 3.3 cm Ao Root Diam Index (MM) 1.5 cm/m2 Aortic Valve Name Value Normal AV Doppler AV Peak Velocity 171 cm/s AV Peak Gradient 12 mmHg AV Mean Gradient 7 mmHg AV VTI 40 cm AV Area (Cont Eq VTI) 2.2 cm2 >=3.0 AV Area (Cont Eq John) 2.0 cm2 AV DI (John) 0.55 AV Regurgitation 2D LVOT Area 3.7 cm2 Ventricles Name Value Normal LV Dimensions 2D/MM IVS Diastolic Thickness (2D) 0.9 cm 0.6-1.0 LVID Diastole (2D) 5.7 cm 3.8-5.2 LVIW Diastolic Thickness (2D) 1.0 cm 0.6-0.9 LVID Systole (2D) 3.8 cm 2.2-3.5 LVOT Diameter 2.2 cm LV Mass (2D Cubed) 210.12 g 67.00-162.00 LV Mass Index (2D Cubed) 92 g/m2 43-95 Relative Wall Thickness (2D) 0.34 <=0.42 LV Fractional Shortening/Ejection Fraction 2D/MM LV Fractional Shortening (2D) 33 % 27-45 LV EF (2D Teichholz) 61 % LV Diastolic Volume (4C MOD) 92 ml LV EF (4C MOD) 64 % LV Diastolic Volume (2C MOD) 95 ml LV EF (2C MOD) 51 % LV Diastolic Volume (BP MOD) 98 ml 46-106 LV Diastolic Volume Index (BP MOD) 43 ml/m2 29-61 LV Systolic Volume (BP MOD) 38 ml 14-42 LV Systolic Volume Index (BP MOD) 17 ml/m2 8-24 LV EF (BP MOD) 61 % 54-74 LV Diastolic Length (4C) 7.8 cm LV Systolic Length (4C) 6.7 cm LV Stroke Volume (4C MOD) 59 ml RV Dimensions 2D/MM RVID Diastole (2D) 4.3 cm 2.1-3.5 Atria Name Value Normal LA Dimensions LA Dimension (MM) 3.0 cm 2.7-3.8 LA Volume (4C A-L) 62 ml LA Volume (BP A-L) 72 ml RA Dimensions RA Systolic Major Randolph Length (4C) 5.0 cm 2.2-2.8 RA Area (4C) 17.7 cm2 <=18.0 Report Signatures
[2024-07-01 02:07] LABS: Hematocrit 36.1 % (37.0-47.0); Hemoglobin 10.9 g/dL (12.0-15.0); Mean Corpuscular HGB Conc 30.2 g/dl (32-36); Mean Corpuscular Hemoglobin 27.8 pg (26-34); Mean Corpuscular Volume 92.1 fl (80-100); Mean Platelet Volume 9.2 fl (7.4-10.4); Platelet Count Result 217 k/mm3 (150-375); Red Blood Count 3.92 M/mm3 (4.2-5.4); Red Cell Distribution Width 14.9 % (11.5-14.5); White Blood Count 9.7 K/mm3 (4.5-10.0)
[2024-07-01 02:28] LABS: Anion Gap 4 mmol/L (4-12); Blood Urea Nitrogen 12 mg/dL (7-17); Calcium 8.7 mg/dL (8.4-10.2); Carbon Dioxide 29 mmol/L (22-30); Chloride 106 mmol/L (98-107); Estimated CRCL calculation 94 ml/min; Estimated Glomerular Filt Rate > 60; Glucose 122 mg/dL (65-110); Magnesium 1.9 mg/dL (1.6-2.3); Potassium 3.5 mmol/L (3.4-5.0); Sodium 139 mmol/L (137-145)
[2024-07-01] MEDS: VANCOMYCIN 1,750 MG/NS 500 ML 1,750 MG/500 ML BAG 250 MG IVPB (04:10)
[2024-07-01] MEDS: LEVOTHYROXINE SODIUM 88 MCG TABLET PO (06:14)
[2024-07-01 07:56] LABS: Glucose Point of Care 134 mg/dl (65-105)
[2024-07-01] MEDS: FLUTICASONE/SALMETEROL 115-21 MCG INHALER 1 PUFF 2 PUFF INHALATION ×2 (08:28→20:04)
[2024-07-01] MEDS: ATORVASTATIN 10 MG TABLET 20 MG PO (09:25)
[2024-07-01] MEDS: PENTOXIFYLLINE 400 MG TABCR PO ×2 (09:25→21:23)
[2024-07-01] MEDS: ARIPiprazole 5 MG TABLET PO (09:26)
[2024-07-01] MEDS: carvediloL 3.125 MG TABLET PO ×2 (09:26→21:23)
[2024-07-01] MEDS: APIXABAN 5 MG TABLET PO ×2 (09:26→21:23)
[2024-07-01] MEDS: ARIPiprazole 2 MG TABLET PO (09:26)
[2024-07-01] MEDS: FERROUS SULFATE 325 MG TABLET DR PO (09:26)
[2024-07-01] MEDS: FUROSEMIDE 40 MG TABLET PO (09:26)
[2024-07-01] MEDS: SPIRONOLACTONE 25 MG TABLET PO (09:26)
[2024-07-01] MEDS: DOCUSATE SODIUM 100 MG CAPSULE PO ×2 (09:26→18:10)
[2024-07-01] MEDS: ASPIRIN 81 MG ENTERIC TABLET PO (09:26)
[2024-07-01 11:30] LABS: Glucose Point of Care 123 mg/dl (65-105)
[2024-07-01] MEDS: LINEZOLID 600 MG TABLET PO ×2 (12:03→21:23)
[2024-07-01] MEDS: POTASSIUM CHLORIDE 20 MEQ ER TABLET PO (12:04)
[2024-07-01] MEDS: PERFLUTREN LIPID MICROSPHERES 1.5 ML VIAL DILUTED TO 10 ML TOTAL VOLUME IV PUSH (14:00)
[2024-07-01 15:41] LABS: Glucose Point of Care 125 mg/dl (65-105)
--- NOTE | 2024-07-01 16:34 | P.PNIM_ITS ---
Progress Note: A&P Assessment and Plan (1) Pulmonary edema: Code(s): J81.1 - Chronic pulmonary edema Status: Acute Assessment and Plan: Chest x-ray Highly suggestive cardiomegaly with cardiac decompensation and pulmonary edema. Echocardiogram pending Unable to give diuretics night due to hypotension Restart home diuretics the morning (2) Cellulitis: Qualifiers: Laterality: right Site of cellulitis: extremity Site of cellulitis of extremity: lower extremity Qualified Code(s): L03.115 - Cellulitis of right lower limb Code(s): L03.90 - Cellulitis, unspecified Status: Acute Assessment and Plan: Lactic acid 1.7 IV cefepime, Flagyl, vancomycin CBC in the morning (3) Pneumonia: Code(s): J18.9 - Pneumonia, unspecified organism Status: Acute Assessment and Plan: Chest x-ray Prominent markings in the left lung with interstitial thickening which may indicate pneumonitis. Repeat chest x-ray in the morning after diuresis IV cefepime, Flagyl, vancomycin (4) Lower extremity ulceration: Qualifiers: Laterality: right Non-pressure ulcer stage: limited to breakdown of skin Qualified Code(s): L97.911 - Non-pressure chronic ulcer of unspecified p art of right lower leg limited to breakdown of skin Code(s): L97.909 - Non-pressure chronic ulcer of unspecified part of unspecified lower leg with unspecified severity Status: Acute Assessment and Plan: Wound care consult (5) Bipolar disorder: Code(s): F31.9 - Bipolar disorder, unspecified Status: Chronic Assessment and Plan: Continue Zyprexa (6) Hypercholesterolemia: Code(s): E78.00 - Pure hypercholesterolemia, unspecified Status: Acute Assessment and Plan: Continue home statin (7) Type 2 diabetes mellitus: Qualifiers: Diabetes mellitus group home insulin use: without group home use Diabetes mellitus complication status: with skin complications Diabetes mellitus complication detail: with dermatitis Qualified Code(s): E11.620 - Type 2 diabetes mellitus with diabetic dermatitis Code(s): E11.9 - Type 2 diabetes mellitus without complications Status: Chronic Assessment and Plan: Hold home metformin Diabetic diet Accu-Cheks a.c. HS SSI (8) Hypothyroidism: Code(s): E03.9 - Hypothyroidism, unspecified Status: Chronic Assessment and Plan: Continue Synthroid Plan patient with history of bipolar unable to provide detail history or ROS, was sent to ER for increasing AMS, patient is found to have cellulitis on buttocks and left leg and being treated with vancomycin, today patient white counts are trending down and per nursing staff her cellulitis is improving, patient stats pain is better, patient is also found to cardiomegaly concerning of CHF to further evaluate will do cardiac echo. its pending, will have PT/OT evaluate the patient. Subjective Date/time seen: 07/01/24 16:34 Interval history: Altered mental status Narrative: 63-year-old female past medical history of DVT and left leg, hypothyroidism, diabetes type 2, bipolar disorder, PVD and kidney cancer presents to the hospital from a retirement with altered mental status. HPI is limited patient does not know what happened. Per the ED note staff had checked on her at 9:00 a.m. and at noon, the nursing knows that she had increased altered mental status. Patient complains of redness on her buttocks and left leg. Patient presented to the hospital with fever 102.9, heart rate of 111, pulse ox of 89 on room air. Lab work shows leukocytosis at 27.7, C-reactive protein of 8, UA noninfective. CT head shows no acute intercranial process, CTA shows no acute process, chest x-ray shows Highly suggestive cardiomegaly with cardiac decompensation and pulmonary edema. Prominent markings in the left lung with interstitial thickening which may indicate pneumonitis. patient with history of bipolar unable to provide detail history or ROS, was sent to ER for increasing AMS, patient is found to have cellulitis on buttocks and left leg and being treated with vancomycin, today patient white counts are trending down and per nursing staff her cellulitis is improving, patient stats pain is better, patient is also found to cardiomegaly concerning of CHF to further evaluate will do cardiac echo. its pending, will have PT/OT evaluate the patient. Review of Systems 2 Review of Systems: ROS unobtainable: Yes unobtainable due to mental status Exam Narrative: Patient is comfortable, NAD HEENT: eyes are clear and none icteric ABD: Obese distended Lower extremities: edema SKIN: nonjaundiced Neuro: grossly intact bipolar Objective Data Vital Signs Vital Signs: Vital Signs - 24 hr 06/30/24 19:45 06/30/24 20:00 06/30/24 21:06 Temperature 37.1 C Pulse Rate 72 70 Respiratory Rate 18 Blood Pressure 119/56 L Pulse Oximetry 99 97 97 Oxygen Delivery Nasal Cannula Nasal Cannula Oxygen Flow Rate 3 3 06/30/24 23:44 07/01/24 04:00 07/01/24 08:00 Temperature 36.7 C 36.4 C L Pulse Rate 65 72 99 Respiratory Rate 18 18 18 Blood Pressure 115/47 L 123/59 L Pulse Oximetry 96 98 97 Oxygen Delivery Nasal Cannula Oxygen Flow Rate 2 07/01/24 08:09 07/01/24 08:28 07/01/24 15:56 Temperature 36.9 C 36.8 C Pulse Rate 99 64 Respiratory Rate 18 20 Blood Pressure 112/82 135/73 Pulse Oximetry 97 96 97 Oxygen Delivery Nasal Cannula Oxygen Flow Rate 2 Intake/Output Intake/Output: Intake & Output 06/28/24 06/29/24 06/30/24 07/01/24 23:59 23:59 23:59 23:59 Intake Total 1700 1420 480 Output Total 280 1400 1850 Balance 1420 20 -1370 Meds/Results Medications: Active Medications Generic Name Dose Route Start Last Admin Trade Name Freq PRN Reason Stop Dose Admin Acetaminophen 650 mg 06/29/24 17:26 06/30/24 20:35 Acetaminophen 325 Mg Tablet PO 650 mg Q4H PRN Administration Mild Pain (1-3) or Fever Albuterol 2 puff 06/29/24 19:44 Albuterol Sulfate (*Sp) Aerosol 1 Puff INHALATION Q4H PRN shortness of breath or wheezing Apixaban 5 mg 06/29/24 21:00 07/01/24 09:26 Apixaban 5 Mg Tablet PO 5 mg Q12HR BENNY Administration Aripiprazole 5 mg 06/30/24 09:00 07/01/24 09:26 Aripiprazole 5 Mg Tablet PO 5 mg DAILY BENNY Administration Aripiprazole 2 mg 06/30/24 09:00 07/01/24 09:26 Aripiprazole 2 Mg Tablet PO 2 mg DAILY BENNY Administration Aspirin 81 mg 06/30/24 09:00 07/01/24 09:26 Aspirin 81 Mg Enteric Tablet PO 81 mg DAILY BENNY Administration Atorvastatin Calcium 20 mg 06/30/24 09:00 07/01/24 09:25 Atorvastatin 10 Mg Tablet PO 20 mg DAILY BENNY Administration Carvedilol 3.125 mg 06/29/24 21:00 07/01/24 09:26 Carvedilol 3.125 Mg Tablet PO 3.125 mg Q12HR BENNY Administration Dextrose 12.5 gm 06/29/24 17:26 Dextrose 50% 25 Gm/50 Ml Syringe IV PUSH PRN PRN Hypoglycemia Protocol Docusate Sodium 100 mg 06/29/24 17:35 07/01/24 09:26 Docusate Sodium 100 Mg Capsule PO 100 mg BID BENNY Administration Docusate Sodium 100 mg 06/30/24 09:00 07/01/24 09:26 Docusate Sodium 100 Mg Capsule PO Not Given BID BENNY Ferrous Sulfate 325 mg 06/30/24 09:00 07/01/24 09:26 Ferrous Sulfate [address] PO 325 mg DAILY BENNY Administration Furosemide 40 mg 06/30/24 09:00 07/01/24 09:26 Furosemide 40 Mg Tablet PO 40 mg DAILY BENNY Administration Glucose 15 gm 06/29/24 17:26 Glucose Oral Gel 15 Gm Of Glucse In 37.5 Gm Tube PO PRN PRN Hypoglycemia Protocol Hydroxyzine HCl 10 mg 06/29/24 19:44 06/30/24 20:35 Hydroxyzine Hcl 10 Mg Tablet PO 10 mg Q8H PRN Administration itching Dextrose 1,000 mls @ 100 mls/hr 06/29/24 17:26 Dextrose 5% 1,000 Ml IVPB PRN PRN Hypoglycemia Protocol Insulin Aspart 2 - 5 units 06/30/24 08:00 07/01/24 12:01 Insulin Aspart (*Bkc) 100 Units/Ml SUB-Q Not Given TIDWM BENNY Protocol Insulin Aspart 1 - 2 units 06/29/24 21:00 06/30/24 20:26 Insulin Aspart (*Bkc) 100 Units/Ml SUB-Q Not Given HS BENNY Protocol Levothyroxine Sodium 88 mcg 06/30/24 06:30 07/01/24 06:14 Levothyroxine Sodium 88 Mcg Tablet PO 88 mcg DAILY@0630 BENNY Administration Linezolid 600 mg 07/01/24 11:30 07/01/24 12:03 Linezolid 600 Mg Tablet PO 600 mg Q12HR BENNY Administration Miscellaneous Information 1 each 06/30/24 00:01 07/01/24 00:40 Clarify Folic Acid Dose-- 20 Mg Is A Very High Dose Please Verify; Also Pharmacy Only [facility] XX 07/30/24 00:00 Not Given CLARIFY BENNY Non-Formulary Medication 20 mg 06/30/24 09:00 Folic Acid PO 07/30/24 08:59 DAILY BENNY Olanzapine 5 mg 06/30/24 18:00 06/30/24 18:19 Olanzapine 5 Mg Tablet PO 5 mg QPM BENNY Administration Ondansetron HCl 4 mg 06/29/24 14:11 Ondansetron Inj 4 Mg/2 Ml Vial IV PUSH Q4H PRN Nausea Pentoxifylline 400 mg 06/29/24 21:00 07/01/24 09:25 Pentoxifylline 400 Mg Tabcr PO 400 mg Q12H BENNY Administration Perflutren Lipid Microsphere 0 ml 06/30/24 17:27 Perflutren Lipid Microspheres 1.5 Ml Vial Diluted To 10 Ml Total Volume IV PUSH 07/03/24 17:27 ONCE PRN adequate visualization Protocol Fluticasone/Salmeterol 2 puff 06/29/24 20:00 07/01/24 08:28 Fluticasone/Salmeterol 115-21 Mcg Inhaler 1 Puff INHALATION 2 puff Q12HRT BENNY Administration Spironolactone 25 mg 06/30/24 09:00 07/01/24 09:26 Spironolactone 25 Mg Tablet PO 25 mg DAILY BENNY Administration Radiology Results: ITS Impressions Head CT 06/29/24 12:17 IMPRESSION: 1. No acute intracranial process. Head/Neck CTA 06/29/24 12:43 IMPRESSION: 1. Small amount of atherosclerotic plaque with 0% stenosis of the right and left carotid bulbs relative to normal distal artery lumen diameter (NASCET criteria). 2. Unremarkable cerebral CT angiogram with no hemodynamically significant stenosis, thrombosis or aneurysm.% stenosis of the left carotid bulb relative to normal distal artery lumen diameter. Chest X-Ray 06/30/24 06:03 Impression: Mild central congestive changes. Labs Labs: Laboratory Results - last 24 hr 06/30/24 07/01/24 07/01/24 20:25 02:03 07:11 WBC 9.7 RBC 3.92 L Hgb 10.9 L Hct 36.1 L MCV 92.1 MCH 27.8 MCHC 30.2 L RDW 14.9 H Plt Count 217 MPV 9.2 Sodium 139 Potassium 3.5 Chloride 106 Carbon Dioxide 29 Anion Gap 4 BUN 12 Creatinine 0.65 L Estim Creat Clear Calc 94 Estimated GFR > 60 Glucose 122 H POC Capillary Glucose 126 H 134 H Calcium 8.7 Magnesium 1.9 Vancomycin Trough 13.0 07/01/24 07/01/24 11:15 15:33 WBC RBC Hgb Hct MCV MCH MCHC RDW Plt Count MPV Sodium Potassium Chloride Carbon Dioxide Anion Gap BUN Creatinine Estim Creat Clear Calc Estimated GFR Glucose POC Capillary Glucose 123 H 125 H Calcium Magnesium Vancomycin Trough Quality VTE Prophylaxis VTE prophylaxis: mechanical ordered and pharmacologic ordered
[2024-07-01] MEDS: OLANZapine 5 MG TABLET PO (18:10)
[2024-07-01] MEDS: ACETAMINOPHEN 325 MG TABLET 650 MG PO (21:26)
[2024-07-01 21:50] LABS: Glucose Point of Care 137 mg/dl (65-105)
[2024-07-02] VITALS (7 sets, daily range): BP systolic 118–132; BP diastolic 55–73; PULSE 58–63; RESP 14–18; TEMP 36.7–37; O2SAT 95–98
[2024-07-02] MEDS: LEVOTHYROXINE SODIUM 88 MCG TABLET PO (05:12)
[2024-07-02] MEDS: ACETAMINOPHEN 325 MG TABLET 650 MG PO (05:14)
[2024-07-02 05:44] LABS: Hematocrit 37.6 % (37.0-47.0); Hemoglobin 11.4 g/dL (12.0-15.0); Mean Corpuscular HGB Conc 30.3 g/dl (32-36); Mean Corpuscular Hemoglobin 27.6 pg (26-34); Mean Platelet Volume 9.6 fl (7.4-10.4); Platelet Count Result 276 k/mm3 (150-375); Red Blood Count 4.13 M/mm3 (4.2-5.4); Red Cell Distribution Width 14.6 % (11.5-14.5); White Blood Count 7.9 K/mm3 (4.5-10.0)
[2024-07-02 06:00] LABS: Anion Gap 2 mmol/L (4-12); Blood Urea Nitrogen 12 mg/dL (7-17); Calcium 8.7 mg/dL (8.4-10.2); Carbon Dioxide 29 mmol/L (22-30); Chloride 109 mmol/L (98-107); Estimated CRCL calculation 85 ml/min; Estimated Glomerular Filt Rate > 60; Glucose 123 mg/dL (65-110); Potassium 3.7 mmol/L (3.4-5.0); Sodium 140 mmol/L (137-145)
[2024-07-02 07:51] LABS: Glucose Point of Care 121 mg/dl (65-105)
[2024-07-02] MEDS: FLUTICASONE/SALMETEROL 115-21 MCG INHALER 1 PUFF 2 PUFF INHALATION (07:55)
[2024-07-02] MEDS: ATORVASTATIN 10 MG TABLET 20 MG PO (08:47)
[2024-07-02] MEDS: PENTOXIFYLLINE 400 MG TABCR PO (08:47)
[2024-07-02] MEDS: carvediloL 3.125 MG TABLET PO (08:47)
[2024-07-02] MEDS: FERROUS SULFATE 325 MG TABLET DR PO (08:48)
[2024-07-02] MEDS: SPIRONOLACTONE 25 MG TABLET PO (08:48)
[2024-07-02] MEDS: DOCUSATE SODIUM 100 MG CAPSULE PO (08:48)
[2024-07-02] MEDS: ARIPiprazole 2 MG TABLET PO (08:48)
[2024-07-02] MEDS: ARIPiprazole 5 MG TABLET PO (08:48)
[2024-07-02] MEDS: FUROSEMIDE 40 MG TABLET PO (08:48)
[2024-07-02] MEDS: ASPIRIN 81 MG ENTERIC TABLET PO (08:48)
[2024-07-02] MEDS: APIXABAN 5 MG TABLET PO (08:48)
[2024-07-02] MEDS: LINEZOLID 600 MG TABLET PO (08:48)
[2024-07-02 11:36] LABS: Glucose Point of Care 142 mg/dl (65-105)
--- NOTE | 2024-07-02 15:36 | P.DS_ITS ---
DS: Admitting Diagnosis Discharge Date 07/02/24 Admitting Diagnosis Altered mental status DS: Discharge Diagnosis Discharge Diagnosis (1) Pulmonary edema: Code(s): J81.1 - Chronic pulmonary edema Status: Acute Assessment and Plan: Chest x-ray Highly suggestive cardiomegaly with cardiac decompensation and pulmonary edema. Echocardiogram pending Unable to give diuretics night due to hypotension Restart home diuretics the morning (2) Cellulitis: Qualifiers: Laterality: right Site of cellulitis: extremity Site of cellulitis of extremity: lower extremity Qualified Code(s): L03.115 - Cellulitis of right lower limb Code(s): L03.90 - Cellulitis, unspecified Status: Acute Assessment and Plan: Lactic acid 1.7 IV cefepime, Flagyl, vancomycin CBC in the morning (3) Pneumonia: Code(s): J18.9 - Pneumonia, unspecified organism Status: Acute Assessment and Plan: Chest x-ray Prominent markings in the left lung with interstitial thickening which may indicate pneumonitis. Repeat chest x-ray in the morning after diuresis IV cefepime, Flagyl, vancomycin (4) Lower extremity ulceration: Qualifiers: Laterality: right Non-pressure ulcer stage: limited to breakdown of skin Qualified Code(s): L97.911 - Non-pressure chronic ulcer of unspecified part of right lower leg limited to breakdown of skin Code(s): L97.909 - Non-pressure chronic ulcer of unspecified part of unspecified lower leg with unspecified severity Status: Acute Assessment and Plan: Wound care consult (5) Bipolar disorder: Code(s): F31.9 - Bipolar disorder, unspecified Status: Chronic Assessment and Plan: Continue Zyprexa (6) Hypercholesterolemia: Code(s): E78.00 - Pure hypercholesterolemia, unspecified Status: Acute Assessment and Plan: Continue home statin (7) Type 2 diabetes mellitus: Qualifiers: Diabetes mellitus fpc insulin use: without rn case mgr use Diabetes mellitus complication status: with skin complications Diabetes mellitus complication detail: with dermatitis Qualified Code(s): E11.620 - Type 2 diabetes mellitus with diabetic dermatitis Code(s): E11.9 - Type 2 diabetes mellitus without complications Status: Chronic Assessment and Plan: Hold home metformin Diabetic diet Accu-Cheks a.c. HS SSI (8) Hypothyroidism: Code(s): E03.9 - Hypothyroidism, unspecified Status: Chronic Assessment and Plan: Continue Synthroid Plan patient with history of bipolar unable to provide detail history or ROS, was sent to ER for increasing AMS, patient is found to have cellulitis on buttocks and left leg and being treated with vancomycin, today patient white counts are trending down and per nursing staff her cellulitis is improving, patient stats pain is better, patient is also found to cardiomegaly concerning of CHF to further evaluate will do cardiac echo. its pending, will have PT/OT evaluate the patient. DS: Summary Hospital Course Hospital Course: patient cannot take the tramadol while taking linezolid and until after seen by her primary care provider patient with history of bipolar unable to provide detail history or ROS, was sent to ER for increasing AMS, patient is found to have cellulitis on buttocks and left leg and being treated with vancomycin, today patient white counts are trending down and per nursing staff her cellulitis is improving, patient stats pain is better, patient is also found to cardiomegaly concerning of CHF to further evaluate will do cardiac echo. cardiac ECHO is normal, clinically stable , will discharge patient today. Time Spent with Patient Time attestation: Total time spent providing and/or coordinating discharge services: Exam Narrative: Patient is comfortable, NAD HEENT: eyes are clear and none icteric ABD: Obese distended Lower extremities: edema SKIN: nonjaundiced Neuro: grossly intact bipolar DS: Data Data Completed and Pending Labs on day of discharge: Labs from last 24 hours 07/02/24 07/02/24 07/02/24 11:28 07:29 05:08 WBC 7.9 RBC 4.13 L Hgb 11.4 L Hct 37.6 MCV 91.0 MCH 27.6 MCHC 30.3 L RDW 14.6 H Plt Count 276 MPV 9.6 Sodium 140 Potassium 3.7 Chloride 109 H Carbon Dioxide 29 Anion Gap 2 L BUN 12 Creatinine 0.70 Estim Creat Clear Calc 85 Estimated GFR > 60 Glucose 123 H POC Capillary Glucose 142 H 121 H Calcium 8.7 Magnesium 2.0 07/01/24 07/01/24 21:20 15:33 WBC RBC Hgb Hct MCV MCH MCHC RDW Plt Count MPV Sodium Potassium Chloride Carbon Dioxide Anion Gap BUN Creatinine Estim Creat Clear Calc Estimated GFR Glucose POC Capillary Glucose 137 H 125 H Calcium Magnesium Preliminary micro results at discharge 06/29/24 13:19 Blood Culture - Preliminary Blood 06/29/24 13:19 Blood Culture - Preliminary Blood Discharge Plan Discharge Attending physician on discharge: Heather Roper Consulting providers: Ranjan Quinteros; Maty Pinto; Winnie Menard Paul; Pérez Luong; Cachorro Leavitt Discharging Clinician: Heather Roper Patient Disposition: NH Group Home/Asst Living Activity: as tolerated Diet: heart healthy Discharge Instructions: patient to follow up with her primary care provider as soon as possible patient cannot take the tramadol while taking linezolid and until after seen by her primary care provider Patient Instructions: Antibiotic Form Patient Language: Salvadorean Stand Alone Forms: General Discharge Information Follow-up/Referrals: Jarvis,Adore Matthew MD [Primary Care Provider] - Discharge Medications: New linezolid 600 mg Tablet 600 mg PO Q12HR Qty: 10 0RF Continued aspirin [Aspir-81] 81 mg tablet,delayed release (DR/EC) 81 mg PO DAILY multivitamin Capsule 1 cap PO DAILY albuterol sulfate 90 mcg/actuation HFA aerosol inhaler 2 puff INHALATION Q4H PRN (Reason: shortness of breath or wheezing) hydroxyzine HCl 10 mg tablet 10 mg PO Q8H PRN (Reason: itching) pentoxifylline 400 mg tablet extended release 400 mg PO Q12H aripiprazole 2 mg tablet 2 mg PO DAILY aripiprazole [Abilify] 5 mg tablet 5 mg PO DAILY Patient Comments: take with 2mg dose to make 7mg daily folic acid 20 mg capsule 20 mg PO DAILY ferrous sulfate [Feosol] 325 mg (65 mg iron) tablet 325 mg PO DAILY cyanocobalamin (vitamin B-12) [B-12 DOTS] 500 mcg tablet 500 mcg PO DAILY cholecalciferol (vitamin D3) 25 mcg (1,000 unit) capsule 25 mcg PO DAILY fluticasone furoate-vilanterol [Breo Ellipta] 100-25 mcg/dose blister with device 1 inh inhalation DAILY furosemide 40 mg Tablet 40 mg PO DAILY metformin 500 mg tablet 500 mg PO BID acetaminophen [Tylenol] 325 mg Tablet 650 mg PO Q4H PRN (Reason: Mild Pain (Scale Score 1-4)) atorvastatin 10 mg tablet 20 mg PO DAILY olanzapine 5 mg tablet 5 mg PO QPM spironolactone 25 mg tablet 25 mg PO DAILY levothyroxine 88 mcg Tablet 88 mcg PO DAILY potassium chloride 20 mEq tablet,ER particles/crystals 20 meq PO DAILY ascorbic acid (vitamin C) 250 mg Tablet 500 mg PO DAILY Eliquis 5 mg Tablet 5 mg PO BID docusate sodium [Colace] 100 mg Capsule 100 mg PO BID carvedilol 3.125 mg tablet 3.125 mg PO BID trazodone 100 mg tablet 100 mg PO HS Milk of Magnesia (antacid) 30 ml PO Q12-24H PRN (Reason: Constipation) aripiprazole [Abilify] 5 mg Tablet 5 mg PO DAILY 30 Days Qty: 30 0RF bisacodyl 5 mg Tablet 5 mg PO HS Held tramadol 50 mg tablet 50 mg PO TID Hold Instructions: patient cannot take the medication while taking linezolid and until after seen by her primary care provider Date of admission: 06/29/24 16:07 Primary Care Provider: Jarvis,Adore Matthew Admitting Provider: Heather Roper Attending physician on admission: Heather Roper Condition: Stable
--- NOTE | 2024-07-07 12:25 | IVDEFINITY ---
Prior to administration of IV Definity the patient was educated on the risks and benefits of the imaging enhancing agent including potential adverse side effects. The patient verbalized understanding. Allergies were verified. No exclusion criteria were identified and at least one of the following inclusion criteria were met: 1) physician request, 2) patient technically difficult to image (per the [place] [employer] guidelines of two or more segments not discernable within the apical view), or 3) questionable left ventricular function.
== END 2024-07-02 16:30 | DRG 194 ==
LOC: ANHED 14:11 → ANHIMU 15:34 → ANH3MED 07-01 18:01
PROVIDERS: Nurse Practitioner Gerontology; Admitting Provider Family Medicine; Emergency Provider Emergency Medicine; PCP Internal Medicine; Visit Provider Family Medicine
DX: J18.9 Pneumonia, unspecified organism (principal); J81.1 Chronic pulmonary edema; L03.115 Cellulitis of right lower limb; E03.9 Hypothyroidism, unspecified; E11.51 Type 2 diabetes mellitus with diabetic peripheral angiopathy without gangrene; E11.42 Type 2 diabetes mellitus with diabetic polyneuropathy; E78.00 Pure hypercholesterolemia, unspecified; F31.9 Bipolar disorder, unspecified; F17.210 Nicotine dependence, cigarettes, uncomplicated; K21.9 Gastro-esophageal reflux disease without esophagitis; Z90.49 Acquired absence of other specified parts of digestive tract; Z85.528 Personal history of other malignant neoplasm of kidney; Z86.718 Personal history of other venous thrombosis and embolism; Z79.01 Long term (current) use of anticoagulants
CPT/HCPCS: 36415; 70450; 70496; 70498; 71045; 80048; 80053; 80202; 81003; 82948; 83605; 83735; 84484; 85025; 85027; 85610; 85730; 86140; 87040; 87637; 93005; 94640; 96361; 96365; 96366; 96367; 96368; 96375; 99285; A9270; C8929; G0378; J0692; J1836; J3370; J7040; J7120; Q9957; Q9967

== ENCOUNTER 2025-01-12 13:19 | Emergency (ER) | payer MEDICARE, OTHER, SELFPAY ==
--- NOTE | ~2025-01-12 | US_ITS ---
EXAMINATION: Right upper extremity venous Doppler study: DATE: 01/12/2025. INDICATION: Edema right upper extremity. TECHNIQUE: Duplex Doppler ultrasound with augmentation of the veins of the right upper extremity including jugular vein were obtained. COMPARISON: Right hand x-ray 01/12/2025. FINDINGS: No evidence of DVT degenerative vein, right subclavian vein, axillary vein. No evidence of DVT of the brachial vein, basilic, cephalic, radial and ulnar veins of right upper extremity. IMPRESSION: 1. No DVT involving major veins of the right upper extremity. Reviewed, dictated and finalized at location T. STANT SURVEYOR
--- NOTE | ~2025-01-12 | XR_ITS ---
EXAMINATION: XR hand RT min 3V DATE: 01/12/2025 13:48 INDICATION: Swelling right hand. No mention of trauma. TECHNIQUE: 4 views of the right hand were obtained. COMPARISON: None. FINDINGS: Diffusely osteopenic bones. Mild degenerative arthritis of the wrist joint. Significant degenerative changes of the first carpometacarpal joint. Osteoarthritis of the metacarpophalangeal joint of the thumb with mild flexion deformity. Mild osteoarthritis of interphalangeal joints. Significant soft tissue swelling on the dorsal aspect of the hand. No foreign objects are seen. IMPRESSION: 1. Osteopenic bones. Degenerative changes as described above. 2. Significant soft tissue swelling on the dorsal aspect of the hand. Reviewed, dictated and finalized at location T. INING MACHINE OPERATOR
[2025-01-12 13:20] VITALS: BP 142/80; PULSE 65; RESP 17; TEMP 36.6; O2SAT 96
--- NOTE | 2025-01-12 14:42 | ED.EXTPRO ---
HPI - Extremity Problem General Chief complaint: Extremity Problem,Nontraumatic Stated complaint: R hand swelling Time Seen by Provider: 01/12/25 13:44 This is a 64 year old female that presents to the ER for right hand swelling. Ongoing over the last week. No recent injury. No redness. Denies any pain currently. Related Data Home Medications ?Medication ?Instructions ?Recorded ?Confirmed ?Last Taken ?Type aspirin 81 mg tablet,delayed 81 mg PO DAILY 01/30/19 06/29/24 02/23/22 09:00 History release (Aspir-) multivitamin 1 cap PO DAILY 01/30/19 06/29/24 02/23/22 09:00 History acetaminophen 325 mg tablet 650 mg PO Q4H PRN Mild Pain (Scale 06/18/21 06/29/24 02/06/22 05:00 History (Tylenol) Score 1-4) apixaban 5 mg tablet (Eliquis) 5 mg PO BID 06/18/21 06/29/24 02/23/22 09:00 History ascorbic acid (vitamin C) 250 mg 500 mg PO DAILY 06/18/21 06/29/24 02/23/22 09:00 History tablet atorvastatin 10 mg tablet 20 mg PO DAILY 06/18/21 06/29/24 02/23/22 09:00 History furosemide 40 mg tablet 40 mg PO DAILY 06/18/21 06/29/24 02/23/22 09:00 History levothyroxine 88 mcg tablet 88 mcg PO DAILY 06/18/21 06/29/24 02/23/22 06:00 History metformin 500 mg tablet 500 mg PO BID 06/18/21 06/29/24 02/23/22 09:00 History olanzapine 5 mg tablet 5 mg PO QPM 06/18/21 06/29/24 02/23/22 09:00 History potassium chloride 20 mEq 20 meq PO DAILY 06/18/21 06/29/24 02/23/22 09:00 History tablet,extended release(part/cryst) spironolactone 25 mg tablet 25 mg PO DAILY 06/18/21 06/29/24 02/23/22 09:00 History docusate sodium 100 mg capsule 100 mg PO BID 09/12/21 06/29/24 02/23/22 09:00 History (Colace) Milk of Magnesia (antacid) 30 ml PO Q12-24H PRN Constipation 02/11/22 06/29/24 02/22/22 20:00 History carvedilol 3.125 mg tablet 3.125 mg PO BID 02/11/22 06/29/24 02/23/22 History 0900 trazodone 100 mg tablet 100 mg PO HS 02/11/22 06/29/24 02/22/22 20:00 History bisacodyl 5 mg tablet 5 mg PO HS 05/29/22 06/29/24 Unknown History albuterol sulfate 90 mcg/actuation 2 puff inhalation Q4H PRN 06/29/24 06/29/24 Unknown History aerosol inhaler shortness of breath or wheezing aripiprazole 2 mg tablet 2 mg PO DAILY 06/29/24 06/29/24 Unknown History aripiprazole 5 mg tablet (Abilify) 5 mg PO DAILY 06/29/24 06/29/24 Unknown History cholecalciferol (vitamin D3) 25 25 mcg PO DAILY 06/29/24 06/29/24 Unknown History mcg (1,000 unit) capsule cyanocobalamin (vitamin B-12) 500 500 mcg PO DAILY 06/29/24 06/29/24 Unknown History mcg tablet (B-12 DOTS) ferrous sulfate 325 mg (65 mg 325 mg PO DAILY 06/29/24 06/29/24 Unknown History iron) tablet (Feosol) fluticasone furoate 100 1 inh inhalation DAILY 06/29/24 06/29/24 Unknown History mcg-vilanterol 25 mcg/dose inhalation powder (Breo Ellipta) folic acid 20 mg capsule 20 mg PO DAILY 06/29/24 06/29/24 Unknown History hydroxyzine HCl 10 mg tablet 10 mg PO Q8H PRN itching 06/29/24 06/29/24 Unknown History pentoxifylline 400 mg 400 mg PO Q12H 06/29/24 06/29/24 Unknown History tablet,extended release tramadol 50 mg tablet 50 mg PO TID 06/29/24 06/29/24 Unknown History Held on 07/02/24. 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 S/P appendectomy incidental appendectomy on 06/02/11 S/P hernia repair incarcerated 5 cm incisional hernia repair with mesh, small bowel serosal injury repair, incidental appendectomy 06/01/22 Family History Family History Father Throat cancer Mother Heart disease Social History Social History Social History: The patient resides patient resides at [facility] . She does have 1 child and she still smokes. [id number]: Pete Posada. and Priya ku Code status: Full code. Smoking packs per day: 0.5 Smoking cigarettes per day: 10.0 Years smoked: 35 Smoking pack-years: 17.50 Smoking status: Current every day smoker Tobacco type: cigarettes Second hand tobacco smoke exposure: Yes Additional smoking assessment comments: continues to smoke at the snf Alcohol intake: unknown Substance use: unknown Substance use type: unknown Lack of Transportation: No Lack of Food: Never True Current Housing: I Do Not Have Housing Concerned About Future Housing: No Difficulty Paying Gas/Electric Bills: No Difficulty Paying for Meds: No Currently Unemployed: No Education: Grade School Difficulty w/ Childcare or Family Care: No Living arrangements: snf Additional living arrangements comments: Currently at [place]. Additional occupation/education comments: Disabled. Gender identity (if verbalized by the patient): Female Sexual Orientation (if Verbalized by the Patient): Straight or Heterosexual Spiritual care concerns: No Agree to blood products: Yes Exam Narrative: GENERAL: Well-appearing, well-nourished, and in no acute distress. HEAD: Normocephalic, atraumatic. EYES: EOMI. CHEST: Clear to auscultation. No respiratory distress. No wheezes rales or rhonchi HEART: Regular rate and rhythm. No murmur heard. Normal peripheral pulses. EXTREMITIES: Normal range of motion. Mild edema of the right hand and forearm without overlying redness. Normal radial pulse SKIN: Warm, dry, no rash. NEURO: No focal deficits. Alert and oriented x3. PSYCH: Normal mood and affect Course Vital Signs Vital signs: Vital Signs Temperature 97.9 F 01/12/25 13:20 Pulse Rate 65 01/12/25 13:20 Respiratory Rate 17 01/12/25 13:20 Blood Pressure 142/80 H 01/12/25 13:20 Pulse Oximetry 96 01/12/25 13:20 Oxygen Delivery Room Air 01/12/25 13:20 Temperature 97.9 F 01/12/25 13:20 Pulse Rate 70 01/12/25 16:06 Respiratory Rate 16 01/12/25 16:06 Blood Pressure 147/84 H 01/12/25 16:06 Pulse Oximetry 97 01/12/25 16:06 Oxygen Delivery Room Air 01/12/25 13:20 MDM - Extremity (Nontraumatic) MDM Narrative Medical decision making narrative: This is a 59 was year old female that presents to the emergency department for right hand swelling. Ongoing over the last week. No recent injuries or trauma. She is afebrile and nontoxic appearing. No erythema or warmth of the arm. There is mild to moderate swelling noted of the hand and into the forearm. Cbc without leukocytosis. Inflammatory markers are not elevated. Hand x-ray showing degenerative changes. Venous Doppler without evidence of DVT. Patient updated on her workup. Instructed on further follow-up with PCP Differential Diagnosis Differential diagnosis: Likely cellulitis, deep vein thrombosis of lower extremity and other (Venous insufficiency) Lab Data Attestation: I reviewed the patient's lab results. 01/12/25 15:43 01/12/25 15:43 Labs: Lab Results 01/12/25 Range/Units 15:43 WBC 9.5 (4.5-10.0) K/mm3 RBC 4.43 (4.2-5.4) M/mm3 Hgb 12.8 (12.0-15.0) g/dL Hct 40.9 (37.0-47.0) % MCV 92.3 (80-100) fl MCH 28.9 (26-34) pg MCHC 31.3 L (32-36) g/dl RDW 13.8 (11.5-14.5) % Plt Count 315 (150-375) k/mm3 MPV 9.0 (7.4-10.4) fl Immature Gran % (Auto) 0.2 (0-0.5) % Neut % (Auto) 64.0 (45.5-73.1) % Lymph % (Auto) 26.9 (18.3-44.2) % Kay % (Auto) 7.0 (2.6-8.5) % Eos % (Auto) 1.6 (0-4.4) % Baso % (Auto) 0.3 (0.2-1.2) % Lymph # (Auto) 2.55 (0.9-3.2) K/mm3 Kay # (Auto) 0.7 H (0.1-0.6) K/mm3 Eos # (Auto) 0.2 (0-0.3) K/mm3 Baso # (Auto) 0.0 (0.0-0.1) K/mm3 Abs Immat Gran (auto) 0.02 (0.00-0.031) K/mm3 Absolute Neuts (auto) 6.1 (1.3-6.7) K/mm3 Absolute Nucleated RBC 0.000 (0.0-0.012) K/mm3 Nucleated RBC % 0.0 (0.0-0.2) % ESR 80 H (0-20) mm/hr Sodium 137 (137-145) mmol/L Potassium 4.1 (3.4-5.0) mmol/L Chloride 100 (98-107) mmol/L Carbon Dioxide 33 H (22-30) mmol/L Anion Gap 4 (4-12) mmol/L BUN 14 (7-17) mg/dL Creatinine 0.82 (0.7-1.0) mg/dL Estim Creat Clear Calc 75 ml/min Estimated GFR > 60 (59 - ) Glucose 108 (65-110) mg/dL Uric Acid 5.3 (2.5-7.5) mg/dL Calcium 8.9 (8.4-10.2) mg/dL C-Reactive Protein 1.1 (<1.0) mg/dL Imaging Data Radiologist's impression: ITS Impressions Hand X-Ray 01/12/25 13:48 IMPRESSION: 1. Osteopenic bones. Degenerative changes as described above. 2. Significant soft tissue swelling on the dorsal aspect of the hand. Venous Doppler Study 01/12/25 15:46 IMPRESSION: 1. No DVT involving major veins of the right upper extremity. Critical Care Time Critical Care Time Critical Care Time: No Discharge Plan Discharge Clinical Impression: Edema of right upper extremity Osteoarthritis Qualifiers: Osteoarthritis location: hand Osteoarthritis type: unspecified Laterality: right Qualified Code(s): M19.041 - Primary osteoarthritis, right hand Patient Disposition: MD Prison/Asst Living Condition: Stable Instructions: Edema (ED), Arthritis (ED) Additional Instructions: Return to the emergency department if you experience fever, chest pain, shortness of breath, redness and swelling of your arm, weakness, numbness,, or any other symptoms that are concerning to you. Your blood work is reassuring. No DVT in your arm. Follow up with primary care doctor Patient Language: Samoan Prescriptions: No Action aspirin [Aspir-81] 81 mg tablet,delayed release (DR/EC) 81 mg PO DAILY multivitamin Capsule 1 cap PO DAILY albuterol sulfate 90 mcg/actuation HFA aerosol inhaler 2 puff INHALATION Q4H PRN (Reason: shortness of breath or wheezing) hydroxyzine HCl 10 mg tablet 10 mg PO Q8H PRN (Reason: itching) pentoxifylline 400 mg tablet extended release 400 mg PO Q12H tramadol 50 mg tablet 50 mg PO TID aripiprazole 2 mg tablet 2 mg PO DAILY aripiprazole [Abilify] 5 mg tablet 5 mg PO DAILY Patient Comments: take with 2mg dose to make 7mg daily folic acid 20 mg capsule 20 mg PO DAILY ferrous sulfate [Feosol] 325 mg (65 mg iron) tablet 325 mg PO DAILY cyanocobalamin (vitamin B-12) [B-12 DOTS] 500 mcg tablet 500 mcg PO DAILY cholecalciferol (vitamin D3) 25 mcg (1,000 unit) capsule 25 mcg PO DAILY fluticasone furoate-vilanterol [Breo Ellipta] 100-25 mcg/dose blister with device 1 inh inhalation DAILY linezolid 600 mg Tablet 600 mg PO Q12HR Qty: 10 0RF furosemide 40 mg Tablet 40 mg PO DAILY metformin 500 mg tablet 500 mg PO BID acetaminophen [Tylenol] 325 mg Tablet 650 mg PO Q4H PRN (Reason: Mild Pain (Scale Score 1-4)) atorvastatin 10 mg tablet 20 mg PO DAILY olanzapine 5 mg tablet 5 mg PO QPM spironolactone 25 mg tablet 25 mg PO DAILY levothyroxine 88 mcg Tablet 88 mcg PO DAILY potassium chloride 20 mEq tablet,ER particles/crystals 20 meq PO DAILY ascorbic acid (vitamin C) 250 mg Tablet 500 mg PO DAILY Eliquis 5 mg Tablet 5 mg PO BID docusate sodium [Colace] 100 mg Capsule 100 mg PO BID carvedilol 3.125 mg tablet 3.125 mg PO BID trazodone 100 mg tablet 100 mg PO HS Milk of Magnesia (antacid) 30 ml PO Q12-24H PRN (Reason: Constipation) aripiprazole [Abilify] 5 mg Tablet 5 mg PO DAILY 30 Days Qty: 30 0RF bisacodyl 5 mg Tablet 5 mg PO HS Follow-up/Referrals: PHYSICIAN,CLIENT SERVICE CONSULTANT [Primary Care Provider, Internal Medicine] Stand Alone Forms: Penitentiary Discharge
--- OUTSIDE RECORDS SUMMARY | 2025-01-12 15:45 | XMS_ITS | Clinical Summary ---
Author Organization [facility] Address [address] [place] [address] Care Team Providers Care Small Parts Assembler Name Role Phone Maurice Vail MD Primary Care Provider [phone] Allergies Active Allergy Reactions Criticality Noted Date Comments Latex Itching Low 10/19/2020 Medications divalproex sodium (DIVALPROEX ORAL) Take 750 mg by mouth as directed Take (1) 500mg tab and (1) 250mg DR tab every night at bedtime Active SANTYL ointment 9 Active clopidogrel (PLAVIX) 75 mg tablet May hold Plavix for 5 days prior to surgery per Dr Bryant starting 10/15/20 Active apixaban (ELIQUIS) 5 mg tablet every 12 hours May hold eliquis 5 days prior to surgery starting on 11/15/[address] Bryant Active mupirocin (BACTROBAN) 2 % ointment mupirocin 2 % topical ointment Active docusate sodium (COLACE) 100 mg capsuleIndication s:constipation Take 100 mg by mouth 2 (two) times a day Active Lactobacillus acidophilus (ACIDOPHILUS) capsule Take by mouth Active acetaminophen (TYLENOL) 325 mg tablet Take 650 mg by mouth every 6 (six) hours as needed for pain Active ascorbic acid (VITAMIN C) 250 mg tablet Take 250 mg by mouth daily Active aspirin 81 mg enteric coated tablet Take 81 mg by mouth daily Active furosemide (LASIX) 40 mg tablet Take 40 mg by mouth daily Active levothyroxine (SYNTHROID) 88 mcg tablet Take 88 mcg by mouth sales and support center agent before breakfast Active metFORMIN (GLUCOPHAGE) 500 mg tablet Take 500 mg by mouth 2 (two) times a day with meals Active HYDROcodone-aceta minophen (NORCO) 10-325 mg per tabletIndications :Pain Take 1 tablet by mouth 4 (four) times a day Active polyethylene glycol (MIRALAX) 17 gram packetIndications :constipation Take 17 g by mouth nightly Active potassium chloride ER (potassium chloride ER) 20 mEq CR tablet Take 20 mEq by mouth daily Active spironolactone (ALDACTONE) 25 mg tablet Take 25 mg by mouth daily Active cholecalciferol, vitamin D3, 1,000 unit tablet,chewable Take 1,000 Units by mouth daily Active therapeutic multivitamin (THERA) tabletIndications :Vitamin Deficiency Prevention Take 1 tablet by mouth daily Active fentaNYL (DURAGESIC) 25 mcg/hr Place 1 patch on the skin every third day Active Active Problems Problem Noted Date Diagnosed Date Gangrene 03/08/2021 Open wound of right lower extremity 12/30/2020 Foot ulcer 11/11/2018 Uncontrolled type 2 diabetes mellitus 11/10/2018 Tobacco user 11/10/2018 Stasis dermatitis 11/10/2018 Peripheral vascular disease 11/10/2018 Osteoarthritis 11/10/2018 Edema 11/10/2018 Disorder of lipid metabolism 11/10/2018 Chronic back pain 11/10/2018 History of total hysterectomy 03/11/2017 Renal cell carcinoma 11/04/2013 Overview (05/31/2017): Description: s/p right partial nephrectomy 09/01/13--------RCC, clear cell type, (-) margins, T1 Deep vein thrombosis (DVT) of lower extremity Immunizations Immunization Administration Dates Next Due Influenza, Quadrivalent, Split, Intramuscular Influenza, Quadrivalent, Spl it, Preservative Free, Intramuscular 10/29/2017,11/07/2016 Influenza, Trivalent, IM (MDV) 03/16/2014 Pneumococcal Polysaccharide PPV23 11/07/2016 Tdap 03/11/2017 Surgical History Surgery Date Site/Laterality Comments NEPHRECTOMY 08/18/2013 - 09/17/2013 Right HYSTERECTOMY Medical History Medical History Date Comments Arthritis History of arthr itis - (Added by TW Conv) DVT, lower extremity (HCC) PVD (peripheral vascular disease) Renal cell carcinoma (HCC) Stasis dermatitis Foot ulcer (HCC) Type 2 diabetes mellitus Family History Medical History Relation Name Comments Liver cancer Father Family history of liver cancer - (Added by TW Conv) Throat cancer Father Throat cancer - (Added by TW Conv) Throat cancer Other 1 Throat cancer - (Added by TW Conv) Liver cancer Other 2 Family history of liver cancer - (Added by TW Conv) Relation Name Status Comments Father Other 1 Other 2 Social History Tobacco Use Types Packs/Day Years Used Date Smoking Tobacco: Every Day Cigarettes 1 35 Smokeless Tobacco: Never Tobacco Cessation:Counseling Given: Yes Alcohol Use Standard Drinks/Week Comments Not Currently 0 (1 standard drink = 0.6 oz pur e alcohol) AUDIT-C Answer Date Recorded Q1: How often do you have a drink containing alc ohol? Never 03/14/2021 Average Number of Drinks Not on file 022 Frequency of Binge Drinking Not on file 02/19 Comments No Sex and Gender Information Value Date Recorded Sex Assigned at Not on file Legal Sex Female 7:30 AM RESIDENTIAL SALES Gender Identity Not on file Sexual Orientation Not on file Last Filed Vital Signs Vital Sign Reading Time Taken Comments Blood Pressure 160/82 03/17/2021 12:10 PM RESIDENTIAL SALES Pulse 62 03/17/2021 12:10 PM RESIDENTIAL SALES Temperature 36.7 C (98.1 F) 03/17/2021 12:10 PM RESIDENTIAL SALES Respiratory Rate 20 03/17/2021 4:15 AM RESIDENTIAL SALES Oxygen Saturation 89% 03/17/2021 12:10 PM RESIDENTIAL SALES Inhaled Oxygen Concentration - - Weight 122 kg (268 lb 15.4 oz) 03/08/2021 10:02 PM RESIDENTIAL SALES Height 170.2 cm (5' 7) 03/08/2021 10:02 PM RESIDENTIAL SALES Body Mass Index 42.13 03/08/2021 10:02 PM RESIDENTIAL SALES Plan of Treatment Not on file Insurance [facility] PLAN [facility] MEDICARE MEDICARE [facility] MEDICARE [facility] Advance Directives For more information, please contact: [phone] Documents on File Type Date Recorded Patient Operational Review Sergeant Expl anation ADVANCE DIRECTIVE 01/09/2021 12:[address] - Phys Order for PT Preferences ADVANCE DIRECTIVE 06/29/2020 12:00 AM DNR * Full Code (Latest Code Status on File) Date Activated Date Inactivated Comments 03/14/2021 1:24 PM 03/17/2021 8:06 PM * Full Code Date Activated Date Inactivated Comments 01/04/2021 2:22 PM 01/06/2021 8:50 PM Care Teams Small Parts Assembler Relationship Specialty Start Date End Date Maurice Vail MD PCP - General Internal Medicine 04/07/20
--- OUTSIDE RECORDS SUMMARY | 2025-01-12 15:45 | XMS_ITS ---
Author Organization [facility] [place] Address [address] [place] [address] Care Team Providers Care Covering And Lining Supervisor Name Role Phone Maurice Vail MD Primary Care Provider [phone] Active Problems Problem Noted Date Diagnosed Date [...] Deep vein thrombosis (DVT) of lower extremity Current Treatment and Therapy Plans No current plan information found. Past Treatment and Therapy Plans No past plan information found. Lifetime Dose Tracking * Chemical Lifetime Dose Automatic Entry Manual Entr y Fluoro Time 22.9 minutes 0 minutes 22.9 minutes Air kerma at the reference point (Ka,r) 3,431 mGy 0 mGy 3,431 mGy DAP 837.2 Gy-cm2 0 Gy-cm2 837.2 Gy-cm2
[2025-01-12 15:50] LABS: Hematocrit 40.9 % (37.0-47.0); Hemoglobin 12.8 g/dL (12.0-15.0); Immature Granulocyte Percent A 0.2 % (0-0.5); Lymphocytes Absolute Auto 2.55 K/mm3 (0.9-3.2); Mean Corpuscular HGB Conc 31.3 g/dl (32-36); Mean Corpuscular Hemoglobin 28.9 pg (26-34); Mean Corpuscular Volume 92.3 fl (80-100); Nucleated Red Blood Cells Absolute Auto 0.000 K/mm3 (0.0-0.012); Nucleated Red Blood Cells Perc 0.0 % (0.0-0.2); Platelet Count Result 315 k/mm3 (150-375); Red Blood Count 4.43 M/mm3 (4.2-5.4); White Blood Count 9.5 K/mm3 (4.5-10.0)
[2025-01-12 16:03] LABS: Anion Gap 4 mmol/L (4-12); Blood Urea Nitrogen 14 mg/dL (7-17); CRP 1.1 mg/dL (<1.0); Calcium 8.9 mg/dL (8.4-10.2); Carbon Dioxide 33 mmol/L (22-30); Chloride 100 mmol/L (98-107); Estimated CRCL calculation 75 ml/min; Estimated Glomerular Filt Rate > 60; Glucose 108 mg/dL (65-110); Potassium 4.1 mmol/L (3.4-5.0); Sodium 137 mmol/L (137-145); Uric Acid 5.3 mg/dL (2.5-7.5)
[2025-01-12 16:06] VITALS: BP 147/84; PULSE 70; RESP 16; O2SAT 97
--- NOTE | 2025-01-12 16:42 | PC.NURSE ---
Pt. asked to be repositioned. Pt. depend saturated with urine. Dirty depend removed. Anna care performed with soap and water. Pt. is a complete assist requiring 2x nurses. Mepilex applied to wound on L. inner thigh. Clean depend applied. Pt. brought a fresh warm blanket. Pt. turned to L. side, per pt. request. Mepilex applied to pressure wound on L. ankle. Clean socks applied. Pt. verbalized appreciation.
== END 2025-01-12 17:37 ==
PROVIDERS: Emergency Provider Physician Assistant
DX: R60.9 Edema, unspecified (principal); M19.041 Primary osteoarthritis, right hand; F31.9 Bipolar disorder, unspecified; Z85.528 Personal history of other malignant neoplasm of kidney; Z79.01 Long term (current) use of anticoagulants; E11.40 Type 2 diabetes mellitus with diabetic neuropathy, unspecified; Z79.84 Long term (current) use of oral hypoglycemic drugs; Z86.718 Personal history of other venous thrombosis and embolism; K21.9 Gastro-esophageal reflux disease without esophagitis; E78.5 Hyperlipidemia, unspecified; E03.9 Hypothyroidism, unspecified; Z87.442 Personal history of urinary calculi
CPT/HCPCS: 36415; 73130; 80048; 84550; 85025; 85652; 86140; 93971; 99284